=== PATIENT | male | born 1950 | race Caucasian/White ===

== ENCOUNTER → 2018-01-26 08:44 | Outpatient (CLI) | payer MEDICARE, OTHER, SELFPAY ==
[2018-01-26 09:32] LABS: Hemoglobin A1C% w Est Avg Glu 5.7 % (4.0-6.0)
[2018-01-26 10:25] LABS: Blood Urea Nitrogen 25 mg/dL (9-20); Calcium 9.3 mg/dL (8.4-10.2); Carbon Dioxide 31 mmol/L (22-32); Chloride 102 mmol/L (98-107); Estimated Glomerular Filt Rate > 60.0 mL/min (>60); Glucose 87 mg/dL (80-110); HEMOLYSIS < 15 (0-50); Potassium 4.8 mmol/L (3.4-5.1); Sodium 142 mmol/L (137-145)
== END ==
PROVIDERS: PCP Internal Medicine; Visit Provider Internal Medicine
DX: E10.9 Type 1 diabetes mellitus without complications (principal); I10 Essential (primary) hypertension; N40.0 Benign prostatic hyperplasia without lower urinary tract symptoms
CPT/HCPCS: 36415; 80048; 83036; 84153

== ENCOUNTER 2018-06-09 18:36 | Emergency (ER) | payer MEDICARE, OTHER, SELFPAY ==
[2018-06-09 18:43] VITALS: BP 177/77; PULSE 74; RESP 16; TEMP 36.2; O2SAT 100; BMI 25.4
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
[2018-06-09 19:56] VITALS: BP 167/73; PULSE 72; RESP 18; TEMP 36.6; O2SAT 99
== END 2018-06-09 19:57 | disposition home or self-care (01) ==
PROVIDERS: Emergency Provider Internal Medicine; PCP Internal Medicine
DX: S00.83XA Contusion of other part of head, initial encounter (principal); W22.8XXA Striking against or struck by other objects, initial encounter
CPT/HCPCS: 99283

== ENCOUNTER 2018-07-01 09:35 | Emergency (ER) | payer MEDICARE, OTHER, SELFPAY ==
[2018-07-01 09:52] VITALS: BP 134/91; PULSE 79; RESP 16; TEMP 37; O2SAT 97; BMI 25.8
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
[2018-07-01 11:56] VITALS: BP 149/77; PULSE 70; RESP 20; O2SAT 97
== END 2018-07-01 11:57 | disposition home or self-care (01) ==
PROVIDERS: Emergency Provider Emergency Medicine; PCP Internal Medicine
DX: J11.1 Influenza due to unidentified influenza virus with other respiratory manifestations (principal); M25.522 Pain in left elbow
CPT/HCPCS: 73502; 99282; 99283

== ENCOUNTER → 2018-08-01 14:35 | Outpatient (CLI) | payer MEDICARE, OTHER, SELFPAY ==
[2018-08-01 15:17] LABS: Hemoglobin A1C% w Est Avg Glu 5.8 % (4.0-6.0)
[2018-08-01 15:47] LABS: Blood Urea Nitrogen 25 mg/dL (9-20); Calcium 8.9 mg/dL (8.4-10.2); Carbon Dioxide 28 mmol/L (22-32); Chloride 102 mmol/L (98-107); Cholesterol 117 mg/dL (140-199); Estimated Glomerular Filt Rate > 60.0 mL/min (>60); Glucose 159 mg/dL (80-110); HDL Cholesterol 38 mg/dL (40-60); HEMOLYSIS < 15 (0-50); LDL Cholesterol Calculated 59 mg/dL (<100); Potassium 5.3 mmol/L (3.4-5.1); Sodium 139 mmol/L (137-145); Triglycerides 99 mg/dL (35-150)
== END ==
PROVIDERS: PCP Internal Medicine; Visit Provider Internal Medicine
DX: E10.9 Type 1 diabetes mellitus without complications (principal); I10 Essential (primary) hypertension
CPT/HCPCS: 36415; 80048; 80061; 83036

== ENCOUNTER 2018-09-03 13:45 | Outpatient (RCR) | payer MEDICARE, OTHER, SELFPAY ==
--- NOTE | 2018-08-16 16:35 | PT.OPPOC ---
Current Diagnoses Pain in left hip (08/16/18) Provider Visit Care Team Role Provider Type Mickey Brito MD Primary Care Provider Physician Specialty: Internal Medicine Address: [address] [place] [address], [id number] Email: Charley Acosta MD Attending Provider Physician Specialty: Internal Medicine Address: [address] [place] [address], [id number] Email: Plan Of Care PT-OP-T Assessment and Plan Start: 08/10/18 18:17 Freq: Status: Active Protocol: Document 08/16/18 09:10 LRN (Rec: 08/16/18 17:51 LRN [id number]) Physical Therapy Assessment Rehab Potential Rehabilitation Potential Good Evaluation Complexity Number of Personal Factors/Comorbidities 3 or More Number of Body Systems Impaired 3 Clinical Presentation at Evaluation Stable Impairments Impairments Activity Tolerance Functional Activities Pain ROM Soft Tissue Mobility Other Concerns Fall Risk As it pertains to being legally blind Age Related Concerns Effect on work and family Barriers to Rehabilitation Diabetes Legally Blind Arthritis with back and neck pain Goals Four Impairment 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 Pt will be able to get in/out of a bathtub without pain. LTG Duration 10/12/18 Three Impairment Constant L hip pain rated 4/10 , greater than baseline pain of 1/10 Manager Radio Goal (LTG) Return the pt to his baseline level of pain of 1/10 and no palpable pain at the L hip. LTG Duration 10/12/18 Two Impairment Decreased L hip mobility due to pain limiting function. Short Term Goal (STG) Pt will be educated in L hip home ex's to improve mobility STG Duration 08/24/18 Manager Radio Goal (LTG) Pt will be able to bend over to feed his dog and clean up after the dog stools without pain. LTG Duration 10/12/18 One Impairment Lacks appropriate HEP Penitentiary Goal (LTG) Pt will be independent with a self care HEP. LTG Duration 10/12/18 Assessment Summary Assessment Pt presents with a soft tissue dysfunction of the L hip, possible bursitis. He has limited mobility of the hip that limits him functionally due to L hip pain, and has decreased hip strength due to pain. 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 The pt will benefit from skilled physical therapy to eliminate palpable L hip pain, improve L hip mobility and return the pt to his baseline function of general pain no greater than 1/10. Physical Therapy Plan Frequency and Duration Frequency of Treatment 2x/Week Plan of Care Start Date 08/16/18 Plan of Care End Date 10/12/18 Therapeutic Interventions Therapeutic Interventions Balance Training Home Exercise Program Joint Mobilizations Manual Therapy Neuromuscular Re-education Patient/Caregiver Education Self-Care/Home Management Soft Tissue Mobilization Taping Therapeutic Exercises Modalities Cold Pack/Ice Massage Electric Stimulation Iontophoresis Ultrasound Other Therapeutic Interventions Iontophoresis: 4 mg/mL Dexamethasone with Sodium Phosphate. Next Visit Focus/Plan Next Note Type Treatment Note Next Visit Plan L hip: Ultrasound, Stretch, gentle strengthening, Iontophoresis or ice. HEP: Gentle stretches, ice. Plan of Care Dates Plan of Care Start Date 08/16/18 Plan of Care End Date 10/12/18 Please Sign and Return: I have reviewed this Plan of Care and certify that the skilled therapy services above are required to meet the patient?s needs. Physician Signature Date Printed Name and Credentials Clinical Instructor Signature Printed Name and Credentials
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
== END 2018-09-03 14:19 ==
LOC: PHYS 13:45
PROVIDERS: PCP Internal Medicine; Visit Provider Internal Medicine
DX: M25.552 Pain in left hip (principal)
CPT/HCPCS: 97035; 97110; 97140; 97161; 97535

== ENCOUNTER → 2019-03-28 06:39 | Outpatient (CLI) | payer MEDICARE, OTHER, SELFPAY ==
--- NOTE | 2019-03-28 | DI.ECHO.S_ITS ---
[facility] +---------+ [facility] +---------+ : : [address] : : : : [id number] : : : : Phone: [phone]---------+ Echocardiogram Report + + :Name: MARCELLA HAMILTON Study Date: 03/28/2019 Height: 67 in : :[facility] Weight: 160 lb : : Gender: Male BSA: 1.8 m2 : :: 1950 Age: 68 yrs BP: 138/60 mmHg: :Reason For Study: SOB : : Performed By: Adan Mendez : :Referring: LEAH WEISS : + + Interpretation Summary Left ventricular wall thickness is mildly increased. The ejection fraction is estimated to be 65-70%. The mitral valve leaflets are mildly calcified. There is systolic anterior motion of the chordal apparatus. Redundant elongated chordae are noted. Procedure: A two-dimensional transthoracic echocardiogram with color flow and Doppler was performed. The study quality was technically adequate. The patient was in normal sinus rhythm during the exam. Left Ventricle: The left ventricle is normal in size. Left ventricular wall thickness is mildly increased. The ejection fraction is estimated to be 65- 70%. There are no focal wall motion abnormalities. Right Ventricle: The right ventricle is normal in size and function. Atria: Both atria are normal in size. The interatrial septum is intact with no evidence for an atrial septal defect. Mitral Valve: The mitral valve leaflets are mildly calcified. There is systolic anterior motion of the chordal apparatus. Redundant elongated chordae are noted. There is trace mitral regurgitation. Aortic Valve: The aortic valve is trileaflet. The aortic valve opens well. There is trace aortic regurgitation. Tricuspid Valve: The tricuspid valve is normal in structure and function. There is trace tricuspid regurgitation. Pulmonary artery pressures cannot be estimated because of the lack of a measurable TR jet velocity. Pulmonic Valve: The pulmonic valve is not well visualized. There is trace pulmonic regurgitation. Great Vessels: The aortic root is normal size. The dimensions of the ascending aorta are normal. The pulmonary artery is normal size. The IVC is of normal diameter and collapses greater than 50% with a sniff. This suggests a low right atrial pressure of 3 mm Hg. Pericardium/ Pleura There is no pericardial effusion. There is no pleural effusion. MMode/2D Measurements & Calculations LVIDd: 4.1 cm LVOT diam: 2.0 cm LVIDs: 2.1 cm Ao root diam: 2.9 cm FS: 48.3 % Aortic Jxn: 2.3 cm EPSS: 0.64 cm asc Aorta Diam: 3.3 cm IVSd: 0.65 cm Ao Arch Diam (Prox Trans): 2.4 cm LVPWd: 0.86 cm LV arroyo. diameter/BSA (cm/m^2): 2.2 LV sys. diameter/BSA (cm/m^2): 1.1 LA dimension: 3.2 cm RA long axis: 4.3 cm LA A2 area: 17.2 cm2 RA area: 12.7 cm2 LA A4 area: 16.2 cm2 RA vol: 32.0 ml LA length (vol): 5.9 cm RA : 17.4 ml/m2 LA vol: 40.2 ml IVC diam: 1.4 cm LA vol index: 21.9 ml/m2 Doppler Measurements & Calculations Ao V2 max: 139.8 cm/sec LVOT Max Karl: 124.1 cm/sec Ao V2 mean: 116.8 cm/sec LV V1 max P.2 mmHg Ao max P.8 mmHg LV V1 VTI: 30.4 cm Ao mean P.6 mmHg ROHIT(I,D): 2.6 cm2 Ao V2 VTI: 36.3 cm ROHIT(V,D): 2.8 cm2 sev ratio: 0.84 ROHIT indexed to BSA (cm^2/m^2): 1.4 MV E max karl: 98.8 cm/sec PA V2 max: 112.1 cm/sec MV A max karl: 107.4 cm/sec PA V2 mean: 83.4 cm/sec MV E/A: 0.92 PA mean P.0 mmHg Med Peak E' Karl: 6.3 cm/sec PA pr(Accel): 41.6 mmHg E/E' med: 15.7 PA Accel Time: 0.08 sec Lat Peak E' Karl: 9.0 cm/sec E/E' lat: 11.0 E/e' average: 13.3 MV dec time: 0.23 sec SV(LVOT): 94.4 ml Reading Physician:04:32 PM
== END ==
PROVIDERS: PCP Internal Medicine; Visit Provider Student in an Organized Health Care Education/Training Program
DX: R06.02 Shortness of breath (principal)
CPT/HCPCS: 93306

== ENCOUNTER → 2019-05-20 15:25 | Outpatient (CLI) | payer MEDICARE, OTHER, SELFPAY ==
[2019-05-23 13:02] LABS: Mitogen-NIL > 10.00 IU/mL; NIL 0.01 IU/mL; QuantiFERON TB NEGATIVE (Negative); TB1-NIL < 0.01 IU/mL; TB2-NIL < 0.01 IU/mL
== END ==
PROVIDERS: PCP Internal Medicine; Visit Provider Internal Medicine
DX: H54.7 Unspecified visual loss (principal)
CPT/HCPCS: 36415; 86480

== ENCOUNTER 2019-06-11 17:46 | Emergency (ER) | payer MEDICARE, OTHER, SELFPAY ==
[2019-06-11 17:56] VITALS: BP 139/71; PULSE 83; RESP 16; TEMP 37.1; O2SAT 97; BMI 25.0
--- NOTE | 2019-06-11 18:07 | DI.RAD.S_ITS ---
PROCEDURE: XR CHEST 1V INDICATIONS: Eval for PNA TECHNIQUE: One view of the chest was acquired. COMPARISON: [facility], , CHEST 1 VIEW, 09/06/2015, 8:07. [facility], , CHEST 2 VIEW, 08/05/2008, 8:00. FINDINGS: Surgical changes and devices: A radiopaque electronic device projects over the right upper quadrant of the abdomen, likely external to patient. Lungs and pleura: No pneumothorax or pleural effusion. There are increased right basilar and bilateral perihilar pulmonary opacities. Mediastinum: Mediastinal contours appear normal. Heart size is normal. 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 IMPRESSION: 1. Increased right basilar pulmonary opacities may represent pneumonia, aspiration, or atelectasis in the appropriate clinical setting. Consider followup chest radiographs to resolution of this finding. 2. Bilateral perihilar pulmonary opacities most consistent with bilateral perihilar atelectasis and prominent pulmonary vasculature, although findings of viral respiratory tract infections could appear similar. Dictated by: Fly Rider M.D. on 06/11/2019 at 18:48 Approved by: Fly Rider M.D. on 06/11/2019 at 18:52
[2019-06-11 18:38] LABS: Influenza A - CEPHEID Flu A NEGATIVE (NEGATIVE); Influenza B - CEPHEID Flu B NEGATIVE (NEGATIVE)
--- NOTE | 2019-06-11 19:06 | ED_ITS ---
HPI - URI/Sore Throat General Chief Complaint: Upper Respiratory Symptoms Stated Complaint: cough for several days, not sleeping Time Seen by Provider: 06/11/19 18:06 Source: patient Mode of arrival: Ambulatory Limitations: no limitations History of Present Illness HPI Narrative: 69-year-old male here for evaluation of several days of fever, cough and congestion, shortness of breath when he walks, sore throat. His an insulin-dependent diabetic. Has not tried anything for symptoms prior to arrival Related Data Home Medications Medication Instructions Recorded Confirmed insulin lispro [Humalog U-100 0 unit SQ 0200 #0 11/21/10 Insulin] simvastatin 20 mg PO QDAY #0 11/21/10 TIMOLOL MALEATE 1 drp OPHTH QDAY #2.5 ml 12/21/12 losartan 100 mg PO QDAY #0 12/21/12 Previous Rx's Medication Instructions Recorded azithromycin 250 mg PO DAILY 3 Days #3 tab 06/11/19 azithromycin 250 mg PO DAILY 4 Days #4 tab 06/11/19 Allergies Allergy/AdvReac Type Severity Reaction Status Date / Time codeine [CODEINE] Allergy Mild Verified 06/11/19 17:56 prochlorperazine Allergy Mild Verified 06/11/19 17:56 [PROCHLORPERAZINE] Review of Systems Constitutional Constitutional: Reports fatigue and Reports fever(s) ENT Ears, Nose, Mouth, and Throat: Reports nasal congestion and Reports sore throat Cardiovascular Cardiovascular: Denies chest pain, Reports dyspnea and Reports dyspnea on exertion Respiratory Respiratory: Reports dyspnea and Reports dyspnea on exertion Gastrointestinal Gastrointestinal: Denies abdominal pain and Denies vomiting Musculoskeletal Musculoskeletal: Denies myalgias and Denies arthralgias Integumentary/Breasts Skin/Breast: Denies rash Neurologic Neurologic: Denies behavioral changes Psychiatric Psychiatric: Denies behavioral changes Endocrine Endocrine: Reports fatigue Hematologic/Lymphatic Hematologic/Lymphatic: Denies easy bleeding and Denies easy bruising Allergic/Immunologic Allergic/Immunologic: Denies urticaria Patient History Medical History HTN (hypertension) (Chronic) Hyperlipidemia (Chronic) Insulin dependent diabetes mellitus (Chronic) Legally blind (Acute) Social History Smoking Status: Never smoker Smoking Status: Never smoker Substance Use Type: does not use Exam Initial Vital Signs Initial Vital Signs: Vital Signs Temperature 98.8 F 06/11/19 17:56 Pulse Rate 83 06/11/19 17:56 Respiratory Rate 16 06/11/19 17:56 Blood Pressure 139/71 06/11/19 17:56 Pulse Oximetry 97 06/11/19 17:56 Course Orders Ordered: ED Orders 06/11/19 18:00 Influenza A & B (PCR) Stat 06/11/19 18:07 XR chest 1V Stat Discontinued Medications Azithromycin (Zithromax) 500 mg PO NOW ONE Stop: 06/11/19 19:07 Last Admin: 06/11/19 19:19 Dose: 500 mg Documented by: VIJAYA Azithromycin (Zithromax) 250 mg PO NOW ONE Stop: 06/11/19 19:29 Last Admin: 06/11/19 19:37 Dose: 250 mg Documented by: ALINA Vital Signs Vital signs: Vital Signs - 8 hr 06/11/19 17:56 Temperature 98.8 F Pulse Rate 83 Respiratory Rate 16 Blood Pressure 139/71 Pulse Oximetry 97 MDM - URI/Sore Throat Lab Data Attestation: I reviewed the patient's lab results. Labs: Lab Results 06/11/19 Range/Units 18:00 Influenza A (RT-PCR) Flu a negative (NEGATIVE) Influenza B (RT-PCR) Flu b negative (NEGATIVE) Point of Care Testing Rapid Strep A Negative Imaging Data Chest x-ray: Radiologist's Impression: [address] [address] XRay Report Signed Patient: Saul Mcmillan [facility], [place]#: [id number] : 1950Acct:[id number] Age/Sex: 69 / MDate of Service: 06/11/19 Loc: ED Accession Number: [id number] Procedure: XR chest 1V Ordering Provider: Ronald Mena D.O. PROCEDURE: XR CHEST 1V INDICATIONS: Eval for PNA TECHNIQUE: One view of the chest was acquired. COMPARISON: [facility], CHEST 1 VIEW, 09/06/2015, 8:07. [facility], CHEST 2 VIEW, 08/05/2008, 8:00. FINDINGS: Surgical changes and devices: A radiopaque electronic device projects over the right upper quadrant of the abdomen, likely external to patient. Lungs and pleura: No pneumothorax or pleural effusion. There are increased right basilar and bilateral perihilar pulmonary opacities. Mediastinum: Mediastinal contours appear normal. Heart size is normal. Bones and chest wall: Chronic yadp-wzyfwiaja-[id number] deformity of the mid- diaphysis of the left clavicle, unchanged from prior comparison exams. IMPRESSION: 1. Increased right basilar pulmonary opacities may represent pneumonia, aspiration, or atelectasis in the appropriate clinical setting. Consider followup chest radiographs to resolution of this finding. 2. Bilateral perihilar pulmonary opacities most consistent with bilateral perihilar atelectasis and prominent pulmonary vasculature, although findings of viral respiratory tract infections could appear similar. Dictated by: Fly Rider M.D. on 06/11/2019 at 18:48 Approved by: Fly Rider M.D. on 06/11/2019 at 18:52 [facility] Narrative Medical decision making narrative: Not in any respiratory distress. Not hypoxic. History and physical exam and chest x-ray is concerning for pneumonia. Was given a dose of antibiotics here in the ER. Was given a 2nd dose for tomorrow since the pharmacies will be close secondary to holiday. He was given a prescription for the remainder. Patient was given return precautions and follow-up instructions. He expressed understanding and agreement with plan. Discharge Plan Departure Patient Disposition: Home Clinical Impression: Pneumonia Qualifiers: Pneumonia type: due to unspecified organism Laterality: right Lung location: lower lobe of lung Qualified Code(s): J18.9 - Pneumonia, unspecified organism Discharge Date/Time: 06/11/19 19:40 Instructions: Pneumonia-Adult Activity Restrictions/Additional Instructions: Take the medications as directed. Contact your primary care provider for a follow up. Return to the ER for any new or worsening symptoms. Prescriptions: New azithromycin 250 mg tablet 250 mg PO DAILY 4 Days Qty: 4 RF: 0 azithromycin 250 mg tablet 250 mg PO DAILY 3 Days Qty: 3 RF: 0 No Action simvastatin 10 MG tablet 20 mg PO QDAY Qty: 0 RF: 0 insulin lispro [Humalog U-100 Insulin] 100 UNIT/1 ML solution 0 unit SQ 0200 Qty: 0 RF: 0 losartan 100 MG tablet 100 mg PO QDAY Qty: 0 RF: 0 TIMOLOL MALEATE 1 drp OPHTH QDAY Qty: 2.5 RF: 0 Referrals: Mickey Brito MD [Primary Care Provider] -
[2019-06-11] MEDS: AZITHROMYCIN 250 MG TABLET 500 MG PO (19:19)
[2019-06-11] MEDS: AZITHROMYCIN 250 MG TABLET PO (19:37)
== END 2019-06-11 19:40 | disposition home or self-care (01) ==
PROVIDERS: Emergency Medicine; Emergency Provider Emergency Medicine; PCP Internal Medicine
DX: J18.9 Pneumonia, unspecified organism (principal)
CPT/HCPCS: 71045; 87502; 87880; 99282; 99284

== ENCOUNTER → 2020-01-02 14:36 | Outpatient (ROUT) | payer MEDICARE, OTHER, SELFPAY ==
[2020-01-02 15:26] LABS: Add Manual Diff / Slide Review NO; Basophils Absolute Auto 100 /uL (0-100); Eosinophils Absolute Auto 300 /uL (0-450); Eosinophils Percent Auto 4.1 % (2-4); Hemoglobin 14.7 g/dL (13.5-17.5); Lymphocytes Absolute Auto 1600 /uL (1100-4500); Lymphocytes Percent Auto 25.2 % (25-40); Mean Corpuscular HGB Conc 35.1 % (30-36); Mean Corpuscular Hemoglobin 33.6 PG (26-34); Mean Corpuscular Volume 95.6 fL (80-100); Monocytes Absolute Auto 700 /uL (0-900); Monocytes Percent Auto 11.9 % (3-14); Neutrophils Absolute Auto 3600 /uL (1500-7000); Neutrophils Percent Auto 57.8 % (50-75); Platelet Count 218 X10^3/uL (150-400); Red Blood Cell Count 4.39 X10^6/uL (4.5-5.9); Red Cell Distribution Width 12.2 % (11.6-14.8); White Blood Cell Count 6.3 X10^3/uL (4.5-11.0)
[2020-01-02 15:31] LABS: Aspartate Aminotransferase 33 IU/L (17-59); Cholesterol 127 mg/dL (140-199); HDL Cholesterol 35 mg/dL (40-60); LDL Cholesterol Calculated 63 mg/dL (<100); Triglycerides 145 mg/dL (35-150)
[2020-01-02 15:41] LABS: NT-proBNP (BNP-Adult 18+) 289 pg/mL (<125)
[2020-01-02 17:03] LABS: Hemoglobin A1C% w Est Avg Glu 6.5 % (4.0-6.0)
[2020-01-02 21:20] LABS: BUN Creatinine Ratio 32.1 (6-22); Blood Urea Nitrogen 42 mg/dL (9-20); Calcium 9.3 mg/dL (8.4-10.2); Carbon Dioxide 27 mmol/L (22-32); Chloride 101 mmol/L (98-107); Estimated Glomerular Filt Rate 54.3 mL/min (>60); Glucose 173 mg/dL (80-110); HEMOLYSIS < 15 (0-50); Potassium 5.8 mmol/L (3.4-5.1); Sodium 135 mmol/L (137-145)
== END ==
PROVIDERS: PCP Internal Medicine; Visit Provider Internal Medicine
DX: I10 Essential (primary) hypertension (principal); E78.2 Mixed hyperlipidemia; E10.319 Type 1 diabetes mellitus with unspecified diabetic retinopathy without macular edema
CPT/HCPCS: 80048; 80061; 83036; 83880; 84450; 85025

== ENCOUNTER → 2020-01-06 13:14 | Outpatient (CLI) | payer MEDICARE, OTHER, SELFPAY ==
[2020-01-06 14:12] LABS: BUN Creatinine Ratio 33.6 (6-22); Blood Urea Nitrogen 42 mg/dL (9-20); Calcium 9.1 mg/dL (8.4-10.2); Carbon Dioxide 27 mmol/L (22-32); Chloride 102 mmol/L (98-107); Estimated Glomerular Filt Rate 57.3 mL/min (>60); Glucose 219 mg/dL (80-110); HEMOLYSIS 22 (0-50); Sodium 134 mmol/L (137-145)
[2020-01-06 14:15] LABS: Potassium 5.5 mmol/L (3.4-5.1)
== END ==
PROVIDERS: PCP Internal Medicine; Referring Provider Internal Medicine; Visit Provider Internal Medicine
DX: E87.5 Hyperkalemia (principal)
CPT/HCPCS: 36415; 80048

== ENCOUNTER → 2020-01-15 08:53 | Outpatient (CLI) | payer MEDICARE, OTHER, SELFPAY ==
[2020-01-15 10:07] LABS: BUN Creatinine Ratio 25.5 (6-22); Blood Urea Nitrogen 28 mg/dL (9-20); Calcium 9.3 mg/dL (8.4-10.2); Carbon Dioxide 28 mmol/L (22-32); Chloride 104 mmol/L (98-107); Estimated Glomerular Filt Rate > 60.0 mL/min (>60); Glucose 134 mg/dL (80-110); HEMOLYSIS < 15 (0-50); Potassium 4.8 mmol/L (3.4-5.1); Sodium 137 mmol/L (137-145)
== END ==
PROVIDERS: PCP Internal Medicine; Referring Provider Internal Medicine; Visit Provider Internal Medicine
DX: E87.5 Hyperkalemia (principal)
CPT/HCPCS: 36415; 80048

== ENCOUNTER → 2020-06-27 10:07 | Outpatient (CLI) | payer MEDICARE, OTHER, SELFPAY ==
--- NOTE | 2020-06-27 | DI.MRI.S_ITS ---
PROCEDURE: MR KNEE RT WO CON INDICATIONS: Unspecified internal derangement of right knee TECHNIQUE: Noncontrast sagittal PD fast spin echo and T2 fast spin echo with fat saturation, sagittal 3-D FLASH with fat saturation; coronal T1 spin echo and PD fast spin echo with fat saturation, and axial PD fast spin echo with fat saturation through the knee. COMPARISON: None. FINDINGS: Image quality: Excellent. Menisci: The medial meniscus is normal morphology and internal signal. Focal oblique tear involving posterior horn of lateral meniscus is seen extending to inferior articulating surface. The meniscal root ligaments appear intact. Cruciate ligaments: The anterior and posterior cruciate ligaments appear intact. Medial structures: The medial collateral ligament appears intact. The posterior oblique ligament, semimembranosus tendon insertions, oblique popliteal ligament, and meniscocapsular junction appear intact. Visualized portions of the pes anserinus tendons appear normal. No abnormal bursal fluid. Lateral structures: The lateral collateral ligament, long and short heads of the biceps femoris tendon appear intact. The popliteus tendon appears normal; the popliteofibular ligament appears intact. The posterosuperior and anteroinferior popliteomeniscal fascicles appear intact. The arcuate and fabellofibular ligaments appear intact, on either side of the lateral inferior geniculate artery. Iliotibial band appears normal. Anterior structures: The quadriceps and patellar tendons appear intact. Patellar alignment is normal. No femoral trochlear dysplasia or ventral trochlear prominence. No edema in the infrapatellar fat pad. Bones and cartilage: No fracture or dislocation. Mild osteoarthritis and low-grade chondromalacia is seen in medial and lateral femoral tibial compartments. Osteoarthritic changes and moderate grade chondromalacia involving lateral facet of patella cartilage is seen with suggestion of adjacent subcentimeter osteochondral injuries involving lateral aspect of posterior patella. Moderate to high-grade chondromalacia is also seen involving lateral portion of trochlear cartilage with marrow edema seen in underlying anterior periphery of lateral femoral condyle and suggestion of a 4 millimeter osteochondral lesion. Joint space: There is small to moderate amount of joint fluid. No Davis's cyst. Normal appearing synovial plicae are incidentally noted. IMPRESSION: 1. 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 Moderate osteoarthritic changes involving patellofemoral compartment with moderate chondromalacia involving lateral facet of patella cartilage and adjacent small osteochondral injuries involving lateral aspect of posterior patella. Moderate to high-grade chondromalacia also seen involving lateral portion of trochlear cartilage with underlying 4 mm osteochondral lesion in anterior periphery of lateral femoral condyle and surrounding edema. No fracture or dislocation. Small to moderate amount of joint fluid. 2. Suggestion of focal oblique tear involving posterior horn of lateral meniscus extending to inferior articulating surface. No evidence of focal medial meniscal tear. 3. Cruciate ligaments are intact. Dictated by: Sajan Yip M.D. on 06/29/2020 at 9:14 Approved by: Sajan Yip M.D. on 06/29/2020 at 9:20
== END ==
PROVIDERS: PCP Internal Medicine; Referring Provider Orthopaedic Surgery Adult Reconstructive Orthopaedic Surgery; Visit Provider Orthopaedic Surgery Adult Reconstructive Orthopaedic Surgery
DX: M23.91 Unspecified internal derangement of right knee (principal); M17.11 Unilateral primary osteoarthritis, right knee; M22.41 Chondromalacia patellae, right knee
CPT/HCPCS: 73721

== ENCOUNTER → 2020-07-16 11:23 | Outpatient (CLI) | payer MEDICARE, OTHER, SELFPAY ==
[2020-07-16] MEDS: COVID-19 VACC #1, MRNA(MOD) 100 MCG/0.5 ML VIAL IM (11:31)
== END ==
PROVIDERS: PCP Internal Medicine; Visit Provider Internal Medicine
DX: Z23 Encounter for immunization (principal)
CPT/HCPCS: 0011A; 91301

== ENCOUNTER → 2020-08-13 10:39 | Outpatient (CLI) | payer MEDICARE, OTHER, SELFPAY ==
[2020-08-13] MEDS: COVID-19 VACC #2, MRNA(MOD) 100 MCG/0.5 ML VIAL IM (10:52)
== END ==
PROVIDERS: PCP Internal Medicine; Visit Provider Internal Medicine
DX: Z23 Encounter for immunization (principal)
CPT/HCPCS: 0012A; 91301

== ENCOUNTER → 2020-10-08 14:44 | Outpatient (ROUT) | payer MEDICARE, OTHER, SELFPAY ==
[2020-10-08 15:19] LABS: Aspartate Aminotransferase 35 IU/L (17-59); Blood Urea Nitrogen 23 mg/dL (9-20); Calcium 9.6 mg/dL (8.4-10.2); Carbon Dioxide 30 mmol/L (22-32); Chloride 102 mmol/L (98-107); Cholesterol 125 mg/dL (140-199); Estimated Glomerular Filt Rate > 60.0 mL/min (>60); Glucose 115 mg/dL (80-110); HDL Cholesterol 41 mg/dL (40-60); HEMOLYSIS 16 (0-50); LDL Cholesterol Calculated 70 mg/dL (<100); Potassium 4.7 mmol/L (3.4-5.1); Sodium 139 mmol/L (137-145); Triglycerides 72 mg/dL (35-150)
== END ==
PROVIDERS: PCP Internal Medicine; Visit Provider Internal Medicine
DX: E78.2 Mixed hyperlipidemia (principal); I10 Essential (primary) hypertension
CPT/HCPCS: 80048; 80061; 84450

== ENCOUNTER 2020-12-16 13:30 | Outpatient (RCR) | payer MEDICARE, OTHER, SELFPAY ==
--- NOTE | 2020-11-23 11:09 | PT.OIE ---
Current Diagnoses Benign prostatic hyperplasia with lower urinary tract symptoms (11/23/20) Pelvic and perineal pain (11/23/20) Past Medical History (Last Reviewed 06/11/19 @ 22:24 by Ronald Mena DO) HTN (hypertension) Hyperlipidemia Insulin dependent diabetes mellitus Legally blind Visit Care Team Role Provider Type Mickey Brito MD Family Provider Physician Primary Care Provider Specialty: Internal Medicine Address: [address] [place] [address], [address] Email: [email or web address] Brody Harris MD Attending Provider Non-Staff Referring Provider Specialty: Urology Address: [address] [place] [address], [address] Email: Physical Therapy Initial Evaluation PT-OP-A Visit Information Start: 11/23/20 07:48 Freq: Status: Active Protocol: Document 11/23/20 08:15 AMB (Rec: 11/23/20 10:58 AMB [email or web address]) Out-Patient Physical Therapy Visit Information Visit Information Visit Type Initial Evaluation Visit Start Time 08:15 Visit Stop Time 09:00 Total Visit Minutes 45 Visit Number 1 PT-OP-B Current Condition Start: 11/23/20 07:48 Freq: Status: Active Protocol: Document 11/23/20 08:27 AMB (Rec: 11/23/20 08:51 AMB [id number]) Current Condition History of Current Condition Onset Date years Current Complaints urinary frequency and difficulty voiding History of Current Condition 2x Urosling procedures helped for a while but still have difficulty voiding and urinary frequency. He has a long history of diabetes, and is legally blind. Morning time go to the bathroom twice. Needs to go to the bathroom 7x between 5-10 am at times but feels it is very variable. Treatment Goals Patient/Caregiver Goals Reduce urinary frequency, void with less waiting to void Prior Functional Status Baseline Function- ADL's Independent Baseline Function- Mobility Independent Current Functional Impairments (Reported) Functional Limitations- ADL's Difficulty starting the stream of urine, urinary frequency Personal Factors Other Personal Factors That May Effect Diabetes I Therapy/Recovery PT-OP-C Subjective Start: 11/23/20 07:48 Freq: Status: Active Protocol: Document 11/23/20 08:15 AMB (Rec: 11/23/20 10:58 AMB [email or web address]) Patient Questionnaires Pelvic Pain and Urgency/Frequency Patient Symptom Scale Pelvic Pain Score 16 PT-OP-I Pelvic Floor Start: 11/23/20 07:48 Freq: Status: Active Protocol: Document 11/23/20 08:15 AMB (Rec: 11/23/20 10:58 AMB [email or web address]) Pelvic Floor Assessment Urine Pelvic Floor Surgery Yes: 2 urolift surgeries SEMG (uV) Baseline 7.5 Quick Contraction 20 Recruitment Pattern Good Relaxation Poor/Slow Stability of Hold Good SEMG Stability of Rest Fair PT-OP-T Assessment and Plan Start: 11/23/20 07:48 Freq: Status: Active Protocol: Document 11/23/20 08:15 AMB (Rec: 11/23/20 10:58 AMB [email or web address]) Physical Therapy Assessment Rehab Potential Rehabilitation Potential Good Evaluation Complexity Number of Personal Factors/Comorbidities 1-2 Number of Body Systems Impaired 3 Clinical Presentation at Evaluation Stable Impairments Impairments Functional Activities,Tone Goals Two Impairment Pelvic floor relaxation Short Term Goal (STG) Saul will be independent with a HEP to decrease pelvic floor tension. STG Duration 4 weeks Senior Care Goal (LTG) Saul will utilize pelvic floor relaxation to void urine without pushing. LTG Duration 8 weeks One Impairment Urinary frequency Short Term Goal (STG) Saul will decrease his urinary frequency to waiting 3 hours between voids. STG Duration 4 weeks Assessment Summary Assessment Saul attends physical therapy with urinary frequency as his major issue. He reports that he had significant urinary retention before his urosling procedure, and it is better now but not perfect. He continues to go to the bathroom multiple times per day and have difficulty initiating the stream of urine . He did show increased pelvic floor activity with biofeedback, starting at 7.5, and decreasing to 4.5 with verbal cues in sidelying. He will benefit from physical therapy for continued pelvic floor relaxation training to improve his voiding. Physical Therapy Plan Frequency and Duration Frequency of Treatment 1x/Week Duration of Treatment 8 weeks Plan of Care Start Date 11/23/20 Plan of Care End Date 01/18/21 Therapeutic Interventions Therapeutic Interventions Home Exercise Program,Manual Therapy,Neuromuscular Re- education,Self-Care/Home Management,Therapeutic Activities,Therapeutic Exercises Modalities Biofeedback,Electric Stimulation Next Visit Focus/Plan Next Note Type Treatment Note
--- NOTE | 2020-11-23 11:10 | PT.OPPOC ---
Physical, Occupational & Speech Therapy At [facility] Current Diagnoses Benign prostatic hyperplasia with lower urinary tract symptoms (11/23/20) Pelvic and perineal pain (11/23/20) Visit Care Team Role Provider Type Mickey Brito MD Family Provider Physician Primary Care Provider Specialty: Internal Medicine Address: [address] [place] [address], [address] Email: [email or web address] Brody Harris MD Attending Provider Non-Staff Referring Provider Specialty: Urology Address: [address] [place] [address], [address] Email: Plan Of Care PT-OP-T Assessment and Plan Start: 11/23/20 07:48 Freq: Status: Active Protocol: Document 11/23/20 08:15 AMB (Rec: 11/23/20 10:58 AMB [email or web address]) Physical Therapy Assessment Rehab Potential Rehabilitation Potential Good Evaluation Complexity Number of Personal Factors/Comorbidities 1-2 Number of Body Systems Impaired 3 Clinical Presentation at Evaluation Stable Impairments Impairments Functional Activities,Tone Goals Two Impairment Pelvic floor relaxation Short Term Goal (STG) Saul will be independent with a HEP to decrease pelvic floor tension. STG Duration 4 weeks Team Primary Care Physician Goal (LTG) Saul will utilize pelvic floor relaxation to void urine without pushing. LTG Duration 8 weeks One Impairment Urinary frequency Short Term Goal (STG) Saul will decrease his urinary frequency to waiting 3 hours between voids. STG Duration 4 weeks Assessment Summary Assessment Saul attends physical therapy with urinary frequency as his major issue. He reports that he had significant urinary retention before his urosling procedure, and it is better now but not perfect. He continues to go to the bathroom multiple times per day and have difficulty initiating the stream of urine . He did show increased pelvic floor activity with biofeedback, starting at 7.5, and decreasing to 4.5 with verbal cues in sidelying. He will benefit from physical therapy for continued pelvic floor relaxation training to improve his voiding. Physical Therapy Plan Frequency and Duration Frequency of Treatment 1x/Week Duration of Treatment 8 weeks Plan of Care Start Date 11/23/20 Plan of Care End Date 01/18/21 Therapeutic Interventions Therapeutic Interventions Home Exercise Program,Manual Therapy,Neuromuscular Re- education,Self-Care/Home Management,Therapeutic Activities,Therapeutic Exercises Modalities Biofeedback,Electric Stimulation Next Visit Focus/Plan Next Note Type Treatment Note Plan of Care Dates Plan of Care Start Date 11/23/20 Plan of Care End Date 01/18/21 Electronically Signed by: Helnea Sanchez, MICAH 11/23/20 0372 Please Sign and Return: I have reviewed this Plan of Care and certify that the skilled therapy services above are required to meet the patient?s needs. Physician Signature Date Printed Name and Credentials Clinical Instructor Signature Printed Name and Credentials
--- NOTE | 2020-12-02 11:51 | PT.OTN ---
Current Diagnoses Benign prostatic hyperplasia with lower urinary tract symptoms (12/02/20) Pelvic and perineal pain (12/02/20) Physical Therapy Treatment Note PT-OP-A Visit Information Start: 11/23/20 07:48 Freq: Status: Active Protocol: Document 12/02/20 08:15 AMB (Rec: 12/02/20 11:51 AMB [email or web address]) Out-Patient Physical Therapy Visit Information Visit Information Visit Type Treatment Note Visit Start Time 08:15 Visit Stop Time 09:00 Total Visit Minutes 45 Visit Number 2 PT-OP-B Current Condition Start: 11/23/20 07:48 Freq: Status: Active Protocol: Document 11/23/20 08:27 AMB (Rec: 11/23/20 08:51 AMB [id number]) Current Condition History of Current Condition Onset Date years Current Complaints urinary frequency and difficulty voiding History of Current Condition 2x Urosling procedures helped for a while but still have difficulty voiding and urinary frequency. He has a long history of diabetes, and is legally blind. Morning time go to the bathroom twice. Needs to go to the bathroom 7x between 5-10 am at times but feels it is very variable. Treatment Goals Patient/Caregiver Goals Reduce urinary frequency, void with less waiting to void Prior Functional Status Baseline Function- ADL's Independent Baseline Function- Mobility Independent Current Functional Impairments (Reported) Functional Limitations- ADL's Difficulty starting the stream of urine, urinary frequency Personal Factors Other Personal Factors That May Effect Diabetes I Therapy/Recovery PT-OP-C Subjective Start: 11/23/20 07:48 Freq: Status: Active Protocol: Document 12/02/20 08:15 AMB (Rec: 12/02/20 11:51 AMB [email or web address]) OP-PT Subjective Patient Comments Patient Comments Saul thinks maybe things have been better, but it's hard to tell because his function is so variable. PT-OP-I Pelvic Floor Start: 11/23/20 07:48 Freq: Status: Active Protocol: Document 11/23/20 08:15 AMB (Rec: 11/23/20 10:58 AMB [email or web address]) Pelvic Floor Assessment Urine Pelvic Floor Surgery Yes: 2 urolift surgeries SEMG (uV) Baseline 7.5 Quick Contraction 20 Recruitment Pattern Good Relaxation Poor/Slow Stability of Hold Good SEMG Stability of Rest Fair PT-OP-Q Treatments Start: 11/23/20 07:48 Freq: Status: Active Protocol: Document 12/02/20 08:15 AMB (Rec: 12/02/20 11:51 AMB [email or web address]) Neuro Re-Education Treatment Other Activities 1 Details sEMG Reps/Duration 45 Comments Working to reduce pelvic floor tone through feedback that this therapist provides due to pt's vision. Breathing and contract and relax worked well . Visualization and progressive relaxation didn't seem to have as much as of an effect. PT-OP-T Assessment and Plan Start: 11/23/20 07:48 Freq: Status: Active Protocol: Document 12/02/20 08:15 AMB (Rec: 12/02/20 11:51 AMB [email or web address]) Physical Therapy Assessment Assessment Summary Assessment Saul's resting tone started at 9 and at the end of the session got down to 2.8 in sidelying. But the challenge will be to transfer that over into standing. Physical Therapy Plan Next Visit Focus/Plan Next Note Type Treatment Note Next Visit Plan Follow up on breathing control and relaxation after contraction. Work in standing .
--- NOTE | 2020-12-08 10:15 | PT.OTN ---
Current Diagnoses Benign prostatic hyperplasia with lower urinary tract symptoms (12/08/20) Pelvic and perineal pain (12/08/20) Physical Therapy Treatment Note PT-OP-A Visit Information Start: 11/23/20 07:48 Freq: Status: Active Protocol: Document 12/08/20 09:00 AMB (Rec: 12/08/20 09:35 AMB [id number]) Out-Patient Physical Therapy Visit Information Visit Information Visit Type Treatment Note Visit Start Time 09:00 Visit Stop Time 09:45 Total Visit Minutes 45 Visit Number 3 PT-OP-B Current Condition Start: 11/23/20 07:48 Freq: Status: Active Protocol: Document 11/23/20 08:27 AMB (Rec: 11/23/20 08:51 AMB [id number]) Current Condition History of Current Condition Onset Date years Current Complaints urinary frequency and difficulty voiding History of Current Condition 2x Urosling procedures helped for a while but still have difficulty voiding and urinary frequency. He has a long history of diabetes, and is legally blind. Morning time go to the bathroom twice. Needs to go to the bathroom 7x between 5-10 am at times but feels it is very variable. Treatment Goals Patient/Caregiver Goals Reduce urinary frequency, void with less waiting to void Prior Functional Status Baseline Function- ADL's Independent Baseline Function- Mobility Independent Current Functional Impairments (Reported) Functional Limitations- ADL's Difficulty starting the stream of urine, urinary frequency Personal Factors Other Personal Factors That May Effect Diabetes I Therapy/Recovery PT-OP-C Subjective Start: 11/23/20 07:48 Freq: Status: Active Protocol: Document 12/08/20 09:00 AMB (Rec: 12/08/20 09:35 AMB [id number]) OP-PT Subjective Patient Comments Patient Comments Not noticing much changes, hesitant about stretches as he feels they do not really work for him in other parts of his body. PT-OP-I Pelvic Floor Start: 11/23/20 07:48 Freq: Status: Active Protocol: Document 11/23/20 08:15 AMB (Rec: 11/23/20 10:58 AMB [email or web address]) Pelvic Floor Assessment Urine Pelvic Floor Surgery Yes: 2 urolift surgeries SEMG (uV) Baseline 7.5 Quick Contraction 20 Recruitment Pattern Good Relaxation Poor/Slow Stability of Hold Good SEMG Stability of Rest Fair PT-OP-Q Treatments Start: 11/23/20 07:48 Freq: Status: Active Protocol: Document 12/08/20 09:00 AMB (Rec: 12/11/20 07:49 AMB [email or web address]) Therapeutic Exercises Supine Exercises Adductor stretch Side bilateral Comments instructed in self stretching for HEP Iliopsoas stretch Side bilateral Reps/Minutes 4' Comments Followed by active stretch x 10 PSLR Supine Exercise Name Stretch with ankle DF Side bilateral Reps/Minutes 4' Piriformis stretch Side bilateral Reps/Minutes 4' SKTC Side bilateral Reps/Minutes 4' Standing Exercises 1 Standing Exercise Name quick flicks with focus on breathing and relaxation after engagement Reps/Minutes 15' PT-OP-T Assessment and Plan Start: 11/23/20 07:48 Freq: Status: Active Protocol: Document 12/08/20 09:00 AMB (Rec: 12/11/20 07:49 AMB [email or web address]) Physical Therapy Assessment Assessment Summary Assessment So far Saul has not noticed a lot of changes, but he did notice suprapubic tension that dissapated after stretching exercises during therapy. Instructed him in adductor stretching and to see if that helps reduce overall pelvic tension at baseline. Physical Therapy Plan Next Visit Focus/Plan Next Note Type Treatment Note Next Visit Plan Last scheduled appt next visit , recheck on progress with standing to decide if pt needs more appts or not.
--- NOTE | 2020-12-16 15:44 | PT.OTN ---
Current Diagnoses Benign prostatic hyperplasia with lower urinary tract symptoms (12/16/20) Pelvic and perineal pain (12/16/20) Physical Therapy Treatment Note PT-OP-A Visit Information Start: 11/23/20 07:48 Freq: Status: Active Protocol: Document 12/16/20 13:30 AMB (Rec: 12/16/20 14:22 AMB [id number]) Out-Patient Physical Therapy Visit Information Visit Information Visit Type Treatment Note Visit Start Time 13:30 Visit Stop Time 14:15 Total Visit Minutes 45 Visit Number 4 PT-OP-B Current Condition Start: 11/23/20 07:48 Freq: Status: Active Protocol: Document 11/23/20 08:27 AMB (Rec: 11/23/20 08:51 AMB [id number]) Current Condition History of Current Condition Onset Date years Current Complaints urinary frequency and difficulty voiding History of Current Condition 2x Urosling procedures helped for a while but still have difficulty voiding and urinary frequency. He has a long history of diabetes, and is legally blind. Morning time go to the bathroom twice. Needs to go to the bathroom 7x between 5-10 am at times but feels it is very variable. Treatment Goals Patient/Caregiver Goals Reduce urinary frequency, void with less waiting to void Prior Functional Status Baseline Function- ADL's Independent Baseline Function- Mobility Independent Current Functional Impairments (Reported) Functional Limitations- ADL's Difficulty starting the stream of urine, urinary frequency Personal Factors Other Personal Factors That May Effect Diabetes I Therapy/Recovery PT-OP-C Subjective Start: 11/23/20 07:48 Freq: Status: Active Protocol: Document 12/16/20 13:30 AMB (Rec: 12/16/20 15:37 AMB [id number]) OP-PT Subjective Patient Comments Patient Comments Saul thinks things are getting a little better, but isn't super sure. Instead of needing to go to the bathroom 5 min after he voided this morning it was more like 30 minutes. PT-OP-I Pelvic Floor Start: 11/23/20 07:48 Freq: Status: Active Protocol: Document 11/23/20 08:15 AMB (Rec: 11/23/20 10:58 AMB [id number]) Pelvic Floor Assessment Urine Pelvic Floor Surgery Yes: 2 urolift surgeries SEMG (uV) Baseline 7.5 Quick Contraction 20 Recruitment Pattern Good Relaxation Poor/Slow Stability of Hold Good SEMG Stability of Rest Fair PT-OP-Q Treatments Start: 11/23/20 07:48 Freq: Status: Active Protocol: Document 12/16/20 13:30 AMB (Rec: 12/16/20 14:22 AMB [id number]) Therapeutic Exercises Standing Exercises 2 Standing Exercise Name long holds with focus on pelvic relaxation Reps/Minutes 15' 1 Standing Exercise Name quick flicks with focus on breathing and relaxation after engagement Reps/Minutes 15' PT-OP-T Assessment and Plan Start: 11/23/20 07:48 Freq: Status: Active Protocol: Document 12/16/20 13:30 AMB (Rec: 12/16/20 14:22 AMB [id number]) Physical Therapy Assessment Goals Two Impairment Pelvic floor relaxation Short Term Goal (STG) Saul will be independent with a HEP to decrease pelvic floor tension. STG Duration MET Gambling Floor Supervisor Goal (LTG) Saul will utilize pelvic floor relaxation to void urine without pushing. LTG Duration PARTIALLY MET One Impairment Urinary frequency Short Term Goal (STG) Saul will decrease his urinary frequency to waiting 3 hours between voids. STG Duration NOT MET Assessment Summary Assessment Saul has not had any suprapubic tension lately, and has improved significantly in his ability to feel his pelvic floor. He is going to try a timed voiding strategy- every 2 hours to begin with, to see how this goes and if it helps him avoid his frequency . He feels he can employ the techniques taught in physical therapy independently at this time, therefore is discharged. Physical Therapy Plan Discharge Physical Therapy Discharge Reasons Plateau in Progress Next Visit Focus/Plan Next Note Type Treatment Note Next Visit Plan .
== END 2020-12-17 07:42 | disposition home or self-care (01) ==
LOC: PHYS 13:30
PROVIDERS: Family Provider Internal Medicine; PCP Internal Medicine; Referring Provider Student in an Organized Health Care Education/Training Program; Visit Provider Student in an Organized Health Care Education/Training Program
DX: N40.1 Benign prostatic hyperplasia with lower urinary tract symptoms (principal); R10.2 Pelvic and perineal pain
CPT/HCPCS: 97110; 97112; 97162

== ENCOUNTER 2020-12-20 12:53 | Emergency (ER) | payer MEDICARE, OTHER, SELFPAY ==
[2020-12-20] VITALS (15 sets, daily range): BP systolic 146–201; BP diastolic 64–91; PULSE 74–85; RESP 13–21; TEMP 36.2; O2SAT 94–99; BMI 25.9
--- NOTE | 2020-12-20 13:59 | ED_ITS ---
HPI - General Adult General Chief complaint: Diabetic Problem Stated complaint: high blood sugar, over 400 Time Seen by Provider: 12/20/20 13:48 Source: patient and other Mode of arrival: Ambulatory Limitations: other History of Present Illness HPI narrative: Patient is a 70-year-old male with history of diabetes hy pertension hyperlipidemia is presenting with elevated blood sugars. He has a continuous glucose monitor an insulin pump. He says his insulin was recently changed from Humalog to NovoLog. He has not had any fever or chills. However his monitor has showed a significant arise. He feels slightly nauseated but no vomiting he has very minimal abdominal pain. He has not had DKA for multiple decades and has does not think that is what this is. He also is very strict with his diet. He only takes insulin and statin. He was previously on losartan but states that he is no longer on will start. Related Data Home Medications Medication Instructions Recorded Confirmed insulin lispro 100 unit/mL 0 unit SQ 0200 #0 11/21/10 subcutaneous solution (Humalog U-100 Insulin) simvastatin 10 mg tablet 20 mg PO QDAY #0 11/21/10 TIMOLOL MALEATE 1 drp OPHTH QDAY #2.5 ml 12/21/12 losartan 100 mg tablet 100 mg PO QDAY #0 12/21/12 Allergies Allergy/AdvReac Type Severity Reaction Status Date / Time codeine [CODEINE] Allergy Mild Verified 06/11/19 17:56 prochlorperazine Allergy Mild Verified 06/11/19 17:56 [PROCHLORPERAZINE] Review of Systems Review of Systems Narrative: GENERAL: Denies chills, fatigue, malaise, fever, sweats, travel HEENT: Denies sinus pain, ear pain, sore throat, difficulty swallowing, neck pain RESPIRATORY: Denies dyspnea, cough, wheezing, hemoptysis, sputum. CARDIOVASCULAR: Denies chest pain, palpitations, orthopnea, edema GASTROINTESTINAL: See HPI : Denies dysuria, frequency, incontinence, hematuria, urinary retention, flank pain. MUSCULOSKELETAL: Denies weakness, joint pain, or bony pain SKIN: No rash, no erythema, no pruritus NEUROLOGIC: Denies weakness, dizziness, headache, numbness, change in speech, confusion PSYCHIATRIC: No concerning psychosocial issues. 12 point review of systems is negative except for those stated above and HPI Patient History Medical History (Updated 12/20/20 @ 18:30 by Chelsea Wagner DO) HTN (hypertension) Hyperlipidemia Insulin dependent diabetes mellitus Legally blind Social History Smoking Status: Never smoker Smoking Status: Never smoker Substance Use Type: does not use Exam Initial Vital Signs Initial Vital Signs: Vital Signs Temperature 97.1 F L 12/20/20 13:05 Pulse Rate 82 12/20/20 13:05 Respiratory Rate 14 12/20/20 13:05 Blood Pressure 201/91 H 12/20/20 13:05 Pulse Oximetry 99 12/20/20 13:05 GENERAL: Alert well-appearing 70-year-old male and in no acute distress. HEENT: Head atraumatic, face symmetric, moist mucous membranes CARDIOVASCULAR: Regular rate and rhythm without murmurs, rubs or gallops. RESPIRATORY: Breath sounds equal bilaterally, no wheezes rales or rhonchi. ABDOMEN: Soft, nontender. Normoactive bowel sounds all 4 quadrants. No guarding or rebound. EXTREMITIES: Normal range of motion, no clubbing or edema. Neurovascularly intact NEUROLOGICAL: Alert and oriented x4.Normal gait and speech. SKIN: Warm, dry, no laceration, no petechiae, no rashes or lesions. Course Orders Ordered: ED Orders 12/20/20 14:25 Complete Blood Count AUTO DIFF Stat Comprehensive Metabolic Panel Stat Ketones (Beta-Hydroxybutyrate) Stat Lactate (Lactic Acid) Stat Procalcitonin Stat 12/20/20 17:40 Potassium Stat Discontinued Medications Dextrose (Dextrose 50 % In Water 25 Gm/50 Ml Syringe) 25 gm IV NOW ONE Stop: 12/20/20 15:03 Last Admin: 12/20/20 15:26 Dose: 25 gm Documented by: ALINA Furosemide (Furosemide 40 Mg/4 Ml Vial) 20 mg IV NOW ONE Stop: 12/20/20 15:03 Last Admin: 12/20/20 15:25 Dose: 20 mg Documented by: ALINA Sodium Chloride (Normal Saline 0.9%) 1,000 mls @ 1,000 mls/hr IV BOLUS ONE Stop: 12/20/20 14:46 Last Infusion: 12/20/20 16:12 Dose: 0 mls/hr Documented by: Admin: 12/20/20 14:20 Dose: 1,000 mls/hr Documented by: ALINA Sodium Chloride (Normal Saline 0.9%) 1,000 mls @ 1,000 mls/hr IV BOLUS ONE Stop: 12/20/20 16:01 Last Infusion: 12/20/20 17:35 Dose: 0 mls/hr Documented by: Admin: 12/20/20 16:12 Dose: 1,000 mls/hr Documented by: EDE Insulin Human Regular (Insulin Regular 100 Unit/Ml 3 Ml Vial) 5 unit IV NOW ONE Stop: 12/20/20 15:03 Last Admin: 12/20/20 15:26 Dose: 5 unit Documented by: ALINA Cosigned by: SOFIA Vital Signs Vital signs: Vital Signs - 8 hr 12/20/20 13:05 12/20/20 14:58 12/20/20 15:00 Temperature 97.1 F L Pulse Rate 82 79 74 Respiratory Rate 14 21 16 Blood Pressure 201/91 H 146/65 H Pulse Oximetry 99 94 98 12/20/20 15:15 12/20/20 15:30 12/20/20 15:45 Temperature Pulse Rate 76 80 83 Respiratory Rate 16 16 19 Blood Pressure 175/74 H Pulse Oximetry 12/20/20 15:55 12/20/20 16:00 12/20/20 16:21 Temperature Pulse Rate 81 81 Respiratory Rate 20 15 Blood Pressure 180/81 H 173/64 H Pulse Oximetry 98 99 97 12/20/20 16:23 12/20/20 16:30 12/20/20 16:45 Temperature Pulse Rate 81 85 78 Respiratory Rate 16 17 13 Blood Pressure 174/80 H 183/83 H Pulse Oximetry 98 97 98 12/20/20 17:00 12/20/20 18:42 12/20/20 18:49 Temperature Pulse Rate 81 77 78 Respiratory Rate 14 16 Blood Pressure 198/91 H 187/81 H 187/81 H Pulse Oximetry 98 98 96 Medical Decision Making Lab Data Result diagrams: 12/20/20 14:25 12/20/20 17:40 Labs: Lab Results 12/20/20 12/20/20 12/20/20 Range/Units 14:25 14:25 14:25 WBC 5.3 (4.5-11.0) X10^3/uL RBC 4.72 (4.5-5.9) X10^6/uL Hgb 15.4 (13.5-17.5) g/dL Hct 45.7 (41-53) % MCV 96.7 (80-100) fL MCH 32.7 (26-34) PG MCHC 33.8 (30-36) % RDW 12.6 (11.6-14.8) % Plt Count 199 (150-400) X10^3/uL Neut % (Auto) 72.9 (50-75) % Lymph % (Auto) 16.0 L (25-40) % [place] % (Auto) 8.4 (3-14) % Eos % (Auto) 1.5 L (2-4) % Baso % (Auto) 1.2 (0-2) % Neut # (Auto) 3900 (3699-6283) /uL Lymph # (Auto) 900 L (0651-4843) /uL [place] # (Auto) 400 (0-900) /uL Eos # (Auto) 100 (0-450) /uL Baso # (Auto) 100 (0-100) /uL Sodium 133 L (137-145) mmol/L Potassium 6.5 H* (3.4-5.1) mmol/L Chloride 99 (98-107) mmol/L Carbon Dioxide 22 (22-32) mmol/L BUN 32 H (9-20) mg/dL Creatinine 1.07 (0.66-1.25) mg/dL Estimated GFR > 60.0 (>60) mL/min BUN/Creatinine Ratio 29.9 H (6-22) Glucose 455 H (80-110) mg/dL Lactate 1.1 (0.7-2.1) mmol/L Calcium 9.0 (8.4-10.2) mg/dL Total Bilirubin 1.2 (0.2-1.3) mg/dL AST 25 (17-59) IU/L ALT 23 (<50) IU/L Alkaline Phosphatase 88 (38-126) U/L Total Protein 6.8 (6.3-8.2) g/dL Albumin 4.0 (3.5-5.0) g/dL Globulin 2.8 (1.7-4.1) g/dL Albumin/Globulin Ratio 1.4 (1.0-2.8) Procalcitonin 0.12 (<0.5) ng/mL Ketones 5.78 H (<0.27) mmol/L 12/20/20 Range/Units 17:40 WBC (4.5-11.0) X10^3/uL RBC (4.5-5.9) X10^6/uL Hgb (13.5-17.5) g/dL Hct (41-53) % MCV (80-100) fL MCH (26-34) PG MCHC (30-36) % RDW (11.6-14.8) % Plt Count (150-400) X10^3/uL Neut % (Auto) (50-75) % Lymph % (Auto) (25-40) % [place] % (Auto) (3-14) % Eos % (Auto) (2-4) % Baso % (Auto) (0-2) % Neut # (Auto) (9528-8885) /uL Lymph # (Auto) (9337-8693) /uL [place] # (Auto) (0-900) /uL Eos # (Auto) (0-450) /uL Baso # (Auto) (0-100) /uL Sodium (137-145) mmol/L Potassium 5.1 D (3.4-5.1) mmol/L Chloride (98-107) mmol/L Carbon Dioxide (22-32) mmol/L BUN (9-20) mg/dL Creatinine (0.66-1.25) mg/dL Estimated GFR (>60) mL/min BUN/Creatinine Ratio (6-22) Glucose (80-110) mg/dL Lactate (0.7-2.1) mmol/L Calcium (8.4-10.2) mg/dL Total Bilirubin (0.2-1.3) mg/dL AST (17-59) IU/L ALT (<50) IU/L Alkaline Phosphatase (38-126) U/L Total Protein (6.3-8.2) g/dL Albumin (3.5-5.0) g/dL Globulin (1.7-4.1) g/dL Albumin/Globulin Ratio (1.0-2.8) Procalcitonin (<0.5) ng/mL Ketones (<0.27) mmol/L Point of Care Testing Glucose POC 378 Urine Dip Bedside Urine Glucose 1000 mg/dl Bedside Urine Bilirubin - Negative Bedside Urine Ketone +++ 80 Urine Specific [place] 1.020 Bedside Urine Occult Blood - Negative Bedside Urine pH 6 Bedside Urine Protein - Negative Bedside Urine Urobilinogen - Negative Bedside Urine Nitrite - Negative Bedside Urine Leukocytes - Negative Esterase Point of care testing: Point of Care Testing Glucose POC 378 Urine Dip Bedside Urine Glucose 1000 mg/dl Bedside Urine Bilirubin - Negative Bedside Urine Ketone +++ 80 Urine Specific [place] 1.020 Bedside Urine Occult Blood - Negative Bedside Urine pH 6 Bedside Urine Protein - Negative Bedside Urine Urobilinogen - Negative Bedside Urine Nitrite - Negative Bedside Urine Leukocytes - Negative Esterase ECG Data Interpretation: Normal sinus rhythm rate 76 p.r. interval 170 QRS [address] changes no T-wave inversions Q-waves noted in lead 3 only MDM Narrative Medical decision making narrative: Patient is noted to be quite hyper Triny lupe with a potassium of 6.5 elevated glucose of 455. He has no anion gap and no signs of DKA. It is concerning is unclear exactly what is causing elevated glucose and elevated potassium. Patient is given IV insulin, dextrose and Lasix. Potassium is rechecked and is now within normal range at 5.1. Patient only usually runs from 4.8-5.0. At this time patient would prefer to go home and follow-up this primary care provider which I think is reasonable. He has a continuous glucose monitor along with continuous insulin pump. Recommend he have his potassium rechecked with his PCP. Discharge Plan Departure Patient Disposition: Home Clinical Impression: Acute hyperkalemia, Acute hyperglycemia Instructions: DI for Diabetes Type 1 -- Adult Activity Restrictions/Additional Instructions: *You have been diagnosed with low potassium and high glucose *What to do: At this time it is unclear what is causing her potassium to be elevated. Please be sure to have it rechecked with her primary care provider. Continue to monitor your glucose. Stay hydrated with fluids. Be sure to look at her vitamins at home and avoid any extra potassium *Continue to take medications as directed *Follow up with your primary care provider in 2-3 days *Return to ER if you should have increasing glucose, nausea, vomiting, passing out abdominal pain or any new, worsening or concerning symptoms Prescriptions: No Action simvastatin 10 MG tablet 20 mg PO QDAY Qty: 0 RF: 0 insulin lispro [Humalog U-100 Insulin] 100 UNIT/1 ML solution 0 unit SQ 0200 Qty: 0 RF: 0 losartan 100 MG tablet 100 mg PO QDAY Qty: 0 RF: 0 TIMOLOL MALEATE 1 drp OPHTH QDAY Qty: 2.5 RF: 0 Referrals: Mickey Brito MD [Primary Care Provider] -
[2020-12-20] MEDS: SODIUM CHLORIDE 0.9% 1,000 ML 1000 ML IV ×2 (14:20→16:12)
[2020-12-20 14:37] LABS: Add Manual Diff / Slide Review NO; Basophils Absolute Auto 100 /uL (0-100); Basophils Percent Auto 1.2 % (0-2); Eosinophils Absolute Auto 100 /uL (0-450); Eosinophils Percent Auto 1.5 % (2-4); Hematocrit 45.7 % (41-53); Hemoglobin 15.4 g/dL (13.5-17.5); Lymphocytes Absolute Auto 900 /uL (1100-4500); Mean Corpuscular HGB Conc 33.8 % (30-36); Mean Corpuscular Hemoglobin 32.7 PG (26-34); Mean Corpuscular Volume 96.7 fL (80-100); Monocytes Absolute Auto 400 /uL (0-900); Monocytes Percent Auto 8.4 % (3-14); Neutrophils Absolute Auto 3900 /uL (1500-7000); Neutrophils Percent Auto 72.9 % (50-75); Platelet Count 199 X10^3/uL (150-400); Red Blood Cell Count 4.72 X10^6/uL (4.5-5.9); Red Cell Distribution Width 12.6 % (11.6-14.8); White Blood Cell Count 5.3 X10^3/uL (4.5-11.0)
[2020-12-20 14:45] LABS: Lactate (Lactic Acid) 1.1 mmol/L (0.7-2.1)
[2020-12-20 14:46] LABS: Alanine Aminotransferase 23 IU/L (<50); Albumin Globulin Ratio 1.4 (1.0-2.8); Alkaline Phosphatase 88 U/L (38-126); Aspartate Aminotransferase 25 IU/L (17-59); BUN Creatinine Ratio 29.9 (6-22); Bilirubin Total 1.2 mg/dL (0.2-1.3); Blood Urea Nitrogen 32 mg/dL (9-20); Carbon Dioxide 22 mmol/L (22-32); Chloride 99 mmol/L (98-107); Estimated Glomerular Filt Rate > 60.0 mL/min (>60); Globulin 2.8 g/dL (1.7-4.1); Glucose 455 mg/dL (80-110); HEMOLYSIS < 15 (0-50); Sodium 133 mmol/L (137-145); Total Protein 6.8 g/dL (6.3-8.2)
[2020-12-20 14:49] LABS: Ketones (Beta-Hydroxybutyrate) 5.78 mmol/L (<0.27)
[2020-12-20 15:06] LABS: Procalcitonin 0.12 ng/mL (<0.5)
[2020-12-20 15:13] LABS: Potassium 6.5 mmol/L (3.4-5.1)
[2020-12-20] MEDS: FUROSEMIDE 40 MG/4 ML VIAL 20 MG IV (15:25)
[2020-12-20] MEDS: INSULIN REGULAR 100 UNIT/ML 3 ML VIAL IV (15:26)
[2020-12-20] MEDS: DEXTROSE 50 % IN WATER 25 GM/50 ML SYRINGE IV (15:26)
[2020-12-20 17:53] LABS: HEMOLYSIS 20 (0-50); Potassium 5.1 mmol/L (3.4-5.1)
== END 2020-12-20 18:49 | disposition home or self-care (01) ==
PROVIDERS: Emergency Provider Emergency Medicine; Family Provider Internal Medicine; PCP Internal Medicine
DX: E10.65 Type 1 diabetes mellitus with hyperglycemia (principal); E87.5 Hyperkalemia; Z79.4 Long term (current) use of insulin; Z96.41 Presence of insulin pump (external) (internal)
CPT/HCPCS: 36415; 80053; 81003; 82009; 82962; 83605; 84132; 84145; 85025; 93005; 99284; J1940

== ENCOUNTER 2020-12-20 22:19 | Inpatient (IN) | payer MEDICARE, OTHER, SELFPAY ==
[2020-12-20 22:38] VITALS: BP 149/67; PULSE 83; RESP 18; TEMP 36.6; O2SAT 97; BMI 25.3
[2020-12-20 22:39] VITALS: PULSE 83; O2SAT 98
--- NOTE | 2020-12-20 22:45 | DI.RAD.S_ITS ---
PROCEDURE: XR CHEST 1V INDICATIONS: chest pain TECHNIQUE: One view of the chest was acquired. COMPARISON: [facility], , XR CHEST 1V, 06/11/2019, 18:05. [facility], , CHEST 1 VIEW, 09/06/2015, 8:07. FINDINGS: Surgical changes and devices: None. Lungs and pleura: Lungs are clear. No pleural effusions or pneumothorax. Mediastinum: Mediastinal contours appear normal. Heart size is normal. Bones and chest wall: No suspicious bony lesions. Overlying soft tissues appear unremarkable. IMPRESSION: Normal for age, source of current chest pain symptoms is not seen. Dictated by: Luis Gutierrez M.D. on 12/21/2020 at 12:16 Approved by: Luis Gutierrez M.D. on 12/21/2020 at 12:16
[2020-12-20 23:00] VITALS: BP 141/63; PULSE 86; O2SAT 98
[2020-12-20 23:04] LABS: Add Manual Diff / Slide Review NO; Basophils Absolute Auto 200 /uL (0-100); Basophils Percent Auto 1.8 % (0-2); Eosinophils Absolute Auto 100 /uL (0-450); Eosinophils Percent Auto 0.7 % (2-4); Hematocrit 45.5 % (41-53); Hemoglobin 15.3 g/dL (13.5-17.5); Lymphocytes Absolute Auto 900 /uL (1100-4500); Lymphocytes Percent Auto 9.2 % (25-40); Mean Corpuscular HGB Conc 33.6 % (30-36); Mean Corpuscular Hemoglobin 32.7 PG (26-34); Mean Corpuscular Volume 97.4 fL (80-100); Monocytes Absolute Auto 700 /uL (0-900); Neutrophils Absolute Auto 7700 /uL (1500-7000); Neutrophils Percent Auto 81.3 % (50-75); Platelet Count 209 X10^3/uL (150-400); Red Blood Cell Count 4.68 X10^6/uL (4.5-5.9); Red Cell Distribution Width 12.7 % (11.6-14.8); White Blood Cell Count 9.5 X10^3/uL (4.5-11.0)
--- NOTE | 2020-12-20 23:12 | ED.CHESTPAIN ---
HPI - Chest Pain General Chief Complaint: Chest Pain Stated Complaint: high blood sugar, sick, chest pain Time Seen by Provider: 12/20/20 22:19 Source: patient and family Mode of arrival: Ambulatory Limitations: no limitations History of Present Illness HPI narrative: 70-year-old male former smoker with history of chronic pain, type 1 diabetes with insulin pump, hypertension and hyperlipidemia presents with a chief complaint of ongoing abdominal pain, nausea and vomiting. He states he was seen and evaluated here earlier today and there was some discussion about whether not he should be admitted. At the time he felt much better and preferred to go home. He also had an elevated potassium which had been treated and normalized. He denies any fever or chills. He denies dizziness but feels fatigued. He has had some episodes of chest pain without any obvious provocation or palliation and denies any exertional component. He has generalized abdominal pain and there is no clear provocation, palliation or radiation of this discomfort either. He is having bowel movements and denies any urinary complaints. Related Data Home Medications Medication Instructions Recorded Confirmed insulin lispro 100 unit/mL 0 unit SQ 0200 #0 11/21/10 subcutaneous solution (Humalog U-100 Insulin) simvastatin 10 mg tablet 20 mg PO QDAY #0 11/21/10 TIMOLOL MALEATE 1 drp OPHTH QDAY #2.5 ml 12/21/12 losartan 100 mg tablet 100 mg PO QDAY #0 12/21/12 Allergies Allergy/AdvReac Type Severity Reaction Status Date / Time codeine [CODEINE] Allergy Mild Verified 06/11/19 17:56 prochlorperazine Allergy Mild Verified 06/11/19 17:56 [PROCHLORPERAZINE] Review of Systems Review of Systems Narrative: GENERAL: Denies chills, fatigue, malaise, fever, sweats. HEENT: Denies sinus pain, ear pain, sore throat, difficulty swallowing, dizziness. RESPIRATORY: Denies dyspnea, cough, wheezing, hemoptysis, sputum. CARDIOVASCULAR: D see HPI GASTROINTESTINAL: See HPI. : See HPI MUSCULOSKELETAL: denies weakness, joint pain, or bony pain SKIN: Denies rash, skin lesions, or other NEUROLOGIC: Denies weakness, headache, numbness, change in speech, confusion, seizures, incoordination. PSYCHIATRIC: No concerning psychosocial issues. 12 point review of systems is negative except for those stated above Patient History Medical History (Updated 12/21/20 @ 06:55 by Cayetano Cintron DO) HTN (hypertension) Hyperlipidemia Insulin dependent diabetes mellitus Insulin pump in place Legally blind Social History Smoking Status: Former smoker Smoking Status: Former smoker Substance Use Type: does not use Exam Narrative Exam Narrative: GENERAL: [70] year old patient appears stated age. Well-developed patient, in mild distress. HEAD: Atraumatic. Normocephalic. EYES: Pupils equal round and reactive. Extraocular motions intact. No scleral icterus. No injection or drainage. ENT: Nose without bleeding, purulent drainage. Throat without erythema, tonsillar hypertrophy or exudate. Airway patent. NECK: Trachea midline. Non tender CARDIOVASCULAR: Regular rate and rhythm without murmurs, gallops, or rubs. RESPIRATORY: Clear to auscultation. Breath sounds equal bilaterally. No wheezes, rales, or rhonchi. GASTROINTESTINAL: Abdomen soft, generalized tenderness nondistended. EXTREMITIES: No edema or joint tenderness. BACK: Nontender without deformity or crepitance. No flank tenderness. NEURO: AOx3. SKIN: No rash or erythema of visible areas Initial Vital Signs Initial Vital Signs: Vital Signs Temperature 97.9 F 12/20/20 22:38 Pulse Rate 83 12/20/20 22:38 Respiratory Rate 18 12/20/20 22:38 Blood Pressure 149/67 H 12/20/20 22:38 Pulse Oximetry 97 12/20/20 22:38 Course Orders Ordered: ED Orders 12/20/20 22:45 XR chest 1V Stat EKG-12 Lead Stat 12/20/20 22:50 Complete Blood Count AUTO DIFF Stat Comprehensive Metabolic Panel Stat Lipase Stat Troponin & CK Cardiac Panel Stat 12/20/20 23:32 Venous Blood Gas Stat 12/20/20 23:53 COVID19 - ADMIT (BOX TENDER swab/PCR) Stat 12/21/20 EKG-12 Lead Stat 12/21/20 00:40 Troponin I Stat 12/21/20 01:39 EKG-12 Lead Stat 12/21/20 02:30 Ketones (Beta-Hydroxybutyrate) Urgent Lipid Panel Routine Potassium Urgent Troponin I Stat 12/21/20 02:46 CT angio chest abdomen Stat 12/21/20 05:48 Hemoglobin A1C% w Est Avg Glu Urgent Lactate (Lactic Acid) Urgent Acetaminophen (Acetaminophen 325 Mg Tablet) 650 mg PO Q4HR PRN PRN Reason: Fever/Mild Pain (1-3) Al Hydrox/Mg Hydrox/Simethicone (Mag Hydrox/Alum/Simeth 30 Ml Udc) 30 ml PO Q6HR PRN PRN Reason: Dyspepsia Aspirin (Aspirin Ec 81 Mg Tablet) 81 mg PO DAILY LISHA Dextrose (Dextrose 50 % In Water 25 Gm/50 Ml Syringe) 25 gm IV PRN PRN PRN Reason: Hypoglycemia Enoxaparin Sodium (Enoxaparin 40 Mg/0.4 Ml Syringe) 40 mg SUBCUT DAILY LISHA INSULIN DRIP PREMIX (Myxredlin Drip Premix) 100 unit in 100 mls @ 6 mls/hr IV TITRATE LISHA; Protocol Insulin Human Regular 100 unit (/ Sodium Chloride) 100 mls @ 6 mls/hr IV TITRATE LISHA; Protocol Morphine Sulfate (Morphine 2 Mg/Ml Inj) 2 mg IV Q5MIN PRN PRN Reason: Chest Pain Naloxone HCl (Naloxone 0.4 Mg/Ml Vial) 0.2 mg IV Q2MIN PRN PRN Reason: Opiate Reversal Nitroglycerin (Nitroglycerin 0.4 Mg Sl Tab) 0.4 mg SL [id number] PRN PRN Reason: Chest Pain Last Admin: 12/21/20 01:43 Dose: 0.4 mg Documented by: JACOB Nitroglycerin (Nitroglycerin 0.4 Mg Sl Tab) 0.4 mg SL [id number] PRN PRN Reason: Chest Pain Ondansetron HCl (Ondansetron 4 Mg/2 Ml Inj) 4 mg IV Q4HR PRN PRN Reason: Nausea And Vomiting Discontinued Medications Aspirin (Aspirin 81 Mg Chew Tab) 324 mg PO NOW ONE Stop: 12/21/20 01:40 Last Admin: 12/21/20 01:42 Dose: 324 mg Documented by: JACOB Sodium Chloride (Normal Saline 0.9%) 1,000 mls @ 1,000 mls/hr IV BOLUS ONE Stop: 12/21/20 00:31 Last Infusion: 12/21/20 01:29 Dose: 0 mls/hr Documented by: Admin: 12/20/20 23:48 Dose: 1,000 mls/hr Documented by: JACOB Sodium Chloride (Normal Saline 0.9%) 500 mls @ 1,000 mls/hr IV BOLUS ONE Stop: 12/21/20 02:35 Last Infusion: 12/21/20 03:00 Dose: 0 mls/hr Documented by: Admin: 12/21/20 02:15 Dose: 1,000 mls/hr Documented by: JACOB Metoclopramide HCl (Metoclopramide 10 Mg/2 Ml Inj) 5 mg IV NOW ONE Stop: 12/21/20 02:50 Last Admin: 12/21/20 02:59 Dose: 5 mg Documented by: JACOB Ondansetron HCl (Ondansetron 4 Mg/2 Ml Inj) 4 mg IV NOW ONE Stop: 12/21/20 01:40 Last Admin: 12/21/20 01:43 Dose: 4 mg Documented by: JACOB Reevaluation(s) Reevaluation #1: Patient seems to be having increasing episodes of chest pain, multiple EKGs obtained and no obvious ischemic change noted. He is given nitroglycerin 0.4 mg sublingual which causes a profound drop in his blood pressure from the 1 20s into the 70s. He began to get dizzy, weak and lightheaded and became significantly nauseated. With increased nausea and vomiting he had was seems to be increased vagal tone and became briefly bradycardic into the 30s. This episode rather quickly improved. He was given a fluid bolus and we did a right-sided EKG which had no significant findings. Reevaluation #2: I have had an extensive conversation and discussion with both the patient and his . The patient is a DNR and with that being said he would even refuse a heart catheterization or other intervention. He is quite okay with treating his symptoms with the medications as noted Vital Signs Vital signs: Vital Signs - 8 hr 12/20/20 23:00 12/20/20 23:30 12/21/20 00:00 Pulse Rate 86 86 87 Respiratory Rate 15 Blood Pressure 141/63 H 126/65 Pulse Oximetry 98 98 98 12/21/20 00:30 12/21/20 01:00 12/21/20 01:30 Pulse Rate 82 87 84 Respiratory Rate 13 15 13 Blood Pressure Pulse Oximetry 98 96 97 12/21/20 01:56 12/21/20 01:57 12/21/20 02:00 Pulse Rate 80 79 57 L Respiratory Rate 15 21 19 Blood Pressure 85/48 L 78/43 L Pulse Oximetry 94 94 97 12/21/20 02:01 12/21/20 02:09 12/21/20 02:30 Pulse Rate 91 H 82 52 L Respiratory Rate 24 15 27 H Blood Pressure 79/49 L 82/45 L Pulse Oximetry 95 94 92 12/21/20 02:31 12/21/20 03:00 12/21/20 03:01 Pulse Rate 73 85 85 Respiratory Rate 21 17 16 Blood Pressure 122/54 L 74/49 L 75/49 L Pulse Oximetry 94 92 95 12/21/20 03:02 12/21/20 03:03 12/21/20 03:24 Pulse Rate 83 83 80 Respiratory Rate 18 19 17 Blood Pressure 76/48 L 83/50 L 86/50 L Pulse Oximetry 94 95 93 12/21/20 03:28 12/21/20 03:30 12/21/20 04:00 Pulse Rate 76 80 86 Respiratory Rate 15 16 1 L Blood Pressure 89/51 L 85/50 L Pulse Oximetry 95 95 93 12/21/20 04:30 12/21/20 05:00 12/21/20 05:30 Pulse Rate 75 80 88 Respiratory Rate 16 16 18 Blood Pressure Pulse Oximetry 92 98 97 12/21/20 05:45 Pulse Rate 95 H Respiratory Rate 15 Blood Pressure 110/52 L Pulse Oximetry 97 MDM - Chest Pain Lab Data Result diagrams: 12/20/20 22:50 12/21/20 02:30 Labs: Lab Results 12/20/20 12/20/20 12/20/20 Range/Units 22:50 22:50 22:50 WBC 9.5 D (4.5-11.0) X10^3/uL RBC 4.68 (4.5-5.9) X10^6/uL Hgb 15.3 (13.5-17.5) g/dL Hct 45.5 (41-53) % MCV 97.4 (80-100) fL MCH 32.7 (26-34) PG MCHC 33.6 (30-36) % RDW 12.7 (11.6-14.8) % Plt Count 209 (150-400) X10^3/uL Neut % (Auto) 81.3 H (50-75) % Lymph % (Auto) 9.2 L (25-40) % [place] % (Auto) 7.0 (3-14) % Eos % (Auto) 0.7 L (2-4) % Baso % (Auto) 1.8 (0-2) % Neut # (Auto) 7700 H (7831-0992) /uL Lymph # (Auto) 900 L (0730-3367) /uL [place] # (Auto) 700 (0-900) /uL Eos # (Auto) 100 (0-450) /uL Baso # (Auto) 200 H (0-100) /uL VBG pH (7.33-7.43) VBG pCO2 (45-50) mmHg VBG pO2 (35-45) mmHg VBG HCO3 (23-28) mmol/L VBG Total CO2 (24-29) mmol/L VBG O2 Saturation (70-75) % VBG Base Excess (0-4) mmol/L Sodium 134 L (137-145) mmol/L Potassium 5.8 H (3.4-5.1) mmol/L Chloride 98 (98-107) mmol/L Carbon Dioxide 19 L (22-32) mmol/L BUN 36 H (9-20) mg/dL Creatinine 1.20 (0.66-1.25) mg/dL Estimated GFR 59.9 L (>60) mL/min BUN/Creatinine Ratio 30.0 H (6-22) Glucose 464 H (80-110) mg/dL Lactate 1.2 (0.7-2.1) mmol/L Calcium 9.0 (8.4-10.2) mg/dL Total Bilirubin 1.0 (0.2-1.3) mg/dL AST 24 (17-59) IU/L ALT 23 (<50) IU/L Alkaline Phosphatase 93 (38-126) U/L Total Creatine Kinase 66 (55-170) U/L CK-MB (CK-2) TNP CK-MB (CK-2) Rel Index TNP Troponin I < 0.012 (0.01-0.034) ng/mL Total Protein 6.8 (6.3-8.2) g/dL Albumin 4.0 (3.5-5.0) g/dL Globulin 2.8 (1.7-4.1) g/dL Albumin/Globulin Ratio 1.4 (1.0-2.8) Triglycerides (35-150) mg/dL Cholesterol (140-199) mg/dL LDL Cholesterol, Calc (<100) mg/dL HDL Cholesterol (40-60) mg/dL Lipase 61 (23-300) U/L Ketones (<0.27) mmol/L SARS-CoV-2 (PCR) (Negative) 12/20/20 12/20/20 12/21/20 Range/Units 23:32 23:53 00:40 WBC (4.5-11.0) X10^3/uL RBC (4.5-5.9) X10^6/uL Hgb (13.5-17.5) g/dL Hct (41-53) % MCV (80-100) fL MCH (26-34) PG MCHC (30-36) % RDW (11.6-14.8) % Plt Count (150-400) X10^3/uL Neut % (Auto) (50-75) % Lymph % (Auto) (25-40) % [place] % (Auto) (3-14) % Eos % (Auto) (2-4) % Baso % (Auto) (0-2) % Neut # (Auto) (3377-6704) /uL Lymph # (Auto) (7254-8875) /uL [place] # (Auto) (0-900) /uL Eos # (Auto) (0-450) /uL Baso # (Auto) (0-100) /uL VBG pH 7.28 L (7.33-7.43) VBG pCO2 41.7 L (45-50) mmHg VBG pO2 48 H (35-45) mmHg VBG HCO3 20 L (23-28) mmol/L VBG Total CO2 21 L (24-29) mmol/L VBG O2 Saturation 78 H (70-75) % VBG Base Excess -7.0 L (0-4) mmol/L Sodium (137-145) mmol/L Potassium (3.4-5.1) mmol/L Chloride (98-107) mmol/L Carbon Dioxide (22-32) mmol/L BUN (9-20) mg/dL Creatinine (0.66-1.25) mg/dL Estimated GFR (>60) mL/min BUN/Creatinine Ratio (6-22) Glucose (80-110) mg/dL Lactate (0.7-2.1) mmol/L Calcium (8.4-10.2) mg/dL Total Bilirubin (0.2-1.3) mg/dL AST (17-59) IU/L ALT (<50) IU/L Alkaline Phosphatase (38-126) U/L Total Creatine Kinase (55-170) U/L CK-MB (CK-2) CK-MB (CK-2) Rel Index Troponin I 0.014 (0.01-0.034) ng/mL Total Protein (6.3-8.2) g/dL Albumin (3.5-5.0) g/dL Globulin (1.7-4.1) g/dL Albumin/Globulin Ratio (1.0-2.8) Triglycerides (35-150) mg/dL Cholesterol (140-199) mg/dL LDL Cholesterol, Calc (<100) mg/dL HDL Cholesterol (40-60) mg/dL Lipase (23-300) U/L Ketones (<0.27) mmol/L SARS-CoV-2 (PCR) Negative (Negative) 12/21/20 12/21/20 Range/Units 02:30 02:30 WBC (4.5-11.0) X10^3/uL RBC (4.5-5.9) X10^6/uL Hgb (13.5-17.5) g/dL Hct (41-53) % MCV (80-100) fL MCH (26-34) PG MCHC (30-36) % RDW (11.6-14.8) % Plt Count (150-400) X10^3/uL Neut % (Auto) (50-75) % Lymph % (Auto) (25-40) % [place] % (Auto) (3-14) % Eos % (Auto) (2-4) % Baso % (Auto) (0-2) % Neut # (Auto) (5706-0707) /uL Lymph # (Auto) (9491-6832) /uL [place] # (Auto) (0-900) /uL Eos # (Auto) (0-450) /uL Baso # (Auto) (0-100) /uL VBG pH (7.33-7.43) VBG pCO2 (45-50) mmHg VBG pO2 (35-45) mmHg VBG HCO3 (23-28) mmol/L VBG Total CO2 (24-29) mmol/L VBG O2 Saturation (70-75) % VBG Base Excess (0-4) mmol/L Sodium (137-145) mmol/L Potassium 5.4 H (3.4-5.1) mmol/L Chloride (98-107) mmol/L Carbon Dioxide (22-32) mmol/L BUN (9-20) mg/dL Creatinine (0.66-1.25) mg/dL Estimated GFR (>60) mL/min BUN/Creatinine Ratio (6-22) Glucose (80-110) mg/dL Lactate (0.7-2.1) mmol/L Calcium (8.4-10.2) mg/dL Total Bilirubin (0.2-1.3) mg/dL AST (17-59) IU/L ALT (<50) IU/L Alkaline Phosphatase (38-126) U/L Total Creatine Kinase (55-170) U/L CK-MB (CK-2) CK-MB (CK-2) Rel Index Troponin I 0.017 (0.01-0.034) ng/mL Total Protein (6.3-8.2) g/dL Albumin (3.5-5.0) g/dL Globulin (1.7-4.1) g/dL Albumin/Globulin Ratio (1.0-2.8) Triglycerides 61 (35-150) mg/dL Cholesterol 109 L (140-199) mg/dL LDL Cholesterol, Calc 50 (<100) mg/dL HDL Cholesterol 47 (40-60) mg/dL Lipase (23-300) U/L Ketones 10.12 H (<0.27) mmol/L SARS-CoV-2 (PCR) (Negative) Point of Care Testing Glucose POC 472 MDM Narrative Medical decision making narrative: Patient with multiple symptoms including nausea, vomiting VBG notes acidosis, bicarb of 19, with elevated glucose, his pump was disconnected and insulin drip started. Discharge Plan Departure Patient Disposition: Admitted As Inpatient Clinical Impression: DKA, type 1 Admit Date/Time: 12/21/20 05:51 Admit Provider: Ellen Brunson
[2020-12-20 23:20] LABS: Alanine Aminotransferase 23 IU/L (<50); Albumin Globulin Ratio 1.4 (1.0-2.8); Alkaline Phosphatase 93 U/L (38-126); Aspartate Aminotransferase 24 IU/L (17-59); Blood Urea Nitrogen 36 mg/dL (9-20); Carbon Dioxide 19 mmol/L (22-32); Chloride 98 mmol/L (98-107); Creatine Kinase 66 U/L (55-170); Estimated Glomerular Filt Rate 59.9 mL/min (>60); Globulin 2.8 g/dL (1.7-4.1); Glucose 464 mg/dL (80-110); HEMOLYSIS < 15 (0-50); Lipase 61 U/L (23-300); Sodium 134 mmol/L (137-145); Total Protein 6.8 g/dL (6.3-8.2)
[2020-12-20 23:22] LABS: Potassium 5.8 mmol/L (3.4-5.1)
[2020-12-20 23:30] VITALS: BP 126/65; PULSE 86; O2SAT 98
[2020-12-20 23:32] LABS: Troponin I < 0.012 ng/mL (0.01-0.034)
[2020-12-20] MEDS: SODIUM CHLORIDE 0.9% 1,000 ML 1000 ML IV (23:48)
[2020-12-21] VITALS (36 sets, daily range): BP systolic 74–122; BP diastolic 43–59; PULSE 52–95; RESP 1–27; TEMP 36.7–37.5; O2SAT 92–98; BMI 25.2
[2020-12-21] LABS: pH VBG 7.28 (7.33-7.43)
[2020-12-21 00:01] LABS: HCO3 VBG 20 mmol/L (23-28); Oxygen Saturation VBG 78 % (70-75); PCO2 VBG 41.7 mmHg (45-50); PO2 VBG 48 mmHg (35-45); Total CO2 VBG 21 mmol/L (24-29)
[2020-12-21 00:53] LABS: COVID19 - ADMIT (NP swab/PCR) Negative (Negative)
[2020-12-21 01:09] LABS: Troponin I 0.014 ng/mL (0.01-0.034)
[2020-12-21] MEDS: ASPIRIN 81 MG CHEW TAB 324 MG PO (01:42)
[2020-12-21] MEDS: NITROGLYCERIN 0.4 MG SL TAB SL (01:43)
[2020-12-21] MEDS: ONDANSETRON 4 MG/2 ML INJ IV ×2 (01:43→07:11)
--- NOTE | 2020-12-21 02:06 | PC.NURSE ---
Patient endorsed Left arm pain and nausea; repeat EKG done, zofran, aspirin given and SL Nitro given with sharp drop in NIBP.
[2020-12-21] MEDS: SODIUM CHLORIDE 0.9% 500 ML 1000 ML IV (02:15)
--- NOTE | 2020-12-21 02:46 | DI.CT.S_ITS ---
PROCEDURE: CT ANGIO CHEST ABDOMEN INDICATIONS: chest pain, neck pain, back pain, arm pain TECHNIQUE: Precontrast 5 mm thick sections acquired from the lung apices to the iliac crests. After the administration of intravenous contrast, 2.5 mm thick sections again acquired from the lung apices to the iliac crests. 10 mm maximum intensity projection (MIP) oblique sagittal and coronal reformats were then acquired. For radiation dose reduction, the following was used: automated exposure control. COMPARISON: None. FINDINGS: Image quality: Excellent. AORTA: Intramural hematoma: Absent Maximum hematoma thickness: Not applicable. Focal contrast enhancement: Intramural blood pool (< 2 mm neck or imperceptible communication with aortic lumen): Absent . Ulcer-like projection (broad communication with aortic lumen > 3 mm): Absent . Dissection: Absent [place] classification: Not applicable Maximum aortic diameter: Normal CHEST: Lungs and pleura: No acute airspace opacities. No pleural effusions or pneumothorax. Central and peripheral airways are patent and normal in caliber. Mediastinum: Heart size is normal. No pericardial effusion. No mediastinal or hilar adenopathy by size criteria. Central pulmonary arteries are normal in size. Esophagus is normal in caliber. No hiatal hernias. Bones and chest wall: No axillary adenopathy by size criteria. Thyroid gland appears normal where well seen . No suspicious bony lesions. No vertebral body compression fractures. ABDOMEN: Vasculature: Celiac trunk and mesenteric arteries are patent. Renal arteries are also patent. Solid organs: Liver is normal in size and enhancement. Gallbladder normal. . Biliary system is non dilated. Pancreas enhances normally. Spleen is normal in size and enhancement. No adrenal nodules. Both kidneys are normal in size and enhancement, without hydronephrosis. Peritoneum and bowel: No free fluid or air. Bowel loops are normal in caliber and wall thickness. Nodes and vessels: No retroperitoneal or mesenteric adenopathy by size criteria. Inferior vena cava is normal in morphology. Bones: No suspicious bony lesions. No vertebral body compression fractures. Miscellaneous: No ventral hernias. IMPRESSION: No sign of aneurysm, dissection, or embolic disease. No pulmonary embolus seen. Mild interstitial prominence involving the lung parenchyma, perhaps reflecting a prior smoking history. Source of current symptoms is not found. Dictated by: Luis Gutierrez M.D. on 12/21/2020 at 8:49 Approved by: Luis Gutierrez M.D. on 12/21/2020 at 8:51
[2020-12-21] MEDS: METOCLOPRAMIDE 10 MG/2 ML INJ 5 MG IV (02:59)
[2020-12-21 03:01] LABS: Troponin I 0.017 ng/mL (0.01-0.034)
--- NOTE | 2020-12-21 04:52 | PC.NURSE ---
Ellyn: [phone] --gone home at 0500 to feed dog; will return @ 0600. Please call if anything comes up.
--- NOTE | 2020-12-21 05:53 | DI.ECHO.S_ITS ---
[facility]---------[facility] +---------+ : : [address] : : : : [id number] : : : : Phone: [phone]+ Echocardiogram Report + + :Name: MARCELLA HAMITLON Study Date: 12/21/2020 Height: 66 in : :[facility] ReadingLocation: Weight: 157 lb : : Gender: Male BSA: 1.8 m2 : :: 1950 Age: 70 yrs BP: 109/56 mmHg: :Reason For Study: Chest pain : :Ordering Physician: AMADOU, : :JASON Joy Performed By: Danny Cuenca : :Referring: JASON TOBAR : + + Interpretation Summary Left ventricular systolic function is mildly hyperdynamic with an estimated ejection fraction of 70 to 75% without any focal wall motion abnormality and appears slightly more dynamic compared to the previous study. Left ventricular size and wall thickness appear normal. There is now significant systolic anterior motion of the anterior mitral valve leaflet likely producing significant outflow tract obstruction with a peak LVOT velocity of 4.2 m/s predicting an outflow tract gradient of 70 mmHg, much more prominent compared to the previous study. Diastolic function cannot be accurately assessed. The right ventricle appears normal and unchanged from the previous study. Right ventricular systolic pressure is estimated at 45 mmHg with a CVP of 3 mmHg. Both atria are normal in size and unchanged from the previous exam. There is no significant functional valvular abnormality. Procedure: A two-dimensional transthoracic echocardiogram with color flow and Doppler was performed. The study quality was technically adequate. Comparison is made with the echocardiogram of 03/28/2019. The patient was in sinus rhythm with heart rates between 86-90 bpm during the exam. Left Ventricle: The left ventricle is normal in size and wall thickness. Proximal septal thickening is noted. The echo findings are consistent with left ventricular outflow obstruction. The LVOT velocity is 4.2 m/s. with a peak gradient of 70mmHg. This is progressive compared to the previous study. The left ventricle is hyperdynamic. The ejection fraction is estimated to be 70-75%. There are no focal wall motion abnormalities. This is more dynmaic compared to the previous study. Diastolic function could not be accurately assessed due to unobtainable data. Right Ventricle: The right ventricle is normal in size and function. This is unchanged compared to the previous study. Atria: Both atria are normal in size. This is unchanged compared to the previous study. There is no Doppler evidence for an interatrial shunt. Mitral Valve: There is mild to moderate mitral annular calcification. The mitral valve leaflets appear moderately thickened, but open well. There is systolic anterior motion of the mitral valve. This is more prominent compared to the previous study. There is trace mitral regurgitation. The mitral regurgitant jet is eccentrically directed. Aortic Valve: There is mild aortic valve sclerosis. The aortic valve opens well. No aortic regurgitation is present. Tricuspid Valve: The tricuspid valve is normal in structure and function. There is trace tricuspid regurgitation. The right ventricular systolic pressure is estimated to be at least 45 mmHg based on an estimated right atrial pressure of 3 mm Hg. Pulmonic Valve: The pulmonic valve is not well seen, but is grossly normal. There is a trace or physiologic amount of pulmonic regurgitation. Great Vessels: The aortic root is normal size. The dimensions of the ascending aorta are normal. The IVC is of normal diameter and collapses greater than 50% with a sniff. This suggests a low right atrial pressure of 3 mm Hg. Pericardium/ Pleura There is no pericardial effusion. There is no pleural effusion. MMode/2D Measurements & Calculations LVIDd: 4.5 cm LVOT diam: 2.0 cm LVIDs: 2.5 cm Ao root diam: 2.7 cm FS: 44.3 % asc Aorta Diam: 2.7 cm IVSd: 1.1 cm LVPWd: 0.88 cm LV arroyo. diameter/BSA (cm/m^2): 2.5 LV sys. diameter/BSA (cm/m^2): 1.4 LA A2 area: 17.0 cm2 RA long axis: 4.6 cm LA A4 area: 14.4 cm2 RA area: 11.8 cm2 LA length (vol): 5.3 cm RA vol: 25.7 ml LA vol: 39.3 ml RA : 14.2 ml/m2 LA vol index: 21.8 ml/m2 IVC diam: 1.6 cm Doppler Measurements & Calculations LVOT Max Karl: 417.1 cm/sec MV E max karl: 127.3 cm/sec LV V1 max P.6 mmHg MV A max karl: 126.0 cm/sec MV E/A: 1.0 MV dec time: 0.24 sec TR max karl: 324.4 cm/sec TR max P.1 mmHg PA pr(Accel): 33.6 mmHg Reading Physician:01:15 PM
--- NOTE | 2020-12-21 05:58 | PM.HP.1 ---
History of Present Illness <Ellen SUPRIYA Brunson-BC - Last Filed: 12/21/20 06:50> History of Present Illness Date Patient Seen: 12/21/20 Time Patient Seen: 05:58 Chief complaint: high blood sugar, sick, chest pain Narrative: Upon admit patient denies chest pain, shortness of breath, nausea, vomiting, diarrhea, chills, body ache, fever, cough, numbness, weakness, changes in vision, headache, recent illness, injury or trauma. Patient has insulin-dependent type 1 diabetes and is on a pump, essential hypertension, hyperlipidemia, and is legally blind. Patient's vitals upon admit were stable BP 126/65, HR 87, RR 15, O2 saturation 90% on room air. Dr. Choudhury in the ED reported to me that the patient has a very sensitive vagal response especially in light of blood pressure lowering medications. Patients labs demonstrate metabolic acidosis, almost DKA. Patient reports that he has been dosing insulin with his pump in the ED overnight without improvement in his blood sugars. VBGs: PH 7.28, pCO2 41.7, PO2 48, HC03 20, total CO2 21, O2 sat 78%, base excess -7.0. Patient has anion gap of 17. Patient has a sodium of 134, BUN of 36, hyperkalemia with a potassium of 5.8,HC03 of 19, glucose of 464, GFR 59.9. Serum Ketones 10.12, patient's troponins were within normal limits but slowly increasing 1# 0.012, 2# 0.014, 3# 0.017. Patient's chest abdomen CTA was negative for PE, acute cardiopulmonary processes as was the patient's chest x-ray. Patients EKG had a normal sinus rhythm with ventricular rate of 81 with a septal infarct of undetermined age. Dr. Choudhury in the ED inquired as to the patient's willingness to be transported to another facility for advanced cardiac interventions and the patient declined at this time. Patient will be admitted to the ICU for chest pain rule out, hyperglycemia, metabolic acidosis on an insulin drip. Patient History <SUPRIYA Sotelo-BC - Last Filed: 12/21/20 06:50> Medical History (Updated 12/21/20 @ 06:55 by Cayetano Cintron DO) HTN (hypertension) Hyperlipidemia Insulin dependent diabetes mellitus Insulin pump in place Legally blind Family & Social History Safety & Behavioral: Feels Safe in Current Yes Environment Been Physically Hurt or No Threatened By a Person Tobacco & Substance use: Smoking Status Former smoker Substance Use Type does not use Meds <[facility] - Last Filed: 12/21/20 06:50> Home Medications and Allergies Home Medications Medication Instructions Recorded Confirmed Type insulin lispro 100 unit/mL 0 unit SQ 0200 #0 11/21/10 12/21/20 History subcutaneous solution (Humalog U-100 Insulin) simvastatin 10 mg tablet 20 mg PO QDAY #0 11/21/10 12/21/20 History TIMOLOL MALEATE 1 drp OPHTH QDAY #2.5 ml 12/21/12 12/21/20 History losartan 100 mg tablet 100 mg PO QDAY #0 12/21/12 12/21/20 History Allergies Allergy/AdvReac Type Severity Reaction Status Date / Time codeine [CODEINE] Allergy Mild Verified 06/11/19 17:56 prochlorperazine Allergy Mild Verified 06/11/19 17:56 [PROCHLORPERAZINE] Review of Systems <[facility] - Last Filed: 12/21/20 06:50> Review of Systems Narrative: Patient denies any signs or symptoms at this time, then otherwise documented in HPI. Exam <[facility] - Last Filed: 12/21/20 06:50> Vital Signs (past 8 hours): - 12/20/20 22:38 12/20/20 22:39 12/20/20 23:00 Temperature 97.9 F Pulse Rate 83 83 86 Respiratory Rate 18 Blood Pressure 149/67 H 141/63 H Pulse Oximetry 97 98 98 12/20/20 23:30 12/21/20 00:00 12/21/20 00:30 Temperature Pulse Rate 86 87 82 Respiratory Rate 15 13 Blood Pressure 126/65 Pulse Oximetry 98 98 98 12/21/20 01:00 12/21/20 01:30 12/21/20 01:56 Temperature Pulse Rate 87 84 80 Respiratory Rate 15 13 15 Blood Pressure 85/48 L Pulse Oximetry 96 97 94 12/21/20 01:57 12/21/20 02:00 12/21/20 02:01 Temperature Pulse Rate 79 57 L 91 H Respiratory Rate 21 19 24 Blood Pressure 78/43 L 79/49 L Pulse Oximetry 94 97 95 12/21/20 02:09 12/21/20 02:30 12/21/20 02:31 Temperature Pulse Rate 82 52 L 73 Respiratory Rate 15 27 H 21 Blood Pressure 82/45 L 122/54 L Pulse Oximetry 94 92 94 12/21/20 03:00 12/21/20 03:01 12/21/20 03:02 Temperature Pulse Rate 85 85 83 Respiratory Rate 17 16 18 Blood Pressure 74/49 L 75/49 L 76/48 L Pulse Oximetry 92 95 94 12/21/20 03:03 12/21/20 03:24 12/21/20 03:28 Temperature Pulse Rate 83 80 76 Respiratory Rate 19 17 15 Blood Pressure 83/50 L 86/50 L 89/51 L Pulse Oximetry 95 93 95 12/21/20 03:30 12/21/20 04:00 12/21/20 04:30 Temperature Pulse Rate 80 86 75 Respiratory Rate 16 1 L 16 Blood Pressure 85/50 L Pulse Oximetry 95 93 92 12/21/20 05:00 12/21/20 05:30 12/21/20 05:45 Temperature Pulse Rate 80 88 95 H Respiratory Rate 16 18 15 Blood Pressure 110/52 L Pulse Oximetry 98 97 97 Oxygen Delivery Method Room Air Narrative Exam Narrative: General: Patient is a well-developed, well-nourished in no distress at this time. HEENT: Normocephalic, atraumatic, extraocular muscles intact, oral pharynx is clear and mucous membranes are moist. Neck is supple and symmetric, trachea is midline, no adenopathy, no thyroid enlargement, nontender, no masses palpated. Negative for JVD Chest: Normal AP diameter and contour without kyphoscoliosis, no nasal flaring, retractions, or tachypneic labored Lungs: Auscultation of all lung chavez are clear without adventitious sounds, wheezes, rhonchi, or rales. Cardio: S1 & S2 with regular rate and rhythm without murmur, rubs, or gallops, no carotid bruit, no cardiac pulsations present. Abdomen: Soft nontender, negative for organomegaly, or masses. Bowel sounds are present in all 4 quadrants without guarding or rebound, no CVA tenderness. Musculoskeletal: Muscle strength and tone are equal within normal limits, no deformity, crepitus, effusions, cyanosis, clubbing or edema present. Full range of motion intact radial and pedal pulses are normal. Skin: Warm dry and intact without rashes, ulcerations or petechiae. Neuro: Alert and orientated x3, strength is +5/5 in all extremities, sensation to touch intact, no gross deficits noted of cranial nerves. Psych: Patient has a well-kept appearance, appropriate affect, mental status attitude thought context and judgment are appropriate for age. Objective <Ellen Brunson, RETAIL SHIFT LEADER-BC - Last Filed: 12/21/20 06:50> Labs Result Diagrams: 12/20/20 22:50 12/21/20 02:30 Labs: Laboratory Results - last 24 hr 12/20/20 12/20/20 12/20/20 22:50 22:50 23:32 WBC 9.5 D RBC 4.68 Hgb 15.3 Hct 45.5 MCV 97.4 MCH 32.7 MCHC 33.6 RDW 12.7 Plt Count 209 Neut % (Auto) 81.3 H Lymph % (Auto) 9.2 L [place] % (Auto) 7.0 Eos % (Auto) 0.7 L Baso % (Auto) 1.8 Neut # (Auto) 7700 H Lymph # (Auto) 900 L [place] # (Auto) 700 Eos # (Auto) 100 Baso # (Auto) 200 H VBG pH 7.28 L VBG pCO2 41.7 L VBG pO2 48 H VBG HCO3 20 L VBG Total CO2 21 L VBG O2 Saturation 78 H VBG Base Excess -7.0 L Sodium 134 L Potassium 5.8 H Chloride 98 Carbon Dioxide 19 L BUN 36 H Creatinine 1.20 Estimated GFR 59.9 L BUN/Creatinine Ratio 30.0 H Glucose 464 H Calcium 9.0 Total Bilirubin 1.0 AST 24 ALT 23 Alkaline Phosphatase 93 Total Creatine Kinase 66 CK-MB (CK-2) TNP CK-MB (CK-2) Rel Index TNP Troponin I < 0.012 Total Protein 6.8 Albumin 4.0 Globulin 2.8 Albumin/Globulin Ratio 1.4 Lipase 61 SARS-CoV-2 (PCR) 12/20/20 12/21/20 12/21/20 23:53 00:40 02:30 WBC RBC Hgb Hct MCV MCH MCHC RDW Plt Count Neut % (Auto) Lymph % (Auto) [place] % (Auto) Eos % (Auto) Baso % (Auto) Neut # (Auto) Lymph # (Auto) [place] # (Auto) Eos # (Auto) Baso # (Auto) VBG pH VBG pCO2 VBG pO2 VBG HCO3 VBG Total CO2 VBG O2 Saturation VBG Base Excess Sodium Potassium Chloride Carbon Dioxide BUN Creatinine Estimated GFR BUN/Creatinine Ratio Glucose Calcium Total Bilirubin AST ALT Alkaline Phosphatase Total Creatine Kinase CK-MB (CK-2) CK-MB (CK-2) Rel Index Troponin I 0.014 0.017 Total Protein Albumin Globulin Albumin/Globulin Ratio Lipase SARS-CoV-2 (PCR) Negative Assessment & Plan <SUPRIYA Sotelo-BC - Last Filed: 12/21/20 06:50> Assessment & Plan narrative: 1. Chest pain, acute, present on admission, in the setting of hypertension and hyperlipidemia, chronic, present on admission -Rule out myocardial ischemia, ACS, CAD, aortic dissection Heart score:7 , GCS score:15, PERC score:0, Maurice Vasc score: 2 (2.2%) -Continuous tele monitoring and order echo, and stress test for tomorrow -Serial troponins #1 0.012, #2 0.014, #3 0.017-In the ED patient refused transfer to another facility for advanced cardiac interventions at this time. -sublingual nitro glycerin 0.4 mg, aspirin 325 mg-then 81mg QD -Monitor for hypertensive emergencies with acute end-organ damage, ventricular tachycardia, unstable SVT, hypertension, angina or OK, heart failure, renal function. - Goals: reducing blood pressure over 24-48 hours, not more than 25-30% in the 1st 24 hours. O2 to keep O2 sats greater than 92% potassium > 4 and Mag > 2 2. Metabolic acidosis in the setting of hyperglycemia with insulin-dependent type 1 diabetes on insulin pump (pump failure), acute on chronic, present on admission -patient states that he has been dosing appropriately while in the ED via his pump and the patient has had no improvement in his blood sugars, patient has been requested to disconnect his pump and we will place him on insulin drip. -initiate insulin drip per protocol -monitor for hypoglycemia -patient not quite in DKA has anion gap of 17-repeat VBG tomorrow &/or as needed -patient admitted to the ICU under diabetes protocol, blood sugar checks Q hour, vital signs q.4 hours, I&O Q shift, daily weights, Diet: NPO 3. Essential hypertension, chronic, present on admission -will continue patient's losartan once he is no longer NPO 4. Hyperlipidemia as a result of diabetes, chronic, present on admission -continue patient's simvastatin when no longer NPO 5. Legally blind result of diabetes, chronic, present on admission -facilitate communication and Education for the vision impaired Code status: Surrogate decision maker: SHABNAM PCR: DVT/VTE prophylaxis: Lovenox 40 mg and SCDs Estimated length of stay: Less than 2 midnights
[2020-12-21 06:16] LABS: Cholesterol 109 mg/dL (140-199); HDL Cholesterol 47 mg/dL (40-60); HEMOLYSIS 45 (0-50); LDL Cholesterol Calculated 50 mg/dL (<100); Triglycerides 61 mg/dL (35-150)
[2020-12-21 06:17] LABS: Lactate (Lactic Acid) 1.2 mmol/L (0.7-2.1)
[2020-12-21 06:19] LABS: Ketones (Beta-Hydroxybutyrate) 10.12 mmol/L (<0.27)
[2020-12-21 06:25] LABS: Potassium 5.4 mmol/L (3.4-5.1)
[2020-12-21 06:44] LABS: Hemoglobin A1C% w Est Avg Glu 6.6 % (4.0-6.0)
[2020-12-21] MEDS: INSULIN DRIP PREMIX 100 UNIT/100 ML PLAST..BAG 6 UNIT IV (07:15)
--- NOTE | 2020-12-21 08:05 | PM.HP.1 ---
History of Present Illness History of Present Illness Date Patient Seen: 12/21/20 Time Patient Seen: 08:05 Chief complaint: high blood sugar, sick, chest pain Narrative: This is a 70-year-old male with insulin-dependent type 1 diabetes, on an insulin pump, essential hypertension, hyperlipidemia, who is legally blind who presents with 1 day of nausea, vomiting and then progressing to abdominal pain and chest pain intermittently. His EKG shows ischemic changes of slight ST depression in lateral leads, and inverted T-wave in lead 3 and evidence of an old anteroseptal DC with Q-waves in leads V1 and V2. His troponin reached 0.017 in the ED. He had a very sensitive vagal response and dropped his systolic BP to the 70's with Ntg in the ED. Patients labs demonstrate metabolic acidosis, of early DKA. Patient reports that he has been dosing insulin with his pump in the ED overnight without improvement in his blood sugars. VBGs: PH 7.28, pCO2 41.7, PO2 48, HC03 20, total CO2 21, O2 sat 78%, base excess -7.0. Patient has anion gap of 17. Patient has a sodium of 134, BUN of 36, hyperkalemia with a potassium of 5.8,HC03 of 19, glucose of 464, GFR 59.9. Serum Ketones 10.12, patient's troponins were within normal limits but slowly increasing 1# 0.012, 2# 0.014, 3# 0.017. Patient's chest abdomen CTA was negative for PE, acute cardiopulmonary processes as was the patient's chest x-ray. He was not willing to be transported to another facility for advanced cardiac interventions so he will be admitted to the ICU for chest pain rule out, hyperglycemia with DKA/metabolic acidosis on an insulin drip. His reasons for avoiding further interventions, including possible relief of his current symptoms seem to have something to do with experiences other friends have had such as a friend who lived for several years on a left ventricular assist device after a heart catheterization. He is willing to do only the testing we are capable of doing at this location. His juice packaging machines setter, Dr. Brito, was contacted by family and indicated in a phone call today that he would be willing to talk to the patient if testing shows an indication for further treatment elsewhere. Patient History Medical History (Updated 12/21/20 @ 17:47 by Ector Barbosa MD) Alcoholism Diabetic retinopathy HTN (hypertension) Hyperlipidemia Insulin dependent diabetes mellitus Insulin pump in place Legally blind Surgical History (Updated 12/21/20 @ 17:47 by Ector Barbosa MD) H/O bladder repair surgery H/O eye surgery H/O shoulder surgery Family & Social History Family History (Updated 12/21/20 @ 17:45 by Ector Barbosa MD) Mother Alcoholism Father Drowned Safety & Behavioral: Feels Safe in Current Yes Environment Been Physically Hurt or No Threatened By a Person Tobacco & Substance use: Smoking Status Former smoker Substance Use Type does not use Comment: His backup decision maker his Ellyn Mcmillan He has a guide dog Meds Home Medications and Allergies Home Medications Medication Instructions Recorded Confirmed Type insulin lispro 100 unit/mL 0 unit SQ 0200 #0 11/21/10 12/21/20 History subcutaneous solution (Humalog U-100 Insulin) simvastatin 10 mg tablet 20 mg PO QDAY #0 11/21/10 12/21/20 History TIMOLOL MALEATE 1 drp OPHTH QDAY #2.5 ml 12/21/12 12/21/20 History losartan 100 mg tablet 100 mg PO QDAY #0 12/21/12 12/21/20 History Allergies Allergy/AdvReac Type Severity Reaction Status Date / Time codeine [CODEINE] Allergy Mild Verified 06/11/19 17:56 prochlorperazine Allergy Mild Verified 06/11/19 17:56 [PROCHLORPERAZINE] Review of Systems Review of Systems Narrative: Positive for N/V, Abdominal Pain and Chest Pain Negative for headaches, fever, chills, sweats, coughing, shortness of breath, dysuria, bleeding, rashes, seizures, trouble talking, new allergies, joint pain Exam Vital Signs (past 8 hours): - 12/21/20 00:30 12/21/20 01:00 12/21/20 01:30 Temperature Pulse Rate 82 87 84 Respiratory Rate 13 15 13 Blood Pressure Pulse Oximetry 98 96 97 12/21/20 01:56 12/21/20 01:57 12/21/20 02:00 Temperature Pulse Rate 80 79 57 L Respiratory Rate 15 21 19 Blood Pressure 85/48 L 78/43 L Pulse Oximetry 94 94 97 12/21/20 02:01 12/21/20 02:09 12/21/20 02:30 Temperature Pulse Rate 91 H 82 52 L Respiratory Rate 24 15 27 H Blood Pressure 79/49 L 82/45 L Pulse Oximetry 95 94 92 12/21/20 02:31 12/21/20 03:00 12/21/20 03:01 Temperature Pulse Rate 73 85 85 Respiratory Rate 21 17 16 Blood Pressure 122/54 L 74/49 L 75/49 L Pulse Oximetry 94 92 95 12/21/20 03:02 12/21/20 03:03 12/21/20 03:24 Temperature Pulse Rate 83 83 80 Respiratory Rate 18 19 17 Blood Pressure 76/48 L 83/50 L 86/50 L Pulse Oximetry 94 95 93 12/21/20 03:28 12/21/20 03:30 12/21/20 04:00 Temperature Pulse Rate 76 80 86 Respiratory Rate 15 16 1 L Blood Pressure 89/51 L 85/50 L Pulse Oximetry 95 95 93 12/21/20 04:30 12/21/20 05:00 12/21/20 05:30 Temperature Pulse Rate 75 80 88 Respiratory Rate 16 16 18 Blood Pressure Pulse Oximetry 92 98 97 12/21/20 05:45 12/21/20 05:55 12/21/20 06:00 Temperature 98.0 F Pulse Rate 95 H 88 85 Respiratory Rate 15 16 16 Blood Pressure 110/52 L 93/53 L Pulse Oximetry 97 95 Oxygen Delivery Method Room Air Narrative Exam Narrative: Patient is alert, preferring to keep his eyes closed and responding only intermittently and sparingly to my questions. His checks with him and then does most of the speaking, answering the questions at his request. Pupils are equally round and reactive to light and accommodation. Extraocular muscles are intact Sclerae are pink and nonicteric Throat looks normal No lymph nodes felt head, neck, supraclavicular area There is no thyromegaly JVD is less than 6 cm No carotid bruits are heard Heart is regular rate and rhythm with a new 2/6 systolic ejection murmur Lungs are clear to auscultation bilaterally Abdomen is soft, bowel sounds positive, nontender, no organomegaly Extremities have no ankle edema Skin chronic venous stasis brownish discoloration over his shins. 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 Neurological exam The patient appears internally distracted There is no tremor Cranial nerves 2-12 test intact Motor function is 4/5 throughout Gait and balance are not tested Objective Labs Result Diagrams: 12/20/20 22:50 12/21/20 16:39 Labs: Laboratory Results - last 24 hr 12/20/20 12/20/20 12/20/20 22:50 22:50 22:50 WBC 9.5 D RBC 4.68 Hgb 15.3 Hct 45.5 MCV 97.4 MCH 32.7 MCHC 33.6 RDW 12.7 Plt Count 209 Neut % (Auto) 81.3 H Lymph % (Auto) 9.2 L [place] % (Auto) 7.0 Eos % (Auto) 0.7 L Baso % (Auto) 1.8 Neut # (Auto) 7700 H Lymph # (Auto) 900 L [place] # (Auto) 700 Eos # (Auto) 100 Baso # (Auto) 200 H VBG pH VBG pCO2 VBG pO2 VBG HCO3 VBG Total CO2 VBG O2 Saturation VBG Base Excess Sodium 134 L Potassium 5.8 H Chloride 98 Carbon Dioxide 19 L BUN 36 H Creatinine 1.20 Estimated GFR 59.9 L BUN/Creatinine Ratio 30.0 H Glucose 464 H Hemoglobin A1c 6.6 H Lactate Calcium 9.0 Total Bilirubin 1.0 AST 24 ALT 23 Alkaline Phosphatase 93 Total Creatine Kinase 66 CK-MB (CK-2) TNP CK-MB (CK-2) Rel Index TNP Troponin I < 0.012 Total Protein 6.8 Albumin 4.0 Globulin 2.8 Albumin/Globulin Ratio 1.4 Triglycerides Cholesterol LDL Cholesterol, Calc HDL Cholesterol Lipase 61 Ketones SARS-CoV-2 (PCR) 12/20/20 12/20/20 12/20/20 22:50 23:32 23:53 WBC RBC Hgb Hct MCV MCH MCHC RDW Plt Count Neut % (Auto) Lymph % (Auto) [place] % (Auto) Eos % (Auto) Baso % (Auto) Neut # (Auto) Lymph # (Auto) [place] # (Auto) Eos # (Auto) Baso # (Auto) VBG pH 7.28 L VBG pCO2 41.7 L VBG pO2 48 H VBG HCO3 20 L VBG Total CO2 21 L VBG O2 Saturation 78 H VBG Base Excess -7.0 L Sodium Potassium Chloride Carbon Dioxide BUN Creatinine Estimated GFR BUN/Creatinine Ratio Glucose Hemoglobin A1c Lactate 1.2 Calcium Total Bilirubin AST ALT Alkaline Phosphatase Total Creatine Kinase CK-MB (CK-2) CK-MB (CK-2) Rel Index Troponin I Total Protein Albumin Globulin Albumin/Globulin Ratio Triglycerides Cholesterol LDL Cholesterol, Calc HDL Cholesterol Lipase Ketones SARS-CoV-2 (PCR) Negative 12/21/20 12/21/20 12/21/20 00:40 02:30 02:30 WBC RBC Hgb Hct MCV MCH MCHC RDW Plt Count Neut % (Auto) Lymph % (Auto) [place] % (Auto) Eos % (Auto) Baso % (Auto) Neut # (Auto) Lymph # (Auto) [place] # (Auto) Eos # (Auto) Baso # (Auto) VBG pH VBG pCO2 VBG pO2 VBG HCO3 VBG Total CO2 VBG O2 Saturation VBG Base Excess Sodium Potassium 5.4 H Chloride Carbon Dioxide BUN Creatinine Estimated GFR BUN/Creatinine Ratio Glucose Hemoglobin A1c Lactate Calcium Total Bilirubin AST ALT Alkaline Phosphatase Total Creatine Kinase CK-MB (CK-2) CK-MB (CK-2) Rel Index Troponin I 0.014 0.017 Total Protein Albumin Globulin Albumin/Globulin Ratio Triglycerides 61 Cholesterol 109 L LDL Cholesterol, Calc 50 HDL Cholesterol 47 Lipase Ketones 10.12 H SARS-CoV-2 (PCR) Assessment & Plan Assessment & Plan narrative: This is a 70-year-old male with insulin-dependent type 1 diabetes, on an insulin pump, essential hypertension, hyperlipidemia, who is legally blind who presents with 1 day of nausea, vomiting and then progressing to abdominal pain and chest pain intermittently. Chest pain, acute, present on admission, in the setting of hypertension and hyperlipidemia, chronic, present on admission -Rule out myocardial ischemia, ACS, CAD, aortic dissection -Continuous tele monitoring and order echo, and stress test for tomorrow -Serial troponins #1 0.012, #2 0.014, #3 0.017-In the ED patient refused transfer to another facility for advanced cardiac interventions at this time. -sublingual nitro glycerin 0.4 mg, aspirin 325 mg-then 81mg QD -Monitor for hypertensive emergencies with acute end-organ damage, ventricular tachycardia, unstable SVT, hypertension, angina or DC, heart failure, renal function. -significant systolic anterior motion of the anterior mitral valve leaflet likely producing significant outflow tract obstruction -Normal EF without significant valvular disease on echo but his murmur is explained by the pressure differential causing the mitral valve leaflet to move anterior to it's usual position, crowding the outflow tract and causing the systolic murmur that he has today -per discussion with Dr. Hawkins this phenomena can cause chest pain and is treated by beta blockers and hydration to prefill the ventricle Early DKA/Metabolic acidosis in the setting of hyperglycemia with insulin-dependent type 1 diabetes on insulin pump (pump failure), acute on chronic, present on admission -patient states that he has been dosing appropriately while in the ED via his pump and the patient has had no improvement in his blood sugars, patient has been placed on an IV insulin drip. -initiate insulin drip per protocol -monitor for hypoglycemia -patient admitted to the ICU under diabetes protocol, blood sugar checks Q hour, vital signs q.4 hours, I&O Q shift, daily weights, Diet: NPO Essential hypertension, chronic, present on admission -will continue patient's losartan once he is no longer NPO Hyperlipidemia as a result of diabetes, chronic, present on admission -continue patient's simvastatin when no longer NPO Legally blind result of diabetes, chronic, present on admission -facilitate communication and Education for the vision impaired Code status: DNR Surrogate decision maker: his Ellyn Mcmillan DVT/VTE prophylaxis: Lovenox 40 mg and SCDs Estimated length of stay: More than 2 midnights
--- NOTE | 2020-12-21 09:38 | PC.NURSE ---
Addendum entered by Consuelo Kan R.N. 12/21/20 13:42: following recent labs pts anion gap decreased to 12 from 17 and he reports feeling much better less ectopy noted and insuling gtt continues Addendum entered by Consuelo Kan R.N. 12/21/20 11:10: PT ( AND SPOUSE ) MAKE IT VERY CLEAR AND KNOWN THAT HE WISHES TO BE DNR/DNI - WILL UPDATE MD AND SEEK CURRENT STATUS CHANGE TO BE ORDERED Original Note: PT ADMITTED AT APPROX 0600 TO ROOM 230 FROM ED- HE IS IN NSR UNTIL A VOMITING EPISODE WHERE HE WENT BRADYCARDIC AND SYMPTOMATIC- PLEASE REFER TO RHYTHM STRIPS IN CHART ( MD NOTIFIED)- INSULIN GTT INITIATED AT 6U/H THEN FOLLOWING DKA PROTOCOL WITH NS @ 100CC/H FOR HYDRATION- ALLOWING ICE WATER ONLY FOR PT COMFORT. HE DECLINED NEED FOR PAIN RX. LUNGS DIM BUT CLEAR AND NOT REQUIRING ANY OXYGEN ROOM AIR SPO2 97-99%- AT BEDSIDE
[2020-12-21] MEDS: SODIUM CHLORIDE 0.9% 1,000 ML 100 ML IV (10:30)
[2020-12-21] MEDS: ENOXAPARIN 40 MG/0.4 ML SYRINGE SUBCUT (11:31)
[2020-12-21] MEDS: ASPIRIN EC 81 MG TABLET PO (11:31)
[2020-12-21] MEDS: INSULIN DRIP PREMIX 100 UNIT/100 ML PLAST..BAG 10.7 UNIT IV (11:31)
[2020-12-21 13:04] LABS: Blood Urea Nitrogen 50 mg/dL (9-20); Calcium 8.7 mg/dL (8.4-10.2); Carbon Dioxide 20 mmol/L (22-32); Chloride 104 mmol/L (98-107); Estimated Glomerular Filt Rate 34.8 mL/min (>60); Glucose 338 mg/dL (80-110); HEMOLYSIS < 15 (0-50); Sodium 136 mmol/L (137-145)
[2020-12-21] MEDS: POTASSIUM CHLORIDE IN WATER 10 MEQ/100 ML PIGGYBACK 100 MEQ IV ×2 (15:05→16:31)
--- NOTE | 2020-12-21 15:35 | CM.DANOTE ---
Patient is a 70 year old male who was admitted on 12/21/20 for Chest Pain. Pt has M[place] and [place] for [place] and his PCP is Dr. Mickey Brito. EMR was reviewed. Per MD, pt with diabetes type 1 with insulin pump at baseline and admitted for chest pain/stroke rule out. Pt has declined hospital transfer for higher level of care. Per RN, pt and spouse have been clear that pt wishes to be DNR/DNI and is blind at baseline and has a service dog that was able to be brought in my spouse for a short bit. Echo is pending to determine pt's medical needs and POC. Pt currently on insulin drip as unclear if pt's insulin pump has been malfunctioning and contributing to the cause. Pt lives at home with spouse in [place] and is quite active and mostly independent at baseline and both pt and spouse are very appreciative of their PCP Dr. Brito consulting with Hospitalist and talking with them regarding next steps and POC. Unclear at this time if pt actively having M.I. and if pt will qualify for Hospice or medical treatment. D/C needs unclear and pt may benefit from PT eval closer to d/c if pt continues to make improvements. Plan: SW to follow closely after Echo and further discussion with pt's PCP and Hospitalist towards determining POC and d/c plans. BRAVO Barrera Discharge Planning/Care Management Advanced directive, confirm from FAMILY Start: 12/21/20 09:04 Freq: Q24H Status: Active Protocol: Document 12/21/20 08:00 TJB (Rec: 12/21/20 09:35 TJB [id number]) Advance Directive, confirm on record Time 06:00 Person contacted romeo Copy received No Advanced directive available on record No Document 12/21/20 09:04 TJB (Rec: 12/21/20 09:36 TJB [id number]) Advance Directive, confirm on record Time 06:00 Person contacted romeo Copy received No Advanced directive available on record No CM Discharge Assessment Start: 12/21/20 15:32 Freq: Status: Active Protocol: Document 12/21/20 15:32 BF (Rec: 12/21/20 15:35 BF [id number]) 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 No Advance Directives on File No History Provided By Patient,Significant Other, Medical Record Has Patient been admitted in last 30 No days? Prior Living Arrangements House Household Members spouse Type of transporation used prior to Relies on Others admit Independent with ADL's Yes: mostly, blind at baseline Is patient alert and oriented? Yes Needs Assistance With Meal Prep,Managing Medications ,Home Chores / Shopping Caregiver for Another No Comment To be determined Barriers to Discharge No Discharge Plan Home with Home Health Transportation Arrangement Spouse has been bedside and if safe for home can transport Additional Comment Pending pt's Echo and POC Review Status In Process Please Provide Date Initial DC 12/21/20 Assessment Was Performed Next Review Type Continued Stay Review
[2020-12-21] MEDS: DEXTROSE 5%-0.45% NS 1,000 ML 100 ML IV (15:45)
[2020-12-21 16:57] LABS: BUN Creatinine Ratio 28.6 (6-22); Blood Urea Nitrogen 53 mg/dL (9-20); Calcium 8.4 mg/dL (8.4-10.2); Carbon Dioxide 28 mmol/L (22-32); Chloride 103 mmol/L (98-107); Estimated Glomerular Filt Rate 36.3 mL/min (>60); Glucose 214 mg/dL (80-110); HEMOLYSIS < 15 (0-50); Potassium 4.2 mmol/L (3.4-5.1); Sodium 135 mmol/L (137-145)
[2020-12-21] MEDS: INSULIN DRIP PREMIX 100 UNIT/100 ML PLAST..BAG 5.68 UNIT IV (17:40)
[2020-12-21] MEDS: INSULIN DRIP PREMIX 100 UNIT/100 ML PLAST..BAG IV (20:38)
[2020-12-21 21:18] LABS: BUN Creatinine Ratio 29.9 (6-22); Blood Urea Nitrogen 52 mg/dL (9-20); Calcium 8.1 mg/dL (8.4-10.2); Carbon Dioxide 26 mmol/L (22-32); Chloride 102 mmol/L (98-107); Glucose 130 mg/dL (80-110); HEMOLYSIS < 15 (0-50); Potassium 4.2 mmol/L (3.4-5.1); Sodium 133 mmol/L (137-145)
[2020-12-21] MEDS: SODIUM CHLORIDE 0.9% 1,000 ML 80 ML IV (21:30)
[2020-12-21] MEDS: METOPROLOL IR 25 MG TABLET PO (21:40)
[2020-12-21] MEDS: ATORVASTATIN 20 MG TABLET 10 MG PO (21:40)
[2020-12-21] MEDS: INSULIN LISPRO 100 UNIT/ML 3ML VIAL 150 UNIT SUBCUT (22:16)
--- NOTE | 2020-12-21 23:24 | PC.NURSE ---
2100 Blood glucose 144. Per GIANFRANCO Brunson order, insulin drip and D5 1/2NS discontinued and pt instructed to reapply personal pump. At 2230 with a BG of 112, pt ate peanut butter, V8 and appple sauce. He also reapplied his insulin pump which this RN placed 150units of humalog into. Pt started his basal rate of 0.3units/hr and gave himself a bolus of 1.4units for the foot that he ate.
--- NOTE | 2020-12-21 23:55 | DI.NM.S_ITS ---
PROCEDURE: NM CLARIBEL PERF SPECT R&S PHARM Rest and pharmacological stress myocardial perfusion SPECT with gated imaging and ejection fraction RADIOPHARMACEUTICAL: 12.3 mCi Tc-99m tetrafosmin IV at rest and 23.1 mCi Tc-99m tetrafosmin IV at peak effect of pharmacological stress. [id number] was performed. INDICATIONS: CP, Elevated Trop TECHNIQUE: Radiopharmaceutical was injected at peak stress test, and also at rest. SPECT images were obtained. SPECT myocardial perfusion images were displayed in short axis, horizontal long axis, and vertical long axis views. Gated images were reviewed using [email or web address] software. COMPARISON: None. CARDIAC STRESS: A pharmacologic stress test was performed under the supervision of an attending staff, using an infusion of lexiscan 0.4mg IV X1. Hemodynamic data: There is normal blood pressure and heart rate response to pharmacologic stress. Symptoms: The patient denied anginal chest pain. Aminophylline: none EKG: No diagnostic changes of ischemia; no ectopy. FINDINGS: Raw data: There is good myocardial uptake of radiotracer. No significant motion artifacts. Left ventricle function: Gated images demonstrate normal left ventricular wall thickening. No segmental wall motion abnormalities. No transient ischemic dilation; TID is 1.05 (normal less than 1.3). Left ventricle resting end diastolic volume is 78 mL. Left ventricle stress ejection fraction is 76%; normal range is above 45%. Myocardial perfusion: There is a moderately intense partially reversible defect at the apex that is consistent with prior small infarct and mild-moderate ant-infarct ischemia. IMPRESSION: Abnormal pharmaceutical nuclear stress test, consistent with prior apical infarct and ant-infarct ischemia. 1) There is a moderately intense partially reversible defect at the apex that is consistent with prior small infarct and mild-moderate ant-infarct ischemia. 2) Normal left ventricular size, wall motion, and systolic function (post stress EF 76%). 3) No ECG evidence of ischemia with lexiscan. 4) No angina during the study. 5) Compared to the nuclear stress test done 09/29/2008, the perfusion defect at the apex is more prominent on the current study. Dictated by: Sheryl Chinchilla MD on 12/22/2020 at 16:19 Approved by: Sheryl Chinchilla MD on 12/22/2020 at 16:24
[2020-12-21 23:56] LABS: D Dimer 310 ng/mL (<230)
[2020-12-22] VITALS (9 sets, daily range): BP systolic 95–148; BP diastolic 51–68; PULSE 66–70; RESP 14–21; TEMP 36.4–37.1; O2SAT 95–99
[2020-12-22 04:58] LABS: Alanine Aminotransferase 29 IU/L (<50); Albumin Globulin Ratio 1.2 (1.0-2.8); Alkaline Phosphatase 59 U/L (38-126); Aspartate Aminotransferase 127 IU/L (17-59); BUN Creatinine Ratio 32.1 (6-22); Bilirubin Total 0.6 mg/dL (0.2-1.3); Blood Urea Nitrogen 50 mg/dL (9-20); Calcium 8.2 mg/dL (8.4-10.2); Carbon Dioxide 25 mmol/L (22-32); Chloride 104 mmol/L (98-107); Estimated Glomerular Filt Rate 44.2 mL/min (>60); Globulin 2.5 g/dL (1.7-4.1); Glucose 136 mg/dL (80-110); HEMOLYSIS < 15 (0-50); Potassium 4.4 mmol/L (3.4-5.1); Sodium 134 mmol/L (137-145); Total Protein 5.5 g/dL (6.3-8.2)
[2020-12-22 05:07] LABS: NT-proBNP (BNP-Adult 18+) 4420 pg/mL (<125)
[2020-12-22 05:53] LABS: HCO3 VBG 26 mmol/L (23-28); Oxygen Saturation VBG 67 % (70-75); PCO2 VBG 42.2 mmHg (45-50); PO2 VBG 35 mmHg (35-45); Total CO2 VBG 27 mmol/L (24-29)
[2020-12-22 05:54] LABS: pH VBG 7.39 (7.33-7.43)
[2020-12-22] MEDS: METOPROLOL IR 25 MG TABLET PO ×3 (05:56→21:40)
[2020-12-22] MEDS: SODIUM CHLORIDE 0.9% 1,000 ML 1000 ML IV (05:56)
[2020-12-22] MEDS: NITROGLYCERIN 0.4 MG SL TAB SL (08:02)
[2020-12-22] MEDS: ENOXAPARIN 40 MG/0.4 ML SYRINGE SUBCUT (08:03)
[2020-12-22] MEDS: ASPIRIN EC 325 MG TABLET PO (08:06)
--- NOTE | 2020-12-22 10:58 | PC.NURSE ---
Day Shift Note Pt reported left sided chest pain 08/26 this AM - not worse with activity, MD notified, EKG done (no changes), and nitro SL administered. BP stable throughout (see VS). Chest pain resolved after nitro. SBA in room due to vision loss only, very steady on feet. Checks blood glucose via own glucose monitoring system. Humalog 0.3 unit/hr infusing via pt's own insulin pump located to lower left back. Stress test being done today, pt has completed first part at this time. Pt's bringing in pt's food as pt follows a strict vegan and no wheat/rice/sugar/potato diet. Insulin pump settings reviewed with and MD eid with basal rate and with pt bolusing own insulin based on pt's home routine. At lunch, pt CBG 121 and pt bolused 4.6 units of Humalog insulin via the pump with his meal. Call light within reach, using appropriately to make needs known.
--- NOTE | 2020-12-22 18:31 | PM.PN.1 ---
Subjective Subjective Interval history: Today he feels improved. He had slight chest pain this morning that resolved with nitro. But has no chest pain, shortness of breath, nausea, vomiting, abdominal pain. Exam Vital Signs (past 8 hours): - 12/22/20 11:54 12/22/20 15:20 Temperature 98.1 F 97.6 F Pulse Rate 70 68 Respiratory Rate 16 17 Blood Pressure 148/64 H 126/68 Pulse Oximetry 98 99 Oxygen Delivery Method Room Air Oxygen Flow Rate 0 Narrative Exam Narrative: GEN: alert, no acute distress CV: regular rate and rhythm with 2/6 systolic ejection murmur PULM: clear to auscultation bilaterally ABD: soft, bowel sounds positive, nontender, no organomegaly EXT: have no ankle edema Objective Labs Result Diagrams: 12/20/20 22:50 12/22/20 04:30 Labs: Laboratory Results - last 24 hr 12/21/20 12/21/20 12/21/20 16:39 21:00 21:00 D-Dimer VBG pH VBG pCO2 VBG pO2 VBG HCO3 VBG Total CO2 VBG O2 Saturation VBG Base Excess Sodium 133 L Potassium 4.2 Chloride 102 Carbon Dioxide 26 BUN 52 H Creatinine 1.74 H Estimated GFR 39.0 L BUN/Creatinine Ratio 29.9 H Glucose 130 H Calcium 8.1 L Total Bilirubin AST ALT Alkaline Phosphatase Troponin I 33.300 H* 37.400 H* NT-Pro-B Natriuret Pep Total Protein Albumin Globulin Albumin/Globulin Ratio 12/21/20 12/21/20 12/22/20 23:30 23:30 04:30 D-Dimer 310 H VBG pH VBG pCO2 VBG pO2 VBG HCO3 VBG Total CO2 VBG O2 Saturation VBG Base Excess Sodium 134 L Potassium 4.4 Chloride 104 Carbon Dioxide 25 BUN 50 H Creatinine 1.56 H Estimated GFR 44.2 L BUN/Creatinine Ratio 32.1 H Glucose 136 H Calcium 8.2 L Total Bilirubin 0.6 AST 127 H ALT 29 Alkaline Phosphatase 59 Troponin I 34.800 H* NT-Pro-B Natriuret Pep Total Protein 5.5 L Albumin 3.0 L Globulin 2.5 Albumin/Globulin Ratio 1.2 12/22/20 12/22/20 12/22/20 04:30 04:30 04:35 D-Dimer VBG pH 7.39 VBG pCO2 42.2 L VBG pO2 35 VBG HCO3 26 VBG Total CO2 27 VBG O2 Saturation 67 L VBG Base Excess 1.0 Sodium Potassium Chloride Carbon Dioxide BUN Creatinine Estimated GFR BUN/Creatinine Ratio Glucose Calcium Total Bilirubin AST ALT Alkaline Phosphatase Troponin I 27.400 H* NT-Pro-B Natriuret Pep 4420 H Total Protein Albumin Globulin Albumin/Globulin Ratio [facility] Medical History (Updated 12/21/20 @ 17:47 by Ector Barbosa MD) Alcoholism Diabetic retinopathy HTN (hypertension) Hyperlipidemia Insulin dependent diabetes mellitus Insulin pump in place Legally blind Surgical History (Updated 12/21/20 @ 17:47 by Ector Barbosa MD) H/O bladder repair surgery H/O eye surgery H/O shoulder surgery Family History (Updated 12/21/20 @ 17:45 by Ector Barbosa MD) Mother Alcoholism Father Drowned Social History household members: spouse Smoking Status: Former smoker alcohol intake: former Assessment & Plan Assessment & Plan narrative: This is a 70-year-old male with insulin-dependent type 1 diabetes, on an insulin pump, essential hypertension, hyperlipidemia, who is legally blind who presents with 1 day of nausea, vomiting and then progressing to abdominal pain and chest pain intermittently. 1. NSTEMI withChest pain, acute, present on admission, in the setting of hypertension and hyperlipidemia, chronic, present on admission -troponin peaked at 37, now downtrending -EKG showed no acute ischemia -Continuous tele monitoring -sublingual nitro glycerin 0.4 mg, aspirin 325 mg-then 81mg QD -ECHO showed no acute abnormalities but did show mitral valve prolapse -stress test showed area of reversible ischemia at apex -patient will davian angiogram, but currently has MEL, and cardiology would prefer to do angiogram when creatinine improves 2. MEL -baseline creatinine appears to 0.9-1.0 -on admission creatinine of 1.92 -improved on 12/22 to 1.56 -likely prerenal in setting of DKA -avoid nephrotoxins -monitor daily 3. Early DKA/Metabolic acidosis in the setting of hyperglycemia with insulin-dependent type 1 diabetes on insulin pump (pump failure), acute on chronic, present on admission -patient states that he has been dosing appropriately while in the ED via his pump and the patient has had no improvement in his blood sugars, patient has been placed on an IV insulin drip. -gap closed overnight on 12/21, and patient able to go back on insulin pump -monitor for hypoglycemia -patient admitted to the ICU under diabetes protocol, blood sugar checks Q hour, vital signs q.4 hours, I&O Q shift, daily weights, Diet: cardiac 4. Essential hypertension, chronic, present on admission -will continue patient's losartan when MEL resolves 5. Hyperlipidemia as a result of diabetes, chronic, present on admission -continue patient's simvastatin when no longer NPO 6. Legally blind result of diabetes, chronic, present on admission -facilitate communication and Education for the vision impaired Code status: DNR Surrogate decision maker: his Ellyn Mcmillan DVT/VTE prophylaxis: Lovenox 40 mg and SCDs Estimated length of stay: More than 2 midnights
[2020-12-22] MEDS: ATORVASTATIN 20 MG TABLET 10 MG PO (21:39)
[2020-12-23 04:00] VITALS: O2SAT 97
[2020-12-23 04:45] LABS: Alanine Aminotransferase 31 IU/L (<50); Albumin 3.4 g/dL (3.5-5.0); Albumin Globulin Ratio 1.3 (1.0-2.8); Alkaline Phosphatase 70 U/L (38-126); Aspartate Aminotransferase 89 IU/L (17-59); BUN Creatinine Ratio 30.4 (6-22); Blood Urea Nitrogen 31 mg/dL (9-20); Calcium 8.6 mg/dL (8.4-10.2); Carbon Dioxide 27 mmol/L (22-32); Chloride 107 mmol/L (98-107); Estimated Glomerular Filt Rate > 60.0 mL/min (>60); Globulin 2.7 g/dL (1.7-4.1); Glucose 78 mg/dL (80-110); HEMOLYSIS < 15 (0-50); Potassium 4.2 mmol/L (3.4-5.1); Sodium 139 mmol/L (137-145); Total Protein 6.1 g/dL (6.3-8.2)
[2020-12-23] MEDS: METOPROLOL IR 25 MG TABLET PO (06:39)
[2020-12-23 08:00] VITALS: BP 170/77; PULSE 65; RESP 14; TEMP 36.6; O2SAT 98
--- NOTE | 2020-12-23 08:01 | P.DS_ITS ---
History of Present Illness History of Present Illness Chief complaint: high blood sugar, sick, chest pain Narrative: H and P per Dr. Barbosa: This is a 70-year-old male with insulin-dependent type 1 diabetes, on an insulin pump, essential hypertension, hyperlipidemia, who is legally blind who presents with 1 day of nausea, vomiting and then progressing to abdominal pain and chest pain intermittently. His EKG shows ischemic changes of slight ST depression in lateral leads, and inverted T-wave in lead 3 and evidence of an old anteroseptal VT with Q-waves in leads V1 and V2. His troponin reached 0.017 in the ED. He had a very sensitive vagal response and dropped his systolic BP to the 70's with Ntg in the ED. Patients labs demonstrate metabolic acidosis, of early DKA. Patient reports that he has been dosing insulin with his pump in the ED overnight without improvement in his blood sugars. VBGs: PH 7.28, pCO2 41.7, PO2 48, HC03 20, total CO2 21, O2 sat 78%, base excess -7.0. Patient has anion gap of 17. Patient has a sodium of 134, BUN of 36, hyperkalemia with a potassium of 5.8,HC03 of 19, glucose of 464, GFR 59.9. Serum Ketones 10.12, patient's troponins were within normal limits but slowly increasing 1# 0.012, 2# 0.014, 3# 0.017. Patient's chest abdomen CTA was negative for PE, acute cardiopulmonary processes as was the patient's chest x-ray. He was not willing to be transported to another facility for advanced cardiac interventions so he will be admitted to the ICU for chest pain rule out, hyperglycemia with DKA/metabolic acidosis on an insulin drip. His reasons for avoiding further interventions, including possible relief of his current symptoms seem to have something to do with experiences other friends have had such as a friend who lived for several years on a left ventricular assist device after a heart catheterization. He is willing to do only the testing we are capable of doing at this location. His oil field laborer, Dr. Brito, was contacted by family and indicated in a phone call today that he would be willing to talk to the patient if testing shows an indication for further treatment elsewhere. Discharge Providers Provider Date of admission: 12/21/20 05:51 Discharge Date: 12/23/20 Primary care physician: Mickey Brito MD Discharge provider: Fred Chirinos MD Summary Hospital Course Discharge Diagnosis: 1. Acute NSTEMI 2. MEL 3. DKA with Type 1 Diabetes, with insulin pump for insulin-dependence 4. HTN 5. Hyperlipidemia 6. Legally blind from diabetes Hospital Course: Mr. Mcmillan presented with chest pain. He was found to have an NSTEMI with troponin of 37 at peak and then dropped to 27.4. His chest pain resolved. Discussion was had with cardiology. He had an ECHO done that showed nitral valve prolapse. He also had a stress test which showed reversible ischemia. Cardiology recommended close outpatient follow up and plan for angiogram next week. He also was found to have MEL which is why cardiology recommended follow up and not immediate angiogram. His MEL resolved to normal on discharge from peak creatinine of 1.92. He also had DKA. He did have a pump so it is unclear how that happened, he was briefly on insulin drip, improved and was able to go back on his insulin pump. Exam Vital Signs (past 8 hours): Oxygen Delivery Method Room Air Oxygen Flow Rate 0 Narrative Exam Narrative: GEN: alert, no acute distress CV: regular rate and rhythm with 2/6 systolic ejection murmur PULM: clear to auscultation bilaterally ABD: soft, bowel sounds positive, nontender, no organomegaly EXT: have no ankle edema Objective Labs Result Diagrams: 12/20/20 22:50 12/23/20 04:00 [facility] Medical History (Updated 12/21/20 @ 17:47 by Ector Barbosa MD) Alcoholism Diabetic retinopathy HTN (hypertension) Hyperlipidemia Insulin dependent diabetes mellitus Insulin pump in place Legally blind Surgical History (Updated 12/21/20 @ 17:47 by Ector Barbosa MD) H/O bladder repair surgery H/O eye surgery H/O shoulder surgery Family History (Updated 12/21/20 @ 17:45 by Ector Barbosa MD) Mother Alcoholism Father Drowned Social History household members: spouse Smoking Status: Former smoker alcohol intake: former Discharge Plan Discharge Plan Patient Disposition: Home Provider Discharge Comment: Mr. Mcmillan came in to the hospital and was found to have DKA with uncontrolled blood sugars. He also had a heart attack. He has an area of blockage noted on his stress test. He was planned to follow closely with Dr. Chinchilla with follow up tele visit in 1-2 days and plan for cardiac angiogram likely next week as an outpatient. He should continue aspirin, atorvastatin, metoprolol and has prescriptions for these. Discharge orders & Medications Prescriptions: New atorvastatin 40 mg tablet 40 mg PO BEDTIME Qty: 30 RF: 0 aspirin 81 mg tablet,delayed release (DR/EC) 81 mg PO DAILY Qty: 30 RF: 0 metoprolol succinate 25 mg capsule,sprinkle,ER 24hr 25 mg PO DAILY Qty: 30 RF: 0 Continued insulin lispro [Humalog U-100 Insulin] 100 UNIT/1 ML solution 0 unit SQ 0200 Qty: 0 RF: 0 losartan 100 MG tablet 100 mg PO QDAY Qty: 0 RF: 0 TIMOLOL MALEATE 1 drp OPHTH QDAY Qty: 2.5 RF: 0 Discontinued simvastatin 10 MG tablet 20 mg PO QDAY Qty: 0 RF: 0 Medication counseling provided by Pharmacist: Yes Follow up/Referrals: Mickey Brito MD [Primary Care Provider] - Sheryl Chinchilla MD [Physician] - (nstemi, dka, mel, plan for urgent outpatient angiogram) Diet/Activity/Treatments Diet: Carb-consistent/Diabetic, Low-fat and Low-cholesterol Visit Report/Discharge Packet Instructions: Cardiac Catheterization, DI for Diabetic Ketoacidosis Discharge Data Primary Care Provider: Mickey Brito V Quality MIPS - DC The patient has current or prior documentation of left ventricular ejection fraction (LVEF) less than 40%, or moderate or severely depressed left ventricular systolic function.: No
--- NOTE | 2020-12-23 12:18 | PC.NURSE ---
AM shift Pt denies any further chest pain. Feels ready to dc home. at bedside, updated on POC, and pending d/c with angio as outpatient. Pt Has had no further chest pain or SOB. DC to private vehicle
== END 2020-12-23 15:28 | disposition home or self-care (01) | DRG 280 ==
LOC: ED 22:24 → AC 12-21 05:52 → ICU 12-21 15:12
PROVIDERS: Family Medicine; Admitting Provider Nurse Practitioner Family; Emergency Provider Emergency Medicine; Family Provider Internal Medicine; PCP Internal Medicine; Referring Provider Emergency Medicine; Visit Provider Nurse Practitioner Family
DX: I21.4 Non-ST elevation (NSTEMI) myocardial infarction (principal); E10.10 Type 1 diabetes mellitus with ketoacidosis without coma; N17.9 Acute kidney failure, unspecified; H54.8 Legal blindness, as defined in USA; E10.319 Type 1 diabetes mellitus with unspecified diabetic retinopathy without macular edema; I10 Essential (primary) hypertension; E78.5 Hyperlipidemia, unspecified; Z79.4 Long term (current) use of insulin; Z66 Do not resuscitate; Z96.41 Presence of insulin pump (external) (internal); Z20.822 Contact with and (suspected) exposure to COVID-19
CPT/HCPCS: 36415; 71045; 71275; 74175; 78452; 80048; 80053; 80061; 81003; 82009; 82550; 82553; 82805; 82962; 83036; 83605; 83690; 83880; 84132; 84145; 84484; 85025; 85379; 87635; 87797; 93005; 93016; 93017; 93018; 93306; 96361; 96374; 96375; 99284; C9803; A9502; J1650; J1815; J1940; J2405; J2765; J2785; Q9967

== ENCOUNTER → 2020-12-28 14:54 | Outpatient (CLI) | payer MEDICARE, OTHER, SELFPAY ==
[2020-12-21 05:54] VITALS: BMI 25.2
[2020-12-28 20:06] LABS: COVID19 -Nasal RAPID Negative (Negative)
== END ==
PROVIDERS: Family Provider Internal Medicine; PCP Internal Medicine; Visit Provider Physician Assistant
DX: Z01.812 Encounter for preprocedural laboratory examination (principal); Z20.822 Contact with and (suspected) exposure to COVID-19
CPT/HCPCS: 87635; C9803

== ENCOUNTER 2021-01-02 12:38 | Emergency (ER) | payer MEDICARE, OTHER, SELFPAY ==
[2020-12-21 05:54] VITALS: BMI 25.2
[2021-01-02] VITALS (13 sets, daily range): BP systolic 143–183; BP diastolic 64–85; PULSE 66–73; RESP 13–23; TEMP 36.2; O2SAT 98–100
--- NOTE | 2021-01-02 13:19 | ED.GENADULT ---
HPI - General Adult General Chief complaint: Diabetic Problem Stated complaint: HIGH BLOOD SUGAR/POST HEART ATTACK Time Seen by Provider: 01/02/21 12:43 Source: patient and family Mode of arrival: Ambulatory Limitations: no limitations History of Present Illness HPI narrative: Patient is a 70-year-old male who is a DNR/DNI with insulin-dependent diabetes, neuropathy and being legally blind. Was seen here in the emergency department approximately 2 weeks ago and was admitted to the hospital for DKA. He subsequently had a non ST elevation SC. Since that time he has followed up with his senior ecologist. Had a catheterization performed however no stents were placed. He was told that the 1 artery that did have blockages was too small for any intervention. He returns to the emergency department today because he has had persistent time blood sugars over the past 24 hours. He does have a continuous monitor. They ranged anywhere from 250-350. He has been dosing himself insulin however has been unable to get the blood sugar down. He denies any other new symptoms. Related Data Home Medications Medication Instructions Recorded Confirmed insulin lispro 100 unit/mL 0 unit SQ 0200 #0 11/21/10 12/21/20 subcutaneous solution (Humalog U-100 Insulin) TIMOLOL MALEATE 1 drp OPHTH QDAY #2.5 ml 12/21/12 12/21/20 losartan 100 mg tablet 100 mg PO QDAY #0 12/21/12 12/21/20 Previous Rx's Medication Instructions Recorded aspirin 81 mg tablet,delayed 81 mg PO DAILY #30 tab 12/23/20 release atorvastatin 40 mg tablet 40 mg PO BEDTIME #30 tab 12/23/20 metoprolol succinate 25 mg capsule 25 mg PO DAILY #30 ea 12/23/20 sprinkle, ext. release 24 hr insulin lispro 100 unit/mL 1 sliding scale dose SUBCUT 01/02/21 subcutaneous solution (Humalog USEASDIRECTD #10 ml U-100 Insulin) Allergies Allergy/AdvReac Type Severity Reaction Status Date / Time codeine [CODEINE] Allergy Mild Verified 06/11/19 17:56 prochlorperazine Allergy Mild Verified 06/11/19 17:56 [PROCHLORPERAZINE] Review of Systems Constitutional Comments: No fevers Cardiovascular Comments: No chest pain Respiratory Comments: No shortness of breath Gastrointestinal Comments: No abdominal pain Musculoskeletal Musculoskeletal: Reports system reviewed and no additional complaints, except as documented Integumentary/Breasts Skin/Breast: Reports system reviewed and no additional complaints, except as documented Neurologic Neurologic: Reports system reviewed and no additional complaints, except as documented Hematologic/Lymphatic On Anticoagulants: No Patient History Medical History Alcoholism Diabetic retinopathy HTN (hypertension) Hyperlipidemia Insulin dependent diabetes mellitus Insulin pump in place Legally blind Surgical History (Updated 12/21/20 @ 17:47 by Ector Barbosa MD) H/O bladder repair surgery H/O eye surgery H/O shoulder surgery Family History (Updated 12/21/20 @ 17:45 by Ector Barbosa MD) Mother Alcoholism Father Drowned Social History household members: spouse Smoking Status: Former smoker alcohol intake: former Smoking Status: Former smoker alcohol intake frequency: holidays/special occasions only Substance Use Type: does not use Exam Initial Vital Signs Initial Vital Signs: Vital Signs Temperature 97.1 F L 01/02/21 12:49 Pulse Rate 66 01/02/21 12:49 Respiratory Rate 14 01/02/21 12:49 Blood Pressure 183/85 H 01/02/21 12:49 Pulse Oximetry 99 01/02/21 12:49 Const General: cooperative HENMT Head: normal to inspection Neck Neck: normal visual inspection Chest Chest: normal inspection of the chest Resp Effort & Inspection: normal respiratory effort Auscultation: clear to auscultation bilaterally Cardio Rate: regular rate Rhythm: regular rhythm GI Inspection: normal to inspection Skin General: no rashes or lesions noted Neuro General: patient alert, patient awake and patient oriented x3 Extrem General: normal to inspection Psych Appearance: grossly normal and well kempt Course Orders Ordered: ED Orders 01/02/21 12:50 EKG-12 Lead Stat 01/02/21 13:26 Venous Blood Gas Stat 01/02/21 13:28 Complete Blood Count AUTO DIFF Stat Comprehensive Metabolic Panel Stat Ketones (Beta-Hydroxybutyrate) Stat Magnesium Stat Phosphorous Stat Troponin & CK Cardiac Panel Stat 01/02/21 15:37 Basic Metabolic Panel Stat Discontinued Medications Sodium Chloride (Normal Saline 0.9%) 1,000 mls @ 1,000 mls/hr IV BOLUS ONE Stop: 01/02/21 14:12 Last Infusion: 01/02/21 15:13 Dose: 0 mls/hr Documented by: Admin: 01/02/21 13:58 Dose: 1,000 mls/hr Documented by: ARTURO Insulin Human Regular (Insulin Regular 100 Unit/Ml 3 Ml Vial) 10 unit IV NOW ONE Stop: 01/02/21 14:09 Last Admin: 01/02/21 14:13 Dose: 10 unit Documented by: ARTURO Cosigned by: ALINA Vital Signs Vital signs: Vital Signs - 8 hr 01/02/21 12:49 01/02/21 12:52 01/02/21 13:00 Temperature 97.1 F L Pulse Rate 66 71 68 Respiratory Rate 14 14 14 Blood Pressure 183/85 H 153/67 H Pulse Oximetry 99 100 100 01/02/21 13:10 01/02/21 13:30 01/02/21 13:33 Temperature Pulse Rate 68 69 69 Respiratory Rate 17 14 14 Blood Pressure 182/73 H 143/64 H Pulse Oximetry 100 100 100 01/02/21 14:02 01/02/21 14:30 01/02/21 15:00 Temperature Pulse Rate 71 69 73 Respiratory Rate 22 14 23 Blood Pressure Pulse Oximetry 100 99 01/02/21 15:18 01/02/21 15:30 01/02/21 16:00 Temperature Pulse Rate 69 66 66 Respiratory Rate 15 15 17 Blood Pressure 165/70 H 144/64 H 160/72 H Pulse Oximetry 100 99 98 01/02/21 16:30 Temperature Pulse Rate 66 Respiratory Rate 13 Blood Pressure 180/78 H Pulse Oximetry 100 Medical Decision Making Medical Records Medical records reviewed: Yes I reviewed the patient's medical records. Lab Data Lab results reviewed: Yes I reviewed the patient's lab results. Result diagrams: 01/02/21 13:28 01/02/21 15:37 Labs: Lab Results 01/02/21 01/02/21 01/02/21 Range/Units 13:26 13:28 13:28 WBC 7.0 (4.5-11.0) X10^3/uL RBC 4.55 (4.5-5.9) X10^6/uL Hgb 14.7 (13.5-17.5) g/dL Hct 43.9 (41-53) % MCV 96.5 (80-100) fL MCH 32.4 (26-34) PG MCHC 33.6 (30-36) % RDW 12.7 (11.6-14.8) % Plt Count 255 (150-400) X10^3/uL Neut % (Auto) 76.1 H (50-75) % Lymph % (Auto) 14.9 L (25-40) % Dix[place] % (Auto) 7.0 (3-14) % Eos % (Auto) 1.3 L (2-4) % Baso % (Auto) 0.7 (0-2) % Neut # (Auto) 5400 (2916-4018) /uL Lymph # (Auto) 1000 L (2564-4332) /uL Dixie # (Auto) 500 (0-900) /uL Eos # (Auto) 100 (0-450) /uL Baso # (Auto) 0 (0-100) /uL VBG pH 7.37 (7.33-7.43) VBG pCO2 49.5 (45-50) mmHg VBG pO2 24 L (35-45) mmHg VBG HCO3 29 H (23-28) mmol/L VBG Total CO2 30 H (24-29) mmol/L VBG O2 Saturation 40 L (70-75) % VBG Base Excess 3.0 (0-4) mmol/L Sodium 131 L (137-145) mmol/L Potassium 6.1 H (3.4-5.1) mmol/L Chloride 96 L (98-107) mmol/L Carbon Dioxide 26 (22-32) mmol/L BUN 22 H (9-20) mg/dL Creatinine 1.01 (0.66-1.25) mg/dL Estimated GFR > 60.0 (>60) mL/min BUN/Creatinine Ratio 21.8 (6-22) Glucose 388 H (80-110) mg/dL Calcium 9.1 (8.4-10.2) mg/dL Phosphorus 3.0 (2.3-3.7) mg/dL Magnesium 1.9 (1.6-2.3) mg/dL Total Bilirubin 1.3 (0.2-1.3) mg/dL AST 37 (17-59) IU/L ALT 26 (<50) IU/L Alkaline Phosphatase 100 (38-126) U/L Total Creatine Kinase (55-170) U/L CK-MB (CK-2) CK-MB (CK-2) Rel Index Troponin I (0.01-0.034) ng/mL Total Protein 7.1 (6.3-8.2) g/dL Albumin 4.1 (3.5-5.0) g/dL Globulin 3.0 (1.7-4.1) g/dL Albumin/Globulin Ratio 1.4 (1.0-2.8) Ketones 3.67 H (<0.27) mmol/L 01/02/21 01/02/21 Range/Units 13:28 15:37 WBC (4.5-11.0) X10^3/uL RBC (4.5-5.9) X10^6/uL Hgb (13.5-17.5) g/dL Hct (41-53) % MCV (80-100) fL MCH (26-34) PG MCHC (30-36) % RDW (11.6-14.8) % Plt Count (150-400) X10^3/uL Neut % (Auto) (50-75) % Lymph % (Auto) (25-40) % Dixie % (Auto) (3-14) % Eos % (Auto) (2-4) % Baso % (Auto) (0-2) % Neut # (Auto) (8241-0657) /uL Lymph # (Auto) (4981-7289) /uL Dixie # (Auto) (0-900) /uL Eos # (Auto) (0-450) /uL Baso # (Auto) (0-100) /uL VBG pH (7.33-7.43) VBG pCO2 (45-50) mmHg VBG pO2 (35-45) mmHg VBG HCO3 (23-28) mmol/L VBG Total CO2 (24-29) mmol/L VBG O2 Saturation (70-75) % VBG Base Excess (0-4) mmol/L Sodium 136 L (137-145) mmol/L Potassium 4.8 D (3.4-5.1) mmol/L Chloride 103 (98-107) mmol/L Carbon Dioxide 25 (22-32) mmol/L BUN 22 H (9-20) mg/dL Creatinine 0.94 (0.66-1.25) mg/dL Estimated GFR > 60.0 (>60) mL/min BUN/Creatinine Ratio 23.4 H (6-22) Glucose 306 H (80-110) mg/dL Calcium 8.8 (8.4-10.2) mg/dL Phosphorus (2.3-3.7) mg/dL Magnesium (1.6-2.3) mg/dL Total Bilirubin (0.2-1.3) mg/dL AST (17-59) IU/L ALT (<50) IU/L Alkaline Phosphatase (38-126) U/L Total Creatine Kinase 63 (55-170) U/L CK-MB (CK-2) TNP CK-MB (CK-2) Rel Index TNP Troponin I 0.023 (0.01-0.034) ng/mL Total Protein (6.3-8.2) g/dL Albumin (3.5-5.0) g/dL Globulin (1.7-4.1) g/dL Albumin/Globulin Ratio (1.0-2.8) Ketones (<0.27) mmol/L Point of Care Testing Glucose POC 302 Urine Dip Bedside Urine Glucose 1000 mg/dl Bedside Urine Bilirubin - Negative Bedside Urine Ketone +/- 5 Urine Specific [place] 1.015 Bedside Urine Occult Blood - Negative Bedside Urine pH 6 Bedside Urine Protein - Negative Bedside Urine Urobilinogen - Negative Bedside Urine Nitrite - Negative Bedside Urine Leukocytes - Negative Esterase Point of care testing: Point of Care Testing Glucose POC 302 Urine Dip Bedside Urine Glucose 1000 mg/dl Bedside Urine Bilirubin - Negative Bedside Urine Ketone +/- 5 Urine Specific [place] 1.015 Bedside Urine Occult Blood - Negative Bedside Urine pH 6 Bedside Urine Protein - Negative Bedside Urine Urobilinogen - Negative Bedside Urine Nitrite - Negative Bedside Urine Leukocytes - Negative Esterase ECG Data Attestation: I personally reviewed and interpreted this ECG as follows: Interpretation: Sinus rhythm Ventricular rate 86 Normal QRS Normal QTC of sign no ST T wave changes MDM Narrative Medical decision making narrative: Patient not in DKA. His initial potassium was elevated. He was given insulin which improved the potassium and also improved his glucose. Low suspicion for ACS. Patient asked that I write him a prescription for Humalog. He feels that this potentially works better the NovoLog. He understands he may have to pay for this out of pocket. No indication to admit to the hospital. Will have him contact his primary doctor for follow-up. He was given strict return precautions. He expressed understanding and agreement. Discharge Plan Departure Patient Disposition: Home Clinical Impression: Hyperglycemia Instructions: DI for Hyperglycemia -- Adult Activity Restrictions/Additional Instructions: [facility] I recommend that you contact your primary doctor on Monday for follow-up. Please return to the emergency department for any new or worsening symptoms Prescriptions: New insulin lispro [Humalog U-100 Insulin] 100 unit/mL solution 1 sliding scale dose SUBCUT USEASDIRECTD Qty: 10 RF: 0 No Action insulin lispro [Humalog U-100 Insulin] 100 UNIT/1 ML solution 0 unit SQ 0200 Qty: 0 RF: 0 losartan 100 MG tablet 100 mg PO QDAY Qty: 0 RF: 0 TIMOLOL MALEATE 1 drp OPHTH QDAY Qty: 2.5 RF: 0 atorvastatin 40 mg tablet 40 mg PO BEDTIME Qty: 30 RF: 0 aspirin 81 mg tablet,delayed release (DR/EC) 81 mg PO DAILY Qty: 30 RF: 0 metoprolol succinate 25 mg capsule,sprinkle,ER 24hr 25 mg PO DAILY Qty: 30 RF: 0 Referrals: Mickey Brito MD [Primary Care Provider] -
[2021-01-02 13:34] LABS: Add Manual Diff / Slide Review NO; Basophils Absolute Auto 0 /uL (0-100); Basophils Percent Auto 0.7 % (0-2); Eosinophils Absolute Auto 100 /uL (0-450); Eosinophils Percent Auto 1.3 % (2-4); Hematocrit 43.9 % (41-53); Hemoglobin 14.7 g/dL (13.5-17.5); Lymphocytes Absolute Auto 1000 /uL (1100-4500); Lymphocytes Percent Auto 14.9 % (25-40); Mean Corpuscular HGB Conc 33.6 % (30-36); Mean Corpuscular Hemoglobin 32.4 PG (26-34); Mean Corpuscular Volume 96.5 fL (80-100); Monocytes Absolute Auto 500 /uL (0-900); Neutrophils Absolute Auto 5400 /uL (1500-7000); Neutrophils Percent Auto 76.1 % (50-75); Platelet Count 255 X10^3/uL (150-400); Red Blood Cell Count 4.55 X10^6/uL (4.5-5.9); Red Cell Distribution Width 12.7 % (11.6-14.8)
[2021-01-02 13:35] LABS: HCO3 VBG 29 mmol/L (23-28); PCO2 VBG 49.5 mmHg (45-50); PO2 VBG 24 mmHg (35-45); Total CO2 VBG 30 mmol/L (24-29); pH VBG 7.37 (7.33-7.43)
[2021-01-02 13:36] LABS: Oxygen Saturation VBG 40 % (70-75)
[2021-01-02 13:46] LABS: Alanine Aminotransferase 26 IU/L (<50); Albumin 4.1 g/dL (3.5-5.0); Albumin Globulin Ratio 1.4 (1.0-2.8); Alkaline Phosphatase 100 U/L (38-126); Aspartate Aminotransferase 37 IU/L (17-59); BUN Creatinine Ratio 21.8 (6-22); Bilirubin Total 1.3 mg/dL (0.2-1.3); Blood Urea Nitrogen 22 mg/dL (9-20); Calcium 9.1 mg/dL (8.4-10.2); Carbon Dioxide 26 mmol/L (22-32); Chloride 96 mmol/L (98-107); Creatine Kinase 63 U/L (55-170); Estimated Glomerular Filt Rate > 60.0 mL/min (>60); Glucose 388 mg/dL (80-110); HEMOLYSIS 33 (0-50); Magnesium 1.9 mg/dL (1.6-2.3); Sodium 131 mmol/L (137-145); Total Protein 7.1 g/dL (6.3-8.2)
[2021-01-02 13:49] LABS: Ketones (Beta-Hydroxybutyrate) 3.67 mmol/L (<0.27)
[2021-01-02 13:50] LABS: Potassium 6.1 mmol/L (3.4-5.1)
[2021-01-02] MEDS: SODIUM CHLORIDE 0.9% 1,000 ML 1000 ML IV (13:58)
[2021-01-02 14:00] LABS: Troponin I 0.023 ng/mL (0.01-0.034)
[2021-01-02] MEDS: INSULIN REGULAR 100 UNIT/ML 3 ML VIAL 10 UNIT IV (14:13)
--- NOTE | 2021-01-02 15:05 | PC.NURSE ---
294 glucose at 1504 on patients tracker.
--- NOTE | 2021-01-02 15:25 | PC.NURSE ---
Patients monitor reads 285, our glucose reads 302. No orders at this time
[2021-01-02 15:58] LABS: BUN Creatinine Ratio 23.4 (6-22); Blood Urea Nitrogen 22 mg/dL (9-20); Calcium 8.8 mg/dL (8.4-10.2); Carbon Dioxide 25 mmol/L (22-32); Chloride 103 mmol/L (98-107); Estimated Glomerular Filt Rate > 60.0 mL/min (>60); Glucose 306 mg/dL (80-110); HEMOLYSIS < 15 (0-50); Potassium 4.8 mmol/L (3.4-5.1); Sodium 136 mmol/L (137-145)
== END 2021-01-02 16:34 | disposition home or self-care (01) ==
PROVIDERS: Emergency Provider Emergency Medicine; Family Provider Internal Medicine; PCP Internal Medicine
DX: E11.65 Type 2 diabetes mellitus with hyperglycemia (principal); R07.9 Chest pain, unspecified; I25.2 Old myocardial infarction
CPT/HCPCS: 36415; 80048; 80053; 81003; 82009; 82550; 82805; 82962; 83735; 84100; 84484; 85025; 93005; 93010; 96361; 96374; 99284

== ENCOUNTER → 2021-05-24 12:09 | Outpatient (CLI) | payer MEDICARE, OTHER, SELFPAY ==
[2020-12-21 05:54] VITALS: BMI 25.2
--- NOTE | 2021-05-24 | DI.MRI.S_ITS ---
PROCEDURE: MR KNEE LT WO CON INDICATIONS: Unspecified internal derangement of left knee TECHNIQUE: Noncontrast sagittal PD fast spin echo and T2 fast spin echo with fat saturation, sagittal 3-D FLASH with fat saturation; coronal T1 spin echo and PD fast spin echo with fat saturation, and axial PD fast spin echo with fat saturation through the knee. COMPARISON: [facility], MR, MR KNEE RT WO CON, 06/27/2020, 10:12. FINDINGS: Image quality: Excellent. Menisci: Blunting of the posterior horn, medial meniscus (series 7, image 9; series 10, image 21, concerning for radial tear. No surfacing signal in the lateral meniscus. Cruciate ligaments: The anterior and posterior cruciate ligaments appear intact. Medial structures: The medial collateral ligament appears intact. The visualized portions of the pes anserinus tendons appear normal. No abnormal bursal fluid. Lateral structures: The lateral collateral ligament complex appears intact. The popliteus tendon appears normal; the popliteofibular ligament appears intact. The band appears normal. Anterior structures: The quadriceps and patellar tendons appear intact. Slight lateral patellar subluxation. The discontinuity of the medial patellar retinaculum (i.e. Series 5, image 14), compatible with at least partial tear. No edema in the infrapatellar fat pad. Bones and cartilage: No bone marrow contusions or fractures. The medial and lateral compartment hyaline cartilage is maintained. Fissure in the lateral aspects of the patella apex hyaline cartilage. Small focus of subchondral edema in the lateral patellar facet. Joint space: Small knee joint fluid. No Davis's cyst. Normal appearing synovial plicae are incidentally noted. Predominately medial soft tissue edema. IMPRESSION: 1. Blunting of the posterior horn, medial meniscus, concerning for radial tear. 2. Medial soft tissue edema with at least partial tear of the medial retinaculum. 3. Slight lateral subluxation of the patella. 4. Small knee joint effusion. Dictated by: Nick Penny M.D. on 05/24/2021 at 14:09 Approved by: Nick Penny M.D. on 05/24/2021 at 14:17
== END ==
PROVIDERS: Family Provider Internal Medicine; PCP Internal Medicine; Referring Provider Orthopaedic Surgery; Visit Provider Orthopaedic Surgery
DX: M23.92 Unspecified internal derangement of left knee (principal); M25.462 Effusion, left knee
CPT/HCPCS: 73721

== ENCOUNTER 2021-06-08 13:45 | Outpatient (RCR) | payer MEDICARE, OTHER, SELFPAY ==
[2020-12-21 05:54] VITALS: BMI 25.2
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
--- NOTE | 2021-05-20 16:05 | PT.OPPOC ---
Physical, Occupational & Speech Therapy At [facility] Current Diagnoses Unilateral primary osteoarthritis, right knee (05/20/21) Osteoarthritis of knee, unspecified (05/20/21) Visit Care Team Role Provider Type Mickey Brito MD Family Provider Physician Primary Care Provider Specialty: Internal Medicine Address: [address] [place] [address], [id number] Email: [email or web address] Marky Stevens MD Attending Provider Physician Referring Provider Specialty: Orthopedic Surgery Address: [address] [place] [address], [id number] Email: Plan Of Care PT-OP-T Assessment and Plan Start: 05/18/21 07:47 Freq: Status: Active Protocol: Document 05/20/21 13:03 MB (Rec: 05/20/21 16:03 MB [id number]) Physical Therapy Assessment Rehab Potential Rehabilitation Potential Fair Evaluation Complexity Number of Personal Factors/Comorbidities 1-2 Number of Body Systems Impaired 4 or More Clinical Presentation at Evaluation Evolving Impairments Impairments Activity Tolerance,Balance, Edema,Functional Mobility,Gait ,Integument,Pain,Posture,ROM, Sensation,Soft Tissue Mobility ,Strength,Transfers,Visual Motor Other Impairments Personal factors include pt has B UE and LE diabetic neuropathy, integumentary changes and visual impairment such that he requires guide dog (visual impairment decreasing I gait and limiting balance training with gait). Body systems affected include musculoskeletal, integumentary , sensory, metabolic and visual. His clinical presentation is evolving. Other Concerns Fall Risk Yes Goals 3 Prison Goal (LTG) Pt will perform progressive HEP with I including balance, strengthening, flexibility and gait exercises to improve range, strength and pain by 07/21/21. 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 LTG Duration 8 weeks 1 Prison Goal (LTG) Pt will present with an improved LEF score to reflect no more than 30% impairment to improve pain and quality of life by 07/21/21. 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 Pt also presents with B LE edema, erythema and diabetic neuropathy. He has low vision and his checks his feet, though he states not as often as she might. His left great toenail is currently gone. PT is concerned about pt's skin integrity. He has skin tears on his right soares and is left LE has more erythema and edema than the right. He wears compression socks during the day and states his legs swell at night. Recommend following up with his PCP about this. PT reviews right knee MRI from June and he is going to have a left knee MRI on Monday . MRI report does reveal significant joint degeneration and pt may likely be a total joint candidate. He will follow-up with surgeon after his left knee MRI and PT course. He will benefit from PT to improve flexibility, strengthening, balance and gait. Barriers include integumentary concerns, B diabetic neuropathy and degenerative joints. Will not be able to perform advanced balance and gait exercises d/t low vision and need for guide dog. Physical Therapy Plan Frequency and Duration Frequency of Treatment 2x/Week Duration of Treatment 8 weeks Plan of Care Start Date 05/20/21 Plan of Care End Date 07/21/21 Therapeutic Interventions Therapeutic Interventions Aquatic Therapy,Balance Training,Canalithic Repositioning,Gait Training, Home Exercise Program,Joint Mobilizations,Manual Therapy, Neuromuscular Re-education, Patient/Caregiver Education, Self-Care/Home Management,Soft Tissue Mobilization,Taping, Therapeutic Activities, Therapeutic Exercises Next Visit Focus/Plan Next Note Type Treatment Note Next Visit Plan Consider trying sit to stands and see how they affect the knee, upright bike vs recumbent stepper or recumbent bike, hamstring stretch with martial art belt in hook lying Plan of Care Dates Plan of Care Start Date 05/20/21 Plan of Care End Date 07/21/21 Electronically Signed by: Constance Zhang PT 05/20/21 1064 Please Sign and Return: I have reviewed this Plan of Care and certify that the skilled therapy services above are required to meet the patient?s needs. Physician Signature Date Printed Name and Credentials Clinical Instructor Signature Printed Name and Credentials
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
== END 2021-07-20 08:51 ==
LOC: PHYS 13:45
PROVIDERS: Family Provider Internal Medicine; PCP Internal Medicine; Referring Provider Orthopaedic Surgery; Visit Provider Orthopaedic Surgery
DX: M17.11 Unilateral primary osteoarthritis, right knee (principal); M17.9 Osteoarthritis of knee, unspecified
CPT/HCPCS: 97110; 97116; 97140; 97161; 97535

== ENCOUNTER → 2021-06-30 12:25 | Outpatient (CLI) | payer MEDICARE, OTHER, SELFPAY ==
[2020-12-21 05:54] VITALS: BMI 25.2
[2021-06-30 13:07] LABS: Add Manual Diff / Slide Review NO; Basophils Absolute Auto 0 /uL (0-100); Basophils Percent Auto 0.8 % (0-2); Eosinophils Absolute Auto 100 /uL (0-450); Eosinophils Percent Auto 1.9 % (2-4); Hematocrit 44.8 % (41-53); Hemoglobin 15.2 g/dL (13.5-17.5); Lymphocytes Absolute Auto 1400 /uL (1100-4500); Lymphocytes Percent Auto 23.1 % (25-40); Mean Corpuscular HGB Conc 33.9 % (30-36); Mean Corpuscular Hemoglobin 32.9 PG (26-34); Mean Corpuscular Volume 97.1 fL (80-100); Monocytes Absolute Auto 800 /uL (0-900); Monocytes Percent Auto 13.6 % (3-14); Neutrophils Absolute Auto 3600 /uL (1500-7000); Neutrophils Percent Auto 60.6 % (50-75); Platelet Count 198 X10^3/uL (150-400); Red Blood Cell Count 4.61 X10^6/uL (4.5-5.9); Red Cell Distribution Width 13.1 % (11.6-14.8); White Blood Cell Count 5.9 X10^3/uL (4.5-11.0)
[2021-06-30 13:23] LABS: Hemoglobin A1C% w Est Avg Glu 6.4 % (4.0-6.0)
[2021-06-30 14:00] LABS: BUN Creatinine Ratio 25.8 (6-22); Blood Urea Nitrogen 24 mg/dL (9-20); Carbon Dioxide 30 mmol/L (22-32); Chloride 104 mmol/L (98-107); Estimated Glomerular Filt Rate > 60.0 mL/min (>60); Glucose 105 mg/dL (80-110); HEMOLYSIS < 15 (0-50); Potassium 4.3 mmol/L (3.4-5.1); Sodium 141 mmol/L (137-145)
[2021-06-30 14:14] LABS: Appearance Urine UA CLEAR; Bilirubin Urine UA NEGATIVE (NEGATIVE); Color Urine UA YELLOW; Glucose Urine UA NEGATIVE (Negative); Ketones Urine UA NEGATIVE (NEGATIVE); Leukocyte Esterase Urine UA NEGATIVE (NEGATIVE); Nitrite Urine UA NEGATIVE (Negative); Occult Blood Urine UA NEGATIVE (Negative); Protein Urine UA 1+ (Negative); Specific Gravity Urine UA 1.025 (1.000-1.035); Urobilinogen Urine UA 0.2 E.U./dL (0.2)
[2021-06-30 14:48] LABS: Bacteria Urine Occasional (0-1); Culture Indicated Urine Cult Not Indicated; RBC Urine None Seen (0-5/HPF); WBC Urine 0-1/HPF (0-5/HPF)
== END ==
PROVIDERS: Family Provider Internal Medicine; PCP Internal Medicine; Referring Provider Orthopaedic Surgery; Visit Provider Orthopaedic Surgery
DX: Z01.818 Encounter for other preprocedural examination (principal); R73.9 Hyperglycemia, unspecified; Z01.812 Encounter for preprocedural laboratory examination; N39.0 Urinary tract infection, site not specified
CPT/HCPCS: 36415; 80048; 81001; 83036; 85025; 93005; 93010

== ENCOUNTER → 2021-08-23 10:52 | Outpatient (CLI) | payer MEDICARE, OTHER, SELFPAY ==
[2020-12-21 05:54] VITALS: BMI 25.2
[2021-08-23 14:00] LABS: COVID19 -Nasal RAPID Negative (Negative)
== END ==
PROVIDERS: Family Provider Internal Medicine; PCP Internal Medicine; Visit Provider Family Medicine Sleep Medicine
DX: Z20.822 Contact with and (suspected) exposure to COVID-19 (principal)
CPT/HCPCS: 87635; C9803

== ENCOUNTER 2021-08-26 09:05 | Inpatient (IN) | payer MEDICARE, OTHER, SELFPAY ==
[2020-12-21 05:54] VITALS: BMI 25.2
[2021-08-17 08:34] VITALS: BMI 25.0
[2021-08-25] VITALS (24 sets, daily range): BP systolic 95–196; BP diastolic 49–98; PULSE 54–76; RESP 14–20; TEMP 35.9–36.7; O2SAT 93–99; BMI 25.0
--- NOTE | 2021-08-25 06:00 | DI.RAD.S_ITS ---
PROCEDURE: XR KNEE RT 1TO2V INDICATIONS: prosthesis placement TECHNIQUE: 3 views of the knee were acquired. COMPARISON: [facility], , KNEE 3V RIGHT, 10/18/2010, 9:55. FINDINGS: Bones: Total right knee prosthesis in good position. No evidence of fracture acute fracture. Old healed proximal fibular fracture noted. Soft tissues: No joint effusion. No suspicious soft tissue calcifications. Diffuse atherosclerotic vascular calcification noted. IMPRESSION: Total right knee arthroplasty in good position Atherosclerosis Approved by: Pritesh Tomlinson M.D. on 08/25/2021 at 9:50
[2021-08-25] MEDS: ACETAMINOPHEN 325 MG TABLET 975 MG PO ×3 (07:29→20:23)
[2021-08-25] MEDS: CELECOXIB 200 MG CAPSULE PO (07:30)
[2021-08-25] MEDS: PREGABALIN 75 MG CAPSULE PO (07:30)
[2021-08-25] MEDS: LACTATED RINGERS 1,000 ML 42 ML IV ×2 (07:34→09:37)
--- NOTE | 2021-08-25 07:47 | PM.PREOP ---
Pre-operative Note COVID-19 COVID-19 status: Negative Result date/Date tested (Pos, Neg/Pending): 08/23/21 Criteria for continued procedure: Increased loss of function, Continuing or worsening of significant or severe pain and Non-surgical alternatives not available or appropriate per current SOC Interval Note History & Physical reviewed/Exam performed by Physician: Yes Changes to H&P: No
--- NOTE | 2021-08-25 07:47 | PM.OP.1 ---
Operative Date/Time/Diagnoses Date of procedure: 08/25/21 Time of procedure: 09:20 Pre-op diagnosis: Right knee osteoarthritis Post-op diagnosis: same Procedure & Clinicians Procedure: Right total knee replacement Same procedure as scheduled: Yes Indications: The patient has had progressively worsening right knee pain with radiographic changes consistent with arthritis. Non-operative management has failed and the patient has requested total knee replacement. The risks, benefits and alternatives to surgery were discussed with the patient prior to proceeding. Risks discussed included, but were not limited to, failure to relieve pain, stiffness, infection, nerve damage, deep venous thrombosis, pulmonary embolism, stroke, coma, heart attack, permanent paralysis and , as well as the potential need for eventual revision of the prosthetic. Surgeon: Shane Cárdenas Customs Entry Writer: Rodolfo Starr Click Yes if Unassisted: No Anesthesia Type: General, Spinal and Local Operative Notes Findings: Trochlear dysplasia with patellofemoral osteoarthritis. Remaining articular cartilage relatively intact. Very firm hardened menisci. Closure Type: primary Specimen(s): none sent Prosthetic devices, grafts, tissues, transplants, or devices: Implants used in this procedure were manufactured by the [employer] and included the BCS II Journey total knee replacement with a size 5 right cobalt chromium femur, a size 4 right non porous tibial base plate, a 9 mm cross-linked polyethylene tibial insert and a 35 mm oval Juliet II patella. Applied: implant(s) Estimated Blood Loss (mL): 25 Blood products transfused: none Tourniquet time (min): 53 Procedure in detail: The patient was seen in the pre-operative area, where the patient identified the right knee as the operative site and this was marked with my initials. The patient received pre-operative antibiotics, and was taken to the operating room and placed on the operative table in the supine position. After satisfactory anesthesia, a time clock inspector out was performed. The right leg was encircled with a tourniquet about the proximal thigh, and the leg was prepared from the toes to the tourniquet with ChloroPrep in the usual fashion and draped through sterile drapes. The leg was elevated and exsanguinated with Eschmark bandage and the tourniquet inflated to 250 mmHg pressure. The knee was approached through an approximately 18 cm incision centered over the patella and carried into the knee through a medial parapatellar arthrotomy. The anterior osteophytes and soft tissues were removed. The rotational landmarks of Scott's line and the transepicondylar axis were marked on the femur with electrocautery, and intramedullary guide holes for the femur and tibia were created. The distal femoral cut was made in 6 degrees of valgus using the intramedullary guide at the primary cut setting. The proximal tibial cut was then made using the intramedullary guide, taking 9 mm of bone off the less involved side. The extension gap was checked and the rotation of the femoral component confirmed with the gap balancing system. The anterior, posterior and chamfer cuts were then made. The posterior osteophytes and soft tissues were then removed. The posterior capsule was injected with part of a mixture of 60 ml 0.25% Marcaine mixed with 20 ml Exparel and 4 mg of morphine for post-operative pain control. The remainder of this mixture was injected into the capsule and subcutaneous tissues during cement curing. The tibia was prepared with the rotation set by an extra medullary guide. Trial tibial and femoral components were then placed and the intercondylar notch cut through the femoral trial. Range of motion was 0-135 degrees, with good stability throughout the range. The patella was then cut to accommodate the patellar prosthetic. There was no need for a lateral release. The trials were then removed, and the femoral hole plugged with a bone plug. The bone was prepared with pulsatile lavage, and dried with a sponge. Cement was applied and the final prosthetics placed. Excess cement was removed during and after cement curing. After confirming there was no extruded cement posteriorly, the final tibial insert was placed. The knee was copiously irrigated and the tourniquet deflated. Hemostasis was obtained. The capsule was closed with interrupted # 2 polyester suture. The subcutaneous layer was closed with 3-0 Vicryl, and the skin with a running 3-0 V-Lock suture and Dermabond. An Aquacel Ag dressing was applied and the patient was taken to recovery having tolerated the procedure well. Complications: none Post-operative Condition: stable Disposition: PACU Plan for aftercare: The patient will be maintained on a standard total knee replacement protocol with weight bearing as tolerated. The patient will receive aspirin and sequential compression devices for DVT prophylaxis. The patient will be discharged home when safe for the home environment.
[2021-08-25] MEDS: CEFAZOLIN 2 GM/20 ML SYRINGE IV (08:12)
[2021-08-25] MEDS: TRANEXAMIC ACID 1,000 MG VIAL 1000 MG INJ ×2 (08:23→09:17)
--- NOTE | 2021-08-25 08:31 | SUR.OPER ---
Supine on padded OR bed. Pillow under head, arms secured on padded armboards <90 degree abduction. Safety belt across torso. Non-operative leg secured with tape over blanket over lower leg. Operative leg secured in De[employer] positioner. Foam padded brace at thigh of operative leg.
[2021-08-25] MEDS: BUPIVACAINE LIPOSOME 266 MG/20 ML VIAL INJ (08:43)
[2021-08-25] MEDS: MORPHINE 4 MG/ML INJ IV (08:44)
[2021-08-25] MEDS: BUPIVACAINE 0.25% (PF) 60 ML, EPINEPHrine 0.3 MG INJ (08:45)
--- NOTE | 2021-08-25 11:49 | SUR.PHASEII ---
Report called to Cade RUBI. Opportunity for questions given. Pt going to room 216. Pt updated on plan of care and is agreeable. No c/o pain noted by pt and time of transfer. Has been tolerating water and ice chips with no c/o nausea.
[2021-08-25] MEDS: LACTATED RINGERS 1,000 ML 100 ML IV ×2 (12:49→22:05)
[2021-08-25] MEDS: ONDANSETRON 4 MG/2 ML INJ IV (12:50)
--- NOTE | 2021-08-25 14:08 | PC.NURSE ---
Pt arrived on floor at 1200. Pt had no some sensation in foot of left leg and full sensation in upper thigh. Pt can wave ankles and has good pedal pulses and blood return in operated leg. All vitals are stable Pt is sinus patrick. Pt denies pain and had three bout of nausea and emesis. Pt has history of strong reaction to opioids and anesthesia. I gave IV zofran after second emesis, as Pt declined antinausea meds prior. Pt now has no nausea and wants to not take any more antimedics and let nausea completley pass on it's own at this time. Pt is A&O X 4.
--- NOTE | 2021-08-25 15:28 | PT.IIE ---
Current Diagnoses Unilateral post-traumatic osteoarthritis, right knee (08/25/21) Surgery Performed Operation Date: 08/25/21 07:45 Actual Procedures p Total Knee Arthroplasty(Right) - Shane Cárdenas MD Medical History (Last Reviewed 08/25/21 @ 06:48 by Nimco Saldivar RN) Alcoholism Anxiety BPH (benign prostatic hyperplasia) CAD (coronary artery disease) Cervical spine fracture (~1977) Diabetic retinopathy Easy bruisability Glaucoma HTN (hypertension) Hyperlipidemia Insulin dependent diabetes mellitus Insulin pump in place Legally blind Myocardial infarct (12/20/20) Osteoarthritis Tinnitus Physical Therapy Inpatient Evaluation/Re-Eval M1 PT/OT-IP Prior Functional Status Start: 08/25/21 16:37 Freq: NEEDED Status: Active Protocol: Document 08/25/21 15:28 AB (Rec: 08/25/21 16:52 AB [id number]) Medical Review Prior Functional Status Medical History Reviewed Yes Communication able to make needs known Mobility and Gait pt stated that he is modified independent with all mobilities and ambulation without AD indoors but uses his walking stick and has a guide dog to assist him as pt is blind. Social History Household Members spouse Living Arrangements House Number of Floors (Floors) Two Floors Number of Stairs To Enter/Railing? pt will stay on first level of the house has a ramp to enter the house Home Environment High Toilet,Tub/Shower Home Equipment Front Wheel Walker,Tub Transfer Bench,Hand Held Shower Additional Social History Comment pt has an adjustable bed M2 PT-IP Current Condition Start: 08/25/21 16:37 Freq: NEEDED Status: Active Protocol: Document 08/25/21 15:28 AB (Rec: 08/25/21 16:52 AB [email or web address]) Physical Therapy Current Condition Current Condition Evaluation Date 08/25/21 Treatment Diagnosis s/p R TKA; difficulty in walking Onset Date 08/25/21 M3 PT-IP Subjective Start: 08/25/21 16:37 Freq: NEEDED Status: Active Protocol: Document 08/25/21 15:28 AB (Rec: 08/25/21 16:52 AB [email or web address]) Subjective Physical Therapy Visit Type Type Initial Evaluation Visit Start Time 15:28 Visit Stop Time 16:05 Total Visit Minutes 37 Number of CLIENT ENGAGEMENT SPECIALIST Visits 0 Physical Therapy Visit Comments Patient Comments pt is nauseated but want to get up Therapy Pain Assessment Pain Present Pain Present Denied Pain M4 PT-IP Mobility and Gait Start: 08/25/21 16:37 Freq: NEEDED Status: Active Protocol: Document 08/25/21 15:28 AB (Rec: 08/25/21 16:52 AB [email or web address]) PT-Bed Mobility Assessment Supine to Sit Supine to Sit Standby Assistance Sit to Supine Sit to Supine Standby Assistance PT-Transfer Assessment Sit to and From Stand Sit to and from Stand Minimal Assistance,1 Person Assistance,Use of Upper Extremities Equipment Transfer Assistive Device Gait Belt,Front Wheeled Walker Orthotic/Prosthetic Devices or Brace: No Transfers Transfer Destination Chair Transfer Technique ambulated Transfer Ability Level of Assist Minimal Assistance,1 Person Assistance,Use of Upper Extremities Comments Mobility Comments pt c/o nausea with (+) emesis but wants to get up. BP: 190/ 86. completed supine to sit SBA. able to sit on EOB SBA. completed sit to stand min A and ambulated in room using FWW min A. requires cues for directions and maneuvering of FWW due to pt's blindness. pt initially wants to sit on chair and sat on chair. assisted pt with positioning but pt stated that he wants to just go back to bed as chair is not comfortable. completed sit to stand min A and step transfer using FWW min A. completed sit to supine SBA and cues. pt has an external insulin pump on R posterior mid back and donut pillow positioned behind pt to protect pump. positioned pt in bed. call light and table placed within reach. Gait Assessment Gait Gait Assistance Required: Minimum Assistance Distance (Feet) 10 Able to Maintain Weight Bearing Status Yes During Gait Assistive Devices Assistive Device Gait Belt,Front Wheeled Walker Orthotic/Prosthetic Devices or Brace: No Gait Deviations General Gait Pattern Antalgic,Decreased Stride Length,Decreased Feet Clearance Factors Limiting Gait Function Factors Limiting Gait Function Decreased Activity Tolerance, Poor Balance,Poor Safety Awareness PT-Balance Assessment Sitting Balance and Reactions Static Sitting Balance Ability Good Dynamic Sitting Balance Ability Good Standing Balance and Reactions Static Standing Balance Ability Fair Dynamic Standing Balance Ability Fair Device Used FWW M5 PT-IP Objective Assessments Start: 08/25/21 16:37 Freq: NEEDED Status: Active Protocol: Document 08/25/21 15:28 AB (Rec: 08/25/21 16:52 AB [email or web address]) Orientation Orientation/Cognition Level of Alertness Alert Orientation Name,Place,Situation Language Function Ability No Deficits Noted Safety Awareness Understands Safety Issues Memory Description No Deficits Noted Gross Range of Motion Lower Extremity ROM Impairments R knee flexion: ~ 90 deg Strength Lower Extremity Strength Assessment Right Impaired Hip 4/5 Knee 4-/5 Coordination Assessment Gross Coordination Gross Coordination WNL Sensation Assessment Sensation Gross Sensation Right LE Impaired,Left LE Impaired Light Touch Impaired Proprioception (Position) Impaired Sensation Description Numbness Comments Sensation Comments has peripheral neuropathy per pt from mid thighs down to B feet Muscle Tone Muscle Tone WNL Yes M6 PT-IP Treatment Start: 08/25/21 16:37 Freq: NEEDED Status: Active Protocol: Document 08/25/21 15:28 AB (Rec: 08/25/21 16:52 AB [id number]) Physical Therapy Treatment Education Education Provided Precautions,Weight Bearing Status,Safety M7 PT-IP Assessment and Plan Start: 08/25/21 16:37 Freq: NEEDED Status: Active Protocol: Document 08/25/21 15:28 AB (Rec: 08/25/21 16:52 AB [email or web address]) PT Summary Assessment and Plan Potential Rehabilitation Potential Fair Status of Condition at Evaluation Evolving Summary Impairments Pain,ROM,Strength,Balance, Coordination,Sensation,Tone, Cognition,Bed Mobility, Transfers,Gait,Activity Tolerance Assessment Summary pt requiring min A with mobility but with c/o nausea with (+) emesis affecting activity tolerance and mobility. will continue to assess progress. pt plans to go home with spouse to assist him. pt has outpt PT set up. Goals Bed Mobility Goal Independent Transfer Goal Independent,Front Wheeled Walker Gait Goal Independent,Front Wheel Walker Gait Distance 200 Days to Meet Goals 5 Frequency of Treatment Frequency Of Treatment Twice a Day Treatment Plan Physical Therapy Treatment Plan Bed Mobility Training,Transfer Training,Gait Training, Therapeutic Exercise,Balance Retraining,Post Op Education, Discharge Planning,Hot or Cold Pack,Neuromuscular Re-ed, Coordination Retraining,Manual Therapy Weight Bearing Status Weight Bearing Status Weight Bear as Tolerated Allowed Weight Bearing Amount (enter % RLE WBAT or #) (%) Recommendations To Nursing Amount of Assist Needed 1 Person Assist Discharge Recommendations PT Discharge Recommendations Home with Assistance, Outpatient PT Transportation Needs at Discharge Private Vehicle
[2021-08-25] MEDS: ASPIRIN EC 81 MG TABLET PO (20:22)
[2021-08-25] MEDS: ATORVASTATIN 20 MG TABLET 40 MG PO (20:22)
[2021-08-25] MEDS: METOPROLOL ER 25 MG TABLET 37.5 MG PO (20:22)
[2021-08-25] MEDS: DOCUSATE 100 MG CAPSULE PO (20:23)
[2021-08-25] MEDS: IBUPROFEN 400 MG TABLET PO (20:23)
[2021-08-25] MEDS: LATANOPROST 0.005% OPHTH 2.5 ML 1 DROPS EYE-LEFT (20:23)
[2021-08-26] VITALS (11 sets, daily range): BP systolic 84–141; BP diastolic 41–65; PULSE 51–79; RESP 12–18; TEMP 36.4–37.4; O2SAT 93–97
--- NOTE | 2021-08-26 04:08 | PC.NURSE ---
Patient attempted to void twice, unable to each time. Bladder scan showed 587mL. Inserted straight cath per provider orders resulting in 625mL output. Patient tolerated well and is now resting comfortably.
[2021-08-26 06:29] LABS: Hematocrit 45.6 % (41-53)
--- NOTE | 2021-08-26 07:37 | P.PN_ITS ---
Subjective Subjective Date Patient Seen: 08/26/21 Time Patient Seen: 07:38 Interval history: Patient is complaining of moderate to severe postop vomiting and nausea. He has been avoiding narcotic pain medications because of this. He notes his pain is currently well managed with Tylenol. He was unable to urinate yesterday and was therefore catheterized. He does note difficulty with strain prior to surgery. He would like to be discharged to home once he is ready to go. Exam Vital Signs (past 8 hours): - 08/26/21 00:22 08/26/21 03:34 Temperature 97.5 F L 98.4 F Pulse Rate 70 70 Respiratory Rate 18 18 Blood Pressure 141/65 H 123/62 Pulse Oximetry 95 96 Oxygen Delivery Method Room Air Oxygen Flow Rate 0 Narrative Exam Narrative: 71-year-old male, resting comfortably in bed, no acute distress. Dressing is clean, dry, intact. Bilateral lower extremity: His left anterior soares is very tender to palpation, bilateral lower extremity motor functions are grossly intact, sensation is grossly intact bilaterally but somewhat decreased due to his baseline neuropathy, calves are soft and nontender to palpation. Const General: frail appearing Objective Labs Result Diagrams: 08/26/21 05:50 Labs: Laboratory Results - last 24 hr 08/26/21 05:50 Hgb 15.0 Hct 45.6 PFSH Medical History Alcoholism Anxiety BPH (benign prostatic hyperplasia) CAD (coronary artery disease) Cervical spine fracture (~1977) Diabetic retinopathy Easy bruisability Glaucoma HTN (hypertension) Hyperlipidemia Insulin dependent diabetes mellitus Insulin pump in place Legally blind Myocardial infarct (12/20/20) Osteoarthritis Tinnitus Surgical History H/O eye surgery H/O shoulder surgery (01/25/09) History of surgery (1998) History of surgery History of vasectomy (05/1987) Hx of arthroscopy of left knee (06/10/21) Hx of left cataract extraction Hx of oral surgery Family History Mother Alcoholism Father Drowned Social History household members: spouse Smoking Status: Former smoker alcohol intake: former Assessment & Plan Post-op Postoperative Procedures: Procedures Operation Date: 08/25/21 07:45 Actual Procedure Side Surgeon p Total Knee Arthroplasty Right Shane Cárdenas MD Postoperative day: 1 Postoperative status: urinary retention Postoperative status narrative: Status post right total knee arthroplasty, stable -moderate to severe postop vomiting and nausea Postoperative plan narrative: -patient is complaining of moderate to severe postop vomiting, he is currently on Zofran. He has declined a scopolamine patch as well as Compazine noting they do not work well for him. -he has urinary retention and was therefore catheterized. He does note difficulty with this in the past. -mobilize with PT, weight-bearing as tolerated front wheel walker -aspirin 81 mg twice daily for DVT prophylaxis x6 weeks -disposition: Patient would like to be discharged home, but is currently e xperiencing urinary retention and vomiting. Hopefully discharge home today or tomorrow once these issues are under better control. Quality VTE Deep Vein Thrombosis/Pulmonary Embolism Present on Admission: No
[2021-08-26] MEDS: TIMOLOL 0.5% OPHTH 1 DROPS EYE-LEFT (09:40)
--- NOTE | 2021-08-26 10:40 | PT-IP ANOTE ---
Attempted to see pt at 10:40 AM, pt unable to participate this AM due to nausea and vomiting. Will attempt in PM.
--- NOTE | 2021-08-26 14:23 | PC.NURSE ---
Addendum entered by Cade Ramsey R.N. 08/26/21 18:39: Pt recieved first bolus and I checked BP 15 minutes after it finished and bp was 98/41, I then waited fifteen minutes to reassess and BP was 82/41. I called dr dean and she ordered another bolus and then check BP and bladder scan the Pt. I gave the patient another 500 ml bolus of LR and checked the bp 30 minutes after it finished and the bp was 90/42 and I bladder scanned the Pt and found 225 ml in bladder. I called dr dean and informed her of situation she ordered to straight cath the pt due to prolonged time of urination. I did and got 175 mls of clear rita urine. Dr dean ordered no more fluids other than the 100 mls/hr or LR. Pt is sleeping and has had no nausea or vomiting for about three hours. Addendum entered by Cade Ramsey R.N. 08/26/21 15:34: Pt has not voided on our shift we bladder scanned PT and found 184 ml. Pt seems dehydrated due to vomiting and low BP and will reassess after Pt recieves IV bolus. Addendum entered by Cade Ramsey R.N. 08/26/21 15:32: We put in new Iv at 1500 and prescribed 500 ml LR IV bolus, this was initiated and Pt is resting. Addendum entered by Cade Ramsey R.N. 08/26/21 15:31: Flavio Parra was successful and put a 22 gauge IV in the left forearm. We Original Note: Day shift - Pt has been nauseated and vomiting and has had roughly 6 bout of emesis through the day and it is 1420 now. Pt was getting LR at 100 then his IV showed signs of phlebitis. I stopped Iv and took it out and put warm compress, swelling has gone down. Bp was taken at 1330 and it was 93/49. Pt is tired and lethargic but A&O X 4. We have tried two times to put in IV in right arm and were unsuccessful, Flavio Parra is trying again at 1420 and if unsuccessful we will reassess.
[2021-08-26] MEDS: LACTATED RINGERS 1,000 ML 100 ML IV (15:04)
[2021-08-26] MEDS: LACTATED RINGERS 500 ML 1000 ML IV ×2 (15:07→17:15)
--- NOTE | 2021-08-26 16:45 | PT-IP ANOTE ---
Per RN, hold PT until tomorrow due to low BP, pt not feeling well and receiving bolus.
[2021-08-26] MEDS: LATANOPROST 0.005% OPHTH 2.5 ML 1 DROPS EYE-LEFT (20:49)
--- NOTE | 2021-08-26 20:57 | P.HP_ITS ---
History of Present Illness History of Present Illness Date Patient Seen: 08/26/21 Time Patient Seen: 22:00 Chief complaint: RT TKA *OPB* Narrative: Mr. Mcmillan is a 70M with Type 1 DM, on an insulin pump, HTN, HL, legally blind who is here in the hospital admitted for an elective knee replacement. I was called tonight due to a change in the patient's condition. He was noted to be hypotensive to the 80s systolic, blood sugar in the 460s. Labs were drawn and noted to be significant for an MEL and an elevated potassium. Earlier in the day he had developed nausea and vomiting and reduced appetite. He had no fevers/chills. No dysuria, no abdominal pain, no shortness of breath. He was not dizzy, he did not feel confused. He notes having similar symptoms with DKA in the past. Medicine was consulted for these clinical changes. Labs were drawn and notable for a lactate of 3.2, ketones of 14, procal of 22.5, and initial gap of 27. He was transferred to the ICU and did get a mercado placed, central line placed, IV boluses started, urine blood cultures ordered, and started on hyperkalemia and DKA treatment. Patient History Medical History Alcoholism Anxiety BPH (benign prostatic hyperplasia) CAD (coronary artery disease) Cervical spine fracture (~1977) Diabetic retinopathy Easy bruisability Glaucoma HTN (hypertension) Hyperlipidemia Insulin dependent diabetes mellitus Insulin pump in place Legally blind Myocardial infarct (12/20/20) Osteoarthritis Tinnitus Surgical History H/O eye surgery H/O shoulder surgery (01/25/09) History of surgery (1998) History of surgery History of vasectomy (05/1987) Hx of arthroscopy of left knee (06/10/21) Hx of left cataract extraction Hx of oral surgery Family & Social History Family History Mother Alcoholism Father Drowned Social History: household members spouse Prior Living Arrangements House Safety & Behavioral: Feels Safe in Current Yes Environment Been Physically Hurt or No Threatened By a Person Suicidal Ideation Description None Suicide Plan Description No Plan Tobacco & Substance use: Smoking Status Former smoker alcohol intake former alcohol intake frequency holiday/special occasion Substance Use Type does not use,former substance user Meds Home Medications and Allergies Home Medications Medication Instructions Recorded Confirmed Type timolol maleate 0.5 % eye drops 1 drp EYE-LEFT QAM #2.5 ml 12/21/12 08/25/21 History atorvastatin 40 mg tablet 40 mg PO BEDTIME #30 tab 12/23/20 08/25/21 Rx insulin lispro 100 unit/mL 1 sliding scale dose SUBCUT 01/02/21 08/17/21 Rx subcutaneous solution (Humalog USEASDIRECTD #10 ml U-100 Insulin) aspirin 81 mg tablet,delayed 81 mg PO BEDTIME 08/17/21 08/25/21 History release latanoprost 0.005 % eye drops 1 drp EYE-LEFT BEDTIME 08/17/21 08/25/21 History metoprolol succinate 25 mg 37.5 mg PO BEDTIME 08/17/21 08/25/21 History tablet,extended release 24 hr Allergies Allergy/AdvReac Type Severity Reaction Status Date / Time codeine [CODEINE] Allergy Severe Tongue & Verified 08/25/21 07:01 throat swelling, vomiting, total body rash propoxyphene Allergy Nausea Verified 08/25/21 06:59 prochlorperazine AdvReac Severe Nausea, Verified 08/17/21 09:14 [PROCHLORPERAZINE] vomiting, unable to urinate Narcotics AdvReac Severe Most Uncoded 08/25/21 06:49 don't work on me, nausea, vomiting Review of Systems Review of Systems Narrative: 14 systems reviewed and negative aside from what is noted in HPI Exam Vital Signs (past 8 hours): - 08/26/21 22:28 08/26/21 23:00 08/27/21 01:00 Temperature 99.2 F 98.2 F 97.8 F Pulse Rate 79 78 87 Respiratory Rate 12 16 12 Blood Pressure 89/43 L 89/47 L 89/53 L Pulse Oximetry 94 97 97 08/27/21 02:00 08/27/21 03:00 Temperature 97.9 F 97.9 F Pulse Rate 82 89 Respiratory Rate 17 12 Blood Pressure 86/50 L 91/51 L Pulse Oximetry 95 97 Oxygen Delivery Method Room Air Oxygen Flow Rate 0 Narrative Exam Narrative: GEN: no acute distress, eyes closed CV: regular rate and rhythm, n omurmurs HEENT: PERRL, dry mucous membranes PULM: clear bilaterally, no wheezes, rhonchi rales NECK: trachea midline, no jvd ABD: soft, nontedner, nondistended, no organomegly EXT: slight mottling of bilateral feet, pulses palpable NEURO: awake, alert, oriented, no focal deficits PSYCH: pleasant, cooperative Objective Labs Result Diagrams: 08/26/21 22:14 08/27/21 01:00 Labs: Laboratory Results - last 24 hr 08/26/21 08/26/21 08/26/21 05:50 20:40 22:14 WBC 11.8 H RBC 4.61 Hgb 15.0 14.8 Hct 45.6 45.9 MCV 99.5 MCH 32.0 MCHC 32.2 RDW 13.3 Plt Count Not Reportable Neut % (Auto) 81.8 H Lymph % (Auto) 6.5 L [place] % (Auto) 11.4 Eos % (Auto) 0.0 L Baso % (Auto) 0.3 Neut # (Auto) 9600 H Lymph # (Auto) 800 L [place] # (Auto) 1300 H Eos # (Auto) 0 Baso # (Auto) 0 VBG pH VBG pCO2 VBG pO2 VBG HCO3 VBG Total CO2 VBG O2 Saturation VBG Base Excess Sodium 134 L Potassium 6.5 H* Chloride 98 Carbon Dioxide 9 L* BUN 56 H Creatinine 2.92 H Estimated GFR 21.4 L BUN/Creatinine Ratio 19.2 Glucose 462 H Lactate Calcium 8.4 Total Bilirubin 1.2 AST 36 ALT 30 Alkaline Phosphatase 80 Troponin I Total Protein 6.2 L Albumin 3.5 Globulin 2.7 Albumin/Globulin Ratio 1.3 Procalcitonin Urine Color Urine Appearance Urine pH Ur Specific [place] Urine Protein Urine Glucose (UA) Urine Ketones Urine Occult Blood Urine Nitrate Urine Bilirubin Urine Urobilinogen Ur Leukocyte Esterase Urine RBC Urine WBC Urine Bacteria Hyaline Casts Ur Culture Indicated? Ur Random Sodium Urine Creatinine Ketones 08/26/21 08/26/21 08/26/21 22:14 22:14 22:14 WBC RBC Hgb Hct MCV MCH MCHC RDW Plt Count Neut % (Auto) Lymph % (Auto) [place] % (Auto) Eos % (Auto) Baso % (Auto) Neut # (Auto) Lymph # (Auto) [place] # (Auto) Eos # (Auto) Baso # (Auto) VBG pH VBG pCO2 VBG pO2 VBG HCO3 VBG Total CO2 VBG O2 Saturation VBG Base Excess Sodium 132 L Potassium 6.9 H* Chloride 97 L Carbon Dioxide 10 L BUN 59 H Creatinine 3.31 H Estimated GFR 18.5 L BUN/Creatinine Ratio 17.8 Glucose 505 H* Lactate 3.2 H Calcium 8.5 Total Bilirubin 1.2 AST 42 ALT 35 Alkaline Phosphatase 82 Troponin I 0.033 Total Protein 6.4 Albumin 3.7 Globulin 2.7 Albumin/Globulin Ratio 1.4 Procalcitonin 22.5 H Urine Color Urine Appearance Urine pH Ur Specific [place] Urine Protein Urine Glucose (UA) Urine Ketones Urine Occult Blood Urine Nitrate Urine Bilirubin Urine Urobilinogen Ur Leukocyte Esterase Urine RBC Urine WBC Urine Bacteria Hyaline Casts Ur Culture Indicated? Ur Random Sodium Urine Creatinine Ketones 14.29 H 08/26/21 08/27/21 08/27/21 22:23 01:00 01:00 WBC RBC Hgb Hct MCV MCH MCHC RDW Plt Count Neut % (Auto) Lymph % (Auto) [place] % (Auto) Eos % (Auto) Baso % (Auto) Neut # (Auto) Lymph # (Auto) [place] # (Auto) Eos # (Auto) Baso # (Auto) VBG pH 7.13 L* VBG pCO2 30.1 L VBG pO2 29 L VBG HCO3 10 L VBG Total CO2 11 L VBG O2 Saturation 38 L VBG Base Excess -19.0 L Sodium 134 L Potassium 4.9 D Chloride 102 Carbon Dioxide 12 L BUN 63 H Creatinine 3.27 H Estimated GFR 18.8 L BUN/Creatinine Ratio 19.3 Glucose 465 H Lactate 2.4 H Calcium 8.1 L Total Bilirubin AST ALT Alkaline Phosphatase Troponin I Total Protein Albumin Globulin Albumin/Globulin Ratio Procalcitonin Urine Color Urine Appearance Urine pH Ur Specific [place] Urine Protein Urine Glucose (UA) Urine Ketones Urine Occult Blood Urine Nitrate Urine Bilirubin Urine Urobilinogen Ur Leukocyte Esterase Urine RBC Urine WBC Urine Bacteria Hyaline Casts Ur Culture Indicated? Ur Random Sodium Urine Creatinine Ketones 08/27/21 08/27/21 02:19 03:02 WBC RBC Hgb Hct MCV MCH MCHC RDW Plt Count Neut % (Auto) Lymph % (Auto) [place] % (Auto) Eos % (Auto) Baso % (Auto) Neut # (Auto) Lymph # (Auto) [place] # (Auto) Eos # (Auto) Baso # (Auto) VBG pH VBG pCO2 VBG pO2 VBG HCO3 VBG Total CO2 VBG O2 Saturation VBG Base Excess Sodium Potassium Chloride Carbon Dioxide BUN Creatinine Estimated GFR BUN/Creatinine Ratio Glucose Lactate Calcium Total Bilirubin AST ALT Alkaline Phosphatase Troponin I Total Protein Albumin Globulin Albumin/Globulin Ratio Procalcitonin Urine Color Yellow Urine Appearance Clear Urine pH 5.0 Ur Specific [place] >=1.030 H Urine Protein Trace H Urine Glucose (UA) Trace H Urine Ketones Trace H Urine Occult Blood 1+ H Urine Nitrate Negative Urine Bilirubin Negative Urine Urobilinogen 0.2 Ur Leukocyte Esterase Trace H Urine RBC 0-1/hpf Urine WBC 0-1/hpf Urine Bacteria None seen Hyaline Casts 5-10/lpf Ur Culture Indicated? Specimen cultured Ur Random Sodium 7 L Urine Creatinine 137.5 Ketones Assessment & Plan Assessment & Plan narrative: Mr. Mcmillan is a 71M with PMH Type 1 DM, on insulin, recent elective knee repair who presents in DKA. 1. Acute DKA, with Type 1 DM with severe sepsis -hold insulin pump -start insulin gtt, start IV fluids repletion aggressively with initial normal saline bolus, and now normal saline 300cc/hr, on DKA protocol -ordered UA and blood cultures to determine if any evidence of infection -initial UA is trace positive, patient does meet criteria for severe sepsis with lactate of 3.2, hypotension in the 80s, and organ failure with MEL -was ordered for IV fluid bolus, lactate with repeate, and IV meropenem, did improve with repeat lactate down below 3s -continue IV fluids, antibiotics, and follow up cultures -consult teleintensivisit -etiology is possibly not infectious, as patient was nauseous/vomiting after surgery 2. MEL with hyperkalemia -etiology likely hypovolemia, with urine sodium of 7, likely from vomiting -possibly hyperkalemia related to also LR -did get multiple doses of IV insulin, calcium gluconate, and did get albulterol ordered -LR stopped, and switched to normal saline as above -mercado placed to monitor urine ouput -CT KUB ordered to eval for hydronephrosis -repeat bmp every three hours -if renal function not improving will attempt transfer for possible dialysis 3. HTN -hold antihypertensives Code status: DNR Surrogate decision maker: his Ellyn Mcmillan I have utilized all available resources to reconcile the patients home medications Time Spent With Patient Critical Care time: I spent a total of 35 minutes of critical care time on this patient's care today; this time is exclusive of procedural time. Quality VTE Deep Vein Thrombosis/Pulmonary Embolism Present on Admission: No MIPS - Admit I confirm the patient?s Advance Care Plan is present, Code status is documented, Surrogate decision maker is in patient?s record [If Yes, STOP here]: Yes
[2021-08-26 21:03] LABS: Alanine Aminotransferase 30 IU/L (<50); Albumin 3.5 g/dL (3.5-5.0); Albumin Globulin Ratio 1.3 (1.0-2.8); Alkaline Phosphatase 80 U/L (38-126); Aspartate Aminotransferase 36 IU/L (17-59); BUN Creatinine Ratio 19.2 (6-22); Bilirubin Total 1.2 mg/dL (0.2-1.3); Blood Urea Nitrogen 56 mg/dL (9-20); Calcium 8.4 mg/dL (8.4-10.2); Chloride 98 mmol/L (98-107); Estimated Glomerular Filt Rate 21.4 mL/min (>60); Globulin 2.7 g/dL (1.7-4.1); Glucose 462 mg/dL (80-110); HEMOLYSIS 42 (0-50); Sodium 134 mmol/L (137-145); Total Protein 6.2 g/dL (6.3-8.2)
[2021-08-26 21:19] LABS: Carbon Dioxide 9 mmol/L (22-32); Potassium 6.5 mmol/L (3.4-5.1)
[2021-08-26] MEDS: SODIUM CHLORIDE 0.9% 1,000 ML 1000 ML IV ×2 (21:50→22:02)
--- NOTE | 2021-08-26 21:55 | DI.RAD.S_ITS ---
PROCEDURE: XR CHEST 1V INDICATIONS: diabetic ketoacidosis, PICC line placement TECHNIQUE: One view of the chest was acquired. COMPARISON: [facility], CR, XR CHEST 1V, 12/20/2020, 23:08. FINDINGS: Surgical changes and devices: A right internal jugular catheter is seen with tip projecting over the right atrium. Consider pulling the catheter back by 3-[address] the tip at the superior cavoatrial junction. Lungs and pleura: Possible patchy opacity at the left lung base in the retrocardiac region. No pleural effusions or pneumothorax. Mediastinum: Mediastinal contours appear normal. Heart size is normal. Bones and chest wall: No suspicious bony lesions. Overlying soft tissues appear unremarkable. Old left-sided clavicular fracture redemonstrated. IMPRESSION: 1. Right internal jugular catheter is seen with tip projecting over the right atrium. Consider pulling the catheter back by 3-[address] the tip at the superior cavoatrial junction. 2. Increased lung markings at the left lung base may be secondary to atelectasis, pneumonia, or aspiration. Dictated by: Saul Renner M.D. on 08/27/2021 at 1:09 Approved by: Saul Renner M.D. on 08/27/2021 at 1:13
[2021-08-26] MEDS: CALCIUM GLUCONATE 4.65 MEQ in SODIUM CHLORIDE 0.9% 50 ML 180 ML IV (21:57)
--- NOTE | 2021-08-26 22:38 | PC.NURSE ---
Pt moved to ICU due to DKA symptoms. All belongings taken with him.
[2021-08-26 22:48] LABS: Alanine Aminotransferase 35 IU/L (<50); Albumin 3.7 g/dL (3.5-5.0); Albumin Globulin Ratio 1.4 (1.0-2.8); Alkaline Phosphatase 82 U/L (38-126); Aspartate Aminotransferase 42 IU/L (17-59); BUN Creatinine Ratio 17.8 (6-22); Bilirubin Total 1.2 mg/dL (0.2-1.3); Blood Urea Nitrogen 59 mg/dL (9-20); Calcium 8.5 mg/dL (8.4-10.2); Carbon Dioxide 10 mmol/L (22-32); Chloride 97 mmol/L (98-107); Estimated Glomerular Filt Rate 18.5 mL/min (>60); Globulin 2.7 g/dL (1.7-4.1); Lactate (Lactic Acid) 3.2 mmol/L (0.7-2.1); Sodium 132 mmol/L (137-145); Total Protein 6.4 g/dL (6.3-8.2)
[2021-08-26 22:59] LABS: HEMOLYSIS 17 (0-50)
[2021-08-26 23:02] LABS: Troponin I 0.033 ng/mL (0.01-0.034)
[2021-08-26 23:04] LABS: Procalcitonin 22.5 ng/mL (<0.5)
[2021-08-26 23:14] LABS: HCO3 VBG 10 mmol/L (23-28); Oxygen Saturation VBG 38 % (70-75); PCO2 VBG 30.1 mmHg (45-50); PO2 VBG 29 mmHg (35-45); Total CO2 VBG 11 mmol/L (24-29); pH VBG 7.13 (7.33-7.43)
[2021-08-26] MEDS: INSULIN DRIP PREMIX 100 UNIT/100 ML PLAST..BAG 11 UNIT IV (23:24)
[2021-08-26] MEDS: SODIUM CHLORIDE 0.9% 1,000 ML 300 ML IV (23:25)
[2021-08-26 23:40] LABS: Potassium 6.9 mmol/L (3.4-5.1)
[2021-08-26 23:41] LABS: Glucose 505 mg/dL (80-110)
[2021-08-26 23:59] LABS: Basophils Absolute Auto 0 /uL (0-100); Basophils Percent Auto 0.3 % (0-2); Eosinophils Absolute Auto 0 /uL (0-450); Hematocrit 45.9 % (41-53); Hemoglobin 14.8 g/dL (13.5-17.5); Ketones (Beta-Hydroxybutyrate) 14.29 mmol/L (<0.27); Lymphocytes Absolute Auto 800 /uL (1100-4500); Lymphocytes Percent Auto 6.5 % (25-40); Mean Corpuscular HGB Conc 32.2 % (30-36); Mean Corpuscular Volume 99.5 fL (80-100); Monocytes Absolute Auto 1300 /uL (0-900); Monocytes Percent Auto 11.4 % (3-14); Neutrophils Absolute Auto 9600 /uL (1500-7000); Neutrophils Percent Auto 81.8 % (50-75); Red Blood Cell Count 4.61 X10^6/uL (4.5-5.9); Red Cell Distribution Width 13.3 % (11.6-14.8); White Blood Cell Count 11.8 X10^3/uL (4.5-11.0)
--- NOTE | 2021-08-26 23:59 | DI.CT.S_ITS ---
PROCEDURE: CT KIDNEY URETER BLADDER (KUB) INDICATIONS: possible obstruction TECHNIQUE: Axial sections were acquired from the lung bases to the pubic symphysis. Coronal and sagittal reformats were performed. For radiation dose reduction, the following was used: automated exposure control, adjustment of mA and/or kV according to patient size. COMPARISON: [facility], CT, CT ANGIO CHEST ABDOMEN, 12/21/2020, 2:59. FINDINGS: Image quality: There is mild motion artifact as well as beam hardening artifact slightly limiting evaluation. Lung bases: There are small bilateral pleural effusions with associated compressive atelectasis. There is also mild consolidation posteriorly in the lower lobes, left greater than right. A small region of ground-glass opacities partially visualized peripherally in the right middle lobe. There is mild bronchial wall thickening in the lung bases Heart: Within normal size limits. There is moderate coronary arterial vascular calcification. A small hiatal hernia is present. There is mild fluid distention of the visualized distal esophagus. URINARY: Right Kidney: No stones or hydronephrosis. Right Ureter: No hydroureter. Left Kidney: No stones or hydronephrosis. Left Ureter: No hydroureter. Bladder: There is a Le catheter within a nondistended urinary bladder. There is suggestion of bladder wall thickening with mild associated fat stranding. Multiple surgical clips are demonstrated along the base of the bladder and prostate. ABDOMEN: Liver: Noncontrast evaluation of the liver demonstrates no discrete mass lesion. Gallbladder: Unremarkable. Biliary ducts: Unremarkable. Pancreas: Unremarkable. Spleen: Unremarkable. Adrenal Glands: Unremarkable. Stomach and Bowel: Stomach, small bowel loops, and colon are normal in caliber and wall thickness. The appendix is normal in appearance. There is colonic diverticulosis without acute diverticulitis. There is mild hazy fat stranding in the mesentery. Peritoneum: No abnormal intraperitoneal fluid. No free air. Ventral Wall: No hernia. Abdominal Nodes: No enlarged retroperitoneal or mesenteric lymph nodes. Vessels: Aorta and inferior vena cava are normal in size. PELVIS: Pelvic Organs: As noted above, there are surgical clips at the base of the bladder and along the prostate. Pelvic Nodes: Unremarkable. Miscellaneous: No inguinal hernias are seen. Bones: Visualized osseous structures demonstrate no suspicious focal lesions. IMPRESSION: 1. No evidence of nephrolithiasis or obstructive uropathy. 2. No evidence of bowel obstruction. 3. Small bilateral pleural effusions with associated compressive atelectasis as well as areas of mild consolidation in the lower lobes which may reflect pneumonia. Partially visualized ground-glass opacity in the right middle lobe may also reflect pneumonia. Recommend correlation clinically. 4. Nondistended urinary bladder with mild wall thickening and minimal fat stranding suggestive of a cystitis. Recommend correlation with urinalysis. 5. Mild fat stranding within the mesentery. The findings are nonspecific and may be reactive but the differential includes a mild infectious or inflammatory process such as sclerosing mesenteritis. Dictated by: Marky Yee M.D. on 08/27/2021 at 8:09 Approved by: Marky Yee M.D. on 08/27/2021 at 8:18
[2021-08-27] VITALS (54 sets, daily range): BP systolic 86–164; BP diastolic 46–89; PULSE 68–93; RESP 11–32; TEMP 36.2–36.6; O2SAT 81–100
[2021-08-27 00:01] LABS: Add Manual Diff / Slide Review NO
[2021-08-27] MEDS: CALCIUM GLUCONATE 4.65 MEQ in SODIUM CHLORIDE 0.9% 50 ML 180 ML IV (00:15)
[2021-08-27] MEDS: INSULIN REGULAR 100 UNIT/ML 3 ML VIAL 10 UNIT SUBCUT (00:19)
[2021-08-27 00:31] LABS: Reflexed Lactate in 2 Hours Y
--- NOTE | 2021-08-27 01:13 | PM.PROC.1 ---
Procedures Date/Time Date of procedure: 08/27/21 Time of procedure: 01:13 General Procedure description: Right internal jugular vein triple-lumen catheter Central Line Placement Additional comments: The skin of the right chest and neck were prepped and draped in the usual fashion. Initially a right subclavian vein approach was attempted however due to the patient's large size the vein could not be easily reached in a tangential fashion so the decision was made to perform a right internal jugular vein approach using the ultrasound for guidance. The right internal jugular vein was visualized and noted to be patent. The right internal jugular vein was catheterized via the Seldinger technique. The skin was nicked with the scalpel over the wire. The tract was dilated. The primed triple-lumen catheter was advanced over the wire without resistance. The catheter was sutured to the skin and a dressing was applied. Portable chest x-ray was obtained which showed the catheter in the appropriate position with no obvious pneumothorax. EBL: 10 mL
[2021-08-27] MEDS: MEROPENEM 1 GM in SODIUM CHLORIDE 0.9% 100 ML 200 ML IV (01:19)
[2021-08-27] MEDS: LIDOCAINE 2% INJ MDV 20 ML (01:24)
--- NOTE | 2021-08-27 01:28 | PM.CN.EICU ---
History of Present Illness Consult details Chief complaint: RT TKA *OPB* :: This patient was seen in the Intensive Care Unit via real time interactive two-way audiovisual telecommunication. Narrative: 71 y.o. male who developed hypotension, hyperglycemia of 462 and an anion gap metabolic acidosis (AG of 17) on the medical floor. He is POD #2 from a R TKR. Labs showed hyperkalemia of 6.5 and lactate of 3.2. He had non-invasive systolic blood pressures in the 80s and was given 2L crystalloid. UA is pending. The presumptive diagnosis was DKA and he was started on a IV insulin. Meropenem was also started for a potential infectious cause. [facility] Medical History Alcoholism Anxiety BPH (benign prostatic hyperplasia) CAD (coronary artery disease) Cervical spine fracture (~1977) Diabetic retinopathy Easy bruisability Glaucoma HTN (hypertension) Hyperlipidemia Insulin dependent diabetes mellitus Insulin pump in place Legally blind Myocardial infarct (12/20/20) Osteoarthritis Tinnitus Surgical History H/O eye surgery H/O shoulder surgery (01/25/09) History of surgery (1998) History of surgery History of vasectomy (05/1987) Hx of arthroscopy of left knee (06/10/21) Hx of left cataract extraction Hx of oral surgery Family History Mother Alcoholism Father Drowned Social History household members: spouse Smoking Status: Former smoker alcohol intake: former Current Medications Current Medications Medications: Home Medications timolol maleate 0.5 % eye drops 1 drp EYE-LEFT QAM #2.5 ml 12/21/12 [History Confirmed 08/25/21] atorvastatin 40 mg tablet 40 mg PO BEDTIME #30 tab 12/23/20 [Rx Confirmed 08/25/21] insulin lispro 100 unit/mL subcutaneous solution (Humalog U-100 Insulin) 1 sliding scale dose SUBCUT USEASDIRECTD #10 ml 01/02/21 [Rx Confirmed 08/17/21] aspirin 81 mg tablet,delayed release 81 mg PO BEDTIME 08/17/21 [History Confirmed 08/25/21] latanoprost 0.005 % eye drops 1 drp EYE-LEFT BEDTIME 08/17/21 [History Confirmed 08/25/21] metoprolol succinate 25 mg tablet,extended release 24 hr 37.5 mg PO BEDTIME 08/17/21 [History Confirmed 08/25/21] Visit Medications (administered) Generic Name Dose Route Start Last Admin Trade Name Freq PRN Reason Stop Dose Admin Acetaminophen 975 mg 08/25/21 15:00 08/26/21 23:20 Acetaminophen 325 Mg Tablet PO Not Given TID LISHA Aspirin 81 mg 08/25/21 21:00 08/26/21 23:21 Aspirin Ec 81 Mg Tablet PO Not Given BID LISHA Atorvastatin Calcium 40 mg 08/25/21 21:00 08/26/21 22:37 Atorvastatin 20 Mg Tablet PO Not Given BEDTIME LISHA Docusate Sodium 100 mg 08/25/21 21:00 08/26/21 23:22 Docusate 100 Mg Capsule PO Not Given BID LISHA INSULIN DRIP PREMIX 100 unit in 100 mls @ 6 mls/hr 08/26/21 22:30 08/26/21 23:24 Myxredlin Drip Premix IV 11 ml/hr TITRATE LISHA 11 mls/hr Administration Protocol Sodium Chloride 1,000 mls @ 300 mls/hr 08/26/21 22:30 08/26/21 23:25 Normal Saline 0.9% IV 09/26/21 01:49 300 mls/hr CONT LISHA Administration Insulin Human Lispro 0 unit 08/25/21 16:45 08/26/21 23:47 Insulin Lispro 100 Unit/Ml 3ml Vial SUBCUT Not Given ACHS LISHA Latanoprost 1 drops 08/25/21 21:00 08/26/21 20:49 Latanoprost 0.005% Ophth 2.5 Ml EYE-LEFT 1 drops BEDTIME LISHA Administration Ondansetron HCl 4 mg 08/25/21 11:51 08/25/21 12:50 Ondansetron 4 Mg/2 Ml Inj IV 4 mg Q4HR PRN Administration Nausea And Vomiting Timolol Maleate 1 drops 08/26/21 09:00 08/26/21 09:40 Timolol 0.5% Ophth EYE-LEFT 1 % DAILY LISHA Administration Exam Vital Signs (past 8 hours): - 03/10/22 18:00 08/26/21 19:43 08/26/21 22:28 Temperature 98.6 F 99.3 F 99.2 F Pulse Rate 74 51 L 79 Respiratory Rate 18 18 12 Blood Pressure 90/42 L 84/41 L 89/43 L Pulse Oximetry 96 96 94 08/26/21 23:00 Temperature 98.2 F Pulse Rate 78 Respiratory Rate 16 Blood Pressure 89/47 L Pulse Oximetry 97 Oxygen Delivery Method Room Air Oxygen Flow Rate 0 Const General: ill appearing Eyes General: appearance normal, both eyes and all related structures (blind due to diabetic retinopathy) Resp Effort & Inspection: normal respiratory effort Objective Labs Result Diagrams: 08/26/21 22:14 08/26/21 22:14 Labs: Laboratory Results - last 24 hr 08/26/21 08/26/21 08/26/21 05:50 20:40 22:14 WBC 11.8 H RBC 4.61 Hgb 15.0 14.8 Hct 45.6 45.9 MCV 99.5 MCH 32.0 MCHC 32.2 RDW 13.3 Plt Count Not Reportable Neut % (Auto) 81.8 H Lymph % (Auto) 6.5 L [place] % (Auto) 11.4 Eos % (Auto) 0.0 L Baso % (Auto) 0.3 Neut # (Auto) 9600 H Lymph # (Auto) 800 L [place] # (Auto) 1300 H Eos # (Auto) 0 Baso # (Auto) 0 VBG pH VBG pCO2 VBG pO2 VBG HCO3 VBG Total CO2 VBG O2 Saturation VBG Base Excess Sodium 134 L Potassium 6.5 H* Chloride 98 Carbon Dioxide 9 L* BUN 56 H Creatinine 2.92 H Estimated GFR 21.4 L BUN/Creatinine Ratio 19.2 Glucose 462 H Lactate Calcium 8.4 Total Bilirubin 1.2 AST 36 ALT 30 Alkaline Phosphatase 80 Troponin I Total Protein 6.2 L Albumin 3.5 Globulin 2.7 Albumin/Globulin Ratio 1.3 Procalcitonin Ketones 08/26/21 08/26/21 08/26/21 22:14 22:14 22:14 WBC RBC Hgb Hct MCV MCH MCHC RDW Plt Count Neut % (Auto) Lymph % (Auto) [place] % (Auto) Eos % (Auto) Baso % (Auto) Neut # (Auto) Lymph # (Auto) [place] # (Auto) Eos # (Auto) Baso # (Auto) VBG pH VBG pCO2 VBG pO2 VBG HCO3 VBG Total CO2 VBG O2 Saturation VBG Base Excess Sodium 132 L Potassium 6.9 H* Chloride 97 L Carbon Dioxide 10 L BUN 59 H Creatinine 3.31 H Estimated GFR 18.5 L BUN/Creatinine Ratio 17.8 Glucose 505 H* Lactate 3.2 H Calcium 8.5 Total Bilirubin 1.2 AST 42 ALT 35 Alkaline Phosphatase 82 Troponin I 0.033 Total Protein 6.4 Albumin 3.7 Globulin 2.7 Albumin/Globulin Ratio 1.4 Procalcitonin 22.5 H Ketones 14.29 H 08/26/21 22:23 WBC RBC Hgb Hct MCV MCH MCHC RDW Plt Count Neut % (Auto) Lymph % (Auto) [place] % (Auto) Eos % (Auto) Baso % (Auto) Neut # (Auto) Lymph # (Auto) [place] # (Auto) Eos # (Auto) Baso # (Auto) VBG pH 7.13 L* VBG pCO2 30.1 L VBG pO2 29 L VBG HCO3 10 L VBG Total CO2 11 L VBG O2 Saturation 38 L VBG Base Excess -19.0 L Sodium Potassium Chloride Carbon Dioxide BUN Creatinine Estimated GFR BUN/Creatinine Ratio Glucose Lactate Calcium Total Bilirubin AST ALT Alkaline Phosphatase Troponin I Total Protein Albumin Globulin Albumin/Globulin Ratio Procalcitonin Ketones Assessment & Plan Assessment and plan (1) DKA, type 1: Status: Acute Plan: -Continue DKA protocol (2) Hyperlactatemia: Status: Acute Plan: -Suspect that this is probably due to DKA-induced hypovolemea; nevertheless, reasonable to starte broad spectrum antibiotics pending clinical course and culture data
[2021-08-27 01:37] LABS: Lactate 2HR (Lactic Acid Rflx) 2.4 mmol/L (0.7-2.1)
[2021-08-27 01:38] LABS: BUN Creatinine Ratio 19.3 (6-22); Blood Urea Nitrogen 63 mg/dL (9-20); Calcium 8.1 mg/dL (8.4-10.2); Carbon Dioxide 12 mmol/L (22-32); Chloride 102 mmol/L (98-107); Estimated Glomerular Filt Rate 18.8 mL/min (>60); Glucose 465 mg/dL (80-110); HEMOLYSIS < 15 (0-50); Potassium 4.9 mmol/L (3.4-5.1); Sodium 134 mmol/L (137-145)
[2021-08-27] MEDS: SODIUM CHLORIDE 0.9% 1,000 ML 300 ML IV (02:55)
[2021-08-27 03:18] LABS: Creatinine Urine Random 137.5 mg/dL; Sodium Urine Random 7 mmol/L (30-90)
--- NOTE | 2021-08-27 03:18 | PC.NURSE ---
2245- Patient arrived via bed to room 229. Patient is responsive though ill looking. See vitals. Bolus of NS is infusing per order. Patient has his own insulin pump to right flank. Pump disabled and Insulin gtt started per protocol. Le catheter placed for accurate I/O. Dr. Chirinos arranging for Central line placement to have appropriate access. Patient has been intermittedly nauseated but no vomiting. Labs are pending. 0100- Dr. Hayden (surgery) here to place central line. Patient advised of procedure, need, possible complications, and verbal consent obtained. Labs reviewed, orders recieved and executed. 0215- Patient transported to CT scan. Creatinine and potassium elevated and uop is decreased. Scan done per MD order without contrast. Patient updated on the need for the test and tolerated it well. Labs pulled from central line. Urine sent per order. 0300- Patient returned to room 229. at bedside and updated on condition. Patient stable but BP remains soft and uop remains low. MD is aware. Report given at bedside to Ted RUBI. Will monitor closely.
[2021-08-27 03:23] LABS: Appearance Urine UA CLEAR; Color Urine UA YELLOW; Glucose Urine UA TRACE g/dL (Negative); Ketones Urine UA TRACE (NEGATIVE); Leukocyte Esterase Urine UA TRACE (NEGATIVE); Nitrite Urine UA NEGATIVE (Negative); Occult Blood Urine UA 1+ (Negative); Protein Urine UA TRACE (Negative); Specific Gravity Urine UA >=1.030 (1.000-1.035); Urobilinogen Urine UA 0.2 E.U./dL (0.2)
[2021-08-27 03:24] LABS: Bilirubin Urine UA Negative (NEGATIVE)
[2021-08-27 03:39] LABS: Bacteria Urine None Seen; Culture Indicated Urine Specimen Cultured; Hyaline Casts Urine 5-10/LPF; RBC Urine 0-1/HPF (0-5/HPF); WBC Urine 0-1/HPF (0-5/HPF)
[2021-08-27] MEDS: ALBUTEROL 2.5 MG/3 ML NEB (ADULT) 10 MG INH (03:54)
[2021-08-27 04:31] LABS: Blood Urea Nitrogen 69 mg/dL (9-20); Calcium 7.9 mg/dL (8.4-10.2); Carbon Dioxide 17 mmol/L (22-32); Chloride 105 mmol/L (98-107); Estimated Glomerular Filt Rate 19.7 mL/min (>60); Glucose 390 mg/dL (80-110); HEMOLYSIS 18 (0-50); Potassium 4.7 mmol/L (3.4-5.1); Sodium 134 mmol/L (137-145)
[2021-08-27 04:57] LABS: pH VBG 7.14 (7.33-7.43)
[2021-08-27 04:58] LABS: HCO3 VBG 11 mmol/L (23-28); PO2 VBG 140 mmHg (35-45); Total CO2 VBG 12 mmol/L (24-29)
[2021-08-27 04:59] LABS: Oxygen Saturation VBG 98 % (70-75)
[2021-08-27 05:03] LABS: HCO3 VBG 17 mmol/L (23-28); Oxygen Saturation VBG 72 % (70-75); PCO2 VBG 37.2 mmHg (45-50); PO2 VBG 43 mmHg (35-45); Total CO2 VBG 18 mmol/L (24-29); pH VBG 7.26 (7.33-7.43)
[2021-08-27] MEDS: INSULIN DRIP PREMIX 100 UNIT/100 ML PLAST..BAG 11 UNIT IV (06:16)
[2021-08-27] MEDS: SODIUM CHLORIDE 0.9% 1,000 ML 250 ML IV (06:16)
[2021-08-27 07:22] LABS: BUN Creatinine Ratio 24.1 (6-22); Blood Urea Nitrogen 71 mg/dL (9-20); Calcium 7.9 mg/dL (8.4-10.2); Carbon Dioxide 20 mmol/L (22-32); Chloride 105 mmol/L (98-107); Estimated Glomerular Filt Rate 21.2 mL/min (>60); Glucose 340 mg/dL (80-110); HEMOLYSIS < 15 (0-50); Potassium 4.3 mmol/L (3.4-5.1); Sodium 137 mmol/L (137-145)
--- NOTE | 2021-08-27 07:34 | PC.NURSE ---
Shift Note: Patient was alert and oriented, D2 s/p right total knee replacement , with post op dressing, clean, dry and intact. Central line in place, on insulin drip at 11mls/hr, on DKA protocol. IV NS at 250mls/hr as per Dr Chirinos. UOP 70mls, notified. Afebrile, vital signs within acceptable limits. Patient denies any pain/discomfort. Will continue to monitor.
--- NOTE | 2021-08-27 08:00 | DI.US.S_ITS ---
PROCEDURE: US RENAL COMPLETE INDICATIONS: MEL TECHNIQUE: Real-time scanning was performed of the kidneys and bladder, with image documentation. COMPARISON: [facility], CT, CT KIDNEY URETER BLADDER (KUB), 08/27/2021, 2:09. FINDINGS: Kidneys: Right kidney measures 9.6 cm long; left kidney measures 9.9 cm long. Right renal cortical thickness is 1.5 cm; left renal cortical thickness is 1.5 cm. Renal cortical echotexture is normal. No hydronephrosis or nephrolithiasis. No suspicious solid mass lesions. Bladder: The urinary bladder is decompressed by Le catheter. Miscellaneous: No free pelvic fluid. IMPRESSION: No significant abnormality. Dictated by: Nick Penny M.D. on 08/27/2021 at 8:38 Approved by: Nick Penny M.D. on 08/27/2021 at 8:39
--- NOTE | 2021-08-27 09:38 | PM.PN.1 ---
Subjective Subjective Date Patient Seen: 08/27/21 Time Patient Seen: 09:39 Interval history: Mr. Mcmillan is a 70M with Type 1 DM, on an insulin pump, HTN, HL, legally blind who is here in the hospital admitted for an elective knee replacement. Patient has been transferred to the ICU unit, there is concern for diabetic ketoacidosis and possibly acute renal failure. The patient notes his right knee is actually doing quite well he has minimal pain currently. He denies any new numbness or tingling. No chest pain or shortness of breath. Exam Vital Signs (past 8 hours): - 08/27/21 01:45 08/27/21 02:00 08/27/21 02:15 Temperature 97.9 F Pulse Rate 82 79 80 Respiratory Rate 13 14 14 Blood Pressure 91/52 L 86/50 L 89/48 L Pulse Oximetry 98 97 96 08/27/21 02:46 08/27/21 02:48 08/27/21 03:00 Temperature 97.9 F Pulse Rate 79 79 77 Respiratory Rate 13 12 Blood Pressure 91/47 L 91/51 L Pulse Oximetry 96 95 08/27/21 03:15 08/27/21 03:30 08/27/21 03:45 Temperature Pulse Rate 77 78 76 Respiratory Rate 14 12 13 Blood Pressure 91/52 L 95/55 L 97/56 L Pulse Oximetry 96 97 97 08/27/21 03:54 08/27/21 04:00 08/27/21 04:15 Temperature 97.4 F L Pulse Rate 75 75 80 Respiratory Rate 13 13 12 Blood Pressure 98/54 L 108/58 L Pulse Oximetry 97 100 100 08/27/21 04:30 08/27/21 04:45 08/27/21 05:00 Temperature 97.1 F L Pulse Rate 93 H 92 H 90 Respiratory Rate 13 13 14 Blood Pressure 115/55 L 112/54 L 102/55 L Pulse Oximetry 98 98 97 08/27/21 05:30 08/27/21 06:00 08/27/21 06:30 Temperature 97.4 F L Pulse Rate 89 85 86 Respiratory Rate 13 13 16 Blood Pressure 102/53 L 107/53 L 110/61 Pulse Oximetry 97 98 95 08/27/21 07:00 08/27/21 07:30 08/27/21 08:00 Temperature Pulse Rate 84 85 84 Respiratory Rate 13 12 13 Blood Pressure 125/58 L 120/59 L 124/58 L Pulse Oximetry 98 98 97 08/27/21 08:30 08/27/21 09:00 Temperature Pulse Rate 82 85 Respiratory Rate 16 14 Blood Pressure 129/62 137/64 Pulse Oximetry 98 98 Oxygen Delivery Method Room Air Oxygen Flow Rate 0 Narrative Exam Narrative: Pleasant 71-year-old male, resting comfortably in bed, no acute distress. Dressing is clean, dry, intact. Bilateral lower extremities: Motor function is grossly intact, sensation is grossly intact to light touch, calves are soft and nontender to palpation. Objective Labs Result Diagrams: 08/26/21 22:14 08/27/21 06:55 Labs: Laboratory Results - last 24 hr 08/26/21 08/26/21 08/26/21 20:40 22:14 22:14 WBC 11.8 H RBC 4.61 Hgb 14.8 Hct 45.9 MCV 99.5 MCH 32.0 MCHC 32.2 RDW 13.3 Plt Count Not Reportable Neut % (Auto) 81.8 H Lymph % (Auto) 6.5 L [place] % (Auto) 11.4 Eos % (Auto) 0.0 L Baso % (Auto) 0.3 Neut # (Auto) 9600 H Lymph # (Auto) 800 L [place] # (Auto) 1300 H Eos # (Auto) 0 Baso # (Auto) 0 VBG pH VBG pCO2 VBG pO2 VBG HCO3 VBG Total CO2 VBG O2 Saturation VBG Base Excess Sodium 134 L 132 L Potassium 6.5 H* 6.9 H* Chloride 98 97 L Carbon Dioxide 9 L* 10 L BUN 56 H 59 H Creatinine 2.92 H 3.31 H Estimated GFR 21.4 L 18.5 L BUN/Creatinine Ratio 19.2 17.8 Glucose 462 H 505 H* Lactate Calcium 8.4 8.5 Total Bilirubin 1.2 1.2 AST 36 42 ALT 30 35 Alkaline Phosphatase 80 82 Troponin I Total Protein 6.2 L 6.4 Albumin 3.5 3.7 Globulin 2.7 2.7 Albumin/Globulin Ratio 1.3 1.4 Procalcitonin 22.5 H Urine Color Urine Appearance Urine pH Ur Specific [place] Urine Protein Urine Glucose (UA) Urine Ketones Urine Occult Blood Urine Nitrate Urine Bilirubin Urine Urobilinogen Ur Leukocyte Esterase Urine RBC Urine WBC Urine Bacteria Hyaline Casts Ur Culture Indicated? Ur Random Sodium Urine Creatinine Ketones 14.29 H 08/26/21 08/26/21 08/26/21 22:14 22:14 22:23 WBC RBC Hgb Hct MCV MCH MCHC RDW Plt Count Neut % (Auto) Lymph % (Auto) [place] % (Auto) Eos % (Auto) Baso % (Auto) Neut # (Auto) Lymph # (Auto) [place] # (Auto) Eos # (Auto) Baso # (Auto) VBG pH 7.13 L* VBG pCO2 30.1 L VBG pO2 29 L VBG HCO3 10 L VBG Total CO2 11 L VBG O2 Saturation 38 L VBG Base Excess -19.0 L Sodium Potassium Chloride Carbon Dioxide BUN Creatinine Estimated GFR BUN/Creatinine Ratio Glucose Lactate 3.2 H Calcium Total Bilirubin AST ALT Alkaline Phosphatase Troponin I 0.033 Total Protein Albumin Globulin Albumin/Globulin Ratio Procalcitonin Urine Color Urine Appearance Urine pH Ur Specific [place] Urine Protein Urine Glucose (UA) Urine Ketones Urine Occult Blood Urine Nitrate Urine Bilirubin Urine Urobilinogen Ur Leukocyte Esterase Urine RBC Urine WBC Urine Bacteria Hyaline Casts Ur Culture Indicated? Ur Random Sodium Urine Creatinine Ketones 08/27/21 08/27/21 08/27/21 01:00 01:00 01:37 WBC RBC Hgb Hct MCV MCH MCHC RDW Plt Count Neut % (Auto) Lymph % (Auto) [place] % (Auto) Eos % (Auto) Baso % (Auto) Neut # (Auto) Lymph # (Auto) [place] # (Auto) Eos # (Auto) Baso # (Auto) VBG pH 7.14 L* VBG pCO2 33.0 L VBG pO2 140 H VBG HCO3 11 L VBG Total CO2 12 L VBG O2 Saturation 98 H VBG Base Excess -18.0 L Sodium 134 L Potassium 4.9 D Chloride 102 Carbon Dioxide 12 L BUN 63 H Creatinine 3.27 H Estimated GFR 18.8 L BUN/Creatinine Ratio 19.3 Glucose 465 H Lactate 2.4 H Calcium 8.1 L Total Bilirubin AST ALT Alkaline Phosphatase Troponin I Total Protein Albumin Globulin Albumin/Globulin Ratio Procalcitonin Urine Color Urine Appearance Urine pH Ur Specific [place] Urine Protein Urine Glucose (UA) Urine Ketones Urine Occult Blood Urine Nitrate Urine Bilirubin Urine Urobilinogen Ur Leukocyte Esterase Urine RBC Urine WBC Urine Bacteria Hyaline Casts Ur Culture Indicated? Ur Random Sodium Urine Creatinine Ketones 08/27/21 08/27/21 08/27/21 02:19 03:02 04:00 WBC RBC Hgb Hct MCV MCH MCHC RDW Plt Count Neut % (Auto) Lymph % (Auto) [place] % (Auto) Eos % (Auto) Baso % (Auto) Neut # (Auto) Lymph # (Auto) [place] # (Auto) Eos # (Auto) Baso # (Auto) VBG pH VBG pCO2 VBG pO2 VBG HCO3 VBG Total CO2 VBG O2 Saturation VBG Base Excess Sodium 134 L Potassium 4.7 Chloride 105 Carbon Dioxide 17 L BUN 69 H Creatinine 3.14 H Estimated GFR 19.7 L BUN/Creatinine Ratio 22.0 Glucose 390 H Lactate Calcium 7.9 L Total Bilirubin AST ALT Alkaline Phosphatase Troponin I Total Protein Albumin Globulin Albumin/Globulin Ratio Procalcitonin Urine Color Yellow Urine Appearance Clear Urine pH 5.0 Ur Specific [place] >=1.030 H Urine Protein Trace H Urine Glucose (UA) Trace H Urine Ketones Trace H Urine Occult Blood 1+ H Urine Nitrate Negative Urine Bilirubin Negative Urine Urobilinogen 0.2 Ur Leukocyte Esterase Trace H Urine RBC 0-1/hpf Urine WBC 0-1/hpf Urine Bacteria None seen Hyaline Casts 5-10/lpf Ur Culture Indicated? Specimen cultured Ur Random Sodium 7 L Urine Creatinine 137.5 Ketones 08/27/21 08/27/21 04:33 06:55 WBC RBC Hgb Hct MCV MCH MCHC RDW Plt Count Neut % (Auto) Lymph % (Auto) [place] % (Auto) Eos % (Auto) Baso % (Auto) Neut # (Auto) Lymph # (Auto) [place] # (Auto) Eos # (Auto) Baso # (Auto) VBG pH 7.26 L VBG pCO2 37.2 L VBG pO2 43 VBG HCO3 17 L VBG Total CO2 18 L VBG O2 Saturation 72 VBG Base Excess -10.0 L Sodium 137 Potassium 4.3 Chloride 105 Carbon Dioxide 20 L BUN 71 H Creatinine 2.94 H Estimated GFR 21.2 L BUN/Creatinine Ratio 24.1 H Glucose 340 H Lactate Calcium 7.9 L Total Bilirubin AST ALT Alkaline Phosphatase Troponin I Total Protein Albumin Globulin Albumin/Globulin Ratio Procalcitonin Urine Color Urine Appearance Urine pH Ur Specific [place] Urine Protein Urine Glucose (UA) Urine Ketones Urine Occult Blood Urine Nitrate Urine Bilirubin Urine Urobilinogen Ur Leukocyte Esterase Urine RBC Urine WBC Urine Bacteria Hyaline Casts Ur Culture Indicated? Ur Random Sodium Urine Creatinine Ketones PFSH Medical History Alcoholism Anxiety BPH (benign prostatic hyperplasia) CAD (coronary artery disease) Cervical spine fracture (~1977) Diabetic retinopathy Easy bruisability Glaucoma HTN (hypertension) Hyperlipidemia Insulin dependent diabetes mellitus Insulin pump in place Legally blind Myocardial infarct (12/20/20) Osteoarthritis Tinnitus Surgical History H/O eye surgery H/O shoulder surgery (01/25/09) History of surgery (1998) History of surgery History of vasectomy (05/1987) Hx of arthroscopy of left knee (06/10/21) Hx of left cataract extraction Hx of oral surgery Family History Mother Alcoholism Father Drowned Social History household members: spouse Smoking Status: Former smoker alcohol intake: former Assessment & Plan Assessment & Plan narrative: -Status post right total knee arthroplasty, stable in this regard -diabetic ketoacidosis with acute kidney injury, currently in the ICU and being being managed by the hand upper and bottom lacer. Sugars are trending down this morning, from 505 last night to 294 this morning. Plan: -mobilize with PT. Weightbearing as tolerated front wheel walker -patient is complaining of mild pain this morning and is not taking any pain medications. Narcotics make him severely ill, vomiting stopped yesterday -medical management and disposition per Medicine Time Spent With Patient Critical Care time: I spent a total of [] minutes of critical care time on this patient's care today; this time is exclusive of procedural time. Quality VTE Deep Vein Thrombosis/Pulmonary Embolism Present on Admission: No
[2021-08-27] MEDS: DOCUSATE 100 MG CAPSULE PO (09:50)
[2021-08-27] MEDS: cefTRIAXone 1,000 MG in SODIUM CHLORIDE 0.9% 100 ML 200 ML IV (09:50)
[2021-08-27] MEDS: ACETAMINOPHEN 325 MG TABLET 975 MG PO ×3 (09:50→21:25)
[2021-08-27] MEDS: TIMOLOL 0.5% OPHTH 1 DROPS EYE-LEFT (09:50)
[2021-08-27] MEDS: ASPIRIN EC 81 MG TABLET PO ×2 (09:50→21:25)
--- NOTE | 2021-08-27 09:55 | PM.PN.EICU ---
Subjective Subjective :: This patient was seen in the Intensive Care Unit via real time interactive two-way audiovisual telecommunication. no acute events overnight Current Medications Current Medications Medications: Home Medications timolol maleate 0.5 % eye drops 1 drp EYE-LEFT QAM #2.5 ml 12/21/12 [History Confirmed 08/25/21] atorvastatin 40 mg tablet 40 mg PO BEDTIME #30 tab 12/23/20 [Rx Confirmed 08/25/21] insulin lispro 100 unit/mL subcutaneous solution (Humalog U-100 Insulin) 1 sliding scale dose SUBCUT USEASDIRECTD #10 ml 01/02/21 [Rx Confirmed 08/17/21] aspirin 81 mg tablet,delayed release 81 mg PO BEDTIME 08/17/21 [History Confirmed 08/25/21] latanoprost 0.005 % eye drops 1 drp EYE-LEFT BEDTIME 08/17/21 [History Confirmed 08/25/21] metoprolol succinate 25 mg tablet,extended release 24 hr 37.5 mg PO BEDTIME 08/17/21 [History Confirmed 08/25/21] Visit Medications (administered) Generic Name Dose Route Start Last Admin Trade Name Freq PRN Reason Stop Dose Admin Acetaminophen 975 mg 08/25/21 15:00 08/26/21 23:20 Acetaminophen 325 Mg Tablet PO Not Given TID LISHA Aspirin 81 mg 08/25/21 21:00 08/26/21 23:21 Aspirin Ec 81 Mg Tablet PO Not Given BID LISHA Atorvastatin Calcium 40 mg 08/25/21 21:00 08/26/21 22:37 Atorvastatin 20 Mg Tablet PO Not Given BEDTIME LISHA Docusate Sodium 100 mg 08/25/21 21:00 08/26/21 23:22 Docusate 100 Mg Capsule PO Not Given BID LISHA INSULIN DRIP PREMIX 100 unit in 100 mls @ 6 mls/hr 08/26/21 22:30 08/27/21 09:17 Myxredlin Drip Premix IV 7.4 ml/hr TITRATE LISHA 7.4 mls/hr Titration Protocol Insulin Human Lispro 0 unit 08/25/21 16:45 08/27/21 08:18 Insulin Lispro 100 Unit/Ml 3ml Vial SUBCUT Not Given ACHS LISHA Latanoprost 1 drops 08/25/21 21:00 08/26/21 20:49 Latanoprost 0.005% Ophth 2.5 Ml EYE-LEFT 1 drops BEDTIME LISHA Administration Ondansetron HCl 4 mg 08/25/21 11:51 08/25/21 12:50 Ondansetron 4 Mg/2 Ml Inj IV 4 mg Q4HR PRN Administration Nausea And Vomiting Timolol Maleate 1 drops 08/26/21 09:00 08/26/21 09:40 Timolol 0.5% Ophth EYE-LEFT 1 % DAILY LISHA Administration Objective Labs Result Diagrams: 08/26/21 22:14 08/27/21 06:55 Labs: Laboratory Results - last 24 hr 08/26/21 08/26/21 08/26/21 20:40 22:14 22:14 WBC 11.8 H RBC 4.61 Hgb 14.8 Hct 45.9 MCV 99.5 MCH 32.0 MCHC 32.2 RDW 13.3 Plt Count Not Reportable Neut % (Auto) 81.8 H Lymph % (Auto) 6.5 L [place] % (Auto) 11.4 Eos % (Auto) 0.0 L Baso % (Auto) 0.3 Neut # (Auto) 9600 H Lymph # (Auto) 800 L [place] # (Auto) 1300 H Eos # (Auto) 0 Baso # (Auto) 0 VBG pH VBG pCO2 VBG pO2 VBG HCO3 VBG Total CO2 VBG O2 Saturation VBG Base Excess Sodium 134 L 132 L Potassium 6.5 H* 6.9 H* Chloride 98 97 L Carbon Dioxide 9 L* 10 L BUN 56 H 59 H Creatinine 2.92 H 3.31 H Estimated GFR 21.4 L 18.5 L BUN/Creatinine Ratio 19.2 17.8 Glucose 462 H 505 H* Lactate Calcium 8.4 8.5 Total Bilirubin 1.2 1.2 AST 36 42 ALT 30 35 Alkaline Phosphatase 80 82 Troponin I Total Protein 6.2 L 6.4 Albumin 3.5 3.7 Globulin 2.7 2.7 Albumin/Globulin Ratio 1.3 1.4 Procalcitonin 22.5 H Urine Color Urine Appearance Urine pH Ur Specific [place] Urine Protein Urine Glucose (UA) Urine Ketones Urine Occult Blood Urine Nitrate Urine Bilirubin Urine Urobilinogen Ur Leukocyte Esterase Urine RBC Urine WBC Urine Bacteria Hyaline Casts Ur Culture Indicated? Ur Random Sodium Urine Creatinine Ketones 14.29 H 08/26/21 08/26/21 08/26/21 22:14 22:14 22:23 WBC RBC Hgb Hct MCV MCH MCHC RDW Plt Count Neut % (Auto) Lymph % (Auto) [place] % (Auto) Eos % (Auto) Baso % (Auto) Neut # (Auto) Lymph # (Auto) [place] # (Auto) Eos # (Auto) Baso # (Auto) VBG pH 7.13 L* VBG pCO2 30.1 L VBG pO2 29 L VBG HCO3 10 L VBG Total CO2 11 L VBG O2 Saturation 38 L VBG Base Excess -19.0 L Sodium Potassium Chloride Carbon Dioxide BUN Creatinine Estimated GFR BUN/Creatinine Ratio Glucose Lactate 3.2 H Calcium Total Bilirubin AST ALT Alkaline Phosphatase Troponin I 0.033 Total Protein Albumin Globulin Albumin/Globulin Ratio Procalcitonin Urine Color Urine Appearance Urine pH Ur Specific [place] Urine Protein Urine Glucose (UA) Urine Ketones Urine Occult Blood Urine Nitrate Urine Bilirubin Urine Urobilinogen Ur Leukocyte Esterase Urine RBC Urine WBC Urine Bacteria Hyaline Casts Ur Culture Indicated? Ur Random Sodium Urine Creatinine Ketones 08/27/21 08/27/21 08/27/21 01:00 01:00 01:37 WBC RBC Hgb Hct MCV MCH MCHC RDW Plt Count Neut % (Auto) Lymph % (Auto) [place] % (Auto) Eos % (Auto) Baso % (Auto) Neut # (Auto) Lymph # (Auto) [place] # (Auto) Eos # (Auto) Baso # (Auto) VBG pH 7.14 L* VBG pCO2 33.0 L VBG pO2 140 H VBG HCO3 11 L VBG Total CO2 12 L VBG O2 Saturation 98 H VBG Base Excess -18.0 L Sodium 134 L Potassium 4.9 D Chloride 102 Carbon Dioxide 12 L BUN 63 H Creatinine 3.27 H Estimated GFR 18.8 L BUN/Creatinine Ratio 19.3 Glucose 465 H Lactate 2.4 H Calcium 8.1 L Total Bilirubin AST ALT Alkaline Phosphatase Troponin I Total Protein Albumin Globulin Albumin/Globulin Ratio Procalcitonin Urine Color Urine Appearance Urine pH Ur Specific [place] Urine Protein Urine Glucose (UA) Urine Ketones Urine Occult Blood Urine Nitrate Urine Bilirubin Urine Urobilinogen Ur Leukocyte Esterase Urine RBC Urine WBC Urine Bacteria Hyaline Casts Ur Culture Indicated? Ur Random Sodium Urine Creatinine Ketones 08/27/21 08/27/21 08/27/21 02:19 03:02 04:00 WBC RBC Hgb Hct MCV MCH MCHC RDW Plt Count Neut % (Auto) Lymph % (Auto) [place] % (Auto) Eos % (Auto) Baso % (Auto) Neut # (Auto) Lymph # (Auto) [place] # (Auto) Eos # (Auto) Baso # (Auto) VBG pH VBG pCO2 VBG pO2 VBG HCO3 VBG Total CO2 VBG O2 Saturation VBG Base Excess Sodium 134 L Potassium 4.7 Chloride 105 Carbon Dioxide 17 L BUN 69 H Creatinine 3.14 H Estimated GFR 19.7 L BUN/Creatinine Ratio 22.0 Glucose 390 H Lactate Calcium 7.9 L Total Bilirubin AST ALT Alkaline Phosphatase Troponin I Total Protein Albumin Globulin Albumin/Globulin Ratio Procalcitonin Urine Color Yellow Urine Appearance Clear Urine pH 5.0 Ur Specific [place] >=1.030 H Urine Protein Trace H Urine Glucose (UA) Trace H Urine Ketones Trace H Urine Occult Blood 1+ H Urine Nitrate Negative Urine Bilirubin Negative Urine Urobilinogen 0.2 Ur Leukocyte Esterase Trace H Urine RBC 0-1/hpf Urine WBC 0-1/hpf Urine Bacteria None seen Hyaline Casts 5-10/lpf Ur Culture Indicated? Specimen cultured Ur Random Sodium 7 L Urine Creatinine 137.5 Ketones 08/27/21 08/27/21 04:33 06:55 WBC RBC Hgb Hct MCV MCH MCHC RDW Plt Count Neut % (Auto) Lymph % (Auto) [place] % (Auto) Eos % (Auto) Baso % (Auto) Neut # (Auto) Lymph # (Auto) [place] # (Auto) Eos # (Auto) Baso # (Auto) VBG pH 7.26 L VBG pCO2 37.2 L VBG pO2 43 VBG HCO3 17 L VBG Total CO2 18 L VBG O2 Saturation 72 VBG Base Excess -10.0 L Sodium 137 Potassium 4.3 Chloride 105 Carbon Dioxide 20 L BUN 71 H Creatinine 2.94 H Estimated GFR 21.2 L BUN/Creatinine Ratio 24.1 H Glucose 340 H Lactate Calcium 7.9 L Total Bilirubin AST ALT Alkaline Phosphatase Troponin I Total Protein Albumin Globulin Albumin/Globulin Ratio Procalcitonin Urine Color Urine Appearance Urine pH Ur Specific [place] Urine Protein Urine Glucose (UA) Urine Ketones Urine Occult Blood Urine Nitrate Urine Bilirubin Urine Urobilinogen Ur Leukocyte Esterase Urine RBC Urine WBC Urine Bacteria Hyaline Casts Ur Culture Indicated? Ur Random Sodium Urine Creatinine Ketones Exam Vital Signs (past 8 hours): - 08/27/21 02:00 08/27/21 02:15 08/27/21 02:46 Temperature 97.9 F Pulse Rate 79 80 79 Respiratory Rate 14 14 Blood Pressure 86/50 L 89/48 L Pulse Oximetry 97 96 08/27/21 02:48 08/27/21 03:00 08/27/21 03:15 Temperature 97.9 F Pulse Rate 79 77 77 Respiratory Rate 13 12 14 Blood Pressure 91/47 L 91/51 L 91/52 L Pulse Oximetry 96 95 96 08/27/21 03:30 08/27/21 03:45 08/27/21 03:54 Temperature Pulse Rate 78 76 75 Respiratory Rate 12 13 13 Blood Pressure 95/55 L 97/56 L Pulse Oximetry 97 97 97 08/27/21 04:00 08/27/21 04:15 08/27/21 04:30 Temperature 97.4 F L Pulse Rate 75 80 93 H Respiratory Rate 13 12 13 Blood Pressure 98/54 L 108/58 L 115/55 L Pulse Oximetry 100 100 98 08/27/21 04:45 08/27/21 05:00 08/27/21 05:30 Temperature 97.1 F L Pulse Rate 92 H 90 89 Respiratory Rate 13 14 13 Blood Pressure 112/54 L 102/55 L 102/53 L Pulse Oximetry 98 97 97 08/27/21 06:00 08/27/21 06:30 08/27/21 07:00 Temperature 97.4 F L Pulse Rate 85 86 84 Respiratory Rate 13 16 13 Blood Pressure 107/53 L 110/61 125/58 L Pulse Oximetry 98 95 98 08/27/21 07:30 08/27/21 08:00 08/27/21 08:30 Temperature Pulse Rate 85 84 82 Respiratory Rate 12 13 16 Blood Pressure 120/59 L 124/58 L 129/62 Pulse Oximetry 98 97 98 08/27/21 09:00 Temperature Pulse Rate 85 Respiratory Rate 14 Blood Pressure 137/64 Pulse Oximetry 98 Oxygen Delivery Method Room Air Oxygen Flow Rate 0 Quality TeleICU VTE Deep Vein Thrombosis/Pulmonary Embolism Present on Admission: No Assessment & Plan Assessment & Plan narrative: patient seen and examined on MTD round with ruby sexton and reggie chart/labs/imaging reviewed 71 year old male with DKA currently afebrile, HD stable plan -continue IVF -dka protocol -suggest one more bmp with ag closed -abx for now if cxs -ve can dc, does not appear toxic -hyperkalemia resolved -diet as tolerated -gi/dvt ppx -please call eICU if condition changes Time Spent With Patient Critical Care time: I spent a total of [] minutes of critical care time on this patient's care today; this time is exclusive of procedural time.
--- NOTE | 2021-08-27 10:38 | PT.IPTN ---
Current Diagnoses Type 1 diabetes mellitus with ketoacidosis without coma (08/26/21) Acidosis (08/26/21) Unilateral post-traumatic osteoarthritis, right knee (08/26/21) Surgery Performed Operation Date: 08/25/21 07:45 Actual Procedures p Total Knee Arthroplasty(Right) - Shane Cárdenas MD Physical Therapy Treatment Note M2 PT-IP Current Condition Start: 08/25/21 16:37 Freq: NEEDED Status: Active Protocol: Document 08/25/21 15:28 AB (Rec: 08/25/21 16:52 AB [id number]) Physical Therapy Current Condition Current Condition Evaluation Date 08/25/21 Treatment Diagnosis s/p R TKA; difficulty in walking Onset Date 08/25/21 M3 PT-IP Subjective Start: 08/25/21 16:37 Freq: NEEDED Status: Active Protocol: Document 08/27/21 10:24 KS (Rec: 08/27/21 12:48 KS [id number]) Subjective Physical Therapy Visit Type Type Treatment Note Visit Start Time 10:24 Visit Stop Time 10:38 Total Visit Minutes 14 Number of DEBURRING TECHNICIAN Visits 1 Physical Therapy Visit Comments Patient Comments Pt unagreeable to getting out of bed but agrees to LE exercises in bed. M4 PT-IP Mobility and Gait Start: 08/25/21 16:37 Freq: NEEDED Status: Active Protocol: Document 08/27/21 10:24 KS (Rec: 08/27/21 12:48 KS [id number]) PT-Transfer Assessment Comments Mobility Comments Pt unwilling to get out of bed due to pain and fatigue but completed 1x10 bilateral ankle pumps, quad sets, glute sets, and heel slides w/ verbal and tactile cues. Pt c/o increased pain in R knee during heel slides but able to participate. Pt refused to coplete another set of exercises, Left in bed w/ alarm on and all needs in reach. Gait Assessment Comments Gait Comments Unwilling to ambulate PT-Balance Assessment Sitting Balance and Reactions Static Sitting Balance Ability Good Dynamic Sitting Balance Ability Good Standing Balance and Reactions Static Standing Balance Ability Fair Dynamic Standing Balance Ability Fair Device Used FWW M5 PT-IP Objective Assessments Start: 08/25/21 16:37 Freq: NEEDED Status: Active Protocol: Document 08/25/21 15:28 AB (Rec: 08/25/21 16:52 AB [id number]) Orientation Orientation/Cognition Level of Alertness Alert Orientation Name,Place,Situation Language Function Ability No Deficits Noted Safety Awareness Understands Safety Issues Memory Description No Deficits Noted Gross Range of Motion Lower Extremity ROM Impairments R knee flexion: ~ 90 deg Strength Lower Extremity Strength Assessment Right Impaired Hip 4/5 Knee 4-/5 Coordination Assessment Gross Coordination Gross Coordination WNL Sensation Assessment Sensation Gross Sensation Right LE Impaired,Left LE Impaired Light Touch Impaired Proprioception (Position) Impaired Sensation Description Numbness Comments Sensation Comments has peripheral neuropathy per pt from mid thighs down to B feet Muscle Tone Muscle Tone WNL Yes M6 PT-IP Treatment Start: 08/25/21 16:37 Freq: NEEDED Status: Active Protocol: Document 08/27/21 10:24 KS (Rec: 08/27/21 12:48 KS [id number]) Physical Therapy Treatment Exercises Exercises Ankle Pumps,Gluteal Sets,Quad Sets,Heel Slides Education Education Provided Precautions,Weight Bearing Status,Safety M7 PT-IP Assessment and Plan Start: 08/25/21 16:37 Freq: NEEDED Status: Active Protocol: Document 08/27/21 10:24 KS (Rec: 08/27/21 12:48 KS [id number]) PT Summary Assessment and Plan Potential Rehabilitation Potential Fair Status of Condition at Evaluation Evolving Summary Impairments Pain,ROM,Strength,Balance, Coordination,Sensation,Tone, Cognition,Bed Mobility, Transfers,Gait,Activity Tolerance Assessment Summary Pt unwilling to get out of bed this AM, but able to complete LE strengthening exercises w/ increased pain and quick approach to fatigue. Will continue to progress as pt is able to tolerate, but may require SNF to improve. Goals Bed Mobility Goal Independent Transfer Goal Independent,Front Wheeled Walker Gait Goal Independent,Front Wheel Walker Gait Distance 200 Days to Meet Goals 5 Frequency of Treatment Frequency Of Treatment Twice a Day Treatment Plan Physical Therapy Treatment Plan Bed Mobility Training,Transfer Training,Gait Training, Therapeutic Exercise,Balance Retraining,Post Op Education, Discharge Planning,Hot or Cold Pack,Neuromuscular Re-ed, Coordination Retraining,Manual Therapy Weight Bearing Status Weight Bearing Status Weight Bear as Tolerated Allowed Weight Bearing Amount (enter % RLE WBAT or #) (%) Recommendations To Nursing Amount of Assist Needed 1 Person Assist Discharge Recommendations PT Discharge Recommendations Home with Assistance, Outpatient PT Transportation Needs at Discharge Private Vehicle
--- NOTE | 2021-08-27 10:57 | PM.PN.1 ---
Subjective Subjective Date Patient Seen: 08/27/21 Time Patient Seen: 10:57 Interval history: Feels worse today, but largely due to worsened R knee pain. Nausea is much improved. No chest pain, shortness of breath. Exam Vital Signs (past 8 hours): - 08/27/21 03:00 08/27/21 03:15 08/27/21 03:30 Temperature 97.9 F Pulse Rate 77 77 78 Respiratory Rate 12 14 12 Blood Pressure 91/51 L 91/52 L 95/55 L Pulse Oximetry 95 96 97 08/27/21 03:45 08/27/21 03:54 08/27/21 04:00 Temperature 97.4 F L Pulse Rate 76 75 75 Respiratory Rate 13 13 13 Blood Pressure 97/56 L 98/54 L Pulse Oximetry 97 97 100 08/27/21 04:15 08/27/21 04:30 08/27/21 04:45 Temperature Pulse Rate 80 93 H 92 H Respiratory Rate 12 13 13 Blood Pressure 108/58 L 115/55 L 112/54 L Pulse Oximetry 100 98 98 08/27/21 05:00 08/27/21 05:30 08/27/21 06:00 Temperature 97.1 F L 97.4 F L Pulse Rate 90 89 85 Respiratory Rate 14 13 13 Blood Pressure 102/55 L 102/53 L 107/53 L Pulse Oximetry 97 97 98 08/27/21 06:30 08/27/21 07:00 08/27/21 07:30 Temperature Pulse Rate 86 84 85 Respiratory Rate 16 13 12 Blood Pressure 110/61 125/58 L 120/59 L Pulse Oximetry 95 98 98 08/27/21 08:00 08/27/21 08:30 08/27/21 09:00 Temperature Pulse Rate 84 82 85 Respiratory Rate 13 16 14 Blood Pressure 124/58 L 129/62 137/64 Pulse Oximetry 97 98 98 Oxygen Delivery Method Room Air Oxygen Flow Rate 0 Narrative Exam Narrative: GEN: no acute distress, WDWN. CV: regular rate and rhythm, no murmurs PULM: clear bilaterally, no wheezes, rhonchi rales NECK: trachea midline, no jvd ABD: soft, nontedner, nondistended, no organomegly EXT: slight mottling of bilateral feet, pulses palpable. R knee bandaged. NEURO: awake, alert, oriented, no focal deficits PSYCH: pleasant, cooperative Objective Labs Result Diagrams: 08/26/21 22:14 08/27/21 06:55 Labs: Laboratory Results - last 24 hr 08/26/21 08/26/21 08/26/21 20:40 22:14 22:14 WBC 11.8 H RBC 4.61 Hgb 14.8 Hct 45.9 MCV 99.5 MCH 32.0 MCHC 32.2 RDW 13.3 Plt Count Not Reportable Neut % (Auto) 81.8 H Lymph % (Auto) 6.5 L [place] % (Auto) 11.4 Eos % (Auto) 0.0 L Baso % (Auto) 0.3 Neut # (Auto) 9600 H Lymph # (Auto) 800 L [place] # (Auto) 1300 H Eos # (Auto) 0 Baso # (Auto) 0 VBG pH VBG pCO2 VBG pO2 VBG HCO3 VBG Total CO2 VBG O2 Saturation VBG Base Excess Sodium 134 L 132 L Potassium 6.5 H* 6.9 H* Chloride 98 97 L Carbon Dioxide 9 L* 10 L BUN 56 H 59 H Creatinine 2.92 H 3.31 H Estimated GFR 21.4 L 18.5 L BUN/Creatinine Ratio 19.2 17.8 Glucose 462 H 505 H* Lactate Calcium 8.4 8.5 Total Bilirubin 1.2 1.2 AST 36 42 ALT 30 35 Alkaline Phosphatase 80 82 Troponin I Total Protein 6.2 L 6.4 Albumin 3.5 3.7 Globulin 2.7 2.7 Albumin/Globulin Ratio 1.3 1.4 Procalcitonin 22.5 H Urine Color Urine Appearance Urine pH Ur Specific [place] Urine Protein Urine Glucose (UA) Urine Ketones Urine Occult Blood Urine Nitrate Urine Bilirubin Urine Urobilinogen Ur Leukocyte Esterase Urine RBC Urine WBC Urine Bacteria Hyaline Casts Ur Culture Indicated? Ur Random Sodium Urine Creatinine Ketones 14.29 H 08/26/21 08/26/21 08/26/21 22:14 22:14 22:23 WBC RBC Hgb Hct MCV MCH MCHC RDW Plt Count Neut % (Auto) Lymph % (Auto) [place] % (Auto) Eos % (Auto) Baso % (Auto) Neut # (Auto) Lymph # (Auto) [place] # (Auto) Eos # (Auto) Baso # (Auto) VBG pH 7.13 L* VBG pCO2 30.1 L VBG pO2 29 L VBG HCO3 10 L VBG Total CO2 11 L VBG O2 Saturation 38 L VBG Base Excess -19.0 L Sodium Potassium Chloride Carbon Dioxide BUN Creatinine Estimated GFR BUN/Creatinine Ratio Glucose Lactate 3.2 H Calcium Total Bilirubin AST ALT Alkaline Phosphatase Troponin I 0.033 Total Protein Albumin Globulin Albumin/Globulin Ratio Procalcitonin Urine Color Urine Appearance Urine pH Ur Specific [place] Urine Protein Urine Glucose (UA) Urine Ketones Urine Occult Blood Urine Nitrate Urine Bilirubin Urine Urobilinogen Ur Leukocyte Esterase Urine RBC Urine WBC Urine Bacteria Hyaline Casts Ur Culture Indicated? Ur Random Sodium Urine Creatinine Ketones 08/27/21 08/27/21 08/27/21 01:00 01:00 01:37 WBC RBC Hgb Hct MCV MCH MCHC RDW Plt Count Neut % (Auto) Lymph % (Auto) [place] % (Auto) Eos % (Auto) Baso % (Auto) Neut # (Auto) Lymph # (Auto) [place] # (Auto) Eos # (Auto) Baso # (Auto) VBG pH 7.14 L* VBG pCO2 33.0 L VBG pO2 140 H VBG HCO3 11 L VBG Total CO2 12 L VBG O2 Saturation 98 H VBG Base Excess -18.0 L Sodium 134 L Potassium 4.9 D Chloride 102 Carbon Dioxide 12 L BUN 63 H Creatinine 3.27 H Estimated GFR 18.8 L BUN/Creatinine Ratio 19.3 Glucose 465 H Lactate 2.4 H Calcium 8.1 L Total Bilirubin AST ALT Alkaline Phosphatase Troponin I Total Protein Albumin Globulin Albumin/Globulin Ratio Procalcitonin Urine Color Urine Appearance Urine pH Ur Specific [place] Urine Protein Urine Glucose (UA) Urine Ketones Urine Occult Blood Urine Nitrate Urine Bilirubin Urine Urobilinogen Ur Leukocyte Esterase Urine RBC Urine WBC Urine Bacteria Hyaline Casts Ur Culture Indicated? Ur Random Sodium Urine Creatinine Ketones 08/27/21 08/27/21 08/27/21 02:19 03:02 04:00 WBC RBC Hgb Hct MCV MCH MCHC RDW Plt Count Neut % (Auto) Lymph % (Auto) [place] % (Auto) Eos % (Auto) Baso % (Auto) Neut # (Auto) Lymph # (Auto) [place] # (Auto) Eos # (Auto) Baso # (Auto) VBG pH VBG pCO2 VBG pO2 VBG HCO3 VBG Total CO2 VBG O2 Saturation VBG Base Excess Sodium 134 L Potassium 4.7 Chloride 105 Carbon Dioxide 17 L BUN 69 H Creatinine 3.14 H Estimated GFR 19.7 L BUN/Creatinine Ratio 22.0 Glucose 390 H Lactate Calcium 7.9 L Total Bilirubin AST ALT Alkaline Phosphatase Troponin I Total Protein Albumin Globulin Albumin/Globulin Ratio Procalcitonin Urine Color Yellow Urine Appearance Clear Urine pH 5.0 Ur Specific [place] >=1.030 H Urine Protein Trace H Urine Glucose (UA) Trace H Urine Ketones Trace H Urine Occult Blood 1+ H Urine Nitrate Negative Urine Bilirubin Negative Urine Urobilinogen 0.2 Ur Leukocyte Esterase Trace H Urine RBC 0-1/hpf Urine WBC 0-1/hpf Urine Bacteria None seen Hyaline Casts 5-10/lpf Ur Culture Indicated? Specimen cultured Ur Random Sodium 7 L Urine Creatinine 137.5 Ketones 08/27/21 08/27/21 04:33 06:55 WBC RBC Hgb Hct MCV MCH MCHC RDW Plt Count Neut % (Auto) Lymph % (Auto) [place] % (Auto) Eos % (Auto) Baso % (Auto) Neut # (Auto) Lymph # (Auto) [place] # (Auto) Eos # (Auto) Baso # (Auto) VBG pH 7.26 L VBG pCO2 37.2 L VBG pO2 43 VBG HCO3 17 L VBG Total CO2 18 L VBG O2 Saturation 72 VBG Base Excess -10.0 L Sodium 137 Potassium 4.3 Chloride 105 Carbon Dioxide 20 L BUN 71 H Creatinine 2.94 H Estimated GFR 21.2 L BUN/Creatinine Ratio 24.1 H Glucose 340 H Lactate Calcium 7.9 L Total Bilirubin AST ALT Alkaline Phosphatase Troponin I Total Protein Albumin Globulin Albumin/Globulin Ratio Procalcitonin Urine Color Urine Appearance Urine pH Ur Specific [place] Urine Protein Urine Glucose (UA) Urine Ketones Urine Occult Blood Urine Nitrate Urine Bilirubin Urine Urobilinogen Ur Leukocyte Esterase Urine RBC Urine WBC Urine Bacteria Hyaline Casts Ur Culture Indicated? Ur Random Sodium Urine Creatinine Ketones [facility] Medical History Alcoholism Anxiety BPH (benign prostatic hyperplasia) CAD (coronary artery disease) Cervical spine fracture (~1977) Diabetic retinopathy Easy bruisability Glaucoma HTN (hypertension) Hyperlipidemia Insulin dependent diabetes mellitus Insulin pump in place Legally blind Myocardial infarct (12/20/20) Osteoarthritis Tinnitus Surgical History H/O eye surgery H/O shoulder surgery (01/25/09) History of surgery (1998) History of surgery History of vasectomy (05/1987) Hx of arthroscopy of left knee (06/10/21) Hx of left cataract extraction Hx of oral surgery Family History Mother Alcoholism Father Drowned Social History household members: spouse Smoking Status: Former smoker alcohol intake: former Assessment & Plan Assessment & Plan narrative: Mr. Mcmillan is a 71M with PMH Type 1 DM, on insulin, recent elective knee repair who presents in DKA. 1. Acute DKA, with Type 1 DM with severe sepsis -now that AG closed, if repeat is stable can start insulin pump therapy and discontinue insulin gtt after a few hours after placement. -ordered UA and blood cultures to determine if any evidence of infection -initial UA is trace positive, patient does meet criteria for severe sepsis with lactate of 3.2, hypotension in the 80s, and organ failure with MEL but may be related to DKA and hypovolemia. CT with possible infiltrates or atelectasis but infection seems less likely at this time as discussed below. -initially on meropenem, now ctx and azitho. -continue IV fluids, antibiotics, and follow up cultures -consult teleintensivisit appreciated. -etiology is possibly not infectious, as patient was nauseous/vomiting after surgery 2. MEL with hyperkalemia, improving -etiology likely hypovolemia, with urine sodium of 7, likely from vomiting -possibly hyperkalemia related to also LR -did get multiple doses of IV insulin, calcium gluconate, and did get albulterol ordered -LR stopped, and switched to normal saline as above -mercado placed to monitor urine ouput -US renal was negative. -creatinine improving with IV fluids and DKA management. 3. HTN -hold antihypertensive 4. Rule out sepsis - started on meropenem initially, narrowed today to ceftriaxone and azithro for possible infiltrates on CT and well appearing. Discontinue after 2 additional days if no fever and continues to do well. Code status: DNR Surrogate decision maker: his Ellyn Mcmillan I have utilized all available resources to reconcile the patients home medications Time Spent With Patient Critical Care time: I spent a total of [] minutes of critical care time on this patient's care today; this time is exclusive of procedural time. Quality VTE Deep Vein Thrombosis/Pulmonary Embolism Present on Admission: No
[2021-08-27] MEDS: AZITHROMYCIN 500 MG in DEXTROSE 5% IN WATER 250 ML IV (11:12)
[2021-08-27 13:08] LABS: BUN Creatinine Ratio 27.6 (6-22); Blood Urea Nitrogen 71 mg/dL (9-20); Carbon Dioxide 25 mmol/L (22-32); Chloride 106 mmol/L (98-107); Estimated Glomerular Filt Rate 24.8 mL/min (>60); Glucose 220 mg/dL (80-110); HEMOLYSIS < 15 (0-50); Potassium 4.2 mmol/L (3.4-5.1); Sodium 138 mmol/L (137-145)
[2021-08-27] MEDS: DEXTROSE 5%-0.45% NS 1,000 ML 112 ML IV (14:11)
--- NOTE | 2021-08-27 15:06 | PT-IP ANOTE ---
Attempted to see pt @15:05, pt refused due to high level of fatigue. Will check back tomorrow.
--- NOTE | 2021-08-27 16:19 | PC.NURSE ---
Addendum entered by Shonda Hawkins R.N. 08/27/21 16:38: [address] Antoine, insulin gtt and D5 1/2 NS turned off Original Note: Dayshift note: A/Ox4, PO day 2 s/p right sided total knee replacement dressing CDI. Insulin gtt infusing at 1.5mL/hr per protocol, D5 1/2 NS at 112 mL/hr, will turn off insulin at [address] Antoine as pt home insulin pump is now placed and working. Le patent and draining clear rita urine. Pt is afebrile, VSS, and receiving tylenol scheduled for pain control. Pt is extremely tired at this time preferring to sleep. Bed is low and locked, call light within reach, will continue to treat and monitor as ordered.
[2021-08-27] MEDS: ATORVASTATIN 20 MG TABLET 40 MG PO (21:25)
[2021-08-27] MEDS: LATANOPROST 0.005% OPHTH 2.5 ML 1 DROPS EYE-LEFT (21:27)
[2021-08-28] VITALS: BP 159/74; PULSE 82; RESP 17; TEMP 37.7; O2SAT 96
[2021-08-28 04:00] VITALS: BP 163/72; PULSE 81; RESP 16; TEMP 36.9; O2SAT 94
[2021-08-28 05:39] LABS: Add Manual Diff / Slide Review NO; Basophils Absolute Auto 0 /uL (0-100); Basophils Percent Auto 0.2 % (0-2); Eosinophils Absolute Auto 0 /uL (0-450); Eosinophils Percent Auto 0.2 % (2-4); Hematocrit 39.7 % (41-53); Hemoglobin 13.4 g/dL (13.5-17.5); Lymphocytes Absolute Auto 1000 /uL (1100-4500); Lymphocytes Percent Auto 6.6 % (25-40); Mean Corpuscular HGB Conc 33.9 % (30-36); Mean Corpuscular Hemoglobin 32.6 PG (26-34); Mean Corpuscular Volume 96.3 fL (80-100); Monocytes Absolute Auto 1900 /uL (0-900); Monocytes Percent Auto 12.9 % (3-14); Neutrophils Absolute Auto 11800 /uL (1500-7000); Neutrophils Percent Auto 80.1 % (50-75); Platelet Count 148 X10^3/uL (150-400); Red Blood Cell Count 4.12 X10^6/uL (4.5-5.9); Red Cell Distribution Width 12.4 % (11.6-14.8); White Blood Cell Count 14.7 X10^3/uL (4.5-11.0)
[2021-08-28 05:48] LABS: Blood Urea Nitrogen 60 mg/dL (9-20); Calcium 8.2 mg/dL (8.4-10.2); Carbon Dioxide 26 mmol/L (22-32); Chloride 106 mmol/L (98-107); Estimated Glomerular Filt Rate 46.1 mL/min (>60); Glucose 230 mg/dL (80-110); HEMOLYSIS 16 (0-50); Potassium 4.5 mmol/L (3.4-5.1); Sodium 136 mmol/L (137-145)
--- NOTE | 2021-08-28 06:51 | PC.NURSE ---
Shift Note-Patient was able to sleep somewhat Pain to right knee only when I move medicated with Tylenol. Patient is Acute care now, afebrile, HRR 80s, BP 150s/70s, SpO2 >94% on RA, denies nausea. At midnight BG spot-checked with his implanted pod, 178, he gave himself 1 unit bolus with his implanted insulin pump. Still has RIJ CL HL'd and Le, 575ml UOP.
[2021-08-28 08:00] VITALS: BP 173/74; PULSE 80; RESP 17; TEMP 36.6; O2SAT 98
[2021-08-28] MEDS: INSULIN LISPRO 100 UNIT/ML 3ML VIAL SUBCUT ×5 (08:05→18:18)
[2021-08-28] MEDS: ACETAMINOPHEN 325 MG TABLET 975 MG PO ×3 (08:35→20:50)
[2021-08-28] MEDS: ASPIRIN EC 81 MG TABLET PO ×2 (08:35→20:50)
[2021-08-28] MEDS: DOCUSATE 100 MG CAPSULE PO ×2 (08:36→20:51)
[2021-08-28] MEDS: cefTRIAXone 1,000 MG in SODIUM CHLORIDE 0.9% 100 ML 200 ML IV (08:36)
[2021-08-28] MEDS: TIMOLOL 0.5% OPHTH 1 DROPS EYE-LEFT (08:36)
--- NOTE | 2021-08-28 08:52 | PM.PN.1 ---
Subjective Subjective Date Patient Seen: 08/28/21 Interval history: He is seen today to follow-up his type 1 diabetes mellitus, diabetic ketoacidosis and right knee replacement surgery. His discharge plans are dependent on his PT evaluation and orthopedic decisions today. His creatinine has improved from 2.57 down to 1.50. His blood sugars remain in the low 200s. He gave himself a 9 unit bolus on his insulin pump today and continues on 0.3 per hour on the pump. His blood pressure is 163/72 with a white blood count of 14.7 and hemoglobin of 13.4. Exam Vital Signs (past 8 hours): - 08/28/21 04:00 Temperature 98.5 F Pulse Rate 81 Respiratory Rate 16 Blood Pressure 163/72 H Pulse Oximetry 94 Oxygen Delivery Method Room Air Oxygen Flow Rate 0 Narrative Exam Narrative: He is alert and oriented x3. His quite diminished on his vision. Heart is regular rate and rhythm without murmur Lungs are clear to auscultation bilaterally Extremities have no ankle edema. He has an intact honeycomb dressing over the right knee. Objective Labs Result Diagrams: 08/28/21 05:30 08/28/21 05:30 Labs: Laboratory Results - last 24 hr 08/27/21 08/28/21 08/28/21 12:30 05:30 05:30 WBC 14.7 H RBC 4.12 L Hgb 13.4 L Hct 39.7 L MCV 96.3 D MCH 32.6 MCHC 33.9 RDW 12.4 Plt Count 148 L Neut % (Auto) 80.1 H Lymph % (Auto) 6.6 L [place] % (Auto) 12.9 Eos % (Auto) 0.2 L Baso % (Auto) 0.2 Neut # (Auto) 73137 H Lymph # (Auto) 1000 L [place] # (Auto) 1900 H Eos # (Auto) 0 Baso # (Auto) 0 Sodium 138 136 L Potassium 4.2 4.5 Chloride 106 106 Carbon Dioxide 25 26 BUN 71 H 60 H Creatinine 2.57 H 1.50 H Estimated GFR 24.8 L 46.1 L BUN/Creatinine Ratio 27.6 H 40.0 H Glucose 220 H D 230 H Calcium 8.0 L 8.2 L PFSH Medical History Alcoholism Anxiety BPH (benign prostatic hyperplasia) CAD (coronary artery disease) Cervical spine fracture (~1977) Diabetic retinopathy Easy bruisability Glaucoma HTN (hypertension) Hyperlipidemia Insulin dependent diabetes mellitus Insulin pump in place Legally blind Myocardial infarct (12/20/20) Osteoarthritis Tinnitus Surgical History H/O eye surgery H/O shoulder surgery (01/25/09) History of surgery (1998) History of surgery History of vasectomy (05/1987) Hx of arthroscopy of left knee (06/10/21) Hx of left cataract extraction Hx of oral surgery Family History Mother Alcoholism Father Drowned Social History household members: spouse Smoking Status: Former smoker alcohol intake: former Assessment & Plan Assessment & Plan narrative: Mr. Mcmillan is a 71M with a PMH of Type 1 DM, on insulin and a recent elective knee repair who presents in DKA. 1. Acute DKA, with Type 1 DM with severe sepsis -the anion gap closed on his IV insulin pump yesterday so he is now back on his subcutaneous pump. -UA and blood cultures to determine if any evidence of infection -initial UA is trace positive, patient does meet criteria for severe sepsis with lactate of 3.2, hypotension in the 80s, and organ failure with MEL but may be related to DKA and hypovolemia. CT with possible infiltrates or atelectasis but infection seems less likely at this time as discussed below. -initially on meropenem, then ceftriaxone and azitho. 08/28 with blood culture and urine culture negative will stop antibiotics. -etiology is probably not infectious, as patient was nauseous/vomiting after surgery and seemed to have some malfunction of his insulin pump system. 2. MEL with hyperkalemia, improving -etiology likely hypovolemia, with urine sodium of 7, likely from vomiting -possibly hyperkalemia related to also LR -did get multiple doses of IV insulin, calcium gluconate, and did get albuterol ordered -US renal was negative. -creatinine improving with IV fluids at 1.50 on 08/28 3. HTN -hold antihypertensive 4. Rule out sepsis ?- started on meropenem initially, narrowed then to ceftriaxone and azithro for possible infiltrates on CT and well appearing. Discontinue after 2 additional days if no fever and continues to do well. Code status: DNR Surrogate decision maker: his Ellyn Mcmillan Disposition: Home when cleared by Orthopedics and Physical therapy. Time Spent With Patient Critical Care time: I spent a total of [] minutes of critical care time on this patient's care today; this time is exclusive of procedural time. Quality VTE Deep Vein Thrombosis/Pulmonary Embolism Present on Admission: No
--- NOTE | 2021-08-28 09:23 | PM.PNPO.1 ---
Subjective Subjective Date Patient Seen: 08/28/21 Time Patient Seen: 09:24 Interval history: Sitting up in bed, says he is feeling better today in terms of pain control, nausea, and fatigue. Exam Vital Signs (past 8 hours): - 08/28/21 04:00 08/28/21 08:00 Temperature 98.5 F 97.8 F Pulse Rate 81 80 Respiratory Rate 16 17 Blood Pressure 163/72 H 173/74 H Pulse Oximetry 94 98 Oxygen Delivery Method Room Air Oxygen Flow Rate 0 Narrative Exam Narrative: 4/5 quadriceps, hamstrings; 5/5 DF, PF, EHL on right. Sensation to light touch intact throughout BLE. Calves soft, compressible, nontender and without palpable cords or masses. Aquacel dressing CDI. Const General: cooperative and healthy appearing Orientation: alert, awake and oriented x3 Limitations: other limitations Other: blind Objective Labs Result Diagrams: 08/28/21 05:30 08/28/21 05:30 Labs: Laboratory Results - last 24 hr 08/27/21 08/28/21 08/28/21 12:30 05:30 05:30 WBC 14.7 H RBC 4.12 L Hgb 13.4 L Hct 39.7 L MCV 96.3 D MCH 32.6 MCHC 33.9 RDW 12.4 Plt Count 148 L Neut % (Auto) 80.1 H Lymph % (Auto) 6.6 L [place] % (Auto) 12.9 Eos % (Auto) 0.2 L Baso % (Auto) 0.2 Neut # (Auto) 21590 H Lymph # (Auto) 1000 L [place] # (Auto) 1900 H Eos # (Auto) 0 Baso # (Auto) 0 Sodium 138 136 L Potassium 4.2 4.5 Chloride 106 106 Carbon Dioxide 25 26 BUN 71 H 60 H Creatinine 2.57 H 1.50 H Estimated GFR 24.8 L 46.1 L BUN/Creatinine Ratio 27.6 H 40.0 H Glucose 220 H D 230 H Calcium 8.0 L 8.2 L PFSH Medical History Alcoholism Anxiety BPH (benign prostatic hyperplasia) CAD (coronary artery disease) Cervical spine fracture (~1977) Diabetic retinopathy Easy bruisability Glaucoma HTN (hypertension) Hyperlipidemia Insulin dependent diabetes mellitus Insulin pump in place Legally blind Myocardial infarct (12/20/20) Osteoarthritis Tinnitus Surgical History H/O eye surgery H/O shoulder surgery (01/25/09) History of surgery (1998) History of surgery History of vasectomy (05/1987) Hx of arthroscopy of left knee (06/10/21) Hx of left cataract extraction Hx of oral surgery Family History Mother Alcoholism Father Drowned Social History household members: spouse Smoking Status: Former smoker alcohol intake: former Assessment & Plan Post-op Postoperative Procedures: Procedures Operation Date: 08/25/21 07:45 Actual Procedure Side Surgeon p Total Knee Arthroplasty Right Shane Cárdenas MD Postoperative day: 3 Postoperative status narrative: s/p R TKA, c/b DKA, sepsis, MEL. Appreciate hospitalist evaluation and treatment. Postoperative plan narrative: Continue pain control w/ Tylenol, narcotics if pt requests. Mobilize w/ PT. SCDs, ASA for VTE prophylaxis. Discharge pending stabilization of medical issues. Quality VTE Deep Vein Thrombosis/Pulmonary Embolism Present on Admission: No
[2021-08-28] MEDS: AZITHROMYCIN 500 MG in DEXTROSE 5% IN WATER 250 ML IV (10:41)
--- NOTE | 2021-08-28 11:05 | PT.IPTN ---
Current Diagnoses Type 1 diabetes mellitus with ketoacidosis without coma (08/26/21) Acidosis (08/26/21) Unilateral post-traumatic osteoarthritis, right knee (08/26/21) Surgery Performed Operation Date: 08/25/21 07:45 Actual Procedures p Total Knee Arthroplasty(Right) - Shane Cárdenas MD Physical Therapy Treatment Note M2 PT-IP Current Condition Start: 08/25/21 16:37 Freq: NEEDED Status: Active Protocol: Document 08/25/21 15:28 AB (Rec: 08/25/21 16:52 AB [id number]) Physical Therapy Current Condition Current Condition Evaluation Date 08/25/21 Treatment Diagnosis s/p R TKA; difficulty in walking Onset Date 08/25/21 M3 PT-IP Subjective Start: 08/25/21 16:37 Freq: NEEDED Status: Active Protocol: Document 08/28/21 10:40 KS (Rec: 08/28/21 12:27 KS [id number]) Subjective Physical Therapy Visit Type Type Treatment Note Visit Start Time 10:40 Visit Stop Time 11:05 Total Visit Minutes 25 Number of PANEL EDGE SEALER Visits 2 Physical Therapy Visit Comments Patient Comments Pt agreeable to ambulation. M4 PT-IP Mobility and Gait Start: 08/25/21 16:37 Freq: NEEDED Status: Active Protocol: Document 08/28/21 10:40 KS (Rec: 08/28/21 12:27 KS [id number]) PT-Bed Mobility Assessment Supine to Sit Supine to Sit Standby Assistance Sit to Supine Sit to Supine Standby Assistance Scooting Scooting to Edge of Bed Contact Guard Assistance PT-Transfer Assessment Sit to and From Stand Sit to and from Stand Contact Guard Assistance,1 Person Assistance,Use of Upper Extremities Equipment Transfer Assistive Device Gait Belt,Front Wheeled Walker Orthotic/Prosthetic Devices or Brace: No Transfers Transfer Destination Chair Transfer Technique ambulated w/ FWW Transfer Ability Level of Assist Contact Guard Assistance,1 Person Assistance,Use of Upper Extremities Comments Mobility Comments Pt in bed upon arrival and states he feels much better today. SBA for sup<>sit and CGA for scooting and sit<> stand w/ FWW. Pt requiring verbal cues d/t blindness. Pt then performed 10 seconds weight shifting and marching in place followed by ~150 ft ambulation w/ FWW CGA. Pt returned to room and chair CGA and cues for FWW management. Reveiwed LE exercises including ankle pumps, LAQs, heel slides, and glute sets. Pt left in chair w/ all needs in reach. Gait Assessment Gait Gait Assistance Required: Contact Guard Assist,Minimum Assistance,1 Person Assist Distance (Feet) 150 Able to Maintain Weight Bearing Status Yes During Gait Assistive Devices Assistive Device Gait Belt,Front Wheeled Walker Orthotic/Prosthetic Devices or Brace: No Gait Deviations General Gait Pattern Antalgic,Decreased Stride Length,Decreased Feet Clearance Factors Limiting Gait Function Factors Limiting Gait Function Decreased Activity Tolerance, Poor Balance,Poor Safety Awareness Comments Gait Comments Pt ambulated ~150 ft w/ FWW CGA, but requiring Min verbal cues for FWW management due to blindness. Gait improved w/ cues for heel toe walking and equal step length. Stair Climbing Assessment Comments Stair Climbing Comments Not assessed, not steps to enter. PT-Balance Assessment Sitting Balance and Reactions Static Sitting Balance Ability Good Dynamic Sitting Balance Ability Good Standing Balance and Reactions Static Standing Balance Ability Good Dynamic Standing Balance Ability Fair Device Used FWW M5 PT-IP Objective Assessments Start: 08/25/21 16:37 Freq: NEEDED Status: Active Protocol: Document 08/25/21 15:28 AB (Rec: 08/25/21 16:52 AB [id number]) Orientation Orientation/Cognition Level of Alertness Alert Orientation Name,Place,Situation Language Function Ability No Deficits Noted Safety Awareness Understands Safety Issues Memory Description No Deficits Noted Gross Range of Motion Lower Extremity ROM Impairments R knee flexion: ~ 90 deg Strength Lower Extremity Strength Assessment Right Impaired Hip 4/5 Knee 4-/5 Coordination Assessment Gross Coordination Gross Coordination WNL Sensation Assessment Sensation Gross Sensation Right LE Impaired,Left LE Impaired Light Touch Impaired Proprioception (Position) Impaired Sensation Description Numbness Comments Sensation Comments has peripheral neuropathy per pt from mid thighs down to B feet Muscle Tone Muscle Tone WNL Yes M6 PT-IP Treatment Start: 08/25/21 16:37 Freq: NEEDED Status: Active Protocol: Document 08/28/21 10:40 KS (Rec: 08/28/21 12:27 KS [id number]) Physical Therapy Treatment Exercises Exercises Ankle Pumps,Gluteal Sets,Heel Slides,Seated Knee Flexion/ Extension Education Education Provided Precautions,Weight Bearing Status,Safety M7 PT-IP Assessment and Plan Start: 08/25/21 16:37 Freq: NEEDED Status: Active Protocol: Document 08/28/21 10:40 KS (Rec: 08/28/21 12:27 KS [id number]) PT Summary Assessment and Plan Potential Rehabilitation Potential Fair Status of Condition at Evaluation Evolving Summary Impairments Pain,ROM,Strength,Balance, Coordination,Sensation,Tone, Cognition,Bed Mobility, Transfers,Gait,Activity Tolerance Assessment Summary Pt showing improvement w/ mobility and activity tolerance today. SBA for bed mobility, CGA for transfers and ambulation. Able to ambulate ~150 ft w/ FWW w/ cues for equal step length, heel toe walking and navitgating FWW due to blindness. Anticipate pt to safely d/c home w/ spouse to assist and continue outpatient rehab. Goals Bed Mobility Goal Independent Transfer Goal Independent,Front Wheeled Walker Gait Goal Independent,Front Wheel Walker Gait Distance 200 Days to Meet Goals 5 Frequency of Treatment Frequency Of Treatment Twice a Day Treatment Plan Physical Therapy Treatment Plan Bed Mobility Training,Transfer Training,Gait Training, Therapeutic Exercise,Balance Retraining,Post Op Education, Discharge Planning,Hot or Cold Pack,Neuromuscular Re-ed, Coordination Retraining,Manual Therapy Weight Bearing Status Weight Bearing Status Weight Bear as Tolerated Allowed Weight Bearing Amount (enter % RLE WBAT or #) (%) Recommendations To Nursing Amount of Assist Needed 1 Person Assist Discharge Recommendations PT Discharge Recommendations Home with Assistance, Outpatient PT Transportation Needs at Discharge Private Vehicle
[2021-08-28 13:42] VITALS: BP 171/74; PULSE 78; RESP 19; TEMP 36.6; O2SAT 97
--- NOTE | 2021-08-28 15:02 | PT.IPTN ---
Current Diagnoses Type 1 diabetes mellitus with ketoacidosis without coma (08/26/21) Acidosis (08/26/21) Unilateral post-traumatic osteoarthritis, right knee (08/26/21) Surgery Performed Operation Date: 08/25/21 07:45 Actual Procedures p Total Knee Arthroplasty(Right) - Shane Cárdenas MD Physical Therapy Treatment Note M2 PT-IP Current Condition Start: 08/25/21 16:37 Freq: NEEDED Status: Active Protocol: Document 08/25/21 15:28 AB (Rec: 08/25/21 16:52 AB [id number]) Physical Therapy Current Condition Current Condition Evaluation Date 08/25/21 Treatment Diagnosis s/p R TKA; difficulty in walking Onset Date 08/25/21 M3 PT-IP Subjective Start: 08/25/21 16:37 Freq: NEEDED Status: Active Protocol: Document 08/28/21 14:38 KS (Rec: 08/28/21 16:18 KS [id number]) Subjective Physical Therapy Visit Type Type Treatment Note Visit Start Time 14:38 Visit Stop Time 15:02 Total Visit Minutes 24 Number of ASPHALT PAVING MACHINE 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 M4 PT-IP Mobility and Gait Start: 08/25/21 16:37 Freq: NEEDED Status: Active Protocol: Document 08/28/21 14:38 KS (Rec: 08/28/21 16:18 KS [id number]) PT-Bed Mobility Assessment Supine to Sit Supine to Sit Standby Assistance Sit to Supine Sit to Supine Standby Assistance Scooting Scooting to Edge of Bed Contact Guard Assistance PT-Transfer Assessment Sit to and From Stand Sit to and from Stand Contact Guard Assistance,1 Person Assistance,Use of Upper Extremities Equipment Transfer Assistive Device Gait Belt,Front Wheeled Walker Orthotic/Prosthetic Devices or Brace: No Transfers Transfer Destination Chair Transfer Technique ambulated w/ FWW Transfer Ability Level of Assist Contact Guard Assistance,1 Person Assistance,Use of Upper Extremities Comments Mobility Comments Pt in chair upon arrival and agreeable to ambulation. Pt CGA for sit<>stand w/ FWW and then ambulated ~220 ft w/ FWW CGA and directional cues d/t blindness. Cues for equal step length and quad activation, gait improved w/ distance and cues. Pt returned to room and bed CGA. Pt left in bed w/ all needs in reach. Gait Assessment Gait Gait Assistance Required: Contact Guard Assist,Minimum Assistance,1 Person Assist Distance (Feet) 220 Able to Maintain Weight Bearing Status Yes During Gait Assistive Devices Assistive Device Gait Belt,Front Wheeled Walker Orthotic/Prosthetic Devices or Brace: No Gait Deviations General Gait Pattern Antalgic,Decreased Stride Length,Decreased Feet Clearance Factors Limiting Gait Function Factors Limiting Gait Function Decreased Activity Tolerance, Poor Balance,Poor Safety Awareness Comments Gait Comments Please refer to mobility section for details. Stair Climbing Assessment Comments Stair Climbing Comments Not assessed, not steps to enter. PT-Balance Assessment Sitting Balance and Reactions Static Sitting Balance Ability Good Dynamic Sitting Balance Ability Good Standing Balance and Reactions Static Standing Balance Ability Good Dynamic Standing Balance Ability Fair Device Used FWW M5 PT-IP Objective Assessments Start: 08/25/21 16:37 Freq: NEEDED Status: Active Protocol: Document 08/25/21 15:28 AB (Rec: 08/25/21 16:52 AB [email or web address]) Orientation Orientation/Cognition Level of Alertness Alert Orientation Name,Place,Situation Language Function Ability No Deficits Noted Safety Awareness Understands Safety Issues Memory Description No Deficits Noted Gross Range of Motion Lower Extremity ROM Impairments R knee flexion: ~ 90 deg Strength Lower Extremity Strength Assessment Right Impaired Hip 4/5 Knee 4-/5 Coordination Assessment Gross Coordination Gross Coordination WNL Sensation Assessment Sensation Gross Sensation Right LE Impaired,Left LE Impaired Light Touch Impaired Proprioception (Position) Impaired Sensation Description Numbness Comments Sensation Comments has peripheral neuropathy per pt from mid thighs down to B feet Muscle Tone Muscle Tone WNL Yes M6 PT-IP Treatment Start: 08/25/21 16:37 Freq: NEEDED Status: Active Protocol: Document 08/28/21 14:38 KS (Rec: 08/28/21 16:18 KS [id number]) Physical Therapy Treatment Exercises Exercises Ankle Pumps Education Education Provided Precautions,Weight Bearing Status,Safety M7 PT-IP Assessment and Plan Start: 08/25/21 16:37 Freq: NEEDED Status: Active Protocol: Document 08/28/21 14:38 KS (Rec: 08/28/21 16:18 KS [id number]) PT Summary Assessment and Plan Potential Rehabilitation Potential Fair Status of Condition at Evaluation Evolving Summary Impairments Pain,ROM,Strength,Balance, Coordination,Sensation,Tone, Cognition,Bed Mobility, Transfers,Gait,Activity Tolerance Assessment Summary Pt SBA to CGA throughout treatment today, able to ambulate 220 ft w/ FWW w/ cues for equal step length, and quad activation w/ FWW. Pt is blind and requires directional cues. He will benefit from outpatient rehab to improve strength, ROM, and gait. Goals Bed Mobility Goal Independent Transfer Goal Independent,Front Wheeled Walker Gait Goal Independent,Front Wheel Walker Gait Distance 200 Days to Meet Goals 5 Frequency of Treatment Frequency Of Treatment Twice a Day Treatment Plan Physical Therapy Treatment Plan Bed Mobility Training,Transfer Training,Gait Training, Therapeutic Exercise,Balance Retraining,Post Op Education, Discharge Planning,Hot or Cold Pack,Neuromuscular Re-ed, Coordination Retraining,Manual Therapy Weight Bearing Status Weight Bearing Status Weight Bear as Tolerated Allowed Weight Bearing Amount (enter % RLE WBAT or #) (%) Recommendations To Nursing Amount of Assist Needed 1 Person Assist Discharge Recommendations PT Discharge Recommendations Home with Assistance, Outpatient PT Transportation Needs at Discharge Private Vehicle
[2021-08-28 17:00] VITALS: BP 156/68; PULSE 76; RESP 17; TEMP 36.6; O2SAT 98
[2021-08-28 20:00] VITALS: BP 166/80; PULSE 84; RESP 19; TEMP 36.9; O2SAT 98
[2021-08-28] MEDS: ATORVASTATIN 20 MG TABLET 40 MG PO (20:50)
[2021-08-28] MEDS: LATANOPROST 0.005% OPHTH 2.5 ML 1 DROPS EYE-LEFT (20:51)
[2021-08-29] VITALS: BP 167/75; PULSE 83; RESP 22; TEMP 36.8; O2SAT 95
[2021-08-29 04:00] VITALS: BP 170/76; PULSE 85; RESP 18; TEMP 36.9; O2SAT 94
[2021-08-29 05:07] LABS: Add Manual Diff / Slide Review NO; Basophils Absolute Auto 100 /uL (0-100); Basophils Percent Auto 1.3 % (0-2); Eosinophils Absolute Auto 200 /uL (0-450); Hematocrit 37.4 % (41-53); Hemoglobin 12.7 g/dL (13.5-17.5); Lymphocytes Absolute Auto 900 /uL (1100-4500); Lymphocytes Percent Auto 11.2 % (25-40); Mean Corpuscular HGB Conc 33.9 % (30-36); Mean Corpuscular Volume 97.2 fL (80-100); Monocytes Absolute Auto 800 /uL (0-900); Monocytes Percent Auto 10.3 % (3-14); Neutrophils Absolute Auto 6000 /uL (1500-7000); Neutrophils Percent Auto 75.2 % (50-75); Platelet Count 127 X10^3/uL (150-400); Red Blood Cell Count 3.85 X10^6/uL (4.5-5.9); Red Cell Distribution Width 12.8 % (11.6-14.8)
[2021-08-29] MEDS: INSULIN LISPRO 100 UNIT/ML 3ML VIAL SUBCUT ×2 (06:25→08:54)
[2021-08-29 08:00] VITALS: BP 180/116; PULSE 78; RESP 16; TEMP 36.4; O2SAT 97
[2021-08-29 08:04] LABS: BUN Creatinine Ratio 41.9 (6-22); Blood Urea Nitrogen 36 mg/dL (9-20); Calcium 7.9 mg/dL (8.4-10.2); Carbon Dioxide 27 mmol/L (22-32); Chloride 106 mmol/L (98-107); Estimated Glomerular Filt Rate > 60.0 mL/min (>60); Glucose 160 mg/dL (80-110); HEMOLYSIS 26 (0-50); Potassium 3.9 mmol/L (3.4-5.1); Sodium 137 mmol/L (137-145)
--- NOTE | 2021-08-29 08:53 | P.PN_ITS ---
Subjective Subjective Date Patient Seen: 08/29/21 Time Patient Seen: 08:00 Interval history: Today he has no complaints. He is controlling his blood sugar with his pump. He has no nausea/vomiting. His knee pain is well controlled. Exam Vital Signs (past 8 hours): - 08/29/21 00:00 08/29/21 04:00 08/29/21 08:00 Temperature 98.3 F 98.4 F 97.6 F Pulse Rate 83 85 78 Respiratory Rate 22 18 16 Blood Pressure 167/75 H 170/76 H 180/116 H Pulse Oximetry 95 94 97 Oxygen Delivery Method Room Air Oxygen Flow Rate 0 Narrative Exam Narrative: He is alert and oriented x3. poor vision CV: regular rate and rhythm, no murmurs PULM:clear to auscultation bilaterally EXT: dressing over right knee clean dry and intact Objective Labs Result Diagrams: 08/29/21 04:45 08/29/21 04:45 Labs: Laboratory Results - last 24 hr 08/29/21 08/29/21 04:45 04:45 WBC 8.0 RBC 3.85 L Hgb 12.7 L Hct 37.4 L MCV 97.2 MCH 33.0 MCHC 33.9 RDW 12.8 Plt Count 127 L Neut % (Auto) 75.2 H Lymph % (Auto) 11.2 L [place] % (Auto) 10.3 Eos % (Auto) 2.0 Baso % (Auto) 1.3 Neut # (Auto) 6000 Lymph # (Auto) 900 L [place] # (Auto) 800 Eos # (Auto) 200 Baso # (Auto) 100 Sodium 137 Potassium 3.9 Chloride 106 Carbon Dioxide 27 BUN 36 H Creatinine 0.86 Estimated GFR > 60.0 BUN/Creatinine Ratio 41.9 H Glucose 160 H Calcium 7.9 L PFSH Medical History Alcoholism Anxiety BPH (benign prostatic hyperplasia) CAD (coronary artery disease) Cervical spine fracture (~1977) Diabetic retinopathy Easy bruisability Glaucoma HTN (hypertension) Hyperlipidemia Insulin dependent diabetes mellitus Insulin pump in place Legally blind Myocardial infarct (12/20/20) Osteoarthritis Tinnitus Surgical History H/O eye surgery H/O shoulder surgery (01/25/09) History of surgery (1998) History of surgery History of vasectomy (05/1987) Hx of arthroscopy of left knee (06/10/21) Hx of left cataract extraction Hx of oral surgery Family History Mother Alcoholism Father Drowned Social History household members: spouse Smoking Status: Former smoker alcohol intake: former Assessment & Plan Assessment & Plan narrative: Mr. Mcmillan is a 71M with a PMH of Type 1 DM, on insulin and a recent elective knee repair who presents in DKA. 1. Acute DKA, with Type 1 DM with severe sepsis, resolved, sepsis ruled out -the anion gap closed on his IV insulin pump yesterday so he is now back on his subcutaneous pump. -UA and blood cultures to determine if any evidence of infection are negatve -initial UA is trace positive, patient does meet criteria for severe sepsis with lactate of 3.2, hypotension in the 80s, and organ failure with MEL but may be related to DKA and hypovolemia. CT with possible infiltrates or atelectasis but infection seems less likely at this time as discussed below -initially on meropenem, then ceftriaxone and azitho.? 08/28 with blood culture a nd urine culture negative antibiotics are stopped and does not need them on discharge -etiology is probably not infectious, as patient was nauseous/vomiting after surgery and seemed to have some malfunction of his insulin pump system. 2. MEL with hyperkalemia, improving -etiology likely hypovolemia, with urine sodium of 7, likely from vomiting -possibly hyperkalemia related to also LR -did get multiple doses of IV insulin, calcium gluconate, and did get albuterol ordered -US renal was negative. -creatinine improving with IV fluids at 1.50 on 08/28 3. HTN -hold antihypertensive 4. Ruled out sepsis ?- started on meropenem initially, narrowed then to ceftriaxone and azithro for possible infiltrates on CT and well appearing. Discontinue after 2 additional days as workup was negative Code status: DNR Surrogate decision maker: his Ellyn Mcmillan He is medically stable for discharge in terms of his diabetes and renal dysfunction which are much improved. Will need to be cleared for dc by surgical team. Time Spent With Patient Critical Care time: I spent a total of [] minutes of critical care time on this patient's care today; this time is exclusive of procedural time. Quality VTE Deep Vein Thrombosis/Pulmonary Embolism Present on Admission: No
[2021-08-29] MEDS: ASPIRIN EC 81 MG TABLET PO (08:54)
[2021-08-29] MEDS: ACETAMINOPHEN 325 MG TABLET 975 MG PO (08:54)
[2021-08-29] MEDS: TIMOLOL 0.5% OPHTH 1 DROPS EYE-LEFT (08:54)
[2021-08-29] MEDS: METOPROLOL ER 25 MG TABLET 37.5 MG PO (10:14)
--- NOTE | 2021-08-29 10:56 | P.PN_ITS ---
Exam Vital Signs (past 8 hours): - 08/29/21 04:00 08/29/21 08:00 Temperature 98.4 F 97.6 F Pulse Rate 85 78 Respiratory Rate 18 16 Blood Pressure 170/76 H 180/116 H Pulse Oximetry 94 97 Oxygen Delivery Method Room Air Oxygen Flow Rate 0 Objective Labs Result Diagrams: 08/29/21 04:45 08/29/21 04:45 Labs: Laboratory Results - last 24 hr 08/29/21 08/29/21 04:45 04:45 WBC 8.0 RBC 3.85 L Hgb 12.7 L Hct 37.4 L MCV 97.2 MCH 33.0 MCHC 33.9 RDW 12.8 Plt Count 127 L Neut % (Auto) 75.2 H Lymph % (Auto) 11.2 L [place] % (Auto) 10.3 Eos % (Auto) 2.0 Baso % (Auto) 1.3 Neut # (Auto) 6000 Lymph # (Auto) 900 L [place] # (Auto) 800 Eos # (Auto) 200 Baso # (Auto) 100 Sodium 137 Potassium 3.9 Chloride 106 Carbon Dioxide 27 BUN 36 H Creatinine 0.86 Estimated GFR > 60.0 BUN/Creatinine Ratio 41.9 H Glucose 160 H Calcium 7.9 L PFSH Medical History Alcoholism Anxiety BPH (benign prostatic hyperplasia) CAD (coronary artery disease) Cervical spine fracture (~1977) Diabetic retinopathy Easy bruisability Glaucoma HTN (hypertension) Hyperlipidemia Insulin dependent diabetes mellitus Insulin pump in place Legally blind Myocardial infarct (12/20/20) Osteoarthritis Tinnitus Surgical History H/O eye surgery H/O shoulder surgery (01/25/09) History of surgery (1998) History of surgery History of vasectomy (05/1987) Hx of arthroscopy of left knee (06/10/21) Hx of left cataract extraction Hx of oral surgery Family History Mother Alcoholism Father Drowned Social History household members: spouse Smoking Status: Former smoker alcohol intake: former Assessment & Plan Assessment & Plan narrative: POD#6 s/p TKA. Patient on exam is neurovascularly intact on exam. no s/s of DVT in LE. Patient is cleared by medicine service and PT to be discharged to home. Will d/c to home today. Time Spent With Patient Critical Care time: I spent a total of [] minutes of critical care time on this patient's care today; this time is exclusive of procedural time. Quality VTE Deep Vein Thrombosis/Pulmonary Embolism Present on Admission: No
--- NOTE | 2021-08-29 11:44 | PT.IPTN ---
Current Diagnoses Type 1 diabetes mellitus with ketoacidosis without coma (08/26/21) Acidosis (08/26/21) Unilateral post-traumatic osteoarthritis, right knee (08/26/21) Surgery Performed Operation Date: 08/25/21 07:45 Actual Procedures p Total Knee Arthroplasty(Right) - Shane Cárdenas MD Physical Therapy Treatment Note M2 PT-IP Current Condition Start: 08/25/21 16:37 Freq: NEEDED Status: Active Protocol: Document 08/25/21 15:28 AB (Rec: 08/25/21 16:52 AB [id number]) Physical Therapy Current Condition Current Condition Evaluation Date 08/25/21 Treatment Diagnosis s/p R TKA; difficulty in walking Onset Date 08/25/21 M3 PT-IP Subjective Start: 08/25/21 16:37 Freq: NEEDED Status: Active Protocol: Document 08/29/21 11:44 AW (Rec: 08/29/21 11:56 AW [id number]) Subjective Physical Therapy Visit Type Type Treatment Note Visit Start Time 11:31 Visit Stop Time 11:44 Total Visit Minutes 13 Number of COLOR GRINDER Visits 0 Physical Therapy Visit Comments Patient Comments Pt agreeable to ambulation. M4 PT-IP Mobility and Gait Start: 08/25/21 16:37 Freq: NEEDED Status: Active Protocol: Document 08/29/21 11:44 AW (Rec: 08/29/21 11:56 AW [id number]) PT-Transfer Assessment Sit to and From Stand Sit to and from Stand Standby Assistance,Use of Upper Extremities Equipment Transfer Assistive Device Gait Belt,Front Wheeled Walker Orthotic/Prosthetic Devices or Brace: No Transfers Transfer Destination Chair Transfer Technique ambulated w/ FWW Transfer Ability Level of Assist Contact Guard Assistance,1 Person Assistance,Use of Upper Extremities Comments Mobility Comments Pt was in the chair as PT arrived. I've been here all night. Can't sleep in that bed . Pt c/o knee swelling but agreeable to walk. He stood SBA and used FWW to ambulate in the halls 200 feet SBA with occasional directional cues to avoid obstacles in low light areas due to pt vision impairment. On return to the room, pt transferred back to the chair CGA. PT provided fresh ice pack and assisted pt to elevate his operative leg. Left pt with call light and tray table in reach. Gait Assessment Gait Gait Assistance Required: Standby Assistance,Contact Guard Assist,1 Person Assist Distance (Feet) 200 Able to Maintain Weight Bearing Status Yes During Gait Assistive Devices Assistive Device Gait Belt,Front Wheeled Walker Orthotic/Prosthetic Devices or Brace: No Gait Deviations General Gait Pattern Antalgic,Decreased Stride Length,Decreased Feet Clearance,Step-to Gait Factors Limiting Gait Function Factors Limiting Gait Function Decreased Activity Tolerance, Poor Balance,Poor Safety Awareness Comments Gait Comments Please refer to mobility section for details. Stair Climbing Assessment Comments Stair Climbing Comments Not assessed. Pt uses a ramp for home entry. PT-Balance Assessment Sitting Balance and Reactions Static Sitting Balance Ability Good Dynamic Sitting Balance Ability Good Standing Balance and Reactions Static Standing Balance Ability Good Dynamic Standing Balance Ability Fair Device Used FWW M5 PT-IP Objective Assessments Start: 08/25/21 16:37 Freq: NEEDED Status: Active Protocol: Document 08/25/21 15:28 AB (Rec: 08/25/21 16:52 AB [id number]) Orientation Orientation/Cognition Level of Alertness Alert Orientation Name,Place,Situation Language Function Ability No Deficits Noted Safety Awareness Understands Safety Issues Memory Description No Deficits Noted Gross Range of Motion Lower Extremity ROM Impairments R knee flexion: ~ 90 deg Strength Lower Extremity Strength Assessment Right Impaired Hip 4/5 Knee 4-/5 Coordination Assessment Gross Coordination Gross Coordination WNL Sensation Assessment Sensation Gross Sensation Right LE Impaired,Left LE Impaired Light Touch Impaired Proprioception (Position) Impaired Sensation Description Numbness Comments Sensation Comments has peripheral neuropathy per pt from mid thighs down to B feet Muscle Tone Muscle Tone WNL Yes M6 PT-IP Treatment Start: 08/25/21 16:37 Freq: NEEDED Status: Active Protocol: Document 08/29/21 11:44 AW (Rec: 08/29/21 11:56 AW [id number]) Physical Therapy Treatment Education Education Provided Precautions,Weight Bearing Status,Safety M7 PT-IP Assessment and Plan Start: 08/25/21 16:37 Freq: NEEDED Status: Active Protocol: Document 08/29/21 11:44 AW (Rec: 08/29/21 11:56 AW [id number]) PT Summary Assessment and Plan Potential Rehabilitation Potential Good Summary Impairments Pain,ROM,Strength,Balance, Coordination,Sensation,Tone, Cognition,Bed Mobility, Transfers,Gait,Activity Tolerance Progress Towards Goals Progressing Toward Goals,Safe For Discharge Assessment Summary Pt SBA to CGA for transfers and ambulation with FWW. Gait quality is improving in terms of weightbearing and step length. Pt planning discharge home with spouse support today . Outpatient PT is already scheduled. Goals Bed Mobility Goal Independent Transfer Goal Independent,Front Wheeled Walker Gait Goal Independent,Front Wheel Walker Gait Distance 200 Days to Meet Goals 5 Frequency of Treatment Frequency Of Treatment Twice a Day Treatment Plan Physical Therapy Treatment Plan Bed Mobility Training,Transfer Training,Gait Training, Therapeutic Exercise,Balance Retraining,Post Op Education, Discharge Planning,Hot or Cold Pack,Neuromuscular Re-ed, Coordination Retraining,Manual Therapy Weight Bearing Status Weight Bearing Status Weight Bear as Tolerated Allowed Weight Bearing Amount (enter % RLE WBAT or #) (%) Recommendations To Nursing Amount of Assist Needed 1 Person Assist Discharge Recommendations PT Discharge Recommendations Home with Assistance, Outpatient PT Transportation Needs at Discharge Private Vehicle
[2021-08-29 12:00] VITALS: BP 188/84; PULSE 70; RESP 16; TEMP 36.4; O2SAT 98
== END 2021-08-29 13:15 | disposition home or self-care (01) | DRG 982 ==
LOC: OR 12:32 → AC 12:32 → ICU 22:48
PROVIDERS: Internal Medicine; Orthopaedic Surgery; Admitting Provider Orthopaedic Surgery; Family Provider Internal Medicine; PCP Internal Medicine; Referring Provider Internal Medicine; Visit Provider Orthopaedic Surgery
PROC: 0SRC0JZ Replacement of Right Knee Joint with Synthetic Substitute, Open Approach (ICD-10-PCS; CPT 27447; principal; 2021-08-25 07:45)
DX: E10.10 Type 1 diabetes mellitus with ketoacidosis without coma (principal); N17.9 Acute kidney failure, unspecified; E87.5 Hyperkalemia; I95.9 Hypotension, unspecified; M17.11 Unilateral primary osteoarthritis, right knee; M17.31 Unilateral post-traumatic osteoarthritis, right knee; R33.9 Retention of urine, unspecified; Z66 Do not resuscitate; E78.5 Hyperlipidemia, unspecified; I10 Essential (primary) hypertension; Z87.891 Personal history of nicotine dependence; Z96.41 Presence of insulin pump (external) (internal); Z79.4 Long term (current) use of insulin; Z20.822 Contact with and (suspected) exposure to COVID-19
CPT/HCPCS: 36415; 36592; 71045; 73560; 74176; 76770; 80048; 80053; 81001; 82009; 82570; 82805; 82962; 83605; 84145; 84300; 84484; 85014; 85018; 85025; 87040; 87086; 87635; 93005; 93010; 94640; 94760; 97110; 97116; 97162; 97164; 97530; 97535; C1776; C9803; C1713; C9290; J0171; J0610; J0690; J0696; J2185; J2250; J2270; J2274; J2310; J2405; J2704; J7613

== ENCOUNTER 2021-09-01 13:12 | Emergency (ER) | payer MEDICARE, OTHER, SELFPAY ==
[2021-08-25 13:09] VITALS: BMI 25.0
[2021-09-01 13:15] VITALS: BP 168/74; PULSE 74; RESP 18; TEMP 36.8; O2SAT 99; BMI 24.3
--- NOTE | 2021-09-01 13:20 | DI.US.S_ITS ---
PROCEDURE: US PERIPH VENOUS LOW EXTREM RT INDICATIONS: RIGHT CALF PAIN TECHNIQUE: Real-time imaging, as well as color and pulse Doppler interrogation, were performed of the lower extremity deep veins from the inguinal ligament to the popliteal fossa. COMPARISON: None. FINDINGS: The common femoral, femoral and popliteal veins are normally compressible, and free of intraluminal thrombus. Color and pulse Doppler demonstrate normal phasic intraluminal flow. There is normal augmentation response to distal compression maneuver. Overall scan quality is limited, secondary to generalized soft tissue edema. IMPRESSION: Negative for deep venous thrombosis. Dictated by: Taran Ba M.D. on 09/01/2021 at 13:46 Approved by: Taran Ba M.D. on 09/01/2021 at 13:48
--- NOTE | 2021-09-01 15:33 | ED_ITS ---
HPI - Extremity Injury (Lower) General Chief Complaint: Extremity Injury, Lower Stated Complaint: DR. Gay Stat right calf Time Seen by Provider: 09/01/21 15:17 Source: patient and family Mode of arrival: Wheelchair History of Present Illness HPI Narrative: Patient is a 71-year-old male who presents with right calf pain. He has history of insulin-dependent diabetes he had a total knee arthroplasty on 08/25/2021. Today he is sent by his provider with right calf pain for DVT rule out. He started physical therapy he has pain in the center of his calf. His no chest pain shortness of breath. No having any fevers or redness Related Data Home Medications Medication Instructions Recorded Confirmed timolol maleate 0.5 % eye drops 1 drp EYE-LEFT QAM #2.5 ml 12/21/12 08/25/21 aspirin 81 mg tablet,delayed 81 mg PO BEDTIME 08/17/21 08/25/21 release latanoprost 0.005 % eye drops 1 drp EYE-LEFT BEDTIME 08/17/21 08/25/21 metoprolol succinate 25 mg 37.5 mg PO BEDTIME 08/17/21 08/25/21 tablet,extended release 24 hr Previous Rx's Medication Instructions Recorded atorvastatin 40 mg tablet 40 mg PO BEDTIME #30 tab 12/23/20 insulin lispro 100 unit/mL 1 sliding scale dose SUBCUT 01/02/21 subcutaneous solution (Humalog USEASDIRECTD #10 ml U-100 Insulin) Allergies Allergy/AdvReac Type Severity Reaction Status Date / Time codeine [CODEINE] Allergy Severe Tongue & Verified 09/01/21 13:28 throat swelling, vomiting, total body rash propoxyphene Allergy Nausea Verified 09/01/21 13:28 prochlorperazine AdvReac Severe Nausea, Verified 09/01/21 13:28 [PROCHLORPERAZINE] vomiting, unable to urinate Narcotics AdvReac Severe Most Uncoded 08/25/21 06:49 don't work on me, nausea, vomiting Review of Systems Review of Systems Narrative: GENERAL: Denies chills, fatigue, malaise, fever, sweats, travel HEENT: Denies sinus pain, ear pain, sore throat, difficulty swallowing, neck pain RESPIRATORY: Denies dyspnea, cough, wheezing, hemoptysis, sputum. CARDIOVASCULAR: Denies chest pain, palpitations, orthopnea, edema GASTROINTESTINAL: Denies nausea, vomiting, abdominal pain, diarrhea, constipation, melena. : Denies dysuria, frequency, incontinence, hematuria, urinary retention, flank pain. MUSCULOSKELETAL: See HPI SKIN: No rash, no erythema, no pruritus NEUROLOGIC: Denies weakness, dizziness, headache, numbness, change in speech, confusion PSYCHIATRIC: No concerning psychosocial issues. 12 point review of systems is negative except for those stated above and HPI Patient History Medical History Alcoholism Anxiety BPH (benign prostatic hyperplasia) CAD (coronary artery disease) Cervical spine fracture (~1977) Diabetic retinopathy Easy bruisability Glaucoma HTN (hypertension) Hyperlipidemia Insulin dependent diabetes mellitus Insulin pump in place Legally blind Myocardial infarct (12/20/20) Osteoarthritis Tinnitus Surgical History H/O eye surgery H/O shoulder surgery (01/25/09) History of surgery (1998) History of surgery History of vasectomy (05/1987) Hx of arthroscopy of left knee (06/10/21) Hx of left cataract extraction Hx of oral surgery Family History Mother Alcoholism Father Drowned Social History household members: spouse Smoking Status: Former smoker alcohol intake: former Smoking Status: Former smoker alcohol intake frequency: holidays/special occasions only Substance Use Type: does not use and former substance user Exam Initial Vital Signs Initial Vital Signs: Vital Signs Temperature 98.2 F 09/01/21 13:15 Pulse Rate 74 09/01/21 13:15 Respiratory Rate 18 09/01/21 13:15 Blood Pressure 168/74 H 09/01/21 13:15 Pulse Oximetry 99 09/01/21 13:15 GENERAL: Alert 71-year-old male no acute distress CARDIOVASCULAR: peripheral pulses in tact, cap refill <2 sec RESPIRATORY: No respiratory distress, speaks in full sentences without difficulty EXTREMITIES: Normal range of motion, no clubbing or edema. Neurovascularly intact Muscle atrophy noted in right lower leg with chronic anterior wounds. Calf is slightly tender no significant swelling. Incision site is clean and dry with dressing in place. No surrounding erythema. NEUROLOGICAL: Cranial nerves II through XII grossly intact. Normal gait and speech. SKIN: Warm, dry, no petechiae, no rashes or lesions. Course Orders Ordered: ED Orders 09/01/21 13:20 US periph venous low extrem rt Stat Vital Signs Vital signs: Vital Signs - 8 hr 09/01/21 13:15 09/01/21 15:58 Temperature 98.2 F Pulse Rate 74 75 Respiratory Rate 18 16 Blood Pressure 168/74 H 165/75 H Pulse Oximetry 99 99 [facility] - Extremity Injury (Lower) Imaging Data US - DVT: Radiologist's Impression: PROCEDURE:? US PERIPH VENOUS LOW EXTREM RT ? INDICATIONS:? RIGHT CALF PAIN ? TECHNIQUE:? Real-time imaging, as well as color and pulse Doppler interrogation, were performed of the lower extremity deep veins from the inguinal ligament to the popliteal fossa.? ? COMPARISON:? None. ? FINDINGS:? The common femoral, femoral and popliteal veins are normally compressible, and free of intraluminal thrombus.? Color and pulse Doppler demonstrate normal phasic intraluminal flow.? There is normal augmentation response to distal compression maneuver. ? ? Overall scan quality is limited, secondary to generalized soft tissue edema. ? ? IMPRESSION:? ? Negative for deep venous thrombosis. ? ? Dictated by: Taran Ba M.D. on 09/01/2021 at 13:46 ? ? [facility] Narrative Medical decision making narrative: Patient does not have DVT. Incision site is clean and dry. His calf is soft. He does have some chronic wounds on his anterior soares. At this time outpatient follow-up Discharge Plan Departure Patient Disposition: Home Clinical Impression: Post-operative pain Instructions: DI for Postoperative Pain Activity Restrictions/Additional Instructions: *You have been diagnosed with postoperative *What to do: At this time elevate ice continue with physical therapy *Continue to take medications as directed *Follow up with your primary care provider in 2-3 days or call [phone] *Return to ER if you should have increased pain swelling redness fever or any new, worsening or concerning symptoms Prescriptions: No Action timolol maleate 0.5 % Drops 1 drp EYE-LEFT QAM Qty: 2.5 0RF atorvastatin 40 mg tablet 40 mg PO BEDTIME Qty: 30 0RF insulin lispro [Humalog U-100 Insulin] 100 unit/mL solution 1 sliding scale dose SUBCUT USEASDIRECTD Qty: 10 0RF Label Comments: 0.3 units/per hour on insulin pump Rx Instructions: max dose 50U/day in pump change pump ever 72 hours latanoprost 0.005 % Drops 1 drp EYE-LEFT BEDTIME 0RF metoprolol succinate 25 mg Tablet Extended Release 24 Hr 37.5 mg PO BEDTIME 0RF aspirin 81 mg tablet,delayed release (DR/EC) 81 mg PO BEDTIME 0RF Referrals: Mickey Brito MD [Primary Care Provider] -
[2021-09-01 15:58] VITALS: BP 165/75; PULSE 75; RESP 16; O2SAT 99
== END 2021-09-01 15:58 | disposition home or self-care (01) ==
PROVIDERS: Emergency Provider Emergency Medicine; Family Provider Internal Medicine; PCP Internal Medicine
DX: G89.18 Other acute postprocedural pain (principal); M79.661 Pain in right lower leg
CPT/HCPCS: 93971; 97110; 97164; 97535; 99283

== ENCOUNTER → 2021-11-01 12:50 | Outpatient (CLI) | payer MEDICARE, OTHER, SELFPAY ==
[2021-08-25 13:09] VITALS: BMI 25.0
[2021-11-01 14:31] LABS: Hematocrit 43.2 % (41-53); Hemoglobin 14.9 g/dL (13.5-17.5); Mean Corpuscular HGB Conc 34.6 % (30-36); Mean Corpuscular Volume 95.5 fL (80-100); Platelet Count 233 X10^3/uL (150-400); Red Blood Cell Count 4.52 X10^6/uL (4.5-5.9); Red Cell Distribution Width 12.9 % (11.6-14.8); White Blood Cell Count 6.7 X10^3/uL (4.5-11.0)
[2021-11-01 14:34] LABS: Hemoglobin A1C% w Est Avg Glu 6.5 % (4.0-6.0)
[2021-11-01 14:44] LABS: Alanine Aminotransferase 26 IU/L (<50); Albumin 4.1 g/dL (3.5-5.0); Albumin Globulin Ratio 1.2 (1.0-2.8); Alkaline Phosphatase 110 U/L (38-126); Aspartate Aminotransferase 33 IU/L (17-59); BUN Creatinine Ratio 27.3 (6-22); Bilirubin Total 0.5 mg/dL (0.2-1.3); Blood Urea Nitrogen 27 mg/dL (9-20); Calcium 9.3 mg/dL (8.4-10.2); Carbon Dioxide 30 mmol/L (22-32); Chloride 105 mmol/L (98-107); Cholesterol 118 mg/dL (140-199); Estimated Glomerular Filt Rate > 60 mL/min (>60); Globulin 3.5 g/dL (1.7-4.1); Glucose 93 mg/dL (80-110); HDL Cholesterol 34 mg/dL (40-60); HEMOLYSIS < 15 (0-50); LDL Cholesterol Calculated 68 mg/dL (<100); Potassium 4.8 mmol/L (3.4-5.1); Sodium 139 mmol/L (137-145); Total Protein 7.6 g/dL (6.3-8.2); Triglycerides 80 mg/dL (35-150)
[2021-11-01 15:22] LABS: TSH w/ Reflex to FT4 1.61 uIU/mL (0.47-4.68)
== END ==
PROVIDERS: Family Provider Internal Medicine; PCP Internal Medicine; Referring Provider Internal Medicine; Visit Provider Internal Medicine
DX: E10.42 Type 1 diabetes mellitus with diabetic polyneuropathy (principal); E10.319 Type 1 diabetes mellitus with unspecified diabetic retinopathy without macular edema; E78.2 Mixed hyperlipidemia
CPT/HCPCS: 36415; 80053; 80061; 83036; 84443; 85027

== ENCOUNTER 2021-11-01 13:45 | Outpatient (RCR) | payer MEDICARE, OTHER, SELFPAY ==
[2020-12-21 05:54] VITALS: BMI 25.2
--- NOTE | 2021-08-17 17:20 | PT.OIE ---
Current Diagnoses Unilateral primary osteoarthritis, right knee (08/17/21) Unilateral post-traumatic osteoarthritis, right knee (08/17/21) Difficulty in walking, not elsewhere classified (08/17/21) Weakness (08/17/21) Past Medical History (Last Updated 08/17/21 @ 09:28 by Kika Comer RN) Alcoholism Anxiety BPH (benign prostatic hyperplasia) CAD (coronary artery disease) Cervical spine fracture (~1977) Diabetic retinopathy Easy bruisability Glaucoma H/O eye surgery H/O shoulder surgery (01/25/09) History of surgery (1998) History of surgery History of vasectomy (05/1987) HTN (hypertension) Hx of arthroscopy of left knee (06/10/21) Hx of left cataract extraction Hx of oral surgery Hyperlipidemia Insulin dependent diabetes mellitus Insulin pump in place Legally blind Myocardial infarct (12/20/20) Osteoarthritis Tinnitus Past Surgical History (Last Updated 08/17/21 @ 09:20 by Kika Comer RN) H/O eye surgery H/O shoulder surgery (01/25/09) History of surgery (1998) History of surgery History of vasectomy (05/1987) Hx of arthroscopy of left knee (06/10/21) Hx of left cataract extraction Hx of oral surgery Visit Care Team Role Provider Type Mickey Brito MD Family Provider Physician Primary Care Provider Specialty: Internal Medicine Address: [address] [place] [address], [id number] Email: [email or web address] Shane Cárdenas MD Attending Provider Physician Referring Provider Specialty: Orthopedic Surgery Address: [address] [place] [address], [id number] Email: [email or web address] Physical Therapy Initial Evaluation PT-OP-A Visit Information Start: 08/17/21 07:27 Freq: Status: Active Protocol: Document 08/17/21 16:58 [facility] (Rec: 08/19/21 17:19 [facility] [id number]) Out-Patient Physical Therapy Visit Information Visit Information Visit Type Initial Evaluation Visit Start Time 07:30 Visit Stop Time 08:22 Total Visit Minutes 52 Visit Number 1 Number of NYLON HOT WIRE CUTTER Visits 0 PT-OP-B Current Condition Start: 08/17/21 07:27 Freq: Status: Active Protocol: Document 08/17/21 16:58 [facility] (Rec: 08/19/21 17:19 [facility] [id number]) Current Condition History of Current Condition Onset Date chronic Current Complaints R knee pain History of Current Condition 08/17:Pt has had chronic R knee pain and is getting R TKA 08/25. He got meniscal surgery on L knee in the fall and it is mostly recovered but still has some issues. pt is legally blind and uses guide dog for out of house amb but amb in house indep. He has 2 level house w/ramp entry if he goes through the studio and [address]/o rail[address] He can stay on one level if his computer is brought down. He has tub shower w/o grab bars or chair and has slightly higher toilet w/wall next to it he can push off. He has FWW already. 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 (Rec: 08/19/21 17:19 [facility] [id number]) Patient Questionnaires Lower Extremity Functional Scale LEFS Score 24/80 OP-PT Pain Assessment Location R knee Pain Location Details R ant lat knee Intensity 5 Scale Used Numeric (0 - 10) Frequency Daily Other Pain Aggravating Factors walking,upright activity PT-OP-G Mobility & Gait Start: 08/17/21 07:27 Freq: Status: Active Protocol: Document 08/17/21 16:58 [facility] (Rec: 08/19/21 17:19 [facility] [id number]) OP Mobility Evaluation Bed Mobility Supine to and from Sit indep w/o need for assist of LE OP Gait Assessment Comments Gait Comments Pt amb w/guide dog w/slight fwd posture and dec push off; amb w/good speed PT-OP-K Range of Motion Start: 08/17/21 07:27 Freq: Status: Active Protocol: Document 08/17/21 16:58 [facility] (Rec: 08/19/21 17:19 [facility] [id number]) Knee Goniometric Range of Motion Knee Right Flexion Active (degrees) 118 Extension Active (degrees) 7 Left Flexion Active (degrees) 121 Extension Active (degrees) 5 PT-OP-M Strength Start: 08/17/21 07:27 Freq: Status: Active Protocol: Document 08/17/21 16:58 [facility] (Rec: 08/19/21 17:19 [facility] [id number]) Hip Strength Hip Manual Muscle Testing Right Flexion (L2) 4 Good External Rotation 4- Good- Internal Rotation 4- Good- Left Flexion (L2) 4 Good External Rotation 4- Good- Internal Rotation 4- Good- Knee Strength Knee Manual Muscle Testing Right Flexion (S2) 4 Good Extension (L3) 4- Good- Left Flexion (S2) 4 Good Extension (L3) 4 Good Ankle/Foot Strength Ankle and Foot Manual Muscle Testing Right Dorsiflexion (L4) 5 Normal Plantarflexion (S1) 5 Normal Comments PF tested seated B Left Dorsiflexion (L4) 5 Normal Plantarflexion (S1) 5 Normal Comments PF tested seated B PT-OP-Q Treatments Start: 08/17/21 07:27 Freq: Status: Active Protocol: Document 08/17/21 16:58 [facility] (Rec: 08/19/21 17:19 [facility] [id number]) Self-Care/Home Management Treatment Education Patient Education Home Exercise Program,Safety Other Education edu no guide dog use until down to using cane only and to assist when out of house, edu best to avoid stairs and stairs do not have railing on 2nd half, edu for icing up to 6x/day, edu TKE exercises and given packet info, edu DVT precautions, Edu to walk every hour for short bit and no outdoor walks until returns to PT and PT clears pt for that,e du to use ramp entry when going in and out of home to start Activities Self-Care/Home Management Activities Train pt w/sit<>stand for after R TKE w/leg out in front , train pt using UEs to lift leg into bed and out of bed for bed mobility, edu and training amb w/FWW and walker set to pt height, PT-OP-T Assessment and Plan Start: 08/17/21 07:27 Freq: Status: Active Protocol: Document 08/17/21 16:58 [facility] (Rec: 08/19/21 17:19 [facility] [id number]) Physical Therapy Assessment Rehab Potential Rehabilitation Potential Excellent Evaluation Complexity Number of Personal Factors/Comorbidities 3 or More Number of Body Systems Impaired 4 or More Clinical Presentation at Evaluation Evolving Impairments Impairments Activity Tolerance,Balance, Functional Activities, Functional Mobility,Gait,Pain, Posture,ROM,Soft Tissue Mobility,Strength Goals 1 Residential Goal (LTG) Pt will be indep w/all mobility w/walker and demonstrate understanding of education in order to be prepared for R TKA. LTG Duration 09/17/21 Assessment Summary Assessment Pt presents w/chronic R knee pain w/failed conservative treatment and is to have R TKA on 08/25 with support of his after. He is prepared with his walker and is planning to assist as much as needed. He is a very active man and is looking forward to resuming full activity w/less pain after R TKA. He demonstrated good understanding of education in preparation for R TKA and was able to walk 100ft w/FWW showing approprate offloading of RLE, do sit<>stand as he would need after R TKA and do bed mobility w/using UEs to assist RLE in/out of bed. He passed his pre-op education session today w/PT. Pt to be re-assessed when he returns after surgery. Physical Therapy Plan Frequency and Duration Frequency of Treatment 1x/Week Duration of Treatment 1 month Plan of Care Start Date 08/17/21 Plan of Care End Date 09/17/21 Therapeutic Interventions Therapeutic Interventions Aquatic Therapy,Balance Training,Coordination Training ,Gait Training,Home Exercise Program,Joint Mobilizations, Manual Therapy,Neuromuscular Re-education,Patient/Caregiver Education,Self-Care/Home Management,Soft Tissue Mobilization,Taping, Therapeutic Activities, Therapeutic Exercises Modalities Cold Pack/Ice Massage,Electric Stimulation,Hot Packs Next Visit Focus/Plan Next Note Type Re-Evaluation Next Visit Plan review HEP & re-assess where pt is, start seated stepper
--- NOTE | 2021-08-17 17:20 | PT.OPPOC ---
Physical, Occupational & Speech Therapy At [facility] Current Diagnoses Unilateral primary osteoarthritis, right knee (08/17/21) Unilateral post-traumatic osteoarthritis, right knee (08/17/21) Difficulty in walking, not elsewhere classified (08/17/21) Weakness (08/17/21) Visit Care Team Role Provider Type Mickey Brito MD Family Provider Physician Primary Care Provider Specialty: Internal Medicine Address: [address] [place] [address], [address] Email: [email or web address] Shane Cárdenas MD Attending Provider Physician Referring Provider Specialty: Orthopedic Surgery Address: [address] [place] [address], [address] Email: [email or web address] Plan Of Care PT-OP-T Assessment and Plan Start: 08/17/21 07:27 Freq: Status: Active Protocol: Document 08/17/21 16:58 [facility] (Rec: 08/19/21 17:19 [facility] [id number]) Physical Therapy Assessment Rehab Potential Rehabilitation Potential Excellent Evaluation Complexity Number of Personal Factors/Comorbidities 3 or More Number of Body Systems Impaired 4 or More Clinical Presentation at Evaluation Evolving Impairments Impairments Activity Tolerance,Balance, Functional Activities, Functional Mobility,Gait,Pain, Posture,ROM,Soft Tissue Mobility,Strength Goals 1 Dental Laboratory Technology Teacher Goal (LTG) Pt will be indep w/all mobility w/walker and demonstrate understanding of education in order to be prepared for R TKA. LTG Duration 09/17/21 Assessment Summary Assessment Pt presents w/chronic R knee pain w/failed conservative treatment and is to have R TKA on 08/25 with support of his after. He is prepared with his walker and is planning to assist as much as needed. He is a very active man and is looking forward to resuming full activity w/less pain after R TKA. He demonstrated good understanding of education in preparation for R TKA and was able to walk 100ft w/FWW showing approprate offloading of RLE, do sit<>stand as he would need after R TKA and do bed mobility w/using UEs to assist RLE in/out of bed. He passed his pre-op education session today w/PT. Pt to be re-assessed when he returns after surgery. Physical Therapy Plan Frequency and Duration Frequency of Treatment 1x/Week Duration of Treatment 1 month Plan of Care Start Date 08/17/21 Plan of Care End Date 09/17/21 Therapeutic Interventions Therapeutic Interventions Aquatic Therapy,Balance Training,Coordination Training ,Gait Training,Home Exercise Program,Joint Mobilizations, Manual Therapy,Neuromuscular Re-education,Patient/Caregiver Education,Self-Care/Home Management,Soft Tissue Mobilization,Taping, Therapeutic Activities, Therapeutic Exercises Modalities Cold Pack/Ice Massage,Electric Stimulation,Hot Packs Next Visit Focus/Plan Next Note Type Re-Evaluation Next Visit Plan review HEP & re-assess where pt is, start seated stepper Plan of Care Dates Plan of Care Start Date 08/17/21 Plan of Care End Date 09/17/21 Electronically Signed by: Landy Nassar, PT 08/19/21 [id number] Please Sign and Return: I have reviewed this Plan of Care and certify that the skilled therapy services above are required to meet the patient?s needs. Physician Signature Date Printed Name and Credentials Clinical Instructor Signature Printed Name and Credentials
--- NOTE | 2021-09-01 17:14 | PT.OPPOC ---
Physical, Occupational & Speech Therapy At [facility] Current Diagnoses Unilateral primary osteoarthritis, right knee (09/01/21) Unilateral post-traumatic osteoarthritis, right knee (09/01/21) Difficulty in walking, not elsewhere classified (09/01/21) Weakness (09/01/21) Visit Care Team Role Provider Type Mickey Brito MD Family Provider Physician Primary Care Provider Specialty: Internal Medicine Address: [address] [place] [address], [id number] Email: [email or web address] Shane Cárdenas MD Attending Provider Physician Referring Provider Specialty: Orthopedics Orthopedic Surgery Address: [address] [place] [address], [id number] Email: [email or web address] Plan Of Care PT-OP-T Assessment and Plan Start: 08/17/21 07:27 Freq: Status: Active Protocol: Document 09/01/21 10:08 [facility] (Rec: 09/01/21 12:16 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 STG Duration 10/02/21 Surveillance Sensor Operator Goal (LTG) Pt will be able to go up/down stairs reciprocally w/rail as needed without inc pain. LTG Duration 11/01/21 ROM Short Term Goal (STG) Pt will improve knee ROM to 3- 105 deg STG Duration 10/02/21 Surveillance Sensor Operator Goal (LTG) Pt will have full knee ROM of 0-120 deg R knee to allow for good gait and stair mechanics. 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 LTG Duration 11/01/21 walking Short Term Goal (STG) Pt will be able to walk with cane and seeing eye dog in order to inc ability to mobilize in community. STG Duration 10/02/21 Group Home Goal (LTG) Pt will be able to amb 2 miles with seeing eye dog and for usual walks without pain more than 2/10 LTG Duration 11/01/21 1 Surveillance Sensor Operator Goal (LTG) Pt will be indep w/all mobility w/walker and demonstrate understanding of education in order to be prepared for R TKA. LTG Duration achieved discontinue Assessment Summary Assessment Pt presents 1 week s/p R TKA w /overall good pain control with tylenol and icing, but pt did have a complicated hospital stay d/t his diabetes and the response to the steroids in the hospital. He has been doing his exercises at home, but not the recommended amount of time. He did well w/review of exercises but did not significant pain and rquire time for R knee to be propped between exercises today. 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 Physical Therapy Plan Frequency and Duration Frequency of Treatment 2x/Week Duration of Treatment 2 months Plan of Care Start Date 09/01/21 Plan of Care End Date 11/01/21 Therapeutic Interventions Therapeutic Interventions Aquatic Therapy,Balance Training,Coordination Training ,Gait Training,Home Exercise Program,Joint Mobilizations, Manual Therapy,Neuromuscular Re-education,Patient/Caregiver Education,Self-Care/Home Management,Soft Tissue Mobilization,Taping, Therapeutic Activities, Therapeutic Exercises Modalities Cold Pack/Ice Massage,Electric Stimulation,Hot Packs Next Visit Focus/Plan Next Note Type Treatment Note Next Visit Plan stepper, review exercises as needed, leg press, cont to advance gait Plan of Care Dates Plan of Care Start Date 09/01/21 Plan of Care End Date 11/01/21 Electronically Signed by: Landy Nassar, PT 09/02/21 1714 Please Sign and Return: I have reviewed this Plan of Care and certify that the skilled therapy services above are required to meet the patient?s needs. Physician Signature Date Printed Name and Credentials Clinical Instructor Signature Printed Name and Credentials
--- NOTE | 2021-09-01 17:14 | PT.OTRE ---
Current Diagnoses Unilateral primary osteoarthritis, right knee (09/01/21) Unilateral post-traumatic osteoarthritis, right knee (09/01/21) Difficulty in walking, not elsewhere classified (09/01/21) Weakness (09/01/21) Past Medical History (Last Reviewed 08/27/21 @ 09:42 by Lisandra Grover PA-C) Alcoholism Anxiety BPH (benign prostatic hyperplasia) CAD (coronary artery disease) Cervical spine fracture (~1977) Diabetic retinopathy Easy bruisability Glaucoma H/O eye surgery H/O shoulder surgery (01/25/09) History of surgery (1998) History of surgery History of vasectomy (05/1987) HTN (hypertension) Hx of arthroscopy of left knee (06/10/21) Hx of left cataract extraction Hx of oral surgery Hyperlipidemia Insulin dependent diabetes mellitus Insulin pump in place Legally blind Myocardial infarct (12/20/20) Osteoarthritis Tinnitus Surgical History (Last Reviewed 08/27/21 @ 09:42 by Lisandra Grover PA-C) H/O eye surgery H/O shoulder surgery (01/25/09) History of surgery (1998) History of surgery History of vasectomy (05/1987) Hx of arthroscopy of left knee (06/10/21) Hx of left cataract extraction Hx of oral surgery Visit Care Team Role Provider Type Mickey Brito MD Family Provider Physician Primary Care Provider Specialty: Internal Medicine Address: [address] [place] [address], [id number] Email: [email or web address] Shane Cárdenas MD Attending Provider Physician Referring Provider Specialty: Orthopedics Orthopedic Surgery Address: [address] [place] [address], [address] Email: [email or web address] Physical Therapy Re-Evaluation PT-OP-A Visit Information Start: 08/17/21 07:27 Freq: Status: Active Protocol: Document 09/01/21 10:08 [facility] (Rec: 09/01/21 12:16 [facility] [id number]) Out-Patient Physical Therapy Visit Information Visit Information Visit Type Re-Evaluation Visit Start Time 11:20 Visit Stop Time 12:02 Total Visit Minutes 42 Visit Number 1 Number of PEDIATRIC SOCIAL WORKER Visits 0 PT-OP-B Current Condition Start: 08/17/21 07:27 Freq: Status: Active Protocol: Document 09/01/21 10:08 [facility] (Rec: 09/01/21 12:16 [facility] [id number]) Current Condition History of Current Condition Onset Date chronic Current Complaints R knee pain History of Current Condition 09/01-Pt is 1 week s/p R TKA and was hospitalized until Monday d/t DKA complication. He returned home with his after. Pt reports he felt like he barely got anywhere during hospitalization. He has been getting around home okay but has not gone upstairs. He has been doing exercises. Feels like it takes a few steps to get his heel down d/ tcalf tightness. 08/17:Pt has had chronic R knee pain and is getting R TKA 08/25. He got meniscal surgery on L knee in the fall and it is mostly recovered but still has some issues. pt is legally blind and uses guide dog for out of house amb but amb in house indep. He has 2 level house w/ramp entry if he goes through the studio and [address]/o rail[address] He can stay on one level if his computer is brought down. He has tub shower w/o grab bars or chair and has slightly higher toilet w/wall next to it he can push off. He has FWW already. 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-OP-C Subjective Start: 08/17/21 07:27 Freq: Status: Active Protocol: Document 09/01/21 10:08 [facility] (Rec: 09/01/21 12:16 [facility] [id number]) OP-PT Pain Assessment Location R knee Pain Location Details R med knee, calf pain Scale Used worst 10/10, av-4-5/10 Frequency Frequent Pain Aggravating Factors Exercise,Bending Pain Alleviating Factors Cold Other Pain Alleviating Factors tylenol PT-OP-F Manual Assessment Start: 08/17/21 07:27 Freq: Status: Active Protocol: Document 09/01/21 10:08 [facility] (Rec: 09/01/21 12:16 [facility] [id number]) Manual Assessments Soft Tissue Assessment Soft Tissue Mobility Assessment Pt has bruising on ant soares that he reports is normal. He has one small scab at the bottom of his soares. No irregular drainage on dressing (lower part)-pt only able to pull up pants to knee PT-OP-G Mobility & Gait Start: 08/17/21 07:27 Freq: Status: Active Protocol: Document 09/01/21 10:08 [facility] (Rec: 09/01/21 12:16 [facility] [id number]) OP Mobility Evaluation Bed Mobility Supine to and from Sit indep Transfers Sit to Stand indep w/RLE out in front w/UEs to FWW OP Gait Assessment Comments Gait Comments Pt amb w/antalgic gait pattern w/dec stance time on RLE and dec step length w/LLE. Not full knee ext during stance PT-OP-K Range of Motion Start: 08/17/21 07:27 Freq: Status: Active Protocol: Document 09/01/21 10:08 [facility] (Rec: 09/01/21 12:16 [facility] [id number]) Knee Goniometric Range of Motion Knee Measured in Degrees Right Flexion Active (degrees) 77 Extension Active (degrees) 15 Comments pain PT-OP-M Strength Start: 08/17/21 07:27 Freq: Status: Active Protocol: Document 09/01/21 10:08 [facility] (Rec: 09/01/21 12:16 [facility] [id number]) Hip Strength Hip Manual Muscle Testing Right Flexion (L2) 4- Good- External Rotation 3+ Fair+ Internal Rotation 3 Fair Left Flexion (L2) 4 Good External Rotation 4 Good Internal Rotation 4 Good Knee Strength Knee Manual Muscle Testing Right Flexion (S2) 3+ Fair+ Extension (L3) 3- Fair- Left Flexion (S2) 4 Good Extension (L3) 4 Good Ankle/Foot Strength Ankle and Foot Manual Muscle Testing Right Dorsiflexion (L4) 4- Good- Plantarflexion (S1) 4- Good- Comments PF tested seated B Left Dorsiflexion (L4) 5 Normal Plantarflexion (S1) 5 Normal Comments PF tested seated B PT-OP-Q Treatments Start: 08/17/21 07:27 Freq: Status: Active Protocol: Document 09/01/21 10:08 [facility] (Rec: 09/01/21 12:16 [facility] [id number]) Therapeutic Exercises Supine Exercises APs Side right Reps/Minutes 10 quad set Side right Reps/Minutes 5secx4 ext Supine Exercise Name passive Side right Reps/Minutes 1 min Comments pillow under heel SAQ Side right Reps/Minutes 10 SLR Supine Exercise Name AAROM Side right Reps/Minutes 6 heel slides Side right Reps/Minutes 5 sec x10 Sitting Exercises knee flex Side right Reps/Minutes 10 sec x5 Gait Training Gait Activity stairs Description up/down 4 in steps w/2 rails step tox1 Self-Care/Home Management Treatment Education Other Education edu to pt and importance of icing, edu re: how to prop leg in bed, edu on doing exercises 2-3x day, edu to discuss w/MD about wearing thigh high compression stockings as pt normally wears knee high but has not been wearing them, edu to call MD office right after PT appt re: calf discomfort to have MD determine if further testing needs to be done. 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 STG Duration 10/02/21 Half-Way Goal (LTG) Pt will be able to go up/down stairs reciprocally w/rail as needed without inc pain. LTG Duration 11/01/21 ROM Short Term Goal (STG) Pt will improve knee ROM to 3- 105 deg STG Duration 10/02/21 Donor Relations Officer Goal (LTG) Pt will have full knee ROM of 0-120 deg R knee to allow for good gait and stair mechanics. 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 LTG Duration 11/01/21 walking Short Term Goal (STG) Pt will be able to walk with cane and seeing eye dog in order to inc ability to mobilize in community. STG Duration 10/02/21 Half-Way Goal (LTG) Pt will be able to amb 2 miles with seeing eye dog and for usual walks without pain more than 2/10 LTG Duration 11/01/21 1 Donor Relations Officer Goal (LTG) Pt will be indep w/all mobility w/walker and demonstrate understanding of education in order to be prepared for R TKA. LTG Duration achieved discontinue Assessment Summary Assessment Pt presents 1 week s/p R TKA w /overall good pain control with tylenol and icing, but pt did have a complicated hospital stay d/t his diabetes and the response to the steroids in the hospital. He has been doing his exercises at home, but not the recommended amount of time. He did well w/review of exercises but did not significant pain and rquire time for R knee to be propped between exercises today. 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 Physical Therapy Plan Frequency and Duration Frequency of Treatment 2x/Week Duration of Treatment 2 months Plan of Care Start Date 09/01/21 Plan of Care End Date 11/01/21 Therapeutic Interventions Therapeutic Interventions Aquatic Therapy,Balance Training,Coordination Training ,Gait Training,Home Exercise Program,Joint Mobilizations, Manual Therapy,Neuromuscular Re-education,Patient/Caregiver Education,Self-Care/Home Management,Soft Tissue Mobilization,Taping, Therapeutic Activities, Therapeutic Exercises Modalities Cold Pack/Ice Massage,Electric Stimulation,Hot Packs Next Visit Focus/Plan Next Note Type Treatment Note Next Visit Plan stepper, review exercises as needed, leg press, cont to advance gait
--- NOTE | 2021-09-03 13:56 | PT.OTN ---
Current Diagnoses Unilateral primary osteoarthritis, right knee (09/03/21) Unilateral post-traumatic osteoarthritis, right knee (09/03/21) Difficulty in walking, not elsewhere classified (09/03/21) Weakness (09/03/21) Physical Therapy Treatment Note PT-OP-A Visit Information Start: 08/17/21 07:27 Freq: Status: Active Protocol: Document 09/03/21 11:09 MA (Rec: 09/03/21 12:04 MA [id number]) Out-Patient Physical Therapy Visit Information Visit Information Visit Type Treatment Note Visit Start Time 11:15 Visit Stop Time 12:00 Total Visit Minutes 45 Visit Number 2 Number of CONCIERGE RECEPTIONIST Visits 1 PT-OP-B Current Condition Start: 08/17/21 07:27 Freq: Status: Active Protocol: Document 09/01/21 10:08 [facility] (Rec: 09/01/21 12:16 [facility] [id number]) Current Condition History of Current Condition Onset Date chronic Current Complaints R knee pain History of Current Condition 09/01-Pt is 1 week s/p R TKA and was hospitalized until Monday d/t DKA complication. He returned home with his after. Pt reports he felt like he barely got anywhere during hospitalization. He has been getting around home okay but has not gone upstairs. He has been doing exercises. Feels like it takes a few steps to get his heel down d/ tcalf tightness. 08/17:Pt has had chronic R knee pain and is getting R TKA 08/25. He got meniscal surgery on L knee in the fall and it is mostly recovered but still has some issues. pt is legally blind and uses guide dog for out of house amb but amb in house indep. He has 2 level house w/ramp entry if he goes through the studio and [address]o rail. He can stay on one level if his computer is brought down. He has tub shower w/o grab bars or chair and has slightly higher toilet w/wall next to it he can push off. He has FWW already. 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 The dr checked for blood clots after last appt and he was negative. PT-OP-F Manual Assessment Start: 08/17/21 07:27 Freq: Status: Active Protocol: Document 09/01/21 10:08 [facility] (Rec: 09/01/21 12:16 [facility] [id number]) Manual Assessments Soft Tissue Assessment Soft Tissue Mobility Assessment Pt has bruising on ant soares that he reports is normal. He has one small scab at the bottom of his soares. No irregular drainage on dressing (lower part)-pt only able to pull up pants to knee PT-OP-G Mobility & Gait Start: 08/17/21 07:27 Freq: Status: Active Protocol: Document 09/01/21 10:08 [facility] (Rec: 09/01/21 12:16 [facility] [id number]) OP Mobility Evaluation Bed Mobility Supine to and from Sit indep Transfers Sit to Stand indep w/RLE out in front w/UEs to FWW OP Gait Assessment Comments Gait Comments Pt amb w/antalgic gait pattern w/dec stance time on RLE and dec step length w/LLE. Not full knee ext during stance PT-OP-K Range of Motion Start: 08/17/21 07:27 Freq: Status: Active Protocol: Document 09/01/21 10:08 [facility] (Rec: 09/01/21 12:16 [facility] [id number]) Knee Goniometric Range of Motion Knee Right Flexion Active (degrees) 77 Extension Active (degrees) 15 Comments pain PT-OP-M Strength Start: 08/17/21 07:27 Freq: Status: Active Protocol: Document 09/01/21 10:08 [facility] (Rec: 09/01/21 12:16 [facility] [id number]) Hip Strength Hip Manual Muscle Testing Right Flexion (L2) 4- Good- External Rotation 3+ Fair+ Internal Rotation 3 Fair Left Flexion (L2) 4 Good External Rotation 4 Good Internal Rotation 4 Good Knee Strength Knee Manual Muscle Testing Right Flexion (S2) 3+ Fair+ Extension (L3) 3- Fair- Left Flexion (S2) 4 Good Extension (L3) 4 Good Ankle/Foot Strength Ankle and Foot Manual Muscle Testing Right Dorsiflexion (L4) 4- Good- Plantarflexion (S1) 4- Good- Comments PF tested seated B Left Dorsiflexion (L4) 5 Normal Plantarflexion (S1) 5 Normal Comments PF tested seated B PT-OP-Q Treatments Start: 08/17/21 07:27 Freq: Status: Active Protocol: Document 09/03/21 11:09 MA (Rec: 09/03/21 12:04 MA [id number]) Cardio Equipment Recumbent Elliptical (PaperG) Duration (Minutes) 5 Resistance 1 Seat Position 13-11 Other scooted seat fwd after first 2 minutes Gym Equipment Shuttle Recovery squats Details zheng Resistance 50# Shuttle Recovery Platform Stable Reps/Time 10x 5 SH when flexed, cues for full extension Therapeutic Ball 65 CM Exercise Details knee flexion/HS curl Ball Size/Color 65 cm Green Body Position Hooklying Reps/Duration 10x 5SH Comments with belt for AAROM Therapeutic Exercises Supine Exercises quad set Side right Reps/Minutes 5x10 ext Supine Exercise Name passive Side right Reps/Minutes 1 min Comments pillow under heel SAQ Side right Reps/Minutes 10 SLR Supine Exercise Name AAROM-AROM Side right Reps/Minutes 10x heel slides Side right Reps/Minutes 5 sec x10 Sitting Exercises knee flex Sitting Exercise Name passive hang this session while PT set up leg press Side right PT-OP-R Modalities Start: 08/17/21 07:27 Freq: Status: Active Protocol: Document 09/03/21 11:09 MA (Rec: 09/03/21 12:04 MA [id number]) Hot Pack/Cold Pack Treatment Cold Pack Location R knee Patient Position Hooklying Treatment Duration (minutes) 10 Patient Tolerance Good PT-OP-T Assessment and Plan Start: 08/17/21 07:27 Freq: Status: Active Protocol: Document 09/03/21 11:09 MA (Rec: 09/03/21 12:04 MA [id number]) Physical Therapy Assessment Goals stairs Short Term Goal (STG) Pt will be able to go step to up/down stairs w/rail safely at home in order to 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 STG Duration 10/02/21 Barber Goal (LTG) Pt will be able to go up/down stairs reciprocally w/rail as needed without inc pain. LTG Duration 11/01/21 ROM Short Term Goal (STG) Pt will improve knee ROM to 3- 105 deg STG Duration 10/02/21 Alf Goal (LTG) Pt will have full knee ROM of 0-120 deg R knee to allow for good gait and stair mechanics. 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 LTG Duration 11/01/21 walking Short Term Goal (STG) Pt will be able to walk with cane and seeing eye dog in order to inc ability to mobilize in community. STG Duration 10/02/21 Alf Goal (LTG) Pt will be able to amb 2 miles with seeing eye dog and for usual walks without pain more than 2/10 LTG Duration 11/01/21 1 Alf Goal (LTG) Pt will be indep w/all mobility w/walker and demonstrate understanding of education in order to be prepared for R TKA. LTG Duration achieved discontinue Assessment Summary Assessment Pt has been doing his HEP exercises and requires no cues during review of exercises. He has 4/10 pain with quad sets and SLR, and 7/10 pain with heel slides. Pain decreases when switched to AAROM knee flexion with belt and LEs supported on theraball . Pt gets to 94 degrees flexion on leg press at end of session. Saul has recumbant bike at home and would like to try bike here at therapy next session. Physical Therapy Plan Frequency and Duration Frequency of Treatment 2x/Week Duration of Treatment 2 months Plan of Care Start Date 09/01/21 Plan of Care End Date 11/01/21 Therapeutic Interventions Therapeutic Interventions Aquatic Therapy,Balance Training,Coordination Training ,Gait Training,Home Exercise Program,Joint Mobilizations, Manual Therapy,Neuromuscular Re-education,Patient/Caregiver Education,Self-Care/Home Management,Soft Tissue Mobilization,Taping, Therapeutic Activities, Therapeutic Exercises Modalities Cold Pack/Ice Massage,Electric Stimulation,Hot Packs Next Visit Focus/Plan Next Note Type Treatment Note Next Visit Plan manual to R quads, try recum bike vs stepper next session, leg press, review exercises as needed, cont to advance gait
--- NOTE | 2021-09-08 12:24 | PT.OTN ---
Current Diagnoses Unilateral primary osteoarthritis, right knee (09/08/21) Unilateral post-traumatic osteoarthritis, right knee (09/08/21) Difficulty in walking, not elsewhere classified (09/08/21) Weakness (09/08/21) Physical Therapy Treatment Note PT-OP-A Visit Information Start: 08/17/21 07:27 Freq: Status: Active Protocol: Document 09/08/21 11:18 [facility] (Rec: 09/08/21 12:24 [facility] [id number]) Out-Patient Physical Therapy Visit Information Visit Information Visit Type Treatment Note Visit Note 08/26 Visit Start Time 11:18 Visit Stop Time 12:01 Total Visit Minutes 43 Visit Number 3 Number of OCCUPATIONAL THERAPY DEPARTMENT CHAIR Visits 0 PT-OP-B Current Condition Start: 08/17/21 07:27 Freq: Status: Active Protocol: Document 09/01/21 10:08 [facility] (Rec: 09/01/21 12:16 [facility] [id number]) Current Condition History of Current Condition Onset Date chronic Current Complaints R knee pain History of Current Condition 09/01-Pt is 1 week s/p R TKA and was hospitalized until Monday d/t DKA complication. He returned home with his after. Pt reports he felt like he barely got anywhere during hospitalization. He has been getting around home okay but has not gone upstairs. He has been doing exercises. Feels like it takes a few steps to get his heel down d/ tcalf tightness. 08/17:Pt has had chronic R knee pain and is getting R TKA 08/25. He got meniscal surgery on L knee in the fall and it is mostly recovered but still has some issues. pt is legally blind and uses guide dog for out of house amb but amb in house indep. He has 2 level house w/ramp entry if he goes through the studio and [address]/o rail. He can stay on one level if his computer is brought down. He has tub shower w/o grab bars or chair and has slightly higher toilet w/wall next to it he can push off. He has FWW already. 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 He has been doing a little bit with sitting and standing on the walker. He hasn't demoed a lot PT-OP-F Manual Assessment Start: 08/17/21 07:27 Freq: Status: Active Protocol: Document 09/01/21 10:08 [facility] (Rec: 09/01/21 12:16 [facility] [id number]) Manual Assessments Soft Tissue Assessment Soft Tissue Mobility Assessment Pt has bruising on ant soares that he reports is normal. He has one small scab at the bottom of his soares. No irregular drainage on dressing (lower part)-pt only able to pull up pants to knee PT-OP-G Mobility & Gait Start: 08/17/21 07:27 Freq: Status: Active Protocol: Document 09/01/21 10:08 [facility] (Rec: 09/01/21 12:16 [facility] [id number]) OP Mobility Evaluation Bed Mobility Supine to and from Sit indep Transfers Sit to Stand indep w/RLE out in front w/UEs to FWW OP Gait Assessment Comments Gait Comments Pt amb w/antalgic gait pattern w/dec stance time on RLE and dec step length w/LLE. Not full knee ext during stance PT-OP-K Range of Motion Start: 08/17/21 07:27 Freq: Status: Active Protocol: Document 09/01/21 10:08 [facility] (Rec: 09/01/21 12:16 [facility] [id number]) Knee Goniometric Range of Motion Knee Right Flexion Active (degrees) 77 Extension Active (degrees) 15 Comments pain PT-OP-M Strength Start: 08/17/21 07:27 Freq: Status: Active Protocol: Document 09/01/21 10:08 [facility] (Rec: 09/01/21 12:16 [facility] [id number]) Hip Strength Hip Manual Muscle Testing Right Flexion (L2) 4- Good- External Rotation 3+ Fair+ Internal Rotation 3 Fair Left Flexion (L2) 4 Good External Rotation 4 Good Internal Rotation 4 Good Knee Strength Knee Manual Muscle Testing Right Flexion (S2) 3+ Fair+ Extension (L3) 3- Fair- Left Flexion (S2) 4 Good Extension (L3) 4 Good Ankle/Foot Strength Ankle and Foot Manual Muscle Testing Right Dorsiflexion (L4) 4- Good- Plantarflexion (S1) 4- Good- Comments PF tested seated B Left Dorsiflexion (L4) 5 Normal Plantarflexion (S1) 5 Normal Comments PF tested seated B PT-OP-Q Treatments Start: 08/17/21 07:27 Freq: Status: Active Protocol: Document 09/08/21 11:18 [facility] (Rec: 09/08/21 12:24 [facility] [id number]) Cardio Equipment Recumbent Bicycle Duration (Minutes) 5 Resistance 0 Other circles back/forth Gym Equipment Shuttle Recovery squats Details zheng Resistance 50# Shuttle Recovery Platform Stable Reps/Time 15x 5 SH when flexed, cues for full extension Shuttle Balance Blue Clips Comments fwd: WBOS, NBOS, staggered stance B Therapeutic Ball 65 CM Exercise Details knee flexion/HS curl Ball Size/Color 65 cm Green Body Position Hooklying Reps/Duration 10x 5SH Gait Training Gait Activity gait Distance/Duration 200ft then throughout clinic Comments cues for no lat lean to R and for R knee flex stairs Description step to up/down Comments up/down 6 in steps w/1 rail and cane x1 then w/only cane x3x Manual Therapy Treatment Soft Tissue Mobilization R knee Body Location HS & quad Mobilization Type Rolling,Strumming Intensity/Depth Moderate Body Position Supine Comments w/PT AAROM into knee flex/ext, avoiding small scabs & incision & using gloves PT-OP-R Modalities Start: 08/17/21 07:27 Freq: Status: Active Protocol: Document 09/03/21 11:09 MA (Rec: 09/03/21 12:04 MA [id number]) Hot Pack/Cold Pack Treatment Cold Pack Location R knee Patient Position Hooklying Treatment Duration (minutes) 10 Patient Tolerance Good PT-OP-T Assessment and Plan Start: 08/17/21 07:27 Freq: Status: Active Protocol: Document 09/08/21 11:18 [facility] (Rec: 09/08/21 12:24 [facility] [id number]) Physical Therapy Assessment Goals stairs Short Term Goal (STG) Pt will be able to go step to up/down stairs w/rail safely at home in order to 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 STG Duration 10/02/21 Vest Maker Goal (LTG) Pt will be able to go up/down stairs reciprocally w/rail as needed without inc pain. LTG Duration 11/01/21 ROM Short Term Goal (STG) Pt will improve knee ROM to 3- 105 deg STG Duration 10/02/21 Vest Maker Goal (LTG) Pt will have full knee ROM of 0-120 deg R knee to allow for good gait and stair mechanics. 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 LTG Duration 11/01/21 walking Short Term Goal (STG) Pt will be able to walk with cane and seeing eye dog in order to inc ability to mobilize in community. STG Duration 10/02/21 Vest Maker Goal (LTG) Pt will be able to amb 2 miles with seeing eye dog and for usual walks without pain more than 2/10 LTG Duration 11/01/21 1 Mcc Goal (LTG) Pt will be indep w/all mobility w/walker and demonstrate understanding of education in order to be prepared for R TKA. LTG Duration achieved discontinue Assessment Summary Assessment Pt had 16-92 deg ROM today in supien and did well with all exercises including new gait training. he requires cues for gait w/cane but improves w/ those cues. pt asked not to go up the stiars without a rail at home yet but plant o cont to practice at home. Cleared to do small walks w/. Physical Therapy Plan Frequency and Duration Frequency of Treatment 2x/Week Duration of Treatment 2 months Plan of Care Start Date 09/01/21 Plan of Care End Date 11/01/21 Next Visit Focus/Plan Next Note Type Treatment Note Next Visit Plan cont to work on gait w/cane and stairs w/cane only, try standing heel raises and more standing balance
--- NOTE | 2021-09-10 12:41 | PT.OTN ---
Current Diagnoses Unilateral primary osteoarthritis, right knee (09/10/21) Unilateral post-traumatic osteoarthritis, right knee (09/10/21) Difficulty in walking, not elsewhere classified (09/10/21) Weakness (09/10/21) Physical Therapy Treatment Note PT-OP-A Visit Information Start: 08/17/21 07:27 Freq: Status: Active Protocol: Document 09/10/21 11:29 MA (Rec: 09/10/21 12:41 MA [id number]) Out-Patient Physical Therapy Visit Information Visit Information Visit Type Treatment Note Visit Note 09/26 Visit Start Time 11:30 Visit Stop Time 12:13 Total Visit Minutes 43 Visit Number 4 Number of RESPIRATORY SUPERVISOR Visits 1 PT-OP-B Current Condition Start: 08/17/21 07:27 Freq: Status: Active Protocol: Document 09/01/21 10:08 [facility] (Rec: 09/01/21 12:16 [facility] [id number]) Current Condition History of Current Condition Onset Date chronic Current Complaints R knee pain History of Current Condition 09/01-Pt is 1 week s/p R TKA and was hospitalized until Monday d/t DKA complication. He returned home with his after. Pt reports he felt like he barely got anywhere during hospitalization. He has been getting around home okay but has not gone upstairs. He has been doing exercises. Feels like it takes a few steps to get his heel down d/ tcalf tightness. 08/17:Pt has had chronic R knee pain and is getting R TKA 08/25. He got meniscal surgery on L knee in the fall and it is mostly recovered but still has some issues. pt is legally blind and uses guide dog for out of house amb but amb in house indep. He has 2 level house w/ramp entry if he goes through the studio and [address]o rail. He can stay on one level if his computer is brought down. He has tub shower w/o grab bars or chair and has slightly higher toilet w/wall next to it he can push off. He has FWW already. 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 He feels his balance isn't as good as it used to be. PT-OP-F Manual Assessment Start: 08/17/21 07:27 Freq: Status: Active Protocol: Document 09/01/21 10:08 [facility] (Rec: 09/01/21 12:16 [facility] [id number]) Manual Assessments Soft Tissue Assessment Soft Tissue Mobility Assessment Pt has bruising on ant soares that he reports is normal. He has one small scab at the bottom of his soares. No irregular drainage on dressing (lower part)-pt only able to pull up pants to knee PT-OP-G Mobility & Gait Start: 08/17/21 07:27 Freq: Status: Active Protocol: Document 09/01/21 10:08 [facility] (Rec: 09/01/21 12:16 [facility] [id number]) OP Mobility Evaluation Bed Mobility Supine to and from Sit indep Transfers Sit to Stand indep w/RLE out in front w/UEs to FWW OP Gait Assessment Comments Gait Comments Pt amb w/antalgic gait pattern w/dec stance time on RLE and dec step length w/LLE. Not full knee ext during stance PT-OP-K Range of Motion Start: 08/17/21 07:27 Freq: Status: Active Protocol: Document 09/01/21 10:08 [facility] (Rec: 09/01/21 12:16 [facility] [id number]) Knee Goniometric Range of Motion Knee Right Flexion Active (degrees) 77 Extension Active (degrees) 15 Comments pain PT-OP-M Strength Start: 08/17/21 07:27 Freq: Status: Active Protocol: Document 09/01/21 10:08 [facility] (Rec: 09/01/21 12:16 [facility] [id number]) Hip Strength Hip Manual Muscle Testing Right Flexion (L2) 4- Good- External Rotation 3+ Fair+ Internal Rotation 3 Fair Left Flexion (L2) 4 Good External Rotation 4 Good Internal Rotation 4 Good Knee Strength Knee Manual Muscle Testing Right Flexion (S2) 3+ Fair+ Extension (L3) 3- Fair- Left Flexion (S2) 4 Good Extension (L3) 4 Good Ankle/Foot Strength Ankle and Foot Manual Muscle Testing Right Dorsiflexion (L4) 4- Good- Plantarflexion (S1) 4- Good- Comments PF tested seated B Left Dorsiflexion (L4) 5 Normal Plantarflexion (S1) 5 Normal Comments PF tested seated B PT-OP-Q Treatments Start: 08/17/21 07:27 Freq: Status: Active Protocol: Document 09/10/21 11:29 MA (Rec: 09/10/21 12:41 MA [id number]) Cardio Equipment Recumbent Bicycle Duration (Minutes) 5 Resistance 0 Seat Position 6 Other circles back/forth Gym Equipment Shuttle Recovery squats Details zheng Resistance 50# Shuttle Recovery Platform Stable Reps/Time 15x 5 SH when flexed, cues for full extension Therapeutic Ball 65 CM Exercise Details knee flexion/HS curl Ball Size/Color 65 cm Green Body Position Hooklying Reps/Duration 10x 5SH Therapeutic Exercises Supine Exercises quad set Side right Reps/Minutes 5x10 ext Supine Exercise Name passive Side right Reps/Minutes 1 min Comments pillow under heel Sitting Exercises LAQ Side right Reps/Minutes x10 knee flex Sitting Exercise Name passive hang this session while PT set up leg press Side right Standing Exercises Heel raises Side bilateral Equipment Used stairs Reps/Minutes 10x10 SH Comments added to HEP Gait Training Gait Activity gait Distance/Duration 4x50 ft Comments Working on R heel strike and zheng knee flexion during swing thru stairs Description step to up/down Comments up/down 6 in steps w/1 rail and cane x1 then w/only cane x3 PT-OP-R Modalities Start: 08/17/21 07:27 Freq: Status: Active Protocol: Document 09/03/21 11:09 MA (Rec: 09/03/21 12:04 MA [id number]) Hot Pack/Cold Pack Treatment Cold Pack Location R knee Patient Position Hooklying Treatment Duration (minutes) 10 Patient Tolerance Good PT-OP-T Assessment and Plan Start: 08/17/21 07:27 Freq: Status: Active Protocol: Document 09/10/21 11:29 MA (Rec: 09/10/21 12:41 MA [id number]) Physical Therapy Assessment Goals stairs Short Term Goal (STG) Pt will be able to go step to up/down stairs w/rail safely at home in order to 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 STG Duration 10/02/21 Philosophy And Religion Instructor Goal (LTG) Pt will be able to go up/down stairs reciprocally w/rail as needed without inc pain. LTG Duration 11/01/21 ROM Short Term Goal (STG) Pt will improve knee ROM to 3- 105 deg STG Duration 10/02/21 Philosophy And Religion Instructor Goal (LTG) Pt will have full knee ROM of 0-120 deg R knee to allow for good gait and stair mechanics. 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 LTG Duration 11/01/21 walking Short Term Goal (STG) Pt will be able to walk with cane and seeing eye dog in order to inc ability to mobilize in community. STG Duration 10/02/21 [facility] Goal (LTG) Pt will be able to amb 2 miles with seeing eye dog and for usual walks without pain more than 2/10 LTG Duration 11/01/21 1 Philosophy And Religion Instructor Goal (LTG) Pt will be indep w/all mobility w/walker and demonstrate understanding of education in order to be prepared for R TKA. LTG Duration achieved discontinue Assessment Summary Assessment Pt's R knee AROM was 15-96 degrees this session. He was able to get to 98 degrees flexion on leg press. Focused treatment session on RLE extension as pt is still lacking 15 degrees. Worked on heel strike during gait and increasing knee flexion during swing through as pt tends to abduct RLE. Mckinley admits he has always abducted his leg due to knee pain prior to surgery. Added heel raises on stairs to HEP. 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 Pt has recently tried teaching with only his cane but admits he is still a little unbalanced. Physical Therapy Plan Frequency and Duration Frequency of Treatment 2x/Week Duration of Treatment 2 months Plan of Care Start Date 09/01/21 Plan of Care End Date 11/01/21 Therapeutic Interventions Therapeutic Interventions Aquatic Therapy,Balance Training,Coordination Training ,Gait Training,Home Exercise Program,Joint Mobilizations, Manual Therapy,Neuromuscular Re-education,Patient/Caregiver Education,Self-Care/Home Management,Soft Tissue Mobilization,Taping, Therapeutic Activities, Therapeutic Exercises Modalities Cold Pack/Ice Massage,Electric Stimulation,Hot Packs Next Visit Focus/Plan Next Note Type Treatment Note Next Visit Plan Focus more on RLE ext and standing balance. cont to work on gait w/cane and stairs w/ cane only, review standing heel raises
--- NOTE | 2021-09-15 13:06 | PT.OTN ---
Current Diagnoses Unilateral primary osteoarthritis, right knee (09/15/21) Unilateral post-traumatic osteoarthritis, right knee (09/15/21) Difficulty in walking, not elsewhere classified (09/15/21) Weakness (09/15/21) Physical Therapy Treatment Note PT-OP-A Visit Information Start: 08/17/21 07:27 Freq: Status: Active Protocol: Document 09/15/21 11:23 [facility] (Rec: 09/15/21 13:06 [facility] [id number]) Out-Patient Physical Therapy Visit Information Visit Information Visit Type Treatment Note Visit Note 10/26 Visit Start Time 11:19 Visit Stop Time 12:00 Total Visit Minutes 41 Visit Number 5 Number of MEDICAL AFFAIRS SPECIALIST Visits 0 PT-OP-B Current Condition Start: 08/17/21 07:27 Freq: Status: Active Protocol: Document 09/01/21 10:08 [facility] (Rec: 09/01/21 12:16 [facility] [id number]) Current Condition History of Current Condition Onset Date chronic Current Complaints R knee pain History of Current Condition 09/01-Pt is 1 week s/p R TKA and was hospitalized until Monday d/t DKA complication. He returned home with his after. Pt reports he felt like he barely got anywhere during hospitalization. He has been getting around home okay but has not gone upstairs. He has been doing exercises. Feels like it takes a few steps to get his heel down d/ tcalf tightness. 08/17:Pt has had chronic R knee pain and is getting R TKA 08/25. He got meniscal surgery on L knee in the fall and it is mostly recovered but still has some issues. pt is legally blind and uses guide dog for out of house amb but amb in house indep. He has 2 level house w/ramp entry if he goes through the studio and [address] w/o rail. He can stay on one level if his computer is brought down. He has tub shower w/o grab bars or chair and has slightly higher toilet w/wall next to it he can push off. He has FWW already. 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 (Rec: 09/15/21 13:06 [facility] [id number]) OP-PT Subjective Patient Comments Patient Comments Pt reports he did a small walk this AM. He already did his exercises. 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 Pain is better PT-OP-F Manual Assessment Start: 08/17/21 07:27 Freq: Status: Active Protocol: Document 09/01/21 10:08 [facility] (Rec: 09/01/21 12:16 [facility] [id number]) Manual Assessments Soft Tissue Assessment Soft Tissue Mobility Assessment Pt has bruising on ant soares that he reports is normal. He has one small scab at the bottom of his soares. No irregular drainage on dressing (lower part)-pt only able to pull up pants to knee PT-OP-G Mobility & Gait Start: 08/17/21 07:27 Freq: Status: Active Protocol: Document 09/01/21 10:08 [facility] (Rec: 09/01/21 12:16 [facility] [id number]) OP Mobility Evaluation Bed Mobility Supine to and from Sit indep Transfers Sit to Stand indep w/RLE out in front w/UEs to FWW OP Gait Assessment Comments Gait Comments Pt amb w/antalgic gait pattern w/dec stance time on RLE and dec step length w/LLE. Not full knee ext during stance PT-OP-K Range of Motion Start: 08/17/21 07:27 Freq: Status: Active Protocol: Document 09/01/21 10:08 [facility] (Rec: 09/01/21 12:16 [facility] [id number]) Knee Goniometric Range of Motion Knee Right Flexion Active (degrees) 77 Extension Active (degrees) 15 Comments pain PT-OP-M Strength Start: 08/17/21 07:27 Freq: Status: Active Protocol: Document 09/01/21 10:08 [facility] (Rec: 09/01/21 12:16 [facility] [id number]) Hip Strength Hip Manual Muscle Testing Right Flexion (L2) 4- Good- External Rotation 3+ Fair+ Internal Rotation 3 Fair Left Flexion (L2) 4 Good External Rotation 4 Good Internal Rotation 4 Good Knee Strength Knee Manual Muscle Testing Right Flexion (S2) 3+ Fair+ Extension (L3) 3- Fair- Left Flexion (S2) 4 Good Extension (L3) 4 Good Ankle/Foot Strength Ankle and Foot Manual Muscle Testing Right Dorsiflexion (L4) 4- Good- Plantarflexion (S1) 4- Good- Comments PF tested seated B Left Dorsiflexion (L4) 5 Normal Plantarflexion (S1) 5 Normal Comments PF tested seated B PT-OP-Q Treatments Start: 08/17/21 07:27 Freq: Status: Active Protocol: Document 09/15/21 11:23 [facility] (Rec: 09/15/21 13:06 [facility] [id number]) Cardio Equipment Recumbent Bicycle Duration (Minutes) 5 Resistance 0 Seat Position 7 Other circles back/forth- able to go back wards a few times Gym Equipment Shuttle Recovery squats Details zheng Resistance 87# Shuttle Recovery Platform Stable Reps/Time 2x15 Shuttle Balance Blue Clips Comments fwd: WBOS, NBOS, staggered stance B Therapeutic Exercises Standing Exercises sit to stands Side bilateral Reps/Minutes 10 Comments getting leg Heel raises Side bilateral Equipment Used stairs Reps/Minutes 10x5 SH at bottom Comments added to HEP Gait Training Gait Activity stairs Description step to up/down Comments up/down 6 in w/only cane x1 up 4 in and down 4 in recip w/ rail x1 up 6 in and down 4 in recip w/ rail prn x3 Manual Therapy Treatment Soft Tissue Mobilization R knee Body Location HS & quad & calf Mobilization Type Rolling,Strumming Intensity/Depth Moderate Body Position Supine Comments w/APs PT-OP-R Modalities Start: 08/17/21 07:27 Freq: Status: Active Protocol: Document 09/03/21 11:09 MA (Rec: 09/03/21 12:04 MA [id number]) Hot Pack/Cold Pack Treatment Cold Pack Location R knee Patient Position Hooklying Treatment Duration (minutes) 10 Patient Tolerance Good PT-OP-T Assessment and Plan Start: 08/17/21 07:27 Freq: Status: Active Protocol: Document 09/15/21 11:23 [facility] (Rec: 09/15/21 13:06 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 STG Duration 10/02/21 Residential Goal (LTG) Pt will be able to go up/down stairs reciprocally w/rail as needed without inc pain. LTG Duration 11/01/21 ROM Short Term Goal (STG) Pt will improve knee ROM to 3- 105 deg STG Duration 10/02/21 Pressure Test Operator Goal (LTG) Pt will have full knee ROM of 0-120 deg R knee to allow for good gait and stair mechanics. 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 LTG Duration 11/01/21 walking Short Term Goal (STG) Pt will be able to walk with cane and seeing eye dog in order to inc ability to mobilize in community. STG Duration 10/02/21 Residential Goal (LTG) Pt will be able to amb 2 miles with seeing eye dog and for usual walks without pain more than 2/10 LTG Duration 11/01/21 1 Pressure Test Operator Goal (LTG) Pt will be indep w/all mobility w/walker and demonstrate understanding of education in order to be prepared for R TKA. LTG Duration achieved discontinue Assessment Summary Assessment Pt had 16-99 deg prior to manual but did improve ext to 9 deg after manual treatment. He did well with exercises today and was able to progrss stairs and wt w/leg press Physical Therapy Plan Frequency and Duration Frequency of Treatment 2x/Week Duration of Treatment 2 months Plan of Care Start Date 09/01/21 Plan of Care End Date 11/01/21 Next Visit Focus/Plan Next Note Type Treatment Note Next Visit Plan Focus more on RLE ext and standing balance. cont to work on gait w/cane and stairs w/ cane only, review standing heel raises
--- NOTE | 2021-09-17 14:00 | PT.OTN ---
Current Diagnoses Unilateral primary osteoarthritis, right knee (09/17/21) Unilateral post-traumatic osteoarthritis, right knee (09/17/21) Difficulty in walking, not elsewhere classified (09/17/21) Weakness (09/17/21) Physical Therapy Treatment Note PT-OP-A Visit Information Start: 08/17/21 07:27 Freq: Status: Active Protocol: Document 09/17/21 11:18 MA (Rec: 09/17/21 13:14 MA [id number]) Out-Patient Physical Therapy Visit Information Visit Information Visit Type Treatment Note Visit Note 11/26 Visit Start Time 11:20 Visit Stop Time 12:00 Total Visit Minutes 40 Visit Number 6 Number of DESIGN DIRECTOR Visits 1 PT-OP-B Current Condition Start: 08/17/21 07:27 Freq: Status: Active Protocol: Document 09/01/21 10:08 [facility] (Rec: 09/01/21 12:16 [facility] [id number]) Current Condition History of Current Condition Onset Date chronic Current Complaints R knee pain History of Current Condition 09/01-Pt is 1 week s/p R TKA and was hospitalized until Monday d/t DKA complication. He returned home with his after. Pt reports he felt like he barely got anywhere during hospitalization. He has been getting around home okay but has not gone upstairs. He has been doing exercises. Feels like it takes a few steps to get his heel down d/ tcalf tightness. 08/17:Pt has had chronic R knee pain and is getting R TKA 08/25. He got meniscal surgery on L knee in the fall and it is mostly recovered but still has some issues. pt is legally blind and uses guide dog for out of house amb but amb in house indep. He has 2 level house w/ramp entry if he goes through the studio and [address]o rail. He can stay on one level if his computer is brought down. He has tub shower w/o grab bars or chair and has slightly higher toilet w/wall next to it he can push off. He has FWW already. 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 Having to use two canes is throwing me off. PT-OP-F Manual Assessment Start: 08/17/21 07:27 Freq: Status: Active Protocol: Document 09/01/21 10:08 [facility] (Rec: 09/01/21 12:16 [facility] [id number]) Manual Assessments Soft Tissue Assessment Soft Tissue Mobility Assessment Pt has bruising on ant soares that he reports is normal. He has one small scab at the bottom of his soares. No irregular drainage on dressing (lower part)-pt only able to pull up pants to knee PT-OP-G Mobility & Gait Start: 08/17/21 07:27 Freq: Status: Active Protocol: Document 09/01/21 10:08 [facility] (Rec: 09/01/21 12:16 [facility] [id number]) OP Mobility Evaluation Bed Mobility Supine to and from Sit indep Transfers Sit to Stand indep w/RLE out in front w/UEs to FWW OP Gait Assessment Comments Gait Comments Pt amb w/antalgic gait pattern w/dec stance time on RLE and dec step length w/LLE. Not full knee ext during stance PT-OP-K Range of Motion Start: 08/17/21 07:27 Freq: Status: Active Protocol: Document 09/01/21 10:08 [facility] (Rec: 09/01/21 12:16 [facility] [id number]) Knee Goniometric Range of Motion Knee Right Flexion Active (degrees) 77 Extension Active (degrees) 15 Comments pain PT-OP-M Strength Start: 08/17/21 07:27 Freq: Status: Active Protocol: Document 09/01/21 10:08 [facility] (Rec: 09/01/21 12:16 [facility] [id number]) Hip Strength Hip Manual Muscle Testing Right Flexion (L2) 4- Good- External Rotation 3+ Fair+ Internal Rotation 3 Fair Left Flexion (L2) 4 Good External Rotation 4 Good Internal Rotation 4 Good Knee Strength Knee Manual Muscle Testing Right Flexion (S2) 3+ Fair+ Extension (L3) 3- Fair- Left Flexion (S2) 4 Good Extension (L3) 4 Good Ankle/Foot Strength Ankle and Foot Manual Muscle Testing Right Dorsiflexion (L4) 4- Good- Plantarflexion (S1) 4- Good- Comments PF tested seated B Left Dorsiflexion (L4) 5 Normal Plantarflexion (S1) 5 Normal Comments PF tested seated B PT-OP-Q Treatments Start: 08/17/21 07:27 Freq: Status: Active Protocol: Document 09/17/21 11:18 MA (Rec: 09/17/21 13:14 MA [id number]) Cardio Equipment Recumbent Bicycle Duration (Minutes) 5 Resistance 0 Seat Position 7 Other able to complete full fwd revolutions Gym Equipment Shuttle Recovery squats Details zheng Resistance 87# Shuttle Recovery Platform Stable Reps/Time 2x15 Therapeutic Exercises Supine Exercises quad set Side right Reps/Minutes 5x10 ext Supine Exercise Name passive Side right Reps/Minutes 1 min Comments pillow under heel Standing Exercises Heel raises Side bilateral Equipment Used stairs Reps/Minutes 10x5 SH at bottom Comments added to HEP Gait Training Gait Activity gait Description No AD today Device Used white cane (for visual impairment) Distance/Duration 200 ft Comments Working on R heel strike and zheng knee flexion during swing thru Manual Therapy Treatment Soft Tissue Mobilization R knee Body Location HS & quad & calf Mobilization Type Rolling,Strumming Intensity/Depth Moderate Body Position Supine Comments w/APs PT-OP-R Modalities Start: 08/17/21 07:27 Freq: Status: Active Protocol: Document 09/03/21 11:09 MA (Rec: 09/03/21 12:04 MA [id number]) Hot Pack/Cold Pack Treatment Cold Pack Location R knee Patient Position Hooklying Treatment Duration (minutes) 10 Patient Tolerance Good PT-OP-T Assessment and Plan Start: 08/17/21 07:27 Freq: Status: Active Protocol: Document 09/17/21 11:18 MA (Rec: 09/17/21 13:14 MA [id number]) Physical Therapy Assessment Goals stairs Short Term Goal (STG) Pt will be able to go step to up/down stairs w/rail safely at home in order to 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 STG Duration 10/02/21 Intermediate Goal (LTG) Pt will be able to go up/down stairs reciprocally w/rail as needed without inc pain. LTG Duration 11/01/21 ROM Short Term Goal (STG) Pt will improve knee ROM to 3- 105 deg STG Duration 10/02/21 Intermediate Goal (LTG) Pt will have full knee ROM of 0-120 deg R knee to allow for good gait and stair mechanics. 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 LTG Duration 11/01/21 walking Short Term Goal (STG) Pt will be able to walk with cane and seeing eye dog in order to inc ability to mobilize in community. 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 LTG Duration achieved discontinue Assessment Summary Assessment Mckinley's R knee AROM was 8-102 degrees today. He was able to get to 109 degrees flexion at end of session after STM, when using weighted leg press. Pt requested working on gait without cane this session as having to use both his white cane (for visual impairment) and his quad cane was causing pt to get tripped up. Pt did well with gait using only white cane with cues for increasing R knee flexion. Pt will soon begin using his seeing-eye dog again. Requested pt bring dog next session to work on gait in clinic. Physical Therapy Plan Frequency and Duration Frequency of Treatment 2x/Week Duration of Treatment 2 months Plan of Care Start Date 09/01/21 Plan of Care End Date 11/01/21 Therapeutic Interventions Therapeutic Interventions Aquatic Therapy,Balance Training,Coordination Training ,Gait Training,Home Exercise Program,Joint Mobilizations, Manual Therapy,Neuromuscular Re-education,Patient/Caregiver Education,Self-Care/Home Management,Soft Tissue Mobilization,Taping, Therapeutic Activities, Therapeutic Exercises Modalities Cold Pack/Ice Massage,Electric Stimulation,Hot Packs Next Visit Focus/Plan Next Note Type Treatment Note Next Visit Plan Work on gait with dog and stairs with single rail vs cane. Focus more on RLE ext and standing balance and continue standing heel raises
--- NOTE | 2021-09-22 13:43 | PT.OTN ---
Current Diagnoses Unilateral primary osteoarthritis, right knee (09/22/21) Unilateral post-traumatic osteoarthritis, right knee (09/22/21) Difficulty in walking, not elsewhere classified (09/22/21) Weakness (09/22/21) Physical Therapy Treatment Note PT-OP-A Visit Information Start: 08/17/21 07:27 Freq: Status: Active Protocol: Document 09/22/21 11:20 MA (Rec: 09/22/21 12:05 MA [id number]) Out-Patient Physical Therapy Visit Information Visit Information Visit Type Treatment Note Visit Note 12/26 Visit Start Time 11:15 Visit Stop Time 12:00 Total Visit Minutes 45 Visit Number 7 Number of HOMEMAKER COMPANION Visits 2 PT-OP-B Current Condition Start: 08/17/21 07:27 Freq: Status: Active Protocol: Document 09/01/21 10:08 [facility] (Rec: 09/01/21 12:16 [facility] [id number]) Current Condition History of Current Condition Onset Date chronic Current Complaints R knee pain History of Current Condition 09/01-Pt is 1 week s/p R TKA and was hospitalized until Monday d/t DKA complication. He returned home with his after. Pt reports he felt like he barely got anywhere during hospitalization. He has been getting around home okay but has not gone upstairs. He has been doing exercises. Feels like it takes a few steps to get his heel down d/ tcalf tightness. 08/17:Pt has had chronic R knee pain and is getting R TKA 08/25. He got meniscal surgery on L knee in the fall and it is mostly recovered but still has some issues. pt is legally blind and uses guide dog for out of house amb but amb in house indep. He has 2 level house w/ramp entry if he goes through the studio and [address] w/o rail. He can stay on one level if his computer is brought down. He has tub shower w/o grab bars or chair and has slightly higher toilet w/wall next to it he can push off. He has FWW already. 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 He has one small scab at the bottom of his soares. No irregular drainage on dressing (lower part)-pt only able to pull up pants to knee PT-OP-G Mobility & Gait Start: 08/17/21 07:27 Freq: Status: Active Protocol: Document 09/01/21 10:08 [facility] (Rec: 09/01/21 12:16 [facility] [id number]) OP Mobility Evaluation Bed Mobility Supine to and from Sit indep Transfers Sit to Stand indep w/RLE out in front w/UEs to FWW OP Gait Assessment Comments Gait Comments Pt amb w/antalgic gait pattern w/dec stance time on RLE and dec step length w/LLE. Not full knee ext during stance PT-OP-K Range of Motion Start: 08/17/21 07:27 Freq: Status: Active Protocol: Document 09/01/21 10:08 [facility] (Rec: 09/01/21 12:16 [facility] [id number]) Knee Goniometric Range of Motion Knee Right Flexion Active (degrees) 77 Extension Active (degrees) 15 Comments pain PT-OP-M Strength Start: 08/17/21 07:27 Freq: Status: Active Protocol: Document 09/01/21 10:08 [facility] (Rec: 09/01/21 12:16 [facility] [id number]) Hip Strength Hip Manual Muscle Testing Right Flexion (L2) 4- Good- External Rotation 3+ Fair+ Internal Rotation 3 Fair Left Flexion (L2) 4 Good External Rotation 4 Good Internal Rotation 4 Good Knee Strength Knee Manual Muscle Testing Right Flexion (S2) 3+ Fair+ Extension (L3) 3- Fair- Left Flexion (S2) 4 Good Extension (L3) 4 Good Ankle/Foot Strength Ankle and Foot Manual Muscle Testing Right Dorsiflexion (L4) 4- Good- Plantarflexion (S1) 4- Good- Comments PF tested seated B Left Dorsiflexion (L4) 5 Normal Plantarflexion (S1) 5 Normal Comments PF tested seated B PT-OP-Q Treatments Start: 08/17/21 07:27 Freq: Status: Active Protocol: Document 09/22/21 11:20 MA (Rec: 09/22/21 12:05 MA [id number]) Cardio Equipment Recumbent Bicycle Duration (Minutes) 5 Resistance 0 Seat Position 7 Other able to complete full fwd revolutions Gym Equipment Shuttle Recovery Heel raises Resistance 75# Reps/Time 10x squats Details zheng Resistance 100# Shuttle Recovery Platform Stable Reps/Time 2x15 Therapeutic Exercises Standing Exercises Knee extension Side right Equipment Used lvl 2 TB Reps/Minutes x15 Gait Training Gait Activity gait Description guide dog on L Distance/Duration 200 ft Comments Working on R heel strike and zheng knee flexion during swing thru Manual Therapy Treatment Soft Tissue Mobilization R knee Body Location HS & quad & calf Mobilization Type Rolling,Strumming Intensity/Depth Moderate Body Position Supine Comments w/APs Neuro Re-Education Treatment Balance Activities Tandem Equipment rail prn Reps/Duration 1' ea SL Details modified SLS Surface Solid Equipment rail for balance Reps/Duration 2' ea Comments Modified SLS, one foot on bosu other on solid floor PT-OP-R Modalities Start: 08/17/21 07:27 Freq: Status: Active Protocol: Document 09/03/21 11:09 MA (Rec: 09/03/21 12:04 MA [id number]) Hot Pack/Cold Pack Treatment Cold Pack Location R knee Patient Position Hooklying Treatment Duration (minutes) 10 Patient Tolerance Good PT-OP-T Assessment and Plan Start: 08/17/21 07:27 Freq: Status: Active Protocol: Document 09/22/21 11:20 MA (Rec: 09/22/21 12:05 MA [id number]) Physical Therapy Assessment Goals stairs Short Term Goal (STG) Pt will be able to go step to up/down stairs w/rail safely at home in order to 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 STG Duration 10/02/21 Director Drug Goal (LTG) Pt will be able to go up/down stairs reciprocally w/rail as needed without inc pain. LTG Duration 11/01/21 ROM Short Term Goal (STG) Pt will improve knee ROM to 3- 105 deg STG Duration 10/02/21 Director Drug Goal (LTG) Pt will have full knee ROM of 0-120 deg R knee to allow for good gait and stair mechanics. 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 LTG Duration 11/01/21 walking Short Term Goal (STG) Pt will be able to walk with cane and seeing eye dog in order to inc ability to mobilize in community. STG Duration 10/02/21 Residential Goal (LTG) Pt will be able to amb 2 miles with seeing eye dog and for usual walks without pain more than 2/10 LTG Duration 11/01/21 1 Director Drug Goal (LTG) Pt will be indep w/all mobility w/walker and demonstrate understanding of education in order to be prepared for R TKA. LTG Duration achieved discontinue Assessment Summary Assessment Mckinley's R knee AROM was 8-110 degrees this session. Began gait training with guide dog. Pt has difficulty with heel strike R>L likely due to decreased ROM knee extension but does well with knee flexion during swing through. Began balance work today with pt unable to complete SLS but able to stand with one foot on solid floor and one on unstable surface for a modified challenge. Physical Therapy Plan Frequency and Duration Frequency of Treatment 2x/Week Duration of Treatment 2 months Plan of Care Start Date 09/01/21 Plan of Care End Date 11/01/21 Therapeutic Interventions Therapeutic Interventions Aquatic Therapy,Balance Training,Coordination Training ,Gait Training,Home Exercise Program,Joint Mobilizations, Manual Therapy,Neuromuscular Re-education,Patient/Caregiver Education,Self-Care/Home Management,Soft Tissue Mobilization,Taping, Therapeutic Activities, Therapeutic Exercises Modalities Cold Pack/Ice Massage,Electric Stimulation,Hot Packs Next Visit Focus/Plan Next Note Type Treatment Note Next Visit Plan Work on gait with dog and stairs with single rail vs cane. Focus more on RLE ext and standing balance and continue standing heel raises
--- NOTE | 2021-09-24 12:25 | PT.OTN ---
Current Diagnoses Unilateral primary osteoarthritis, right knee (09/24/21) Unilateral post-traumatic osteoarthritis, right knee (09/24/21) Difficulty in walking, not elsewhere classified (09/24/21) Weakness (09/24/21) Physical Therapy Treatment Note PT-OP-A Visit Information Start: 08/17/21 07:27 Freq: Status: Active Protocol: Document 09/24/21 11:21 MA (Rec: 09/24/21 12:17 MA [id number]) Out-Patient Physical Therapy Visit Information Visit Information Visit Type Treatment Note Visit Note 01/26 Visit Start Time 11:18 Visit Stop Time 11:45 Total Visit Minutes 42 Visit Number 8 Number of LOSS PREVENTION COORDINATOR Visits 3 PT-OP-B Current Condition Start: 08/17/21 07:27 Freq: Status: Active Protocol: Document 09/01/21 10:08 [facility] (Rec: 09/01/21 12:16 [facility] [id number]) Current Condition History of Current Condition Onset Date chronic Current Complaints R knee pain History of Current Condition 09/01-Pt is 1 week s/p R TKA and was hospitalized until Monday d/t DKA complication. He returned home with his after. Pt reports he felt like he barely got anywhere during hospitalization. He has been getting around home okay but has not gone upstairs. He has been doing exercises. Feels like it takes a few steps to get his heel down d/ tcalf tightness. 08/17:Pt has had chronic R knee pain and is getting R TKA 08/25. He got meniscal surgery on L knee in the fall and it is mostly recovered but still has some issues. pt is legally blind and uses guide dog for out of house amb but amb in house indep. He has 2 level house w/ramp entry if he goes through the studio and [address]o rail[address] He can stay on one level if his computer is brought down. He has tub shower w/o grab bars or chair and has slightly higher toilet w/wall next to it he can push off. He has FWW already. 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 PT-OP-F Manual Assessment Start: 08/17/21 07:27 Freq: Status: Active Protocol: Document 09/01/21 10:08 [facility] (Rec: 09/01/21 12:16 [facility] [id number]) Manual Assessments Soft Tissue Assessment Soft Tissue Mobility Assessment Pt has bruising on ant soares that he reports is normal. He has one small scab at the bottom of his soares. No irregular drainage on dressing (lower part)-pt only able to pull up pants to knee PT-OP-G Mobility & Gait Start: 08/17/21 07:27 Freq: Status: Active Protocol: Document 09/01/21 10:08 [facility] (Rec: 09/01/21 12:16 [facility] [id number]) OP Mobility Evaluation Bed Mobility Supine to and from Sit indep Transfers Sit to Stand indep w/RLE out in front w/UEs to FWW OP Gait Assessment Comments Gait Comments Pt amb w/antalgic gait pattern w/dec stance time on RLE and dec step length w/LLE. Not full knee ext during stance PT-OP-K Range of Motion Start: 08/17/21 07:27 Freq: Status: Active Protocol: Document 09/01/21 10:08 [facility] (Rec: 09/01/21 12:16 [facility] [id number]) Knee Goniometric Range of Motion Knee Right Flexion Active (degrees) 77 Extension Active (degrees) 15 Comments pain PT-OP-M Strength Start: 08/17/21 07:27 Freq: Status: Active Protocol: Document 09/01/21 10:08 [facility] (Rec: 09/01/21 12:16 [facility] [id number]) Hip Strength Hip Manual Muscle Testing Right Flexion (L2) 4- Good- External Rotation 3+ Fair+ Internal Rotation 3 Fair Left Flexion (L2) 4 Good External Rotation 4 Good Internal Rotation 4 Good Knee Strength Knee Manual Muscle Testing Right Flexion (S2) 3+ Fair+ Extension (L3) 3- Fair- Left Flexion (S2) 4 Good Extension (L3) 4 Good Ankle/Foot Strength Ankle and Foot Manual Muscle Testing Right Dorsiflexion (L4) 4- Good- Plantarflexion (S1) 4- Good- Comments PF tested seated B Left Dorsiflexion (L4) 5 Normal Plantarflexion (S1) 5 Normal Comments PF tested seated B PT-OP-Q Treatments Start: 08/17/21 07:27 Freq: Status: Active Protocol: Document 09/24/21 11:21 MA (Rec: 09/24/21 12:17 MA [id number]) Cardio Equipment Recumbent Bicycle Duration (Minutes) 7 Resistance 0-3 Seat Position 7-4 Other able to complete full fwd revolutions Therapeutic Exercises Sitting Exercises LAQ Side right Reps/Minutes x10 Standing Exercises Knee extension Side right Equipment Used lvl 2 TB Reps/Minutes x15 Manual Therapy Treatment Soft Tissue Mobilization R knee Body Location HS & quad & calf Mobilization Type Rolling,Strumming Intensity/Depth Moderate Body Position Hooklying Neuro Re-Education Treatment Balance Activities Tandem Equipment rail prn Reps/Duration 2' ea SL Details modified SLS Surface Solid Equipment rail for balance Reps/Duration 2' ea Comments Modified SLS, one foot on bosu other on solid floor PT-OP-R Modalities Start: 08/17/21 07:27 Freq: Status: Active Protocol: Document 09/03/21 11:09 MA (Rec: 09/03/21 12:04 MA [id number]) Hot Pack/Cold Pack Treatment Cold Pack Location R knee Patient Position Hooklying Treatment Duration (minutes) 10 Patient Tolerance Good PT-OP-T Assessment and Plan Start: 08/17/21 07:27 Freq: Status: Active Protocol: Document 09/24/21 11:21 MA (Rec: 09/24/21 12:17 MA [id number]) Physical Therapy Assessment Goals stairs Short Term Goal (STG) Pt will be able to go step to up/down stairs w/rail safely at home in order to 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 STG Duration 10/02/21 Nursing Home Goal (LTG) Pt will be able to go up/down stairs reciprocally w/rail as needed without inc pain. LTG Duration 11/01/21 ROM Short Term Goal (STG) Pt will improve knee ROM to 3- 105 deg STG Duration 10/02/21 Nursing Home Goal (LTG) Pt will have full knee ROM of 0-120 deg R knee to allow for good gait and stair mechanics. 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 LTG Duration 11/01/21 walking Short Term Goal (STG) Pt will be able to walk with cane and seeing eye dog in order to inc ability to mobilize in community. STG Duration 10/02/21 Blacksmith Helper Goal (LTG) Pt will be able to amb 2 miles with seeing eye dog and for usual walks without pain more than 2/10 LTG Duration 11/01/21 1 Blacksmith Helper Goal (LTG) Pt will be indep w/all mobility w/walker and demonstrate understanding of education in order to be prepared for R TKA. LTG Duration achieved discontinue Assessment Summary Assessment Pt's R knee AROM was 5-112 degrees this session showing continued improvement in ROM. He has difficutly with balance exercises; added tandem stance near countertop to HEP. Physical Therapy Plan Frequency and Duration Frequency of Treatment 2x/Week Duration of Treatment 2 months Plan of Care Start Date 09/01/21 Plan of Care End Date 11/01/21 Therapeutic Interventions Therapeutic Interventions Aquatic Therapy,Balance Training,Coordination Training ,Gait Training,Home Exercise Program,Joint Mobilizations, Manual Therapy,Neuromuscular Re-education,Patient/Caregiver Education,Self-Care/Home Management,Soft Tissue Mobilization,Taping, Therapeutic Activities, Therapeutic Exercises Modalities Cold Pack/Ice Massage,Electric Stimulation,Hot Packs Next Visit Focus/Plan Next Note Type Treatment Note Next Visit Plan Stairs with single rail. Work on gait focusing on heel strike and knee flexion during swing thru. Focus more on RLE ext and standing balance and continue standing heel raises
--- NOTE | 2021-09-27 08:18 | PT.OTN ---
Current Diagnoses Unilateral primary osteoarthritis, right knee (09/27/21) Unilateral post-traumatic osteoarthritis, right knee (09/27/21) Difficulty in walking, not elsewhere classified (09/27/21) Weakness (09/27/21) Physical Therapy Treatment Note PT-OP-A Visit Information Start: 08/17/21 07:27 Freq: Status: Active Protocol: Document 09/27/21 07:31 [facility] (Rec: 09/27/21 08:18 [facility] [id number]) Out-Patient Physical Therapy Visit Information Visit Information Visit Type Progress Note Visit Note 06/28 Visit Start Time 07:31 Visit Stop Time 08:14 Total Visit Minutes 43 Visit Number 9 Number of SALES ADMINISTRATOR Visits 0 PT-OP-B Current Condition Start: 08/17/21 07:27 Freq: Status: Active Protocol: Document 09/01/21 10:08 [facility] (Rec: 09/01/21 12:16 [facility] [id number]) Current Condition History of Current Condition Onset Date chronic Current Complaints R knee pain History of Current Condition 09/01-Pt is 1 week s/p R TKA and was hospitalized until Monday d/t DKA complication. He returned home with his after. Pt reports he felt like he barely got anywhere during hospitalization. He has been getting around home okay but has not gone upstairs. He has been doing exercises. Feels like it takes a few steps to get his heel down d/ tcalf tightness. 08/17:Pt has had chronic R knee pain and is getting R TKA 08/25. He got meniscal surgery on L knee in the fall and it is mostly recovered but still has some issues. pt is legally blind and uses guide dog for out of house amb but amb in house indep. He has 2 level house w/ramp entry if he goes through the studio and [address]o rail[address] He can stay on one level if his computer is brought down. He has tub shower w/o grab bars or chair and has slightly higher toilet w/wall next to it he can push off. He has FWW already. 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 PT-OP-F Manual Assessment Start: 08/17/21 07:27 Freq: Status: Active Protocol: Document 09/01/21 10:08 [facility] (Rec: 09/01/21 12:16 [facility] [id number]) Manual Assessments Soft Tissue Assessment Soft Tissue Mobility Assessment Pt has bruising on ant soares that he reports is normal. He has one small scab at the bottom of his soares. No irregular drainage on dressing (lower part)-pt only able to pull up pants to knee PT-OP-G Mobility & Gait Start: 08/17/21 07:27 Freq: Status: Active Protocol: Document 09/01/21 10:08 [facility] (Rec: 09/01/21 12:16 [facility] [id number]) OP Mobility Evaluation Bed Mobility Supine to and from Sit indep Transfers Sit to Stand indep w/RLE out in front w/UEs to FWW OP Gait Assessment Comments Gait Comments Pt amb w/antalgic gait pattern w/dec stance time on RLE and dec step length w/LLE. Not full knee ext during stance PT-OP-K Range of Motion Start: 08/17/21 07:27 Freq: Status: Active Protocol: Document 09/27/21 07:31 [facility] (Rec: 09/27/21 08:18 [facility] [id number]) Knee Goniometric Range of Motion Knee Right Flexion Active (degrees) 113 Extension Active (degrees) 4 PT-OP-M Strength Start: 08/17/21 07:27 Freq: Status: Active Protocol: Document 09/27/21 07:31 [facility] (Rec: 09/27/21 08:18 [facility] [id number]) Hip Strength Hip Manual Muscle Testing Right Flexion (L2) 4- Good- Extension (S1) 3+ Fair+ Abduction 4 Good Adduction 3+ Fair+ External Rotation 4 Good Internal Rotation 4 Good Left Flexion (L2) 4 Good Extension (S1) 4- Good- Abduction 5 Normal Adduction 4+ Good+ External Rotation 5 Normal Internal Rotation 5 Normal Knee Strength Knee Manual Muscle Testing Right Flexion (S2) 4 Good Extension (L3) 4 Good Left Flexion (S2) 4+ Good+ Extension (L3) 4+ Good+ Ankle/Foot Strength Ankle and Foot Manual Muscle Testing Right Dorsiflexion (L4) 5 Normal Plantarflexion (S1) 5 Normal Comments PF tested seated B Left Dorsiflexion (L4) 5 Normal Plantarflexion (S1) 5 Normal Comments PF tested standing heel raises PT-OP-Q Treatments Start: 08/17/21 07:27 Freq: Status: Active Protocol: Document 09/27/21 07:31 [facility] (Rec: 09/27/21 08:18 [facility] [id number]) Cardio Equipment Recumbent Bicycle Duration (Minutes) 7 Resistance 4 Seat Position 6-4 Other able to complete full fwd revolutions Gym Equipment Shuttle Recovery Unilateral Squats Details B Resistance 50# Shuttle Recovery Platform Stable Reps/Time 15 squats Details zheng Resistance 100# Shuttle Recovery Platform Stable Reps/Time x15 Therapeutic Exercises Standing Exercises step downs Side right Equipment Used 4 in Reps/Minutes 8 Comments focus on control squat Side bilateral Reps/Minutes 15 knee flex Side bilateral Reps/Minutes 15 march Side bilateral Reps/Minutes 20 Comments focus on control Manual Therapy Treatment Soft Tissue Mobilization scar Body Location R knee Mobilization Type Myofascial Release,Rolling, Strumming Comments w/knee flex/ext Joint Mobilizations tibiofemoral Joint R Direction AP FM on femur patellofemoral Joint R Direction sup, med, inf PT-OP-R Modalities Start: 08/17/21 07:27 Freq: Status: Active Protocol: Document 09/03/21 11:09 MA (Rec: 09/03/21 12:04 MA [id number]) Hot Pack/Cold Pack Treatment Cold Pack Location R knee Patient Position Hooklying Treatment Duration (minutes) 10 Patient Tolerance Good PT-OP-T Assessment and Plan Start: 08/17/21 07:27 Freq: Status: Active Protocol: Document 09/27/21 07:31 [facility] (Rec: 09/27/21 08:18 [facility] [id number]) Physical Therapy Assessment Goals stairs Short Term Goal (STG) Pt will be able to go step to up/down stairs w/rail safely at home in order to 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 STG Duration achieved Senior Living Goal (LTG) Pt will be able to go up/down stairs reciprocally w/rail as needed without inc pain. LTG Duration 11/01/21 ROM Short Term Goal (STG) Pt will improve knee ROM to 3- 105 deg\ 09/27-4-113 STG Duration 10/02/21 Senior Living Goal (LTG) Pt will have full knee ROM of 0-120 deg R knee to allow for good gait and stair mechanics. 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 09/27-improved LTG Duration 11/01/21 walking Short Term Goal (STG) Pt will be able to walk with cane and seeing eye dog in order to inc ability to mobilize in community. STG Duration achieved Computerized Table Cutter Goal (LTG) Pt will be able to amb 2 miles with seeing eye dog and for usual walks without pain more than 2/10 09/27-pt has been doing 4 block walks LTG Duration 11/01/21 1 Computerized Table Cutter Goal (LTG) Pt will be indep w/all mobility w/walker and demonstrate understanding of education in order to be prepared for R TKA. LTG Duration achieved discontinue Assessment Summary Assessment Pt is making excellent progress w/ROM this session and he cont to improve w/ balance, stablity and funcitonal ability. He is progressing as appropriate. Physical Therapy Plan Frequency and Duration Frequency of Treatment 2x/Week Duration of Treatment 2 months Plan of Care Start Date 09/01/21 Plan of Care End Date 11/01/21 Next Visit Focus/Plan Next Note Type Treatment Note Next Visit Plan cont to advance ROM R Knee and strength
--- NOTE | 2021-09-27 13:29 | PT.OPPN ---
Current Diagnoses Unilateral primary osteoarthritis, right knee (09/27/21) Unilateral post-traumatic osteoarthritis, right knee (09/27/21) Difficulty in walking, not elsewhere classified (09/27/21) Weakness (09/27/21) Physical Therapy Progress Note PT-OP-A Visit Information Start: 08/17/21 07:27 Freq: Status: Active Protocol: Document 09/27/21 07:31 [facility] (Rec: 09/27/21 08:18 [facility] [id number]) Out-Patient Physical Therapy Visit Information Visit Information Visit Type Progress Note Visit Note 06/28 Visit Start Time 07:31 Visit Stop Time 08:14 Total Visit Minutes 43 Visit Number 9 Number of DEPOT AGENT Visits 0 PT-OP-B Current Condition Start: 08/17/21 07:27 Freq: Status: Active Protocol: Document 09/01/21 10:08 [facility] (Rec: 09/01/21 12:16 [facility] [id number]) Current Condition History of Current Condition Onset Date chronic Current Complaints R knee pain History of Current Condition 09/01-Pt is 1 week s/p R TKA and was hospitalized until Monday d/t DKA complication. He returned home with his after. Pt reports he felt like he barely got anywhere during hospitalization. He has been getting around home okay but has not gone upstairs. He has been doing exercises. Feels like it takes a few steps to get his heel down d/ tcalf tightness. 08/17:Pt has had chronic R knee pain and is getting R TKA 08/25. He got meniscal surgery on L knee in the fall and it is mostly recovered but still has some issues. pt is legally blind and uses guide dog for out of house amb but amb in house indep. He has 2 level house w/ramp entry if he goes through the studio and [address] w/o rail[address] He can stay on one level if his computer is brought down. He has tub shower w/o grab bars or chair and has slightly higher toilet w/wall next to it he can push off. He has FWW already. 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 PT-OP-F Manual Assessment Start: 08/17/21 07:27 Freq: Status: Active Protocol: Document 09/01/21 10:08 [facility] (Rec: 09/01/21 12:16 [facility] [id number]) Manual Assessments Soft Tissue Assessment Soft Tissue Mobility Assessment Pt has bruising on ant soares that he reports is normal. He has one small scab at the bottom of his soares. No irregular drainage on dressing (lower part)-pt only able to pull up pants to knee PT-OP-G Mobility & Gait Start: 08/17/21 07:27 Freq: Status: Active Protocol: Document 09/01/21 10:08 [facility] (Rec: 09/01/21 12:16 [facility] [id number]) OP Mobility Evaluation Bed Mobility Supine to and from Sit indep Transfers Sit to Stand indep w/RLE out in front w/UEs to FWW OP Gait Assessment Comments Gait Comments Pt amb w/antalgic gait pattern w/dec stance time on RLE and dec step length w/LLE. Not full knee ext during stance PT-OP-K Range of Motion Start: 08/17/21 07:27 Freq: Status: Active Protocol: Document 09/27/21 07:31 [facility] (Rec: 09/27/21 08:18 [facility] [id number]) Knee Goniometric Range of Motion Knee Measured in Degrees Right Flexion Active (degrees) 113 Extension Active (degrees) 4 PT-OP-M Strength Start: 08/17/21 07:27 Freq: Status: Active Protocol: Document 09/27/21 07:31 [facility] (Rec: 09/27/21 08:18 [facility] [id number]) Hip Strength Hip Manual Muscle Testing Right Flexion (L2) 4- Good- Extension (S1) 3+ Fair+ Abduction 4 Good Adduction 3+ Fair+ External Rotation 4 Good Internal Rotation 4 Good Left Flexion (L2) 4 Good Extension (S1) 4- Good- Abduction 5 Normal Adduction 4+ Good+ External Rotation 5 Normal Internal Rotation 5 Normal Knee Strength Knee Manual Muscle Testing Right Flexion (S2) 4 Good Extension (L3) 4 Good Left Flexion (S2) 4+ Good+ Extension (L3) 4+ Good+ Ankle/Foot Strength Ankle and Foot Manual Muscle Testing Right Dorsiflexion (L4) 5 Normal Plantarflexion (S1) 5 Normal Comments PF tested seated B Left Dorsiflexion (L4) 5 Normal Plantarflexion (S1) 5 Normal Comments PF tested standing heel raises PT-OP-T Assessment and Plan Start: 08/17/21 07:27 Freq: Status: Active Protocol: Document 09/27/21 07:31 [facility] (Rec: 09/27/21 08:18 [facility] [id number]) Physical Therapy Assessment Goals stairs Short Term Goal (STG) Pt will be able to go step to up/down stairs w/rail safely at home in order to 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 STG Duration achieved Greenskeeper Laborer Goal (LTG) Pt will be able to go up/down stairs reciprocally w/rail as needed without inc pain. LTG Duration 11/01/21 ROM Short Term Goal (STG) Pt will improve knee ROM to 3- 105 deg\ 09/27-4-113 STG Duration 10/02/21 Greenskeeper Laborer Goal (LTG) Pt will have full knee ROM of 0-120 deg R knee to allow for good gait and stair mechanics. 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 09/27-improved LTG Duration 11/01/21 walking Short Term Goal (STG) Pt will be able to walk with cane and seeing eye dog in order to inc ability to mobilize in community. STG Duration achieved Greenskeeper Laborer Goal (LTG) Pt will be able to amb 2 miles with seeing eye dog and for usual walks without pain more than 2/09/27-pt has been doing 4 block walks LTG Duration 11/01/21 1 Retirement Goal (LTG) Pt will be indep w/all mobility w/walker and demonstrate understanding of education in order to be prepared for R TKA. LTG Duration achieved discontinue Assessment Summary Assessment Pt is making excellent progress w/ROM this session and he cont to improve w/ balance, stablity and funcitonal ability. He is progressing as appropriate. Physical Therapy Plan Frequency and Duration Frequency of Treatment 2x/Week Duration of Treatment 2 months Plan of Care Start Date 09/01/21 Plan of Care End Date 11/01/21 Next Visit Focus/Plan Next Note Type Treatment Note Next Visit Plan cont to advance ROM R Knee and strength
--- NOTE | 2021-09-29 12:19 | PT.OTN ---
Current Diagnoses Unilateral primary osteoarthritis, right knee (09/29/21) Unilateral post-traumatic osteoarthritis, right knee (09/29/21) Difficulty in walking, not elsewhere classified (09/29/21) Weakness (09/29/21) Physical Therapy Treatment Note PT-OP-A Visit Information Start: 08/17/21 07:27 Freq: Status: Active Protocol: Document 09/29/21 11:23 [facility] (Rec: 09/29/21 12:18 [facility] [id number]) Out-Patient Physical Therapy Visit Information Visit Information Visit Type Treatment Note Visit Note 07/29 Visit Start Time 11:21 Visit Stop Time 12:00 Total Visit Minutes 39 Visit Number 10 Number of COMMUNICATIONS INTERN Visits 0 PT-OP-B Current Condition Start: 08/17/21 07:27 Freq: Status: Active Protocol: Document 09/01/21 10:08 [facility] (Rec: 09/01/21 12:16 [facility] [id number]) Current Condition History of Current Condition Onset Date chronic Current Complaints R knee pain History of Current Condition 09/01-Pt is 1 week s/p R TKA and was hospitalized until Monday d/t DKA complication. He returned home with his after. Pt reports he felt like he barely got anywhere during hospitalization. He has been getting around home okay but has not gone upstairs. He has been doing exercises. Feels like it takes a few steps to get his heel down d/ tcalf tightness. 08/17:Pt has had chronic R knee pain and is getting R TKA 08/25. He got meniscal surgery on L knee in the fall and it is mostly recovered but still has some issues. pt is legally blind and uses guide dog for out of house amb but amb in house indep. He has 2 level house w/ramp entry if he goes through the studio and [address]o rail[address] He can stay on one level if his computer is brought down. He has tub shower w/o grab bars or chair and has slightly higher toilet w/wall next to it he can push off. He has FWW already. 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 He still takes tylenol and ibuprofen throughout the day. He was able to do 2 bulgarian chi for 2 20 min forms. Patient Reported Progress Improving PT-OP-F Manual Assessment Start: 08/17/21 07:27 Freq: Status: Active Protocol: Document 09/01/21 10:08 [facility] (Rec: 09/01/21 12:16 [facility] [id number]) Manual Assessments Soft Tissue Assessment Soft Tissue Mobility Assessment Pt has bruising on ant soares that he reports is normal. He has one small scab at the bottom of his soares. No irregular drainage on dressing (lower part)-pt only able to pull up pants to knee PT-OP-G Mobility & Gait Start: 08/17/21 07:27 Freq: Status: Active Protocol: Document 09/01/21 10:08 [facility] (Rec: 09/01/21 12:16 [facility] [id number]) OP Mobility Evaluation Bed Mobility Supine to and from Sit indep Transfers Sit to Stand indep w/RLE out in front w/UEs to FWW OP Gait Assessment Comments Gait Comments Pt amb w/antalgic gait pattern w/dec stance time on RLE and dec step length w/LLE. Not full knee ext during stance PT-OP-K Range of Motion Start: 08/17/21 07:27 Freq: Status: Active Protocol: Document 09/27/21 07:31 [facility] (Rec: 09/27/21 08:18 [facility] [id number]) Knee Goniometric Range of Motion Knee Right Flexion Active (degrees) 113 Extension Active (degrees) 4 PT-OP-M Strength Start: 08/17/21 07:27 Freq: Status: Active Protocol: Document 09/27/21 07:31 [facility] (Rec: 09/27/21 08:18 [facility] [id number]) Hip Strength Hip Manual Muscle Testing Right Flexion (L2) 4- Good- Extension (S1) 3+ Fair+ Abduction 4 Good Adduction 3+ Fair+ External Rotation 4 Good Internal Rotation 4 Good Left Flexion (L2) 4 Good Extension (S1) 4- Good- Abduction 5 Normal Adduction 4+ Good+ External Rotation 5 Normal Internal Rotation 5 Normal Knee Strength Knee Manual Muscle Testing Right Flexion (S2) 4 Good Extension (L3) 4 Good Left Flexion (S2) 4+ Good+ Extension (L3) 4+ Good+ Ankle/Foot Strength Ankle and Foot Manual Muscle Testing Right Dorsiflexion (L4) 5 Normal Plantarflexion (S1) 5 Normal Comments PF tested seated B Left Dorsiflexion (L4) 5 Normal Plantarflexion (S1) 5 Normal Comments PF tested standing heel raises PT-OP-Q Treatments Start: 08/17/21 07:27 Freq: Status: Active Protocol: Document 09/29/21 11:23 [facility] (Rec: 09/29/21 12:18 [facility] [id number]) Cardio Equipment Recumbent Bicycle Duration (Minutes) 6 Resistance 7 Seat Position 5-4 Other able to complete full fwd revolutions Therapeutic Exercises Standing Exercises step downs Side right Equipment Used 4 in, 5 in Reps/Minutes x10 ea height Comments focus on control squat Standing Exercise Name SL w/door frame Side bilateral Reps/Minutes 2x10 R, x10 L Manual Therapy Treatment Soft Tissue Mobilization scar Body Location R knee Mobilization Type Myofascial Release,Rolling, Strumming Comments w/knee flex/ext R knee Body Location HS & quad & calf Mobilization Type Rolling,Strumming Intensity/Depth Moderate Body Position Hooklying Joint Mobilizations tibiofemoral Joint R Direction AP FM on femur patellofemoral Joint R Direction sup, med, inf PT-OP-R Modalities Start: 08/17/21 07:27 Freq: Status: Active Protocol: Document 09/03/21 11:09 [facility] (Rec: 09/03/21 12:04 [facility] [id number]) Hot Pack/Cold Pack Treatment Cold Pack Location R knee Patient Position Hooklying Treatment Duration (minutes) 10 Patient Tolerance Good PT-OP-T Assessment and Plan Start: 08/17/21 07:27 Freq: Status: Active Protocol: Document 09/29/21 11:23 [facility] (Rec: 09/29/21 12:18 [facility] [id number]) Physical Therapy Assessment Goals stairs Short Term Goal (STG) Pt will be able to go step to up/down stairs w/rail safely at home in order to 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 STG Duration achieved Product Developer Goal (LTG) Pt will be able to go up/down stairs reciprocally w/rail as needed without inc pain. LTG Duration 11/01/21 ROM Short Term Goal (STG) Pt will improve knee ROM to 3- 105 deg\ 09/27-4- STG Duration 10/02/21 Product Developer Goal (LTG) Pt will have full knee ROM of 0-120 deg R knee to allow for good gait and stair mechanics. 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 09/27-improved LTG Duration 11/01/21 walking Short Term Goal (STG) Pt will be able to walk with cane and seeing eye dog in order to inc ability to mobilize in community. STG Duration achieved Half-Way Goal (LTG) Pt will be able to amb 2 miles with seeing eye dog and for usual walks without pain more than 2/10 09/27-pt has been doing 4 block walks LTG Duration 11/01/21 Assessment Summary Assessment 3-113 today after manual treatment. He cont to advance w/ strength and mobility w/inc participation in his classes. Physical Therapy Plan Frequency and Duration Frequency of Treatment 2x/Week Duration of Treatment 2 months Plan of Care Start Date 09/01/21 Plan of Care End Date 11/01/21 Next Visit Focus/Plan Next Note Type Treatment Note Next Visit Plan cont to advance ROM R Knee and strength & balance
--- NOTE | 2021-10-04 08:17 | PT.OTN ---
Current Diagnoses Unilateral primary osteoarthritis, right knee (10/04/21) Unilateral post-traumatic osteoarthritis, right knee (10/04/21) Difficulty in walking, not elsewhere classified (10/04/21) Weakness (10/04/21) Physical Therapy Treatment Note PT-OP-A Visit Information Start: 08/17/21 07:27 Freq: Status: Active Protocol: Document 10/04/21 07:34 [facility] (Rec: 10/04/21 08:17 [facility] [id number]) Out-Patient Physical Therapy Visit Information Visit Information Visit Type Treatment Note Visit Note 08/26 Visit Start Time 07:31 Visit Stop Time 08:14 Total Visit Minutes 43 Visit Number 11 Number of FLAT SPRING ASSEMBLER Visits 0 PT-OP-B Current Condition Start: 08/17/21 07:27 Freq: Status: Active Protocol: Document 09/01/21 10:08 [facility] (Rec: 09/01/21 12:16 [facility] [id number]) Current Condition History of Current Condition Onset Date chronic Current Complaints R knee pain History of Current Condition 09/01-Pt is 1 week s/p R TKA and was hospitalized until Monday d/t DKA complication. He returned home with his after. Pt reports he felt like he barely got anywhere during hospitalization. He has been getting around home okay but has not gone upstairs. He has been doing exercises. Feels like it takes a few steps to get his heel down d/ tcalf tightness. 08/17:Pt has had chronic R knee pain and is getting R TKA 08/25. He got meniscal surgery on L knee in the fall and it is mostly recovered but still has some issues. pt is legally blind and uses guide dog for out of house amb but amb in house indep. He has 2 level house w/ramp entry if he goes through the studio and [address] w/o rail[address] He can stay on one level if his computer is brought down. He has tub shower w/o grab bars or chair and has slightly higher toilet w/wall next to it he can push off. He has FWW already. 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 (Rec: 10/04/21 08:17 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 He was a little sore from that. Yesterday knee felt great. PT-OP-F Manual Assessment Start: 08/17/21 07:27 Freq: Status: Active Protocol: Document 09/01/21 10:08 [facility] (Rec: 09/01/21 12:16 [facility] [id number]) Manual Assessments Soft Tissue Assessment Soft Tissue Mobility Assessment Pt has bruising on ant soares that he reports is normal. He has one small scab at the bottom of his soares. No irregular drainage on dressing (lower part)-pt only able to pull up pants to knee PT-OP-G Mobility & Gait Start: 08/17/21 07:27 Freq: Status: Active Protocol: Document 09/01/21 10:08 [facility] (Rec: 09/01/21 12:16 [facility] [id number]) OP Mobility Evaluation Bed Mobility Supine to and from Sit indep Transfers Sit to Stand indep w/RLE out in front w/UEs to FWW OP Gait Assessment Comments Gait Comments Pt amb w/antalgic gait pattern w/dec stance time on RLE and dec step length w/LLE. Not full knee ext during stance PT-OP-K Range of Motion Start: 08/17/21 07:27 Freq: Status: Active Protocol: Document 09/27/21 07:31 [facility] (Rec: 09/27/21 08:18 [facility] [id number]) Knee Goniometric Range of Motion Knee Right Flexion Active (degrees) 113 Extension Active (degrees) 4 PT-OP-M Strength Start: 08/17/21 07:27 Freq: Status: Active Protocol: Document 09/27/21 07:31 [facility] (Rec: 09/27/21 08:18 [facility] [id number]) Hip Strength Hip Manual Muscle Testing Right Flexion (L2) 4- Good- Extension (S1) 3+ Fair+ Abduction 4 Good Adduction 3+ Fair+ External Rotation 4 Good Internal Rotation 4 Good Left Flexion (L2) 4 Good Extension (S1) 4- Good- Abduction 5 Normal Adduction 4+ Good+ External Rotation 5 Normal Internal Rotation 5 Normal Knee Strength Knee Manual Muscle Testing Right Flexion (S2) 4 Good Extension (L3) 4 Good Left Flexion (S2) 4+ Good+ Extension (L3) 4+ Good+ Ankle/Foot Strength Ankle and Foot Manual Muscle Testing Right Dorsiflexion (L4) 5 Normal Plantarflexion (S1) 5 Normal Comments PF tested seated B Left Dorsiflexion (L4) 5 Normal Plantarflexion (S1) 5 Normal Comments PF tested standing heel raises PT-OP-Q Treatments Start: 08/17/21 07:27 Freq: Status: Active Protocol: Document 10/04/21 07:34 [facility] (Rec: 10/04/21 08:17 [facility] [id number]) Cardio Equipment Recumbent Bicycle Duration (Minutes) 7 Resistance 8 Seat Position 5-4 Other able to complete full fwd revolutions Gym Equipment Shuttle Recovery Unilateral Squats Details B Resistance 62# Shuttle Recovery Platform Stable Reps/Time 15 Shuttle Balance red clips Comments fwd & side: WBOS & NBOS fwd: staggered stance B Therapeutic Exercises Standing Exercises step downs Side right Equipment Used 5 in Reps/Minutes x10 Comments focus on control squat Standing Exercise Name SL w/door frame Side bilateral Reps/Minutes 2x10 R, x10 L Manual Therapy Treatment Soft Tissue Mobilization scar Body Location R knee Mobilization Type Myofascial Release,Rolling, Strumming Comments w/knee flex/ext; plunger, dycem PT-OP-R Modalities Start: 08/17/21 07:27 Freq: Status: Active Protocol: Document 09/03/21 11:09 [facility] (Rec: 09/03/21 12:04 [facility] [id number]) Hot Pack/Cold Pack Treatment Cold Pack Location R knee Patient Position Hooklying Treatment Duration (minutes) 10 Patient Tolerance Good PT-OP-T Assessment and Plan Start: 08/17/21 07:27 Freq: Status: Active Protocol: Document 10/04/21 07:34 [facility] (Rec: 10/04/21 08:17 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 STG Duration achieved Operations And Maintenance Specialist Goal (LTG) Pt will be able to go up/down stairs reciprocally w/rail as needed without inc pain. LTG Duration 11/01/21 ROM Short Term Goal (STG) Pt will improve knee ROM to 3- 105 deg\ 09/27-4-113 STG Duration 10/02/21 Group Home Goal (LTG) Pt will have full knee ROM of 0-120 deg R knee to allow for good gait and stair mechanics. 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 09/27-improved LTG Duration 11/01/21 walking Short Term Goal (STG) Pt will be able to walk with cane and seeing eye dog in order to inc ability to mobilize in community. STG Duration achieved Operations And Maintenance Specialist Goal (LTG) Pt will be able to amb 2 miles with seeing eye dog and for usual walks without pain more than 2/10 09/27-pt has been doing 4 block walks LTG Duration 11/01/21 Assessment Summary Assessment ROm 4-116 prior to manual today. He cont to show better tolerance to more difficult exercises w/inc rang w/SL squats Physical Therapy Plan Frequency and Duration Frequency of Treatment 2x/Week Duration of Treatment 2 months Plan of Care Start Date 09/01/21 Plan of Care End Date 11/01/21 Next Visit Focus/Plan Next Note Type Treatment Note Next Visit Plan cont to advance ROM R Knee and strength & balance
--- NOTE | 2021-10-06 12:18 | PT.OTN ---
Current Diagnoses Unilateral primary osteoarthritis, right knee (10/06/21) Unilateral post-traumatic osteoarthritis, right knee (10/06/21) Difficulty in walking, not elsewhere classified (10/06/21) Weakness (10/06/21) Physical Therapy Treatment Note PT-OP-A Visit Information Start: 08/17/21 07:27 Freq: Status: Active Protocol: Document 10/06/21 11:24 [facility] (Rec: 10/06/21 12:18 [facility] [id number]) Out-Patient Physical Therapy Visit Information Visit Information Visit Type Treatment Note Visit Note 09/26 Visit Start Time 11:20 Visit Stop Time 12:00 Total Visit Minutes 40 Visit Number 12 Number of INDUSTRIAL ECOLOGIST Visits 0 PT-OP-B Current Condition Start: 08/17/21 07:27 Freq: Status: Active Protocol: Document 09/01/21 10:08 [facility] (Rec: 09/01/21 12:16 [facility] [id number]) Current Condition History of Current Condition Onset Date chronic Current Complaints R knee pain History of Current Condition 09/01-Pt is 1 week s/p R TKA and was hospitalized until Monday d/t DKA complication. He returned home with his after. Pt reports he felt like he barely got anywhere during hospitalization. He has been getting around home okay but has not gone upstairs. He has been doing exercises. Feels like it takes a few steps to get his heel down d/ tcalf tightness. 08/17:Pt has had chronic R knee pain and is getting R TKA 08/25. He got meniscal surgery on L knee in the fall and it is mostly recovered but still has some issues. pt is legally blind and uses guide dog for out of house amb but amb in house indep. He has 2 level house w/ramp entry if he goes through the studio and [address]o rail[address] He can stay on one level if his computer is brought down. He has tub shower w/o grab bars or chair and has slightly higher toilet w/wall next to it he can push off. He has FWW already. 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 Pt reports he would like to go a little slower w/his forms but his balance is still limited. He is doing stuff today that he couldn't do a week ago. PT-OP-F Manual Assessment Start: 08/17/21 07:27 Freq: Status: Active Protocol: Document 09/01/21 10:08 [facility] (Rec: 09/01/21 12:16 [facility] [id number]) Manual Assessments Soft Tissue Assessment Soft Tissue Mobility Assessment Pt has bruising on ant soares that he reports is normal. He has one small scab at the bottom of his soares. No irregular drainage on dressing (lower part)-pt only able to pull up pants to knee PT-OP-G Mobility & Gait Start: 08/17/21 07:27 Freq: Status: Active Protocol: Document 09/01/21 10:08 [facility] (Rec: 09/01/21 12:16 [facility] [id number]) OP Mobility Evaluation Bed Mobility Supine to and from Sit indep Transfers Sit to Stand indep w/RLE out in front w/UEs to FWW OP Gait Assessment Comments Gait Comments Pt amb w/antalgic gait pattern w/dec stance time on RLE and dec step length w/LLE. Not full knee ext during stance PT-OP-K Range of Motion Start: 08/17/21 07:27 Freq: Status: Active Protocol: Document 09/27/21 07:31 [facility] (Rec: 09/27/21 08:18 [facility] [id number]) Knee Goniometric Range of Motion Knee Right Flexion Active (degrees) 113 Extension Active (degrees) 4 PT-OP-M Strength Start: 08/17/21 07:27 Freq: Status: Active Protocol: Document 09/27/21 07:31 [facility] (Rec: 09/27/21 08:18 [facility] [id number]) Hip Strength Hip Manual Muscle Testing Right Flexion (L2) 4- Good- Extension (S1) 3+ Fair+ Abduction 4 Good Adduction 3+ Fair+ External Rotation 4 Good Internal Rotation 4 Good Left Flexion (L2) 4 Good Extension (S1) 4- Good- Abduction 5 Normal Adduction 4+ Good+ External Rotation 5 Normal Internal Rotation 5 Normal Knee Strength Knee Manual Muscle Testing Right Flexion (S2) 4 Good Extension (L3) 4 Good Left Flexion (S2) 4+ Good+ Extension (L3) 4+ Good+ Ankle/Foot Strength Ankle and Foot Manual Muscle Testing Right Dorsiflexion (L4) 5 Normal Plantarflexion (S1) 5 Normal Comments PF tested seated B Left Dorsiflexion (L4) 5 Normal Plantarflexion (S1) 5 Normal Comments PF tested standing heel raises PT-OP-Q Treatments Start: 08/17/21 07:27 Freq: Status: Active Protocol: Document 10/06/21 11:24 [facility] (Rec: 10/06/21 12:18 [facility] [id number]) Gym Equipment Shuttle Recovery Unilateral Squats Details R Resistance 62# Shuttle Recovery Platform Stable Reps/Time 15 Therapeutic Exercises Standing Exercises lunge Side bilateral Reps/Minutes 10 side step Standing Exercise Name in mini squat Side bilateral Equipment Used lvl 2 band at knees Reps/Minutes 2x20ft squat Standing Exercise Name SL w/door frame Side bilateral Reps/Minutes 2x10 R, x10 L Manual Therapy Treatment Soft Tissue Mobilization scar Body Location R knee Mobilization Type Myofascial Release,Rolling, Strumming Comments w/knee flex/ext R knee Body Location quad lat & MFR circumfrential Mobilization Type Myofascial Release,Rolling, Strumming Comments w/heel slides Joint Mobilizations hip Joint R Direction inf FM patellofemoral Joint R Direction sup, med, inf Neuro Re-Education Treatment Balance Activities SL Comments w/touch fwd, side (B) and back x10 B PT-OP-R Modalities Start: 08/17/21 07:27 Freq: Status: Active Protocol: Document 09/03/21 11:09 [facility] (Rec: 09/03/21 12:04 [facility] [id number]) Hot Pack/Cold Pack Treatment Cold Pack Location R knee Patient Position Hooklying Treatment Duration (minutes) 10 Patient Tolerance Good PT-OP-T Assessment and Plan Start: 08/17/21 07:27 Freq: Status: Active Protocol: Document 10/06/21 11:24 [facility] (Rec: 10/06/21 12:18 [facility] [id number]) Physical Therapy Assessment Goals stairs Short Term Goal (STG) Pt will be able to go step to up/down stairs w/rail safely at home in order to 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 STG Duration achieved Long-Term Goal (LTG) Pt will be able to go up/down stairs reciprocally w/rail as needed without inc pain. LTG Duration 11/01/21 ROM Short Term Goal (STG) Pt will improve knee ROM to 3- 105 deg\ 09/27-4-113 STG Duration 10/02/21 Steward/Stewardess Lounge Goal (LTG) Pt will have full knee ROM of 0-120 deg R knee to allow for good gait and stair mechanics. 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 09/27-improved LTG Duration 11/01/21 walking Short Term Goal (STG) Pt will be able to walk with cane and seeing eye dog in order to inc ability to mobilize in community. STG Duration achieved Steward/Stewardess Lounge Goal (LTG) Pt will be able to amb 2 miles with seeing eye dog and for usual walks without pain more than 2/10 09/27-pt has been doing 4 block walks LTG Duration 11/01/21 Assessment Summary Assessment Pt did well with exercises today and required min cue to avoid LE IR ins quat positions . He is progressing well with strength and balance and mostly limited w/ROM at this point for adriana cross sitting, full stair decent and full ext for gait. Physical Therapy Plan Frequency and Duration Frequency of Treatment 2x/Week Duration of Treatment 2 months Plan of Care Start Date 09/01/21 Plan of Care End Date 11/01/21 Next Visit Focus/Plan Next Note Type Treatment Note Next Visit Plan focus manual, work on ability to get into adriana cross seated position w/thigh, knee and hip joint mobility
--- NOTE | 2021-10-11 13:51 | PT.OTN ---
Current Diagnoses Unilateral primary osteoarthritis, right knee (10/11/21) Unilateral post-traumatic osteoarthritis, right knee (10/11/21) Difficulty in walking, not elsewhere classified (10/11/21) Weakness (10/11/21) Physical Therapy Treatment Note PT-OP-A Visit Information Start: 08/17/21 07:27 Freq: Status: Active Protocol: Document 10/11/21 13:01 [facility] (Rec: 10/11/21 13:51 [facility] [id number]) Out-Patient Physical Therapy Visit Information Visit Information Visit Type Treatment Note Visit Note 10/26 Visit Start Time 13:02 Visit Stop Time 13:45 Total Visit Minutes 43 Visit Number 13 Number of PACKAGING TECHNICIAN Visits 0 PT-OP-B Current Condition Start: 08/17/21 07:27 Freq: Status: Active Protocol: Document 09/01/21 10:08 [facility] (Rec: 09/01/21 12:16 [facility] [id number]) Current Condition History of Current Condition Onset Date chronic Current Complaints R knee pain History of Current Condition 09/01-Pt is 1 week s/p R TKA and was hospitalized until Monday d/t DKA complication. He returned home with his after. Pt reports he felt like he barely got anywhere during hospitalization. He has been getting around home okay but has not gone upstairs. He has been doing exercises. Feels like it takes a few steps to get his heel down d/ tcalf tightness. 08/17:Pt has had chronic R knee pain and is getting R TKA 08/25. He got meniscal surgery on L knee in the fall and it is mostly recovered but still has some issues. pt is legally blind and uses guide dog for out of house amb but amb in house indep. He has 2 level house w/ramp entry if he goes through the studio and [address] w/o rail[address] He can stay on one level if his computer is brought down. He has tub shower w/o grab bars or chair and has slightly higher toilet w/wall next to it he can push off. He has FWW already. 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 Knee gets achey occ. Notes motly if sits for a while and stands. He noted he can't get the swelling out today. He walked here today. He is progessively doing more in classes PT-OP-F Manual Assessment Start: 08/17/21 07:27 Freq: Status: Active Protocol: Document 09/01/21 10:08 [facility] (Rec: 09/01/21 12:16 [facility] [id number]) Manual Assessments Soft Tissue Assessment Soft Tissue Mobility Assessment Pt has bruising on ant soares that he reports is normal. He has one small scab at the bottom of his soares. No irregular drainage on dressing (lower part)-pt only able to pull up pants to knee PT-OP-G Mobility & Gait Start: 08/17/21 07:27 Freq: Status: Active Protocol: Document 09/01/21 10:08 [facility] (Rec: 09/01/21 12:16 [facility] [id number]) OP Mobility Evaluation Bed Mobility Supine to and from Sit indep Transfers Sit to Stand indep w/RLE out in front w/UEs to FWW OP Gait Assessment Comments Gait Comments Pt amb w/antalgic gait pattern w/dec stance time on RLE and dec step length w/LLE. Not full knee ext during stance PT-OP-K Range of Motion Start: 08/17/21 07:27 Freq: Status: Active Protocol: Document 09/27/21 07:31 [facility] (Rec: 09/27/21 08:18 [facility] [id number]) Knee Goniometric Range of Motion Knee Right Flexion Active (degrees) 113 Extension Active (degrees) 4 PT-OP-M Strength Start: 08/17/21 07:27 Freq: Status: Active Protocol: Document 09/27/21 07:31 [facility] (Rec: 09/27/21 08:18 [facility] [id number]) Hip Strength Hip Manual Muscle Testing Right Flexion (L2) 4- Good- Extension (S1) 3+ Fair+ Abduction 4 Good Adduction 3+ Fair+ External Rotation 4 Good Internal Rotation 4 Good Left Flexion (L2) 4 Good Extension (S1) 4- Good- Abduction 5 Normal Adduction 4+ Good+ External Rotation 5 Normal Internal Rotation 5 Normal Knee Strength Knee Manual Muscle Testing Right Flexion (S2) 4 Good Extension (L3) 4 Good Left Flexion (S2) 4+ Good+ Extension (L3) 4+ Good+ Ankle/Foot Strength Ankle and Foot Manual Muscle Testing Right Dorsiflexion (L4) 5 Normal Plantarflexion (S1) 5 Normal Comments PF tested seated B Left Dorsiflexion (L4) 5 Normal Plantarflexion (S1) 5 Normal Comments PF tested standing heel raises PT-OP-Q Treatments Start: 08/17/21 07:27 Freq: Status: Active Protocol: Document 10/11/21 13:01 [facility] (Rec: 10/11/21 13:51 [facility] [id number]) Cardio Equipment Recumbent Bicycle Duration (Minutes) 5 Resistance 10 Seat Position 5-4 Gym Equipment Shuttle Recovery Unilateral Squats Details R Resistance 75# Shuttle Recovery Platform Stable Reps/Time 15 Shuttle Balance red clips Comments fwd & side: WBOS & NBOS fwd: staggered stance B Therapeutic Exercises Standing Exercises lunge Standing Exercise Name fwd Side bilateral Reps/Minutes 10 ea side step Standing Exercise Name in mini squat Side bilateral Equipment Used lvl 2 band at knees Reps/Minutes x20ft step downs Side right Equipment Used 5 in Reps/Minutes x10 Comments focus on control Manual Therapy Treatment Soft Tissue Mobilization scar Body Location R knee Mobilization Type Myofascial Release,Rolling, Strumming Comments w/knee flex/ext & hip ER R knee Body Location R add w/ER Mobilization Type Myofascial Release,Rolling, Strumming Taping KT Treatment Focus swelling dec Type of Tape Kinesio Tape Comments 2 fans adriana corss on knee PT-OP-R Modalities Start: 08/17/21 07:27 Freq: Status: Active Protocol: Document 09/03/21 11:09 [facility] (Rec: 09/03/21 12:04 [facility] [id number]) Hot Pack/Cold Pack Treatment Cold Pack Location R knee Patient Position Hooklying Treatment Duration (minutes) 10 Patient Tolerance Good PT-OP-T Assessment and Plan Start: 08/17/21 07:27 Freq: Status: Active Protocol: Document 10/11/21 13:01 [facility] (Rec: 10/11/21 13:51 [facility] [id number]) Physical Therapy Assessment Goals stairs Short Term Goal (STG) Pt will be able to go step to up/down stairs w/rail safely at home in order to 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 STG Duration achieved Rewrite Editor Goal (LTG) Pt will be able to go up/down stairs reciprocally w/rail as needed without inc pain. LTG Duration 11/01/21 ROM Short Term Goal (STG) Pt will improve knee ROM to 3- 105 deg\ 09/27--113 STG Duration 10/02/21 Rewrite Editor Goal (LTG) Pt will have full knee ROM of 0-120 deg R knee to allow for good gait and stair mechanics. 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 09/27-improved LTG Duration 11/01/21 walking Short Term Goal (STG) Pt will be able to walk with cane and seeing eye dog in order to inc ability to mobilize in community. STG Duration achieved Mcfp Goal (LTG) Pt will be able to amb 2 miles with seeing eye dog and for usual walks without pain more than 2/10 09/27-pt has been doing 4 block walks LTG Duration 11/01/21 Assessment Summary Assessment Pt did better with control with all exercises. He showed improved balance. TOday flex was 115 but likely d/t slightly inc overall swelling as compared to recently. Physical Therapy Plan Frequency and Duration Frequency of Treatment 2x/Week Duration of Treatment 2 months Plan of Care Start Date 09/01/21 Plan of Care End Date 11/01/21 Next Visit Focus/Plan Next Note Type Treatment Note Next Visit Plan focus manual, work on ability to get into adriana cross seated position w/thigh, knee and hip joint mobility
--- NOTE | 2021-10-21 12:06 | PT.OTN ---
Current Diagnoses Unilateral primary osteoarthritis, right knee (10/21/21) Unilateral post-traumatic osteoarthritis, right knee (10/21/21) Difficulty in walking, not elsewhere classified (10/21/21) Weakness (10/21/21) Physical Therapy Treatment Note PT-OP-A Visit Information Start: 08/17/21 07:27 Freq: Status: Active Protocol: Document 10/21/21 11:21 MA (Rec: 10/21/21 12:06 MA [id number]) Out-Patient Physical Therapy Visit Information Visit Information Visit Type Treatment Note Visit Note 11/26 Visit Start Time 11:15 Visit Stop Time 12:00 Total Visit Minutes 45 Visit Number 14 Number of RESIDENT SERVICES MANAGER Visits 1 PT-OP-B Current Condition Start: 08/17/21 07:27 Freq: Status: Active Protocol: Document 09/01/21 10:08 [facility] (Rec: 09/01/21 12:16 [facility] [id number]) Current Condition History of Current Condition Onset Date chronic Current Complaints R knee pain History of Current Condition 09/01-Pt is 1 week s/p R TKA and was hospitalized until Monday d/t DKA complication. He returned home with his after. Pt reports he felt like he barely got anywhere during hospitalization. He has been getting around home okay but has not gone upstairs. He has been doing exercises. Feels like it takes a few steps to get his heel down d/ tcalf tightness. 08/17:Pt has had chronic R knee pain and is getting R TKA 08/25. He got meniscal surgery on L knee in the fall and it is mostly recovered but still has some issues. pt is legally blind and uses guide dog for out of house amb but amb in house indep. He has 2 level house w/ramp entry if he goes through the studio and [address]o rail. He can stay on one level if his computer is brought down. He has tub shower w/o grab bars or chair and has slightly higher toilet w/wall next to it he can push off. He has FWW already. 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 He has been able to walk up to 3 miles. PT-OP-F Manual Assessment Start: 08/17/21 07:27 Freq: Status: Active Protocol: Document 09/01/21 10:08 [facility] (Rec: 09/01/21 12:16 [facility] [id number]) Manual Assessments Soft Tissue Assessment Soft Tissue Mobility Assessment Pt has bruising on ant soares that he reports is normal. He has one small scab at the bottom of his soares. No irregular drainage on dressing (lower part)-pt only able to pull up pants to knee PT-OP-G Mobility & Gait Start: 08/17/21 07:27 Freq: Status: Active Protocol: Document 09/01/21 10:08 [facility] (Rec: 09/01/21 12:16 [facility] [id number]) OP Mobility Evaluation Bed Mobility Supine to and from Sit indep Transfers Sit to Stand indep w/RLE out in front w/UEs to FWW OP Gait Assessment Comments Gait Comments Pt amb w/antalgic gait pattern w/dec stance time on RLE and dec step length w/LLE. Not full knee ext during stance PT-OP-K Range of Motion Start: 08/17/21 07:27 Freq: Status: Active Protocol: Document 09/27/21 07:31 [facility] (Rec: 09/27/21 08:18 [facility] [id number]) Knee Goniometric Range of Motion Knee Right Flexion Active (degrees) 113 Extension Active (degrees) 4 PT-OP-M Strength Start: 08/17/21 07:27 Freq: Status: Active Protocol: Document 09/27/21 07:31 [facility] (Rec: 09/27/21 08:18 [facility] [id number]) Hip Strength Hip Manual Muscle Testing Right Flexion (L2) 4- Good- Extension (S1) 3+ Fair+ Abduction 4 Good Adduction 3+ Fair+ External Rotation 4 Good Internal Rotation 4 Good Left Flexion (L2) 4 Good Extension (S1) 4- Good- Abduction 5 Normal Adduction 4+ Good+ External Rotation 5 Normal Internal Rotation 5 Normal Knee Strength Knee Manual Muscle Testing Right Flexion (S2) 4 Good Extension (L3) 4 Good Left Flexion (S2) 4+ Good+ Extension (L3) 4+ Good+ Ankle/Foot Strength Ankle and Foot Manual Muscle Testing Right Dorsiflexion (L4) 5 Normal Plantarflexion (S1) 5 Normal Comments PF tested seated B Left Dorsiflexion (L4) 5 Normal Plantarflexion (S1) 5 Normal Comments PF tested standing heel raises PT-OP-Q Treatments Start: 08/17/21 07:27 Freq: Status: Active Protocol: Document 10/21/21 11:21 MA (Rec: 10/21/21 12:06 MA [id number]) Cardio Equipment Recumbent Bicycle Duration (Minutes) 5 Resistance 10 Seat Position 10 Therapeutic Exercises Standing Exercises Stretch Standing Exercise Name Calf and HS stretches on stairs Side bilateral Reps/Minutes x30 seconds ea lunge Standing Exercise Name fwd Side bilateral Reps/Minutes 2x10 ea Comments rail prn squat Side bilateral Reps/Minutes x15 Manual Therapy Treatment Soft Tissue Mobilization R knee Body Location HS Mobilization Type Myofascial Release,Rolling, Strumming Neuro Re-Education Treatment Balance Activities Bosu Comments 1. blue side standing balance 2. black side standing balance 3. black side mini squat with lateral weight shifts PT-OP-R Modalities Start: 08/17/21 07:27 Freq: Status: Active Protocol: Document 09/03/21 11:09 MA (Rec: 09/03/21 12:04 MA [id number]) Hot Pack/Cold Pack Treatment Cold Pack Location R knee Patient Position Hooklying Treatment Duration (minutes) 10 Patient Tolerance Good PT-OP-T Assessment and Plan Start: 08/17/21 07:27 Freq: Status: Active Protocol: Document 10/21/21 11:21 MA (Rec: 10/21/21 12:06 MA [id number]) Physical Therapy Assessment Goals stairs Short Term Goal (STG) Pt will be able to go step to up/down stairs w/rail safely at home in order to 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 STG Duration achieved Candle Pourer Goal (LTG) Pt will be able to go up/down stairs reciprocally w/rail as needed without inc pain. LTG Duration 11/01/21 ROM Short Term Goal (STG) Pt will improve knee ROM to 3- 105 deg\ 09/27-4-113 STG Duration 10/02/21 Candle Pourer Goal (LTG) Pt will have full knee ROM of 0-120 deg R knee to allow for good gait and stair mechanics. 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 09/27-improved LTG Duration 11/01/21 walking Short Term Goal (STG) Pt will be able to walk with cane and seeing eye dog in order to inc ability to mobilize in community. STG Duration achieved Candle Pourer Goal (LTG) Pt will be able to amb 2 miles with seeing eye dog and for usual walks without pain more than 2/10 09/27-pt has been doing 4 block walks LTG Duration 11/01/21 Assessment Summary Assessment Pt's R knee AROM is 3-116 degrees at end of session. He ocntinues to have swelling in posterior knee that restricts his knee flexion. Pt requires occassional Min A during lunges for LOB. He is challenged by standing work on the bosu. Physical Therapy Plan Frequency and Duration Frequency of Treatment 2x/Week Duration of Treatment 2 months Plan of Care Start Date 09/01/21 Plan of Care End Date 11/01/21 Therapeutic Interventions Therapeutic Interventions Aquatic Therapy,Balance Training,Coordination Training ,Gait Training,Home Exercise Program,Joint Mobilizations, Manual Therapy,Neuromuscular Re-education,Patient/Caregiver Education,Self-Care/Home Management,Soft Tissue Mobilization,Taping, Therapeutic Activities, Therapeutic Exercises Modalities Cold Pack/Ice Massage,Electric Stimulation,Hot Packs Next Visit Focus/Plan Next Note Type Treatment Note Next Visit Plan focus manual, work on ability to get into adriana cross seated position w/thigh, knee and hip joint mobility, balance challenges
--- NOTE | 2021-10-25 12:02 | PT.OTN ---
Current Diagnoses Unilateral primary osteoarthritis, right knee (10/25/21) Unilateral post-traumatic osteoarthritis, right knee (10/25/21) Difficulty in walking, not elsewhere classified (10/25/21) Weakness (10/25/21) Physical Therapy Treatment Note PT-OP-A Visit Information Start: 08/17/21 07:27 Freq: Status: Active Protocol: Document 10/25/21 11:08 MA (Rec: 10/25/21 12:02 MA [id number]) Out-Patient Physical Therapy Visit Information Visit Information Visit Type Treatment Note Visit Note 12/26 Visit Start Time 11:05 Visit Stop Time 11:55 Total Visit Minutes 50 Visit Number 15 Number of SENIOR PATIENT ACCOUNT REPRESENTATIVE Visits 2 PT-OP-B Current Condition Start: 08/17/21 07:27 Freq: Status: Active Protocol: Document 09/01/21 10:08 [facility] (Rec: 09/01/21 12:16 [facility] [id number]) Current Condition History of Current Condition Onset Date chronic Current Complaints R knee pain History of Current Condition 09/01-Pt is 1 week s/p R TKA and was hospitalized until Monday d/t DKA complication. He returned home with his after. Pt reports he felt like he barely got anywhere during hospitalization. He has been getting around home okay but has not gone upstairs. He has been doing exercises. Feels like it takes a few steps to get his heel down d/ tcalf tightness. 08/17:Pt has had chronic R knee pain and is getting R TKA 08/25. He got meniscal surgery on L knee in the fall and it is mostly recovered but still has some issues. pt is legally blind and uses guide dog for out of house amb but amb in house indep. He has 2 level house w/ramp entry if he goes through the studio and [address] w/o rail[address] He can stay on one level if his computer is brought down. He has tub shower w/o grab bars or chair and has slightly higher toilet w/wall next to it he can push off. He has FWW already. 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 PT-OP-F Manual Assessment Start: 08/17/21 07:27 Freq: Status: Active Protocol: Document 09/01/21 10:08 [facility] (Rec: 09/01/21 12:16 [facility] [id number]) Manual Assessments Soft Tissue Assessment Soft Tissue Mobility Assessment Pt has bruising on ant soares that he reports is normal. He has one small scab at the bottom of his soares. No irregular drainage on dressing (lower part)-pt only able to pull up pants to knee PT-OP-G Mobility & Gait Start: 08/17/21 07:27 Freq: Status: Active Protocol: Document 09/01/21 10:08 [facility] (Rec: 09/01/21 12:16 [facility] [id number]) OP Mobility Evaluation Bed Mobility Supine to and from Sit indep Transfers Sit to Stand indep w/RLE out in front w/UEs to FWW OP Gait Assessment Comments Gait Comments Pt amb w/antalgic gait pattern w/dec stance time on RLE and dec step length w/LLE. Not full knee ext during stance PT-OP-K Range of Motion Start: 08/17/21 07:27 Freq: Status: Active Protocol: Document 09/27/21 07:31 [facility] (Rec: 09/27/21 08:18 [facility] [id number]) Knee Goniometric Range of Motion Knee Right Flexion Active (degrees) 113 Extension Active (degrees) 4 PT-OP-M Strength Start: 08/17/21 07:27 Freq: Status: Active Protocol: Document 09/27/21 07:31 [facility] (Rec: 09/27/21 08:18 [facility] [id number]) Hip Strength Hip Manual Muscle Testing Right Flexion (L2) 4- Good- Extension (S1) 3+ Fair+ Abduction 4 Good Adduction 3+ Fair+ External Rotation 4 Good Internal Rotation 4 Good Left Flexion (L2) 4 Good Extension (S1) 4- Good- Abduction 5 Normal Adduction 4+ Good+ External Rotation 5 Normal Internal Rotation 5 Normal Knee Strength Knee Manual Muscle Testing Right Flexion (S2) 4 Good Extension (L3) 4 Good Left Flexion (S2) 4+ Good+ Extension (L3) 4+ Good+ Ankle/Foot Strength Ankle and Foot Manual Muscle Testing Right Dorsiflexion (L4) 5 Normal Plantarflexion (S1) 5 Normal Comments PF tested seated B Left Dorsiflexion (L4) 5 Normal Plantarflexion (S1) 5 Normal Comments PF tested standing heel raises PT-OP-Q Treatments Start: 08/17/21 07:27 Freq: Status: Active Protocol: Document 10/25/21 11:08 MA (Rec: 10/25/21 12:02 MA [id number]) Cardio Equipment Bicycle (Upright) Duration (Minutes) 6 Resistance 7 Seat Position 5 Therapeutic Exercises Standing Exercises lunge Standing Exercise Name 1. fwd stationary 2. fwd walking Side bilateral Reps/Minutes x10 ea Comments rail prn Manual Therapy Treatment Soft Tissue Mobilization scar Body Location R knee Mobilization Type Cross-Friction,Myofascial Release R knee Body Location HS Mobilization Type Myofascial Release,Rolling, Strumming Neuro Re-Education Treatment Balance Activities Bosu Comments 1. blue side standing balance 2. 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 STG Duration achieved Longterm Goal (LTG) Pt will be able to go up/down stairs reciprocally w/rail as needed without inc pain. LTG Duration 11/01/21 ROM Short Term Goal (STG) Pt will improve knee ROM to 3- 105 deg\ 09/27-4-113 STG Duration 10/02/21 Insurance Advisor Goal (LTG) Pt will have full knee ROM of 0-120 deg R knee to allow for good gait and stair mechanics. 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 09/27-improved LTG Duration 11/01/21 walking Short Term Goal (STG) Pt will be able to walk with cane and seeing eye dog in order to inc ability to mobilize in community. STG Duration achieved Insurance Advisor Goal (LTG) Pt will be able to amb 2 miles with seeing eye dog and for usual walks without pain more than 2/10 09/27-pt has been doing 4 block walks LTG Duration Achieved Assessment Summary Assessment Pt had increased swelling this morning which affected his ROM and gait. R knee AROM was 5-110 degrees at end of session. Discussed using ice and Ibuprofen to decrease swelling at home. Mckinley is challenged by lunges and requires Min A several times for lateral LOB. 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 Physical Therapy Plan Frequency and Duration Frequency of Treatment 2x/Week Duration of Treatment 2 months Plan of Care Start Date 09/01/21 Plan of Care End Date 11/01/21 Therapeutic Interventions Therapeutic Interventions Aquatic Therapy,Balance Training,Coordination Training ,Gait Training,Home Exercise Program,Joint Mobilizations, Manual Therapy,Neuromuscular Re-education,Patient/Caregiver Education,Self-Care/Home Management,Soft Tissue Mobilization,Taping, Therapeutic Activities, Therapeutic Exercises Modalities Cold Pack/Ice Massage,Electric Stimulation,Hot Packs Next Visit Focus/Plan Next Note Type Treatment Note Next Visit Plan Possibly add more sessions. focus manual, work on ability to get into adriana cross seated position w/thigh, knee and hip joint mobility, balance challenges
--- NOTE | 2021-11-01 15:20 | PT.OTN ---
Current Diagnoses Unilateral primary osteoarthritis, right knee (11/01/21) Unilateral post-traumatic osteoarthritis, right knee (11/01/21) Difficulty in walking, not elsewhere classified (11/01/21) Weakness (11/01/21) Physical Therapy Treatment Note PT-OP-A Visit Information Start: 08/17/21 07:27 Freq: Status: Active Protocol: Document 11/01/21 13:51 [facility] (Rec: 11/01/21 15:19 [facility] [id number]) Out-Patient Physical Therapy Visit Information Visit Information Visit Type Progress Note Visit Note 06/28 Visit Start Time 13:49 Visit Stop Time 14:29 Total Visit Minutes 40 Visit Number 16 Number of MUSEUM DIRECTOR Visits 0 PT-OP-B Current Condition Start: 08/17/21 07:27 Freq: Status: Active Protocol: Document 09/01/21 10:08 [facility] (Rec: 09/01/21 12:16 [facility] [id number]) Current Condition History of Current Condition Onset Date chronic Current Complaints R knee pain History of Current Condition 09/01-Pt is 1 week s/p R TKA and was hospitalized until Monday d/t DKA complication. He returned home with his after. Pt reports he felt like he barely got anywhere during hospitalization. He has been getting around home okay but has not gone upstairs. He has been doing exercises. Feels like it takes a few steps to get his heel down d/ tcalf tightness. 08/17:Pt has had chronic R knee pain and is getting R TKA 08/25. He got meniscal surgery on L knee in the fall and it is mostly recovered but still has some issues. pt is legally blind and uses guide dog for out of house amb but amb in house indep. He has 2 level house w/ramp entry if he goes through the studio and [address]/o rail[address] He can stay on one level if his computer is brought down. He has tub shower w/o grab bars or chair and has slightly higher toilet w/wall next to it he can push off. He has FWW already. 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 Notes he can walk a couple miles. reprots he can't kick as high as he'd like. PT-OP-F Manual Assessment Start: 08/17/21 07:27 Freq: Status: Active Protocol: Document 09/01/21 10:08 [facility] (Rec: 09/01/21 12:16 [facility] [id number]) Manual Assessments Soft Tissue Assessment Soft Tissue Mobility Assessment Pt has bruising on ant soares that he reports is normal. He has one small scab at the bottom of his soares. No irregular drainage on dressing (lower part)-pt only able to pull up pants to knee PT-OP-G Mobility & Gait Start: 08/17/21 07:27 Freq: Status: Active Protocol: Document 09/01/21 10:08 [facility] (Rec: 09/01/21 12:16 [facility] [id number]) OP Mobility Evaluation Bed Mobility Supine to and from Sit indep Transfers Sit to Stand indep w/RLE out in front w/UEs to FWW OP Gait Assessment Comments Gait Comments Pt amb w/antalgic gait pattern w/dec stance time on RLE and dec step length w/LLE. Not full knee ext during stance PT-OP-K Range of Motion Start: 08/17/21 07:27 Freq: Status: Active Protocol: Document 11/01/21 13:51 [facility] (Rec: 11/01/21 15:19 [facility] [id number]) Knee Goniometric Range of Motion Knee Right Flexion Active (degrees) 120 Extension Active (degrees) 2 PT-OP-M Strength Start: 08/17/21 07:27 Freq: Status: Active Protocol: Document 11/01/21 13:51 [facility] (Rec: 11/01/21 15:19 [facility] [id number]) Hip Strength Hip Manual Muscle Testing Right Flexion (L2) 5 Normal Extension (S1) 5 Normal Abduction 5 Normal Adduction 5 Normal External Rotation 5 Normal Internal Rotation 5 Normal Left Flexion (L2) 4 Good Extension (S1) 5 Normal Abduction 5 Normal Adduction 5 Normal External Rotation 5 Normal Internal Rotation 5 Normal Knee Strength Knee Manual Muscle Testing Right Flexion (S2) 5 Normal Extension (L3) 5 Normal Left Flexion (S2) 5 Normal Extension (L3) 5 Normal Ankle/Foot Strength Ankle and Foot Manual Muscle Testing Right Dorsiflexion (L4) 5 Normal Plantarflexion (S1) 5 Normal Left Dorsiflexion (L4) 5 Normal Plantarflexion (S1) 5 Normal Comments PF tested standing heel raises B PT-OP-Q Treatments Start: 08/17/21 07:27 Freq: Status: Active Protocol: Document 11/01/21 13:51 [facility] (Rec: 11/01/21 15:19 [facility] [id number]) Cardio Equipment Recumbent Bicycle Duration (Minutes) 5 Resistance 10 Seat Position 10 Manual Therapy Treatment Soft Tissue Mobilization scar Body Location R knee Mobilization Type Cross-Friction,Myofascial Release R knee Body Location HS Mobilization Type Myofascial Release,Rolling, Strumming Comments w/active HS stretch Joint Mobilizations tibiofemoral Joint R Direction AP FM on femur patellofemoral Joint R Direction sup, med, inf Self-Care/Home Management Treatment Education Other Education edu to pt re: exercises to continue including HS stretch, ext and flex stretches, SLS & squats and lunges PT-OP-R Modalities Start: 08/17/21 07:27 Freq: Status: Active Protocol: Document 10/25/21 11:08 [facility] (Rec: 10/25/21 12:02 MA [id number]) Hot Pack/Cold Pack Treatment Cold Pack Location R knee Patient Position Hooklying Treatment Duration (minutes) 10 Patient Tolerance Good PT-OP-T Assessment and Plan Start: 08/17/21 07:27 Freq: Status: Active Protocol: Document 11/01/21 13:51 [facility] (Rec: 11/01/21 15:19 [facility] [id number]) Physical Therapy Assessment Goals stairs Short Term Goal (STG) Pt will be able to go step to up/down stairs w/rail safely at home in order to 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 STG Duration achieved Correction Goal (LTG) Pt will be able to go up/down stairs reciprocally w/rail as needed without inc pain. LTG Duration achieved ROM Short Term Goal (STG) Pt will improve knee ROM to 3- 105 deg\ 09/27-4-113 STG Duration achieved 11/01 Correction Goal (LTG) Pt will have full knee ROM of 0-120 deg R knee to allow for good gait and stair mechanics. 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 09/27-improved LTG Duration ACHIEVED walking Short Term Goal (STG) Pt will be able to walk with cane and seeing eye dog in order to inc ability to mobilize in community. STG Duration achieved Correction Goal (LTG) Pt will be able to amb 2 miles with seeing eye dog and for usual walks without pain more than 2/10 09/27-pt has been doing 4 block walks LTG Duration Achieved Assessment Summary Assessment Pt did well and by end of session had 2-120 deg ROM. he is indep w/exercises for ROM and strength and does not feel like he has any restrictions from activity. Physical Therapy Plan Discharge Physical Therapy Discharge Reasons Goals Met
== END 2021-11-03 13:06 ==
LOC: PHYS 13:45
PROVIDERS: Family Provider Internal Medicine; PCP Internal Medicine; Referring Provider Orthopaedic Surgery; Visit Provider Orthopaedic Surgery
DX: M17.11 Unilateral primary osteoarthritis, right knee (principal); M17.31 Unilateral post-traumatic osteoarthritis, right knee; R53.1 Weakness; R26.2 Difficulty in walking, not elsewhere classified
CPT/HCPCS: 97110; 97112; 97116; 97140; 97162; 97164; 97535

== ENCOUNTER → 2021-12-29 08:10 | Outpatient (CLI) | payer MEDICARE, OTHER, SELFPAY ==
[2021-08-25 13:09] VITALS: BMI 25.0
--- NOTE | 2021-12-29 08:11 | DI.ECHO.S_ITS ---
[facility] +---------+ : : [address] [place] : : : : [id number] : : : : Phone: [phone]---------+ Echocardiogram Report + + :Name: MARCELLA HAMILTON Study Date: 12/29/2021 Height: 66.5 in: :[facility] ReadingLocation: Weight: 155 lb : : Gender: Male BSA: 1.8 m2 : :: 1950 Age: 71 yrs BP: 148/84 mmHg: :Reason For Study: LEFT VENTRICULAR OUTFLOW TRACT OBSTRUCTION : :Ordering Physician: RALPH, : :CRISTHIAN Performed By: Kasey Nunes : :Referring: CRISTHIAN CHINCHILLA : + + Interpretation Summary 1) Small left ventricular cavity with normal wall motion and normal systolic function (EF 65-70%). 2) The left ventricular outflow velocity with valsalva is 2.91m/s (peak gradient 33.8mmHg). 3) Normal right ventricular size and function. 4) There is systolic anterior motion of the mitral valve. 5) There is mild mitral regurgitation. 6) Compared to the Echo done 12/21/2020, peak LVOT gradient with valsalva has decreased from 70mm Hg to 33.8mmHg on this study. Procedure: A two-dimensional transthoracic echocardiogram with color flow and Doppler was performed. The study quality was technically adequate. Comparison is made with the echocardiogram of 12/21/2020. The patient was in sinus rhythm with heart rates between 59-63 bpm during the exam. Left Ventricle: Proximal septal thickening is noted. The left ventricular cavity is small. The left ventricular outflow velocity with valsalva is 2.91. The ejection fraction is estimated to be 65-70%. Left ventricular systolic function appears normal without focal wall motion abnormalities. Right Ventricle: The right ventricle is grossly normal size. The right ventricular systolic function is normal. Atria: The left atrial size is normal. Right atrial size is normal. There is no Doppler evidence for an interatrial shunt. Mitral Valve: The mitral valve leaflets appear moderately thickened, but open well. There is mild to moderate mitral annular calcification. There is systolic anterior motion of the mitral valve. There is mild mitral regurgitation. Aortic Valve: The aortic valve is trileaflet. There is mild aortic valve sclerosis. There is no aortic valve stenosis. There is trace aortic regurgitation. Tricuspid Valve: The tricuspid valve is normal in structure and function. There is trace tricuspid regurgitation. The right ventricular systolic pressure is estimated to be at least 27 mmHg based on an estimated right atrial pressure of 3 mm Hg. Pulmonic Valve: The pulmonic valve is not well seen, but is grossly normal. There is no pulmonic valvular regurgitation. Great Vessels: The aortic root is normal size. The ascending aorta could not be visualized. The IVC is of normal diameter and collapses greater than 50% with a sniff. This suggests a low right atrial pressure of 3 mm Hg. Pericardium/ Pleura There is no pericardial effusion. There is no pleural effusion. MMode/2D Measurements & Calculations LVIDd: 3.4 cm LVOT diam: 2.0 cm EPSS: 0.31 cm Ao root diam: 2.6 cm IVSd: 0.99 cm Ao Arch Diam (Prox Trans): 2.6 cm LVPWd: 1.1 cm LV arroyo. diameter/BSA (cm/m^2): 1.9 LA A2 area: 17.9 cm2 RA long axis: 4.4 cm LA A4 area: 14.4 cm2 RA area: 9.8 cm2 LA length (vol): 4.8 cm RA vol: 18.5 ml LA vol: 45.8 ml RA : 10.2 ml/m2 LA vol index: 25.4 ml/m2 IVC diam: 1.6 cm TAPSE: 2.1 cm Doppler Measurements & Calculations Ao V2 max: 145.4 cm/sec LVOT Max Karl: 133.2 cm/sec Ao V2 mean: 107.8 cm/sec LV V1 max P.1 mmHg Ao max P.5 mmHg LV V1 VTI: 31.7 cm Ao mean P.1 mmHg ROHIT(I,D): 3.2 cm2 Ao V2 VTI: 32.4 cm ROHIT(V,D): 3.0 cm2 sev ratio: 0.98 ROHIT indexed to BSA (cm^2/m^2): 1.8 MV E max karl: 86.4 cm/sec TR max karl: 242.3 cm/sec MV A max karl: 113.7 cm/sec TR max P.5 mmHg MV E/A: 0.76 PA V2 max: 77.9 cm/sec Med Peak E' Karl: 6.3 cm/sec PA V2 mean: 53.9 cm/sec E/E' med: 13.7 PA mean P.3 mmHg Lat Peak E' Karl: 6.7 cm/sec PA Accel Time: 0.16 sec E/E' lat: 12.8 E/e' average: 13.3 MV dec time: 0.32 sec SV(OT): 102.9 ml Reading Physician:12:48 PM
== END ==
PROVIDERS: Family Provider Internal Medicine; PCP Internal Medicine; Referring Provider Internal Medicine Cardiovascular Disease; Visit Provider Internal Medicine Cardiovascular Disease
DX: I51.89 Other ill-defined heart diseases (principal); I34.0 Nonrheumatic mitral (valve) insufficiency
CPT/HCPCS: 93306

== ENCOUNTER 2022-01-06 11:00 | Outpatient (RCR) | payer MEDICARE, OTHER, SELFPAY ==
[2021-08-25 13:09] VITALS: BMI 25.0
--- NOTE | 2021-12-09 13:26 | ST.OPIE ---
Visit Care Team Role Provider Type Mickey Brito MD Attending Provider Physician Family Provider Primary Care Provider Referring Provider Specialty: Internal Medicine Address: [address] [place] [address], [facility] Email: [email or web address] Speech-Language Pathology Initial Evaluation RIP AND GROOVE MACHINE OPERATOR Clinical Instructor Line Start: 12/09/21 13:20 Freq: Status: Active Protocol: Document 12/09/21 13:25 MG (Rec: 12/09/21 13:25 MG [id number]) Clinical Instructor Signature Clinical Instructor Clinical Instructor Yes: Lilian Lopez MA, [facility]-RIP AND GROOVE MACHINE OPERATOR RIP AND GROOVE MACHINE OPERATOR Clinical Swallow Evaluation Start: 12/09/21 10:51 Freq: Status: Active Protocol: Document 12/09/21 10:51 EK (Rec: 12/09/21 10:53 EK [id number]) Clinical Swallow Evaluation Session Time Visit Start Time 11:30 Visit Stop Time 12:15 Total Visit Minutes 45 Visit Information Visit Number 06/28 Plan of Care Dates 12/09/2021-03/06/22 Insurance Information Medicare Referral Referring Provider Mickey Brito MD Reason for Referral Dysphagia Setting Assessment Location Outpatient Care Visit Type Note Type Initial evaluation Next Note Type Next Note Type Treatment Note Patient Information Identification Type Name,ID Card History Pt is a 71-year-old male who lives with his spouse. Pt complains of gagging/choking on lukewarm liquids as well as feeling a sticking sensation in his throat while swallowing a variety of other textures. Pt reported that he has been experiencing these symptoms for years but only recently discussed it with his primary doctor. Pt is vegan and gluten free. Pt?s medical history is significant for legal blindness (for which he utilizes a guide dog), diabetes, peripheral neuropathy, and a cervical spine fracture from 1977. 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 Subjective Observations Pt arrived on time, accompanied by his guide dog. Session conducted and note written by student RIP AND GROOVE MACHINE OPERATOR Diane Whitehead under RIP AND GROOVE MACHINE OPERATOR supervision. Reported by Patient Other Symptoms Choking,Other Comment Food doesn't always go down when swallowing Current Diet Regular,Thin liquids Baseline Feeding Method Independent in self-feeding Patient Questionnaire Yes Type of Patient Questionnaire (e.g., EAT EAT-10 -10, MDADI, etc.) Results For food that is lukewarm, the pt scored 19 and for other types of food scored 11 on the EAT-10 questionnaire, where a score of 3 or higher indicates swallowing problems. Of note, the pt rated the statement when I swallow food sticks in my throat as being a severe problem. Objective Assessment Mental Status Alert,Responsive,Cooperative Dentition Dentures or partials present Lip Function Within normal limits Observation of Lips at Rest Symmetrical Pucker Within normal limits Lip Retraction Within normal limits Alternating Pucker/Lip Retraction Within normal limits Tongue Function Within normal limits Observations of Tongue at Rest Abnormal color Tongue Protrusion Within normal limits Tongue Lateralization Within normal limits Jaw Function Within normal limits Observations of Jaw at Rest Within normal limits Jaw Opening Within normal limits Jaw Closing Within normal limits Hard/Soft Palate Function Within normal limits Observations of Hard/Soft Palate Within normal limits Nasality Within normal limits Phonation Within normal limits Respiratory Sufficiency Within normal limits Comment Overall, the pt's structure and musculature were WNL for his age. Pt did have difficulty alternating air from cheek to cheek but this may have been due to a misunderstanding of the instructions. Pt's dentition was notable for upper and lower dentures and several titanium implants. Pt?s tongue was also notable for having a slight white film. Food and Liquid Trials Position During Assessment Upright (90 degrees) Liquids Trialed Thin Solids Trialed Puree,Dysphagia Advanced Administration Type Controlled cup sip,Self- feeding Oral Impairment Within normal limits Oral Phase Comments WNL for his age. Pharyngeal Impairment Moderately impaired Pharyngeal Phase Comments Pharyngeal phase is moderately impaired. Pt reports ?stuck? sensation in his throat following swallowing which may indicate the presence of residual food residue. No overt signs of penetration/ aspiration were noted and swallow function appeared to be triggered in a timely manner. A new MBSS is recommended to further assess the pt's current deficits and guide POC. Fatigue/Endurance Endurance WNL Comment WNL for limited trials. Strategies Attempted Effortful swallow Findings Swallowing Function Pharyngeal phase dysphagia Severity of Swallow Impairment Moderately impaired Prognosis Good Based on Cognitive status,Family support,Comorbidities,Duration of symptoms/severity Comment Pt presents with pharyngeal phase dysphagia characterized by choking/gagging and likely residue causing sticking sensation. Suspect incomplete epiglottic inversion based on pt complaints which would likely lead to the pharyngeal residue. [ End ] Comments Impact on QOL Recommendations Instrumental Assessment Yes Swallowing Treatment Yes Frequency 1x a week for several weeks then once every 2-3 weeks Duration 4 Months Recommended Solids Regular Recommended Liquids Thin Safety Precautions/Swallowing Remain upright (90 degrees) Recommendations during all oral intake, Alternate liquids and solids, Sensory enhancement (flavor, texture, temperature) Medication Recommendations As Tolerated Education Patient/Caregiver Education Described results of evaluation,Patient expressed understanding of evaluation, Patient expressed agreement with goals & treatment plans, Patient expressed understanding of safety precautions,Patient expressed understanding of feeding recommendations,Patient requires further education/ training Goals Short-term Goals 1. Pt will independently implement safe swallow strategies. 2. Pt will perform swallow exercises in order to improve pharyngeal function. 3. Pt will participate in a MBSS to further assess pharyngeal phase concerns. Long-term Goals 1. Pt will be consistent with HEP to improve and maintain swallow function. 2. Will decrease impact of swallowing disorder as measured by EAT-10.
--- NOTE | 2021-12-09 13:30 | ST.OPPOC ---
Physical, Occupational & Speech Therapy At [facility] Visit Care Team Role Provider Type Mickey Brito MD Attending Provider Physician Family Provider Primary Care Provider Referring Provider Address: [address] [place] [address], [id number] Speech Pathology Plan of Care IV THERAPY NURSE Clinical Instructor Line Start: 12/09/21 13:20 Freq: Status: Active Protocol: Document 12/09/21 13:25 MG (Rec: 12/09/21 13:25 MG [id number]) Clinical Instructor Signature Clinical Instructor Clinical Instructor Yes: Lilian Lopez MA, [facility]-IV THERAPY NURSE Speech Pathology Plan of Care Plan of Care Dates 12/09/2021-03/06/22 Referring Provider Mickey Brito MD Patient History Pt is a 71-year-old male who lives with his spouse. Pt complains of gagging/choking on lukewarm liquids as well as feeling a sticking sensation in his throat while swallowing a variety of other textures. Pt reported that he has been experiecing these symptoms for years but only recently discussed it with his primary doctor. Pt is vegan and gluten free. Pt?s medical history is significant for legal blindness (for which he utilizes a guide dog), diabetes, peripheral neuropathy, and a cervical spine fracture from 1977. 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 Short-term Goals 1. Pt will independently implement safe swallow strategies. 2. Pt will perform swallow exercises in order to improve orapharyngeal function. 3. Pt will participate in a MBSS to further assess pharyngeal phase concerns. Long-term Goals 1. Pt will be consistent with HEP to improve and maintain swallow function. 2. Will decrease impact of swallowing disorder as measured by EAT-10. Comment: Electronically Signed by: JENNIFER Purcell 12/09/21 6140 If you are in agreement with this Plan of Care, please return a signed and dated copy. I have reviewed this Plan of Care and certify that the skilled therapy services above are required to meet the patient?s needs. Physician Signature Date Printed Name and Credentials Clinical Instructor Signature Printed Name and Credentials
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
== END 2022-02-24 09:19 ==
LOC: SP 11:00
PROVIDERS: Family Provider Internal Medicine; PCP Internal Medicine; Referring Provider Internal Medicine; Visit Provider Internal Medicine
DX: R13.10 Dysphagia, unspecified (principal)
CPT/HCPCS: 92526; 92610

== ENCOUNTER → 2022-02-01 13:49 | Outpatient (CLI) | payer MEDICARE, OTHER, SELFPAY ==
[2021-08-25 13:09] VITALS: BMI 25.0
--- NOTE | 2022-02-01 13:51 | DI.RAD.S_ITS ---
PROCEDURE: FL BARIUM SWALLOW INDICATIONS: Dysphagia COMPARISON: None. FINDINGS: Function: There is normal esophageal peristalsis. No elicited gastroesophageal reflux. There is normal transit of a calibrated barium tablet through the esophagus into the stomach. Morphology: Air-contrast images demonstrate normal mucosal morphology. Single contrast views show no esophageal strictures, extrinsic mass effects, or diverticula. Limited images of the stomach demonstrate normal appearance. IMPRESSION: Unremarkable double-contrast barium swallow study. Dictated by: Sajan Yip M.D. on 02/01/2022 at 16:15 Approved by: Sajan Yip M.D. on 02/01/2022 at 16:15
== END ==
PROVIDERS: Family Provider Internal Medicine; PCP Internal Medicine; Referring Provider Internal Medicine; Visit Provider Internal Medicine
DX: R13.10 Dysphagia, unspecified (principal)
CPT/HCPCS: 74220

== ENCOUNTER → 2022-02-25 12:36 | Outpatient (CLI) | payer MEDICARE, OTHER, SELFPAY ==
[2021-08-25 13:09] VITALS: BMI 25.0
[2022-02-25 13:23] LABS: Hemoglobin A1C% w Est Avg Glu 6.1 % (4.0-6.0)
[2022-02-25 13:54] LABS: Prostate Specific Antigen 1.01 ng/mL (0.10-4.00)
[2022-02-25 15:21] LABS: Creatinine Urine Random 95.4 mg/dL
[2022-02-25 15:26] LABS: Microalbumi Creatinin Ratio Ur 82.8 ug/mg CR (<30); Microalbumin Urine Random 7.9 mg/dL (0-1.6)
== END ==
PROVIDERS: Family Provider Internal Medicine; PCP Internal Medicine; Referring Provider Internal Medicine; Visit Provider Internal Medicine
DX: E10.42 Type 1 diabetes mellitus with diabetic polyneuropathy (principal); N40.1 Benign prostatic hyperplasia with lower urinary tract symptoms; I25.10 Atherosclerotic heart disease of native coronary artery without angina pectoris; N13.8 Other obstructive and reflux uropathy
CPT/HCPCS: 36415; 82043; 82570; 83036; 84153

== ENCOUNTER → 2022-03-01 08:54 | Outpatient (CLI) | payer MEDICARE, OTHER, SELFPAY ==
[2021-08-25 13:09] VITALS: BMI 25.0
[2022-03-02 15:07] LABS: Fecal Immunochemical Test Negative (Negative)
== END ==
PROVIDERS: Family Provider Internal Medicine; PCP Internal Medicine; Referring Provider Internal Medicine; Visit Provider Internal Medicine
DX: Z12.11 Encounter for screening for malignant neoplasm of colon (principal)
CPT/HCPCS: 82274

== ENCOUNTER → 2022-05-18 10:29 | Outpatient (CLI) | payer MEDICARE, OTHER, SELFPAY ==
[2022-05-16 16:37] VITALS: BMI 25.0
--- NOTE | 2022-05-18 10:30 | DI.US.S_ITS ---
PROCEDURE: US SCROTUM INDICATIONS: SCROTAL MASS - RULE OUT TORSION TECHNIQUE: Real-time scanning was performed of the scrotum and testicles, with image documentation. Color and pulse Doppler interrogation was performed of both testicles. COMPARISON: None. FINDINGS: Right: Testicle is normal in size at 5.9 x 3.2 x 2.5 cm, and homogenous in echotexture. Punctate calcifications are noted within the right testicle. Epididymis is normal in overall size and morphology. There is a large right hydrocele. An anechoic cyst is present within the hydrocele. No varicocele. Overlying scrotal skin is normal in thickness. Left: Testicle is normal in size at 5.8 x 3.0 x 2.3 cm, and homogeneous in echotexture. Epididymis is normal in overall size and morphology. An epididymal head cyst is present. No varicocele. There is a small left hydrocele with echogenic debris present. A hypoechoic region in the left testicle suggests a prominent rete testis. This is surrounded by multiple vessels. Overlying scrotal skin is normal in thickness. Doppler: Color and pulse Doppler demonstrate normal and symmetric arterial flow in both testicles. IMPRESSION: 1. Prominent hypoechoic region within the left testicle suggesting a prominent rete testis. 6-8 week follow-up is recommended to ensure stability of this finding and exclude occult mass. 2. Arterial flow detected within the bilateral testicles. 3. Bilateral hydroceles and left epididymal head cyst. Dictated by: Adia Tirado M.D. on 05/18/2022 at 12:42 Approved by: Adia Tirado M.D. on 05/18/2022 at 13:02
== END ==
PROVIDERS: Family Provider Internal Medicine; PCP Internal Medicine; Referring Provider Internal Medicine; Visit Provider Internal Medicine
DX: N43.3 Hydrocele, unspecified (principal); N50.3 Cyst of epididymis
CPT/HCPCS: 76870

== ENCOUNTER → 2022-05-31 09:01 | Outpatient (CLI) | payer MEDICARE, OTHER, SELFPAY ==
[2022-05-16 16:37] VITALS: BMI 25.0
[2022-05-31 11:07] LABS: BUN Creatinine Ratio 26.1 (6-22); Blood Urea Nitrogen 24 mg/dL (9-20); Calcium 8.7 mg/dL (8.4-10.2); Carbon Dioxide 26 mmol/L (22-32); Chloride 102 mmol/L (98-107); Estimated Glomerular Filt Rate > 60 mL/min (>60); Glucose 106 mg/dL (80-110); HEMOLYSIS < 15 (0-50); Potassium 4.4 mmol/L (3.4-5.1); Sodium 138 mmol/L (137-145)
[2022-06-01 07:09] LABS: C Peptide < 0.1 ng/mL (1.1-4.4)
== END ==
PROVIDERS: Family Provider Internal Medicine; PCP Internal Medicine; Referring Provider Internal Medicine; Visit Provider Internal Medicine
DX: E10.42 Type 1 diabetes mellitus with diabetic polyneuropathy (principal); Z96.41 Presence of insulin pump (external) (internal)
CPT/HCPCS: 36415; 80048; 83036; 84681

== ENCOUNTER → 2022-06-24 08:57 | Outpatient (CLI) | payer MEDICARE, OTHER, SELFPAY ==
[2022-05-16 16:37] VITALS: BMI 25.0
[2022-06-24 09:27] LABS: COVID19 -Nasal RAPID Negative (Negative)
== END ==
PROVIDERS: Family Provider Internal Medicine; PCP Internal Medicine; Visit Provider Urology
DX: Z20.822 Contact with and (suspected) exposure to COVID-19 (principal)
CPT/HCPCS: 87635; C9803

== ENCOUNTER 2022-06-27 06:49 | Day surgery (SDC) | payer MEDICARE, OTHER, SELFPAY ==
[2022-05-16 16:37] VITALS: BMI 25.0
[2022-06-21 12:00] VITALS: BMI 25.8
[2022-06-27] VITALS (9 sets, daily range): BP systolic 127–172; BP diastolic 65–79; PULSE 58–66; RESP 11–16; TEMP 36.1–36.9; O2SAT 95–100; BMI 25.0
--- NOTE | 2022-06-27 | PATH_ITS ---
[facility] Accession Number: [id number] No. of containers..01 Tissue . 01 Material submitted: . body - RIGHT HYDROCELE SAC . 01 Diagnosis: Right Hydrocele Sac, Excision: Consistent with hydrocele sac with associated chronic inflammation and fibrosis. Negative for neoplasia. MRV 06/29/2022 1542 Local . 01 Electronically signed: . Imelda Rider MD, Pathologist NPI- [id number] . 01 Gross description: . The specimen is received in formalin labeled with the patient's name, , and right hydrocele sac, and consists of a jefferson roughened membranous soft tissue fragment measuring 5.5 x 3.7 x 0.6 cm. One surface is roughened with a small amount of attached soft tissue while the opposite surface is jefferson and relatively smooth. The roughened surface is inked blue. Sectioning reveals a pink-jefferson firm cut surface. Scrap Materials Buyer sections are submitted in cassettes A1-A2. ([id number]) /MRV 06/28/2022 1538 Local . 01 Pathologist provided ICD-10: N43.3 . 01 CPT . 643609 Specimen Comment: A courtesy copy of this report has been sent to [phone] Performed at: 01 [facility] [address] [place] [address] [address], [place], [place] [id number] MD Marky Galvez MD Phone: [phone]
--- NOTE | 2022-06-27 07:36 | PM.PREOP ---
Pre-operative Note COVID-19 COVID-19 status: Negative Result date/Date tested (Pos, Neg/Pending): 06/24/22 Criteria for continued procedure: Delay expected to result in less-positive ultimate med/surg outcome and Non-surgical alternatives not available or appropriate per current SOC Interval Note History & Physical reviewed/Exam performed by Physician: Yes Changes to H&P: No
[2022-06-27] MEDS: LACTATED RINGERS 1,000 ML 42 ML IV (07:43)
[2022-06-27] MEDS: CEFAZOLIN 2 GM/100 ML PREMIX 100 ML IV (08:05)
[2022-06-27] MEDS: LIDOCAINE 2% INJ MDV 50ML 50 MG INJ (08:20)
--- NOTE | 2022-06-27 08:25 | SUR.OPER ---
Supine on padded OR bed, head on pillow, arms secured on padded arm boards at <90 degrees abduction, legs uncrossed, safety belt at thigh, tape over blanket over lower legs.
[2022-06-27] MEDS: BACITRACIN OINT 0.9 GM PCKT 1 APPLIC TOP (08:30)
--- NOTE | 2022-06-27 09:22 | PM.OP.1 ---
Procedure & Clinicians Procedure: Right hydrocelectomy Same procedure as scheduled: Yes Indications: This 72-year-old male presented with complaints of right hemiscrotal enlargement which was uncomfortable and bothersome. He underwent ultrasound which revealed this to be hydrocele he presents this time for right hydrocelectomy. Surgeon: Braulio Bradshaw Click Yes if Unassisted: Yes Anesthesia Type: General Operative Notes Findings: Findings: Right hemiscrotal enlargement. The dartos was somewhat thickened. There were inflammatory changes around the hydrocele sac. Which appeared to be old. The hydrocele sac itself was quite thickened. There was a small epididymal cyst which was on addressed. Otherwise normal anatomy was noted. The hydrocele sac was sent for pathologic examination. Closure Type: primary Specimen(s): other (Hydrocele sac) Estimated Blood Loss (mL): 5 Blood products transfused: none Procedure in detail: Procedure in detail: After informed consent was obtained, the patient was identified and brought to the operating room worries placed in a supine position on the table. Patient had anesthesia induced and maintained. The patient was then shaved, prepped, draped, prepared for right hemiscrotal surgery. After time-out and ensuring an adequate level of anesthesia a transverse incision was made in the right hemiscrotum the dissection carried down through the layers of the dartos. The hydrocele testes and cord were then delivered. The hydrocele sac was opened anteriorly and the yellow fluid which was clear was evacuated. The excess sac was then excised with electrocautery. The edges where the hydrocele sac had been excised were then run with a 2-0 chromic gut suture. The epididymis was ?somewhat floppy? and therefore it was tacked down with a running 2-0 chromic gut suture. Cord block was performed with 2% lidocaine in the testes return to the scrotum. The skin edges were reapproximated in the following fashion the dartos was reapproximated with a running 2-0 Vicryl and the skin edges with interrupted vertical mattress of 2-0 chromic. The skin was then infiltrated with 2% lidocaine. Dressings were applied the patient was awakened having tolerated the procedure well and transferred to the postanesthesia care unit for recovery there were no complications. Complications: none Post-operative Condition: stable Disposition: PACU Plan for aftercare: Patient to be discharged to home to follow up my office in approximately 10-14 days
[2022-06-27] MEDS: ACETAMINOPHEN 325 MG TABLET 650 MG PO (10:20)
== END 2022-06-27 10:40 | disposition home or self-care (01) ==
PROVIDERS: Family Provider Internal Medicine; PCP Internal Medicine; Referring Provider Urology; Visit Provider Urology
PROC: (CPT 55040; principal; 2022-06-27 07:45)
DX: N43.3 Hydrocele, unspecified (principal); E10.40 Type 1 diabetes mellitus with diabetic neuropathy, unspecified; E10.319 Type 1 diabetes mellitus with unspecified diabetic retinopathy without macular edema; Z79.4 Long term (current) use of insulin
CPT/HCPCS: 55040; 82962; J0690; J1100; J2405; J2704; J3010

== ENCOUNTER → 2022-09-06 08:35 | Outpatient (CLI) | payer MEDICARE, OTHER, SELFPAY ==
[2022-05-16 16:37] VITALS: BMI 25.0
[2022-09-06 10:07] LABS: Add Manual Diff / Slide Review NO; Basophils Absolute Auto 0 /uL (0-100); Basophils Percent Auto 0.9 % (0-2); Eosinophils Absolute Auto 100 /uL (0-450); Eosinophils Percent Auto 2.4 % (2-4); Hematocrit 44.7 % (41-53); Hemoglobin 15.3 g/dL (13.5-17.5); Lymphocytes Absolute Auto 1500 /uL (1100-4500); Lymphocytes Percent Auto 26.8 % (25-40); Mean Corpuscular HGB Conc 34.2 % (30-36); Mean Corpuscular Hemoglobin 32.5 PG (26-34); Mean Corpuscular Volume 95.1 fL (80-100); Monocytes Absolute Auto 700 /uL (0-900); Monocytes Percent Auto 12.8 % (3-14); Neutrophils Absolute Auto 3200 /uL (1500-7000); Neutrophils Percent Auto 57.1 % (50-75); Platelet Count 191 X10^3/uL (150-400); Red Cell Distribution Width 12.9 % (11.6-14.8); White Blood Cell Count 5.6 X10^3/uL (4.5-11.0)
[2022-09-06 10:18] LABS: Hemoglobin A1C% w Est Avg Glu 6.3 % (4.0-6.0)
[2022-09-06 10:39] LABS: Aspartate Aminotransferase 33 IU/L (17-59); BUN Creatinine Ratio 22.3 (6-22); Blood Urea Nitrogen 21 mg/dL (9-20); Calcium 8.8 mg/dL (8.4-10.2); Carbon Dioxide 29 mmol/L (22-32); Chloride 105 mmol/L (98-107); Cholesterol 101 mg/dL (140-199); Estimated Glomerular Filt Rate > 60 mL/min (>60); Glucose 63 mg/dL (80-110); HDL Cholesterol 39 mg/dL (40-60); HEMOLYSIS < 15 (0-50); LDL Cholesterol Calculated 49 mg/dL (<100); Potassium 4.4 mmol/L (3.4-5.1); Sodium 140 mmol/L (137-145); Triglycerides 65 mg/dL (35-150)
== END ==
PROVIDERS: Family Provider Internal Medicine; PCP Internal Medicine; Referring Provider Internal Medicine Cardiovascular Disease; Visit Provider Internal Medicine Cardiovascular Disease
DX: E10.319 Type 1 diabetes mellitus with unspecified diabetic retinopathy without macular edema (principal); I25.10 Atherosclerotic heart disease of native coronary artery without angina pectoris; E10.42 Type 1 diabetes mellitus with diabetic polyneuropathy; E78.2 Mixed hyperlipidemia
CPT/HCPCS: 36415; 80048; 80061; 83036; 84450; 85025

== ENCOUNTER 2022-11-08 20:37 | Emergency (ER) | payer MEDICARE, OTHER, SELFPAY ==
[2022-05-16 16:37] VITALS: BMI 25.0
[2022-11-08 20:55] VITALS: BP 166/70; PULSE 65; RESP 18; TEMP 36.4; O2SAT 99; BMI 26.4
--- NOTE | 2022-11-08 22:58 | ED.SKABFB ---
HPI - Skin/Abscess/Foreign Bdy General Chief complaint: Skin/Abscess/Foreign Body Stated complaint: wound on right soares Time Seen by Provider: 11/08/22 22:50 Source: patient Mode of arrival: Ambulatory Limitations: other History of Present Illness HPI narrative: Patient is a 72-year-old male who is an insulin-dependent diabetic. He also has neuropathy. Noticed a wound on his right anterior soares about a week and a half ago. He has been treating it with topical antibiotic ointment. His states that today she noticed that there appeared to be some drainage from the area and there is some surrounding redness. Related Data Home Medications Medication Instructions Recorded Confirmed timolol maleate 0.5 % eye drops 1 drp EYE-LEFT QAM #2.5 mL 12/21/12 10/07/22 aspirin 81 mg tablet,delayed 81 mg PO BEDTIME 08/17/21 10/07/22 release latanoprost 0.005 % eye drops 1 drp EYE-LEFT BEDTIME 08/17/21 10/07/22 metoprolol succinate 25 mg 37.5 mg PO BEDTIME 08/17/21 10/07/22 tablet,extended release 24 hr cholecalciferol (vitamin D3) 50 50 mcg PO DAILY 11/01/21 10/07/22 mcg (2,000 unit) capsule ferrous sulfate 325 mg (65 mg 325 mg PO DAILY 11/01/21 10/07/22 iron) tablet (Feosol) Previous Rx's Medication Instructions Recorded atorvastatin 40 mg tablet 40 mg PO BEDTIME #30 tabs 12/23/20 insulin lispro 100 unit/mL 1 sliding scale dose SUBCUT 12/17/21 subcutaneous solution (Humalog USEASDIRECTD #10 mL U-100 Insulin) tamsulosin 0.4 mg capsule 0.4 mg PO DAILY #90 caps 02/25/22 nitroglycerin 0.4 mg sublingual 0.4 mg sublingual Q5-15M PRN chest 08/19/22 tablet pain #25 tabs flash glucose sensor (FreeStyle #7 ea 09/09/22 Hao 14 Day Sensor kit) insulin pump cart,cont inf,BT #5 ea 10/24/22 (Omnipod Dash Pods (Gen 4) subcutaneous cartridge) cephalexin 500 mg capsule 500 mg PO QID 7 days #28 caps 05/23/23 Allergies Allergy/AdvReac Type Severity Reaction Status Date / Time codeine [CODEINE] Allergy Severe Tongue & Verified 11/08/22 20:59 throat swelling, vomiting, total body rash propoxyphene Allergy Nausea Verified 11/08/22 20:59 prochlorperazine AdvReac Severe Nausea, Verified 11/08/22 20:59 [PROCHLORPERAZINE] vomiting, unable to urinate Narcotics AdvReac Severe Most Uncoded 11/08/22 20:59 don't work on me, nausea, vomiting Steroid AdvReac Severe Ketoacidosi Uncoded 11/08/22 20:59 s Review of Systems Musculoskeletal Musculoskeletal: Reports system reviewed and no additional complaints, except as documented Integumentary/Breasts Skin/Breast: Reports system reviewed and no additional complaints, except as documented Hematologic/Lymphatic On Anticoagulants: No Patient History Medical History Anxiety BPH (benign prostatic hyperplasia) BPH w urinary obs/LUTS Coronary artery disease COVID-19 virus infection (03/2022) Do not resuscitate Dysphagia Easy bruisability Glaucoma History of alcohol use disorder HTN (hypertension) Hydrocele Hyperlipidemia Insulin pump in place Legal blindness Legally blind Male circumcision Mixed hyperlipidemia Osteoarthritis Polyneuropathy, unspecified Tinnitus 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 Surgical History H/O eye surgery H/O shoulder surgery (01/25/09) History of cystoscopy History of hydrocelectomy History of surgery (1998) History of surgery History of total right knee replacement (08/25/21) History of vasectomy (05/1987) Hx of arthroscopy of left knee (06/10/21) Hx of left cataract extraction Hx of oral surgery Family History Mother Alcoholism Father Drowned Family/Other Cancer Diabetes mellitus Hypertension Kidney stones Thyroid disease IBD (inflammatory bowel disease) Social History number of children: 4 household members: spouse Smoking Status: Former smoker alcohol intake: former Type(s) of exercise: other frequency: daily Smoking Status: Former smoker alcohol intake frequency: holidays/special occasions only Substance Use Type: does not use and former substance user Exam Initial Vital Signs Initial Vital Signs: Vital Signs Temperature 97.6 F 11/08/22 20:55 Pulse Rate 65 11/08/22 20:55 Respiratory Rate 18 11/08/22 20:55 Blood Pressure 166/70 H 11/08/22 20:55 Pulse Oximetry 99 11/08/22 20:55 Oxygen Delivery Method Room Air 11/08/22 20:55 HENMT Head: normal to inspection and normocephalic Skin Other: There is a 3 cm x 1 cm area of skin abrasion/ulceration in the anterior portion of the right distal soares. There was also a large area of surrounding erythema. There is no drainage noted. No crepitus noted. Extrem General: No edema Course Orders Ordered: Discontinued Medications Cephalexin HCl (Cephalexin 250 Mg Capsule) 500 mg PO NOW ONE Stop: 11/08/22 22:58 Last Admin: 11/08/22 23:02 Dose: 500 mg Documented By: SB Vital Signs Vital signs: Vital Signs - 8 hr 11/08/22 20:55 Temperature 97.6 F Pulse Rate 65 Respiratory Rate 18 Blood Pressure 166/70 H Pulse Oximetry 99 Oxygen Delivery Method Room Air MDM - Skin/Abscess/Foreign Bdy MDM Narrative Medical decision making narrative: Patient does have findings that are consistent with cellulitis to his right lower extremity. He is nontoxic appearing. There is no abscess. Plan will be is to discharge home on a prescription for antibiotics. He was given her 1st dose here in the emergency department and a prescription was sent to the pharmacy of his choice. No indication for admission to the hospital however I did discuss this with the patient and the patient's about specific return precautions. They expressed understanding Discharge Plan Departure Patient Disposition: Home Clinical Impression: Cellulitis Instructions: DI for Cellulitis -- Adult Activity Restrictions/Additional Instructions: I do recommend that you take the antibiotics as directed. You can shower like normal. You can use topical antibiotic ointment over the area. Return to the emergency department for new or worsening symptoms. Prescriptions: New cephalexin 500 mg capsule 500 mg PO QID 7 Days Qty: 28 0RF No Action timolol maleate 0.5 % Drops 1 drp EYE-LEFT QAM Qty: 2.5 insulin lispro [Humalog U-100 Insulin] 100 unit/mL solution 1 sliding scale dose SUBCUT USEASDIRECTD Qty: 10 1RF Patient Comments: 0.3 units/per hour on insulin pump Rx Instructions: max dose 50U/day in pump change pump ever 72 hours (DME) FreeStyle Hao 14 Day Sensor Kit See Rx Instructions .Route Qty: 7 0RF Rx Instructions: As directed;Heri P#[phone] F#[phone];90 supply. Change senor every 14 days. (DME) Omnipod Dash Pods (Gen 4) Cartridge See Rx Instructions .ROUTE .MEDSUPPLY Qty: 5 6RF Rx Instructions: As directed and change it every 3 days. tamsulosin 0.4 mg capsule 0.4 mg PO DAILY Qty: 90 3RF ferrous sulfate [Feosol] 325 mg (65 mg iron) tablet 325 mg PO DAILY cholecalciferol (vitamin D3) 50 mcg (2,000 unit) capsule 50 mcg PO DAILY nitroglycerin 0.4 mg tablet, sublingual 0.4 mg sublingual Q5-15M PRN (Reason: chest pain) Qty: 25 3RF Rx Instructions: do not exceed 3 doses per episode atorvastatin 40 mg tablet 40 mg PO BEDTIME Qty: 30 0RF latanoprost 0.005 % Drops 1 drp EYE-LEFT BEDTIME metoprolol succinate 25 mg Tablet Extended Release 24 Hr 37.5 mg PO BEDTIME aspirin 81 mg tablet,delayed release (DR/EC) 81 mg PO BEDTIME Referrals: Mickey Brito MD [Primary Care Provider] - Stand Alone Forms: Patient Portal/API
[2022-11-08] MEDS: cephALEXin 250 MG CAPSULE 500 MG PO (23:02)
== END 2022-11-08 23:19 | disposition home or self-care (01) ==
PROVIDERS: Emergency Provider Emergency Medicine; Family Provider Internal Medicine; PCP Internal Medicine
DX: L03.115 Cellulitis of right lower limb (principal)
CPT/HCPCS: 99283

== ENCOUNTER → 2023-05-17 16:11 | Outpatient (CLI) | payer MEDICARE, OTHER, SELFPAY ==
[2022-05-16 16:37] VITALS: BMI 25.0
[2023-05-17 17:04] LABS: Hemoglobin A1C% w Est Avg Glu 6.3 % (4.0-6.0)
[2023-05-17 17:22] LABS: BUN Creatinine Ratio 31.8 (6-22); Blood Urea Nitrogen 28 mg/dL (9-20); Calcium 9.2 mg/dL (8.4-10.2); Carbon Dioxide 31 mmol/L (22-32); Chloride 101 mmol/L (98-107); Estimated Glomerular Filt Rate > 60 mL/min (>60); Glucose 93 mg/dL (80-110); HEMOLYSIS 40 (0-50); Potassium 4.3 mmol/L (3.4-5.1); Sodium 137 mmol/L (137-145)
[2023-05-17 17:46] LABS: Prostate Specific Antigen 0.944 ng/mL (0.10-4.00)
[2023-05-17 19:00] LABS: Creatinine Urine Random 51.5 mg/dL
[2023-05-17 19:09] LABS: Microalbumin Urine Random 10.2 mg/dL (0-1.6)
== END ==
PROVIDERS: Family Provider Internal Medicine; PCP Internal Medicine; Referring Provider Internal Medicine; Visit Provider Internal Medicine
DX: E10.42 Type 1 diabetes mellitus with diabetic polyneuropathy (principal); N40.1 Benign prostatic hyperplasia with lower urinary tract symptoms; E10.3493 Type 1 diabetes mellitus with severe nonproliferative diabetic retinopathy without macular edema, bilateral; N13.8 Other obstructive and reflux uropathy
CPT/HCPCS: 36415; 80048; 82043; 82570; 83036; 84153

== ENCOUNTER → 2023-05-18 08:59 | Outpatient (CLI) | payer MEDICARE, OTHER, SELFPAY ==
[2022-05-16 16:37] VITALS: BMI 25.0
[2023-05-19 12:54] LABS: Fecal Immunochemical Test Negative (Negative)
== END ==
PROVIDERS: Family Provider Internal Medicine; PCP Internal Medicine; Referring Provider Internal Medicine; Visit Provider Internal Medicine
DX: Z12.11 Encounter for screening for malignant neoplasm of colon (principal)
CPT/HCPCS: 82274

== ENCOUNTER → 2023-06-15 06:49 | Outpatient (CLI) | payer MEDICARE, OTHER, SELFPAY ==
[2022-05-16 16:37] VITALS: BMI 25.0
--- NOTE | 2023-06-15 | DI.ECHO.S_ITS ---
[place] [facility]---------+ [facility] +---------+ : : [address] : : : : [id number] : : : : Phone: [phone]+ Echocardiogram Report + + :Name: MARCELLA HAMILTON Study Date: 06/15/2023 Height: 66.5 in: :[facility] ReadingLocation: Weight: 165 lb : : Gender: Male BSA: 1.9 m2 : :: 1950 Age: 73 yrs BP: 155/84 mmHg: :Reason For Study: LEFT VENTRICULAR OUTFLOW TRACT OBSTRUCTION : :Ordering Physician: RALPH, : :CRISTHIAN Performed By: Kasey Nunes : :Referring: CRISTHIAN CHINCHILLA : + + Interpretation Summary 1) Small left ventricular cavity with normal wall motion and normal systolic function (EF 65-70%). 2) Increased septal wall thickness at 1.7cm. The left ventricular outflow velocity with valsalva is 2.89m/s (peak gradient 33mmHg). 3) Normal right ventricular size and function. 4) There is systolic anterior motion of the mitral valve. 5) There is mild mitral regurgitation. 6) Compared to the Echo done 12/29/2021, no significant change. Procedure: A two-dimensional transthoracic echocardiogram with color flow and Doppler was performed. The study quality was technically adequate. Comparison is made with the echocardiogram of 12/29/2021. The patient was in sinus rhythm with heart rates between 59-65 bpm during the exam. Left Ventricle: The left ventricle is normal in size. Proximal septal thickening is noted. The left ventricular outflow velocity with valsalva is 2.85. The ejection fraction is estimated to be 65-70%. Left ventricular systolic function appears normal without focal wall motion abnormalities. Right Ventricle: The right ventricle is normal in size and function. Atria: The left atrial size is normal. Right atrial size is normal. There is no Doppler evidence for an interatrial shunt. Mitral Valve: There is mild to moderate mitral annular calcification. The mitral valve leaflets appear moderately thickened, but open well. There is systolic anterior motion of the mitral valve. There is mild mitral regurgitation. Aortic Valve: The aortic valve is trileaflet. The aortic valve is slightly calcified. The aortic valve opens well. There is no aortic valve stenosis. No aortic regurgitation is present. Tricuspid Valve: The tricuspid valve is normal in structure and function. There is mild tricuspid regurgitation. The right ventricular systolic pressure is estimated to be at least 39 mmHg based on an estimated right atrial pressure of 3 mm Hg. Pulmonic Valve: The pulmonic valve is not well visualized. There is a trace or physiologic amount of pulmonic regurgitation. Great Vessels: The aortic root is normal size. The dimensions of the ascending aorta are normal. The IVC is of normal diameter and collapses greater than 50% with a sniff. This suggests a low right atrial pressure of 3 mm Hg. Pericardium/ Pleura There is no pericardial effusion. There is no pleural effusion. MMode/2D Measurements & Calculations LVIDd: 5.0 cm LVOT diam: 1.9 cm LVIDs: 2.7 cm Ao root diam: 2.6 cm FS: 45.2 % asc Aorta Diam: 2.8 cm IVSd: 0.99 cm Ao Arch Diam (Prox Trans): 2.7 cm LVPWd: 0.70 cm LV arroyo. diameter/BSA (cm/m^2): 2.7 LV sys. diameter/BSA (cm/m^2): 1.5 LA A2 area: 15.5 cm2 RA long axis: 4.4 cm LA A4 area: 14.9 cm2 RA area: 13.5 cm2 LA length (vol): 5.1 cm RA vol: 34.9 ml LA vol: 38.1 ml RA : 18.8 ml/m2 LA vol index: 20.6 ml/m2 IVC diam: 1.5 cm RVD1 (basal): 3.4 cm TAPSE: 1.9 cm Doppler Measurements & Calculations Ao V2 max: 138.4 cm/sec LVOT Max Karl: 131.1 cm/sec Ao V2 mean: 104.4 cm/sec LV V1 max P.9 mmHg Ao max P.7 mmHg LV V1 VTI: 31.8 cm Ao mean P.7 mmHg ROHIT(I,D): 2.8 cm2 Ao V2 VTI: 31.0 cm ROHIT(V,D): 2.6 cm2 sev ratio: 1.0 ROHIT indexed to BSA (cm^2/m^2): 1.5 MV E max karl: 108.2 cm/sec TR max karl: 297.8 cm/sec MV A max karl: 103.7 cm/sec TR max P.5 mmHg MV E/A: 1.0 PA V2 max: 80.9 cm/sec Med Peak E' Karl: 6.8 cm/sec PA V2 mean: 62.6 cm/sec E/E' med: 15.9 PA mean P.7 mmHg Lat Peak E' Karl: 6.9 cm/sec PA pr(Accel): 20.8 mmHg E/E' lat: 15.6 E/e' average: 15.8 MV dec time: 0.31 sec SV(LVOT): 86.5 ml Reading Physician:10:53 AM
== END ==
PROVIDERS: Family Provider Internal Medicine; PCP Internal Medicine; Referring Provider Internal Medicine Cardiovascular Disease; Visit Provider Internal Medicine Cardiovascular Disease
DX: Q24.8 Other specified congenital malformations of heart (principal); I08.1 Rheumatic disorders of both mitral and tricuspid valves
CPT/HCPCS: 93306

== ENCOUNTER → 2023-09-14 16:49 | Outpatient (CLI) | payer MEDICARE, OTHER, SELFPAY ==
[2022-05-16 16:37] VITALS: BMI 25.0
[2023-09-14 18:30] LABS: Aspartate Aminotransferase 51 IU/L (17-59); BUN Creatinine Ratio 22.5 (6-22); Blood Urea Nitrogen 20 mg/dL (9-20); Calcium 8.9 mg/dL (8.4-10.2); Carbon Dioxide 35 mmol/L (22-32); Chloride 105 mmol/L (98-107); Estimated Glomerular Filt Rate > 60 mL/min (>60); Glucose 95 mg/dL (80-110); HEMOLYSIS 31 (0-50); Potassium 4.8 mmol/L (3.4-5.1); Sodium 139 mmol/L (137-145)
[2023-09-14 19:13] LABS: Hemoglobin A1C% w Est Avg Glu 6.2 % (4.0-6.0)
== END ==
PROVIDERS: Family Provider Internal Medicine; PCP Internal Medicine; Referring Provider Internal Medicine; Visit Provider Internal Medicine
DX: E10.42 Type 1 diabetes mellitus with diabetic polyneuropathy (principal); E78.2 Mixed hyperlipidemia
CPT/HCPCS: 36415; 80048; 83036; 84450

== ENCOUNTER → 2023-11-17 08:49 | Outpatient (CLI) | payer MEDICARE, OTHER, SELFPAY ==
[2022-05-16 16:37] VITALS: BMI 25.0
[2023-11-17 10:49] LABS: Add Manual Diff / Slide Review NO; Basophils Absolute Auto 100 /uL (0-100); Eosinophils Absolute Auto 100 /uL (0-450); Eosinophils Percent Auto 2.9 % (2-4); Hematocrit 41.7 % (41-53); Hemoglobin 14.4 g/dL (13.5-17.5); Lymphocytes Absolute Auto 1600 /uL (1100-4500); Lymphocytes Percent Auto 31.8 % (25-40); Mean Corpuscular HGB Conc 34.5 % (30-36); Mean Corpuscular Hemoglobin 33.3 PG (26-34); Mean Corpuscular Volume 96.5 fL (80-100); Monocytes Absolute Auto 600 /uL (0-900); Monocytes Percent Auto 12.4 % (3-14); Neutrophils Absolute Auto 2700 /uL (1500-7000); Neutrophils Percent Auto 51.9 % (50-75); Platelet Count 175 X10^3/uL (150-400); Red Blood Cell Count 4.32 X10^6/uL (4.5-5.9); Red Cell Distribution Width 13.3 % (11.6-14.8); White Blood Cell Count 5.2 X10^3/uL (4.5-11.0)
[2023-11-17 11:18] LABS: BUN Creatinine Ratio 18.5 (6-22); Blood Urea Nitrogen 20 mg/dL (9-20); Calcium 8.8 mg/dL (8.4-10.2); Carbon Dioxide 31 mmol/L (22-32); Chloride 108 mmol/L (98-107); Cholesterol 89 mg/dL (140-199); Estimated Glomerular Filt Rate > 60 mL/min (>60); Glucose 111 mg/dL (80-110); HDL Cholesterol 37 mg/dL (40-60); HEMOLYSIS 19 (0-50); LDL Cholesterol Calculated 40 mg/dL (<100); Potassium 5.2 mmol/L (3.4-5.1); Sodium 138 mmol/L (137-145); Triglycerides 60 mg/dL (35-150)
== END ==
PROVIDERS: Family Provider Internal Medicine; PCP Internal Medicine; Referring Provider Internal Medicine Cardiovascular Disease; Visit Provider Internal Medicine Cardiovascular Disease
DX: I25.10 Atherosclerotic heart disease of native coronary artery without angina pectoris (principal)
CPT/HCPCS: 36415; 80048; 80061; 85025

== ENCOUNTER 2024-01-01 08:07 | Emergency (ER) | payer MEDICARE, OTHER, SELFPAY ==
[2022-05-16 16:37] VITALS: BMI 25.0
[2024-01-01] VITALS (7 sets, daily range): BP systolic 119–137; BP diastolic 55–63; PULSE 51–58; RESP 11–18; TEMP 36.9–37; O2SAT 96–99; BMI 25.0
--- NOTE | 2024-01-01 08:15 | ED.GENADULT ---
HPI - General Adult General Chief complaint: Syncope Stated complaint: Syncope Time Seen by Provider: 01/01/24 08:09 Source: patient and EMS Mode of arrival: EMS Limitations: no limitations History of Present Illness HPI narrative: Patient is a 73-year-old male who arrives in the emergency department for evaluation of a presyncope/syncopal episode. 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 He stated that he was recently started on a new blood pressure medicine but does not know the name of it. This is started by his primary doctor. He made it known during the initial HPI that he was a DNR. He stated that he did travel last week. Spent some time in [place] where it was warm. Has been feeling somewhat poorly since that time. Patient did receive some fluids by EMS prior to arrival. Related Data Home Medications Medication Instructions Recorded Confirmed timolol maleate 0.5 % eye drops 1 drp EYE-LEFT QAM #2.5 mL 12/21/12 12/13/23 aspirin 81 mg tablet,delayed 81 mg PO BEDTIME 08/17/21 12/13/23 release latanoprost 0.005 % eye drops 1 drp EYE-LEFT BEDTIME 08/17/21 12/13/23 metoprolol succinate 25 mg 37.5 mg PO BEDTIME 08/17/21 12/13/23 tablet,extended release 24 hr cholecalciferol (vitamin D3) 50 50 mcg PO DAILY 11/01/21 12/13/23 mcg (2,000 unit) capsule ferrous sulfate 325 mg (65 mg 325 mg PO DAILY 11/01/21 12/13/23 iron) tablet (Feosol) Previous Rx's Medication Instructions Recorded nitroglycerin 0.4 mg sublingual 0.4 mg sublingual Q5-15M PRN chest 08/19/22 tablet pain #25 tabs flash glucose sensor (FreeStyle #7 ea 09/09/22 Hao 14 Day Sensor kit) insulin pump cart,cont inf,BT #5 ea 08/17/23 (Omnipod Dash Pods (Gen 4) subcutaneous cartridge) Humalog U-100 Insulin 100 unit/mL 1 sliding scale dose SUBCUT 08/25/23 subcutaneous solution (insulin USEASDIRECTD #10 mL lispro) atorvastatin 40 mg tablet 40 mg PO BEDTIME #90 tabs 11/15/23 amlodipine 5 mg tablet 5 mg PO DAILY #90 tabs 12/13/23 tamsulosin 0.4 mg capsule 0.4 mg PO DAILY #90 caps 01/01/24 Allergies Allergy/AdvReac Type Severity Reaction Status Date / Time codeine [CODEINE] Allergy Severe Tongue & Verified 12/13/23 14:20 throat swelling, vomiting, total body rash propoxyphene Allergy Nausea Verified 12/13/23 14:20 losartan AdvReac Severe hyperkalemi Verified 12/13/23 15:45 a prochlorperazine AdvReac Severe Nausea, Verified 12/13/23 14:20 [PROCHLORPERAZINE] vomiting, unable to urinate Narcotics AdvReac Severe Most Uncoded 12/13/23 14:20 don't work on me, nausea, vomiting Steroid AdvReac Severe Ketoacidosi Uncoded 12/13/23 14:20 s Review of Systems Review of Systems ROS Unobtainable: All systems reviewed & are unremarkable except as noted in HPI and below Patient History Medical History Essential hypertension COVID-19 virus infection (03/2022) Male circumcision History of alcohol use disorder Hydrocele BPH w urinary obs/LUTS Do not resuscitate Dysphagia Mixed hyperlipidemia Coronary artery disease Polyneuropathy, unspecified 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 Anxiety Easy bruisability Osteoarthritis BPH (benign prostatic hyperplasia) Tinnitus Glaucoma Insulin pump in place Legally blind HTN (hypertension) Hyperlipidemia Surgical History History of hydrocelectomy History of total right knee replacement (08/25/21) History of cystoscopy History of vasectomy (05/1987) Hx of oral surgery Hx of left cataract extraction History of surgery Hx of arthroscopy of left knee (06/10/21) History of surgery (1998) H/O shoulder surgery (01/25/09) H/O eye surgery Family History Mother Alcoholism Father Drowned Family/Other Cancer Diabetes mellitus Hypertension Kidney stones Thyroid disease IBD (inflammatory bowel disease) Social History number of children: 4 household members: spouse Smoking Status: Former smoker alcohol intake: former Type(s) of exercise: other frequency: daily Smoking Status: Former smoker alcohol intake frequency: holidays/special occasions only Substance Use Type: does not use and former substance user Exam Initial Vital Signs Initial Vital Signs: Vital Signs Pulse Rate 54 L 01/01/24 08:13 Pulse Oximetry 96 01/01/24 08:13 HENMT Head: normal to inspection and normocephalic Resp Effort & Inspection: normal respiratory effort Cardio Rate: regular rate GI Inspection: non-distended Skin Other: Somewhat diaphoretic Neuro General: patient alert and patient awake Extrem Other: No gross deformities Course Orders Ordered: ED Orders 01/01/24 08:10 EKG-12 Lead Stat 01/01/24 08:18 Basic Metabolic Panel Stat Complete Blood Count AUTO DIFF Stat Ethanol (ETOH) Stat Discontinued Medications Sodium Chloride (Normal Saline 0.9%) 1,000 mls @ 1,000 mls/hr IV BOLUS ONE Stop: 01/01/24 09:13 Last Admin: 01/01/24 08:38 Dose: 1,000 mls/hr Documented By: MICHAELA Vital Signs Vital signs: Vital Signs - 8 hr 01/01/24 08:13 01/01/24 08:17 01/01/24 08:17 Temperature Pulse Rate 54 L 52 L Respiratory Rate 13 Blood Pressure 137/63 Pulse Oximetry 96 98 Oxygen Delivery Method 01/01/24 08:18 01/01/24 08:30 01/01/24 08:30 Temperature 98.6 F Pulse Rate 53 L 51 L Respiratory Rate 18 11 L Blood Pressure 137/63 128/59 L Pulse Oximetry 98 96 Oxygen Delivery Method Room Air 01/01/24 09:00 01/01/24 09:00 01/01/24 09:10 Temperature Pulse Rate 54 L 58 L Respiratory Rate 11 L 13 Blood Pressure 137/61 Pulse Oximetry 98 99 Oxygen Delivery Method 01/01/24 09:10 Temperature Pulse Rate Respiratory Rate Blood Pressure 124/63 Pulse Oximetry Oxygen Delivery Method Medical Decision Making Lab Data Lab results reviewed: Yes I reviewed the patient's lab results. 01/01/24 08:18 01/01/24 08:18 Labs: Lab Results 01/01/24 Range/Units 08:18 WBC 6.4 (4.5-11.0) X10^3/uL RBC 4.39 L (4.5-5.9) X10^6/uL Hgb 14.6 (13.5-17.5) g/dL Hct 42.8 (41-53) % MCV 97.5 (80-100) fL MCH 33.2 (26-34) PG MCHC 34.1 (30-36) % RDW 13.3 (11.6-14.8) % Plt Count 187 (150-400) X10^3/uL Neut % (Auto) 56.5 (50-75) % Lymph % (Auto) 26.1 (25-40) % [place] % (Auto) 12.6 (3-14) % Eos % (Auto) 4.4 H (2-4) % Baso % (Auto) 0.4 (0-2) % Neut # (Auto) 3600 (2075-4952) /uL Lymph # (Auto) 1700 (9501-0717) /uL [place] # (Auto) 800 (0-900) /uL Eos # (Auto) 300 (0-450) /uL Baso # (Auto) 0 (0-100) /uL Sodium 136 L (137-145) mmol/L Potassium 4.2 (3.4-5.1) mmol/L Chloride 108 H (98-107) mmol/L Carbon Dioxide 24 (22-32) mmol/L BUN 20 (9-20) mg/dL Creatinine 1.05 (0.66-1.25) mg/dL Estimated GFR > 60 (>60) mL/min BUN/Creatinine Ratio 19.0 (6-22) Glucose 146 H (80-110) mg/dL Calcium 8.8 (8.4-10.2) mg/dL Ethyl Alcohol < 10 ( - 10) mg/dL Point of Care Testing Glucose POC 133 Point of care testing: Point of Care Testing Glucose POC 133 ECG Data Attestation: I personally reviewed and interpreted this ECG as follows: Interpretation: Sinus bradycardia Ventricular rate of 52 Normal axis Normal QRS Normal QTC No ST T wave changes MDM Narrative Medical decision making narrative: Blood pressure is unremarkable. Has been bradycardic into the 50s and low 60s. He states this is baseline for him. He was able to stand at bedside. Was not orthostatic. Does feel weak. I suspect that this is related to the amlodipine which he just started a couple days ago. Had a discussion with him regarding options. We opted to stop the amlodipine. Will have him continue with the metoprolol. He will take his blood pressure at home and contact his primary doctor to discuss potentially new medications. Discharge Plan Departure Patient Disposition: Home Clinical Impression: Pre-syncope Instructions: DI for Syncope in Adults (Fainting) Activity Restrictions/Additional Instructions: Continue to take your metoprolol. Stop taking the amlodipine which is the new medication that was started over the weekend. Be sure that you are staying hydrated. I suspect that your symptoms will improve the next couple days. Continue to take your blood pressure at home. Contact your primary care doctor's office for follow-up. Return to the emergency department for new symptoms. Prescriptions: No Action timolol maleate 0.5 % Drops 1 drp EYE-LEFT QAM Qty: 2.5 (DME) FreeStyle Hao 14 Day Sensor Kit See Rx Instructions .Route Qty: 7 0RF Rx Instructions: As directed;Heri P#[phone] F#[phone];90 supply. Change senor every 14 days. (DME) Omnipod Dash Pods (Gen 4) Cartridge See Rx Instructions .ROUTE .MEDSUPPLY Qty: 5 6RF Rx Instructions: As directed and change it every 3 days. insulin lispro [Humalog U-100 Insulin] 100 unit/mL solution 1 sliding scale dose SUBCUT USEASDIRECTD Qty: 10 1RF Patient Comments: 0.3 units/per hour on insulin pump Rx Instructions: max dose 50U/day in pump change pump ever 72 hours atorvastatin 40 mg tablet 40 mg PO BEDTIME Qty: 90 3RF tamsulosin 0.4 mg capsule 0.4 mg PO DAILY Qty: 90 3RF amlodipine 5 mg tablet 5 mg PO DAILY Qty: 90 3RF ferrous sulfate [Feosol] 325 mg (65 mg iron) tablet 325 mg PO DAILY cholecalciferol (vitamin D3) 50 mcg (2,000 unit) capsule 50 mcg PO DAILY nitroglycerin 0.4 mg tablet, sublingual 0.4 mg sublingual Q5-15M PRN (Reason: chest pain) Qty: 25 3RF Rx Instructions: do not exceed 3 doses per episode latanoprost 0.005 % Drops 1 drp EYE-LEFT BEDTIME metoprolol succinate 25 mg Tablet Extended Release 24 Hr 37.5 mg PO BEDTIME aspirin 81 mg tablet,delayed release (DR/EC) 81 mg PO BEDTIME Referrals: Mickey Brito MD [Primary Care Provider] - Stand Alone Forms: Patient Portal/API
--- NOTE | 2024-01-01 08:22 | EKG_ITS ---
[address] [place] [address] [address], [place] [address] Test Date: 2024-01-01 Pat Name: Saul Mcmillan Department: Room: Gender: Male Manager Of Clinical: PADMAJA : 1950 Requested By: Order Number: [id number] Reading MD: Praful Betancourt MD Measurements Intervals [place] Rate: 52 P: 15 MA: 166 QRS: 34 QRSD: 76 T: 6 QT: 446 QTc: 414 Interpretive Statements Sinus bradycardia Electronically Signed On 01-01-2024 10:42:02 PDT by Praful Betancourt MD
[2024-01-01 08:28] LABS: Add Manual Diff / Slide Review NO; Basophils Absolute Auto 0 /uL (0-100); Basophils Percent Auto 0.4 % (0-2); Eosinophils Absolute Auto 300 /uL (0-450); Eosinophils Percent Auto 4.4 % (2-4); Hematocrit 42.8 % (41-53); Hemoglobin 14.6 g/dL (13.5-17.5); Lymphocytes Absolute Auto 1700 /uL (1100-4500); Lymphocytes Percent Auto 26.1 % (25-40); Mean Corpuscular HGB Conc 34.1 % (30-36); Mean Corpuscular Hemoglobin 33.2 PG (26-34); Mean Corpuscular Volume 97.5 fL (80-100); Monocytes Absolute Auto 800 /uL (0-900); Monocytes Percent Auto 12.6 % (3-14); Neutrophils Absolute Auto 3600 /uL (1500-7000); Neutrophils Percent Auto 56.5 % (50-75); Platelet Count 187 X10^3/uL (150-400); Red Blood Cell Count 4.39 X10^6/uL (4.5-5.9); Red Cell Distribution Width 13.3 % (11.6-14.8); White Blood Cell Count 6.4 X10^3/uL (4.5-11.0)
[2024-01-01] MEDS: SODIUM CHLORIDE 0.9% 1,000 ML 1000 ML IV (08:38)
[2024-01-01 08:41] LABS: Blood Urea Nitrogen 20 mg/dL (9-20); Calcium 8.8 mg/dL (8.4-10.2); Carbon Dioxide 24 mmol/L (22-32); Chloride 108 mmol/L (98-107); Estimated Glomerular Filt Rate > 60 mL/min (>60); Glucose 146 mg/dL (80-110); HEMOLYSIS 45 (0-50); Potassium 4.2 mmol/L (3.4-5.1); Sodium 136 mmol/L (137-145)
[2024-01-01 08:42] LABS: Ethanol (ETOH) < 10 mg/dL
--- NOTE | 2024-01-01 09:16 | PC.NURSE ---
Pt ambulated well; pt states he felt dizzy while standing and ambulating. Orthostatic vital signs: laying 55bpm 137/61, sitting 60bpm 124/63, standing 58bpm 126/61. MD Mena made aware.
== END 2024-01-01 09:44 | disposition home or self-care (01) ==
PROVIDERS: Emergency Provider Emergency Medicine; Family Provider Internal Medicine; PCP Internal Medicine
DX: R55 Syncope and collapse (principal); R00.1 Bradycardia, unspecified
CPT/HCPCS: 80048; 80320; 82962; 85025; 93005; 93010; 99283; 99284

== ENCOUNTER 2024-02-19 11:45 | Emergency (ER) | payer MEDICARE, OTHER, SELFPAY ==
[2022-05-16 16:37] VITALS: BMI 25.0
[2024-02-19] VITALS (14 sets, daily range): BP systolic 165–194; BP diastolic 70–89; PULSE 54–58; RESP 8–17; TEMP 36.7; O2SAT 95–99; BMI 25.2
--- NOTE | 2024-02-19 11:52 | EKG_ITS ---
[address] [address] Test Date: 2024-02-19 Pat Name: Saul Mcmillan Department: Room: Gender: Male County Administrator: MITUL : 1950 Requested By: Order Number: [id number] Reading MD: Praful Betancourt MD Measurements Intervals [place] Rate: 54 P: 24 CT: 164 QRS: 52 QRSD: 78 T: -2 QT: 452 QTc: 428 Interpretive Statements Sinus bradycardia Electronically Signed On 02-19-2024 14:59:12 PDT by Praful Betancourt MD
--- NOTE | 2024-02-19 11:52 | DI.RAD.S_ITS ---
PROCEDURE: XR CHEST 1V INDICATIONS: chest pain TECHNIQUE: One view of the chest was acquired. COMPARISON: [facility], CR, XR CHEST 1V, 08/27/2021, 0:53. FINDINGS: Overlying EKG leads limit evaluation. Surgical changes and devices: None. Lungs and pleura: Lung volumes are slightly low, but lungs are clear. No pleural effusions or pneumothorax. Mediastinum: Mediastinal contours appear normal. Heart size is normal. Aortic arch is calcified, indicating atherosclerosis. Bones and chest wall: No suspicious bony lesions. Overlying soft tissues appear unremarkable. IMPRESSION: No acute cardiopulmonary process. Dictated by: Obie Michel M.D. on 02/19/2024 at 11:56 Approved by: Obie Michel M.D. on 02/19/2024 at 11:56
--- NOTE | 2024-02-19 11:53 | DI.CT.S_ITS ---
PROCEDURE: CT CERVICAL SPINE WO CON INDICATIONS: fall in shower, + LOC TECHNIQUE: Noncontrast 3 mm thick sections acquired from the skull base to the T4 level. Sagittal and coronal reformats were then constructed. For radiation dose reduction, the following was used: automated exposure control, adjustment of mA and/or kV according to patient size. COMPARISON: None. FINDINGS: Image quality: Excellent. Bones: Subtle nondisplaced lucency in the left lateral arch of C2 (2/30, 4/52). Straightening of the normal cervical lordosis. Moderate to marked multilevel degenerative changes with osteophytosis, disc height loss and facet arthropathy, worse at C5-C6. Visualized superior ribs are intact. Soft tissues: Prevertebral soft tissues are normal in thickness. No paravertebral hematomas. No apical pneumothoraces. Mild calcification IMPRESSION: 1. Subtle nondisplaced lucency in the left lateral arch of C2 which may reflect a subtle nondisplaced fracture versus a vascular channel. Correlate for point tenderness. If clinically warranted, consider a MRI of the C-spine for further evaluation. 2. Straightening of the normal cervical lordosis which may be secondary to muscular strain/spasm. 3. Moderate to marked multilevel degenerative changes of the spine, worse at C5-C6. Dictated by: Obie Michel M.D. on 02/19/2024 at 12:38 Approved by: Obie Michel M.D. on 02/19/2024 at 12:45
--- NOTE | 2024-02-19 11:53 | DI.CT.S_ITS ---
PROCEDURE: CT HEAD/BRAIN WO CON INDICATIONS: fall in shower, + LOC TECHNIQUE: Noncontrast 4.5 mm thick angled axial sections acquired from the foramen magnum to the vertex, with coronal and sagittal reformats. For radiation dose reduction, the following was used: automated exposure control, adjustment of mA and/or kV according to patient size. COMPARISON: None available at time of dictation. FINDINGS: Image quality: Diagnostic. CSF spaces: Basal cisterns are patent. No extra-axial fluid collections. Ventricles are normal in size and shape. Brain: No midline shift. No intracranial masses or hemorrhage. Lin-white matter interface is normal. Mild diffuse cerebral volume loss. Periventricular and subcortical white matter hypodensities are most consistent with chronic microvascular ischemic changes. Skull and face: Calvarium and visualized facial bones are intact, without suspicious lesions. Chronic appearing deformity of the right globe. Sinuses: Mild pansinus mucosal thickening. Mastoids are clear. IMPRESSION: No acute intracranial pathology. Chronic appearing right globe deformity. Correlate with clinical history. Approved by: Génesis Posey M.D.,Ph.D. on 02/19/2024 at 13:03
[2024-02-19 11:58] LABS: Add Manual Diff / Slide Review NO; Basophils Absolute Auto 100 /uL (0-100); Basophils Percent Auto 0.9 % (0-2); Eosinophils Absolute Auto 100 /uL (0-450); Eosinophils Percent Auto 2.6 % (2-4); Hematocrit 39.2 % (41-53); Hemoglobin 13.6 g/dL (13.5-17.5); Lymphocytes Absolute Auto 1500 /uL (1100-4500); Lymphocytes Percent Auto 26.9 % (25-40); Mean Corpuscular HGB Conc 34.7 % (30-36); Mean Corpuscular Hemoglobin 33.4 PG (26-34); Mean Corpuscular Volume 96.2 fL (80-100); Monocytes Absolute Auto 1100 /uL (0-900); Monocytes Percent Auto 19.7 % (3-14); Neutrophils Absolute Auto 2800 /uL (1500-7000); Neutrophils Percent Auto 49.9 % (50-75); Platelet Count 193 X10^3/uL (150-400); Red Blood Cell Count 4.07 X10^6/uL (4.5-5.9); Red Cell Distribution Width 13.1 % (11.6-14.8); White Blood Cell Count 5.6 X10^3/uL (4.5-11.0)
[2024-02-19 12:00] LABS: Prothrombin Time 11.8 SECONDS (9.4-12.5)
[2024-02-19 12:03] LABS: PTT Partial Thromboplastin Tim 23 SECONDS (25.1-36.5)
[2024-02-19 12:05] LABS: Alanine Aminotransferase 21 IU/L (<50); Albumin 3.4 g/dL (3.5-5.0); Alkaline Phosphatase 68 U/L (38-126); Aspartate Aminotransferase 39 IU/L (17-59); BUN Creatinine Ratio 21.6 (6-22); Bilirubin Total 0.8 mg/dL (0.2-1.3); Blood Urea Nitrogen 36 mg/dL (9-20); Calcium 8.5 mg/dL (8.4-10.2); Carbon Dioxide 30 mmol/L (22-32); Chloride 102 mmol/L (98-107); Creatine Kinase 66 U/L (55-170); Estimated Glomerular Filt Rate 43 mL/min (>60); Globulin 3.4 g/dL (1.7-4.1); Glucose 126 mg/dL (80-110); HEMOLYSIS 62 (0-50); Lipase 49 U/L (23-300); Magnesium 2.3 mg/dL (1.6-2.3); Potassium 3.7 mmol/L (3.4-5.1); Sodium 136 mmol/L (137-145); Total Protein 6.8 g/dL (6.3-8.2)
[2024-02-19 12:16] LABS: NT-proBNP (BNP-Adult 18+) 1120 pg/mL (<125); Troponin I < 0.012 ng/mL (0.01-0.034)
--- NOTE | 2024-02-19 12:45 | ED.GENADULT ---
HPI - General Adult General Chief complaint: Syncope Stated complaint: 1950 Time Seen by Provider: 02/19/24 12:45 Source: patient and EMS Mode of arrival: EMS Limitations: no limitations History of Present Illness HPI narrative: 73-year-old male history of type 1 diabetes with blindness, hypertension, coronary artery disease, dyslipidemia cardiomyopathy who presents with complaint of fall versus syncopal episode. Patient states he was taking a shower this morning and likely pass out. Went to get up and then fell or passed out again. Patient states was out for a period of time unsure exactly how long. was watching TV did not hear him but he states he thinks a few minutes. Patient did have recent COVID infection after a cruise to [place]. Patient states he started having symptoms on Monday with nonproductive cough, congestion and feeling run down. Started Paxlovid 2 days ago and was feeling somewhat better. Patient denies fevers has had some chills. Patient denies headache, no neck or back pain, felt a little bit dizzy when EMS picked him up but feels okay flat. Denies any chest pain or shortness of breath today. Denies any back pain abdominal or flank pain. Denies any nausea or vomiting. Denies issues with bowel movements. States he is chronic neuropathy no new changes. Does have a complaint of right ankle pain over the area of the Achilles tendon. Patient states he has been diabetic since 1958 has known history of cardiomyopathy and arterial disease. Patient states no prior cardiac interventions, no pulmonary surgeries. Has had prior knee surgery. Has allergies or adverse responses to codeine, opiates, Compazine and steroids. No tobacco, denies regular alcohol or recreational drugs. States he is a DNR/DNI. His primary care physician is Dr. Brito. His infrastructure tech is Dr. Chinchilla. Related Data Home Medications Medication Instructions Recorded Confirmed timolol maleate 0.5 % eye drops 1 drp EYE-LEFT QAM #2.5 mL 12/21/12 01/26/24 aspirin 81 mg tablet,delayed 81 mg PO BEDTIME 08/17/21 01/26/24 release latanoprost 0.005 % eye drops 1 drp EYE-LEFT BEDTIME 08/17/21 01/26/24 metoprolol succinate 25 mg 37.5 mg PO BEDTIME 08/17/21 01/26/24 tablet,extended release 24 hr cholecalciferol (vitamin D3) 50 50 mcg PO DAILY 11/01/21 01/26/24 mcg (2,000 unit) capsule ferrous sulfate 325 mg (65 mg 325 mg PO DAILY 11/01/21 01/26/24 iron) tablet (Feosol) Previous Rx's Medication Instructions Recorded flash glucose sensor (FreeStyle #7 ea 09/09/22 Hao 14 Day Sensor kit) insulin pump cart,cont inf,BT #5 ea 08/17/23 (Omnipod Dash Pods (Gen 4) subcutaneous cartridge) Humalog U-100 Insulin 100 unit/mL 1 sliding scale dose SUBCUT 08/25/23 subcutaneous solution (insulin USEASDIRECTD #10 mL lispro) atorvastatin 40 mg tablet 40 mg PO BEDTIME #90 tabs 11/15/23 tamsulosin 0.4 mg capsule 0.4 mg PO DAILY #90 caps 01/01/24 nitroglycerin 0.4 mg sublingual 0.4 mg sublingual Q5-15M PRN chest 01/09/24 tablet pain #25 tabs hydrochlorothiazide 25 mg tablet 25 mg PO QAM #90 tabs 01/26/24 Allergies Allergy/AdvReac Type Severity Reaction Status Date / Time codeine [CODEINE] Allergy Severe Tongue & Verified 01/26/24 14:02 throat swelling, vomiting, total body rash propoxyphene Allergy Nausea Verified 01/26/24 14:02 losartan AdvReac Severe hyperkalemi Verified 01/26/24 14:02 a prochlorperazine AdvReac Severe Nausea, Verified 01/26/24 14:02 [PROCHLORPERAZINE] vomiting, unable to urinate Narcotics AdvReac Severe Most Uncoded 01/26/24 14:02 don't work on me, nausea, vomiting Steroid AdvReac Severe Ketoacidosi Uncoded 01/26/24 14:02 s Review of Systems Review of Systems ROS Unobtainable: All systems reviewed & are unremarkable except as noted in HPI and below Patient History Medical History Essential hypertension COVID-19 virus infection (03/2022) Male circumcision History of alcohol use disorder Hydrocele BPH w urinary obs/LUTS Do not resuscitate Dysphagia Mixed hyperlipidemia Coronary artery disease Polyneuropathy, unspecified 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 Anxiety Easy bruisability Osteoarthritis BPH (benign prostatic hyperplasia) Tinnitus Glaucoma Insulin pump in place Legally blind HTN (hypertension) Hyperlipidemia Surgical History History of hydrocelectomy History of total right knee replacement (08/25/21) History of cystoscopy History of vasectomy (05/1987) Hx of oral surgery Hx of left cataract extraction History of surgery Hx of arthroscopy of left knee (06/10/21) History of surgery (1998) H/O shoulder surgery (01/25/09) H/O eye surgery Family History Mother Alcoholism Father Drowned Family/Other Cancer Diabetes mellitus Hypertension Kidney stones Thyroid disease IBD (inflammatory bowel disease) Social History number of children: 4 household members: spouse Smoking Status: Former smoker alcohol intake: former Type(s) of exercise: other frequency: daily Smoking Status: Former smoker alcohol intake frequency: holidays/special occasions only Substance Use Type: does not use and former substance user Exam Narrative Exam Narrative: GEN: Patient appears in [id number] distress. HEAD: No evidence of trauma, no raccoon/Gorman sign. NECK: Nontender, painless range of motion, trachea midline Negative Nexus criteria, no midline line tenderness, distracting injury, altered mental status, neuro deficit, recent EtOH. EYES: PERRLA, EOMI ENT: External inspection normal, trachea is midline, TM's are normal no hemotypanum, Nares are clear, no septal hematoma, no dental or oral injury, airway is normal and with normal occlusion, No bony tenderness RESP: Chest is nontender and has symmetric movement, no ecchymosis, breath sounds are normal no crackles, wheezes or rales CVS: Heart sounds are normal, no murmur noted, No JVD. ABG/GI: Nontender, soft, normal bowel sounds, no distention, no organomegaly, pelvic rock is negative NEURO: Oriented AOx3, neuro is grossly intact, sensation and motor is normal all 4 extremities moving, cranial nerves II through XII are intact, GCS is 15 PSYCH: Normal mood and affect SKIN: Patient has some abrasions on extremities, patient does have some ecchymosis of the left posterior chest and side in a pattern that appears to be consistent with having laid on the floor for a period of time, no hematoma the area is not tender to palpation, warm and dry, no crepitus and without decubitus BACK: No CVA tenderness, no vertebral tenderness, no step-off's, no crepitus EXT: Patient has tenderness over the right Achilles tendon, no bony tenderness of the foot, ankle knee or hip. No other bony tenderness of the rest of his extremities. Hips are nontender, no pedal edema, normal color and temperature, normal range of motion of extremities with normal tendon exam, 2+ pulses in all four extremities Initial Vital Signs Initial Vital Signs: Vital Signs Temperature 98.0 F 02/19/24 11:46 Pulse Rate 55 L 02/19/24 11:46 Respiratory Rate 14 02/19/24 11:46 Blood Pressure 176/81 H 02/19/24 11:46 Pulse Oximetry 99 02/19/24 11:46 Oxygen Delivery Method Room Air 02/19/24 11:46 Course Orders Ordered: ED Orders 02/19/24 11:40 Complete Blood Count AUTO DIFF Stat Comprehensive Metabolic Panel Stat Lipase Stat Magnesium Stat NT-proBNP (BNP-Adult 18+) Stat PTT Partial Thromboplastin Jus Stat Prothrombin Time INR Stat Troponin & CK Cardiac Panel Stat 02/19/24 11:52 XR chest 1V Stat EKG-12 Lead Stat 02/19/24 11:53 CT cervical spine wo con Stat CT head/brain wo con Stat 02/19/24 13:32 XR ankle RT min 3V Stat 02/19/24 13:55 COVID19 -Nasal RAPID Stat Discontinued Medications Sodium Chloride (Normal Saline 0.9%) 500 mls @ 1,000 mls/hr IV BOLUS ONE Stop: 02/19/24 14:01 Last Infusion: 02/19/24 15:23 Dose: Infused Documented By: Admin: 02/19/24 13:50 Dose: 1,000 mls/hr Documented By: SB Vital Signs Vital signs: Vital Signs - 8 hr 02/19/24 11:46 02/19/24 11:47 02/19/24 12:00 Temperature 98.0 F Pulse Rate 55 L 55 L 56 L Respiratory Rate 14 14 Blood Pressure 176/81 H Pulse Oximetry 99 95 97 Oxygen Delivery Method Room Air 02/19/24 12:01 02/19/24 12:01 02/19/24 12:34 Temperature Pulse Rate 57 L Respiratory Rate 17 Blood Pressure 178/70 H 183/77 H Pulse Oximetry 98 Oxygen Delivery Method 02/19/24 12:34 02/19/24 13:00 02/19/24 13:01 Temperature Pulse Rate 54 L 54 L Respiratory Rate 15 9 L Blood Pressure 174/76 H Pulse Oximetry 97 98 Oxygen Delivery Method 02/19/24 13:01 02/19/24 13:30 02/19/24 13:30 Temperature Pulse Rate 54 L 58 L Respiratory Rate 10 L 13 Blood Pressure 194/81 H Pulse Oximetry 96 98 Oxygen Delivery Method Room Air 02/19/24 14:00 02/19/24 14:01 02/19/24 14:01 Temperature Pulse Rate 54 L 54 L Respiratory Rate 8 L 15 Blood Pressure 179/79 H Pulse Oximetry 98 96 Oxygen Delivery Method Room Air 02/19/24 14:30 02/19/24 14:30 02/19/24 15:00 Temperature Pulse Rate 55 L Respiratory Rate Blood Pressure 183/77 H 177/77 H Pulse Oximetry 97 Oxygen Delivery Method 02/19/24 15:00 02/19/24 15:30 02/19/24 15:30 Temperature Pulse Rate 56 L 56 L Respiratory Rate 14 Blood Pressure 182/78 H Pulse Oximetry 97 97 Oxygen Delivery Method Room Air 02/19/24 16:00 02/19/24 16:00 Temperature Pulse Rate 57 L Respiratory Rate 17 Blood Pressure 165/89 H Pulse Oximetry 97 Oxygen Delivery Method Room Air Medical Decision Making Lab Data 02/19/24 11:40 02/19/24 11:40 Labs: Lab Results 02/19/24 02/19/24 Range/Units 11:40 13:55 WBC 5.6 (4.5-11.0) X10^3/uL RBC 4.07 L (4.5-5.9) X10^6/uL Hgb 13.6 (13.5-17.5) g/dL Hct 39.2 L (41-53) % MCV 96.2 (80-100) fL MCH 33.4 (26-34) PG MCHC 34.7 (30-36) % RDW 13.1 (11.6-14.8) % Plt Count 193 (150-400) X10^3/uL Neut % (Auto) 49.9 L (50-75) % Lymph % (Auto) 26.9 (25-40) % Prentiss % (Auto) 19.7 H (3-14) % Eos % (Auto) 2.6 (2-4) % Baso % (Auto) 0.9 (0-2) % Neut # (Auto) 2800 (4921-3736) /uL Lymph # (Auto) 1500 (0346-0307) /uL Prentiss # (Auto) 1100 H (0-900) /uL Eos # (Auto) 100 (0-450) /uL Baso # (Auto) 100 (0-100) /uL PT 11.8 (9.4-12.5) SECONDS INR 1.0 (0.9-1.3) APTT 23 L (25.1-36.5) SECONDS Sodium 136 L (137-145) mmol/L Potassium 3.7 (3.4-5.1) mmol/L Chloride 102 (98-107) mmol/L Carbon Dioxide 30 (22-32) mmol/L BUN 36 H (9-20) mg/dL Creatinine 1.67 H (0.66-1.25) mg/dL Estimated GFR 43 L (>60) mL/min BUN/Creatinine Ratio 21.6 (6-22) Glucose 126 H (80-110) mg/dL Calcium 8.5 (8.4-10.2) mg/dL Magnesium 2.3 (1.6-2.3) mg/dL Total Bilirubin 0.8 (0.2-1.3) mg/dL AST 39 (17-59) IU/L ALT 21 (<50) IU/L Alkaline Phosphatase 68 (38-126) U/L Total Creatine Kinase 66 (55-170) U/L Troponin I < 0.012 (0.01-0.034) ng/mL NT-Pro-B Natriuret Pep 1120 H (<125) pg/mL Total Protein 6.8 (6.3-8.2) g/dL Albumin 3.4 L (3.5-5.0) g/dL Globulin 3.4 (1.7-4.1) g/dL Albumin/Globulin Ratio 1.0 (1.0-2.8) Lipase 49 (23-300) U/L SARS-CoV-2 (PCR) Positive H (Negative) Imaging Data CT scan - head: Radiologist's Impression: Close Head CT (Signed) Génesis Posey - 02/19/[address] 02/19/24 Chest X-Ray (Signed) Obie Michel - 02/19/24 Echocardiogram Ultrasound (Signed) Sheryl Chinchilla - 06/15/23 Scrotum Ultrasound (Signed) Adia Tirado - 05/18/22 Barium Swallow X-Ray (Signed) Sajan Yip - 02/01/22 Echocardiogram Ultrasound (Signed) Sheryl Chinchilla - 12/29/21 Vascular Ultrasound (Signed) Taran Ba - 09/01/21 Renal Ultrasound (Signed) Nick Penny - 08/27/21 Abdomen/Pelvis CT (Signed) Marky Yee - 08/26/21 Chest X-Ray (Signed) Saul Renner - 08/26/21 Telemetry Strips 08/26/21 Knee X-Ray (Signed) Pritesh Tomlinson - 08/25/21 Knee MRI (Signed) Nick Penny - 05/24/21 Myocardial Perfusion Scan Nuc Med (Signed) Sheryl Chinchilla - 12/21/20 Echocardiogram Ultrasound (Signed) Haroon Hawkins - 12/21/20 Telemetry Strips 12/21/20 Chest/Abdomen CTA (Signed) Luis Gutierrez - 12/21/20 Chest X-Ray (Signed) Luis Gutierrez - 12/20/20 Telemetry Strips 12/20/20 Knee MRI (Signed) Sajan Yip - 06/27/20 Chest X-Ray (Signed) Fly Rider - 06/11/19 Echocardiogram Ultrasound (Signed) Dilshad Lala - 03/28/19 Hip X-Ray (Signed) Sajan Yip - 07/01/[address] [address] [address] Scan Report Signed Patient: Saul Mcmillan MR#: [id number] : 1950 Acct:[id number] Age/Sex: 73 / M Date of Service: 02/19/24 Loc: ED Accession Number: [id number] Procedure: CT head/brain wo con Ordering Provider: Leonor Cruz D.O. PROCEDURE: CT HEAD/BRAIN WO CON INDICATIONS: fall in shower, + LOC TECHNIQUE: Noncontrast 4.5 mm thick angled axial sections acquired from the foramen magnum to the vertex, with coronal and sagittal reformats. For radiation dose reduction, the following was used: automated exposure control, adjustment of mA and/or kV according to patient size. COMPARISON: None available at time of dictation. FINDINGS: Image quality: Diagnostic. CSF spaces: Basal cisterns are patent. No extra-axial fluid collections. Ventricles are normal in size and shape. Brain: No midline shift. No intracranial masses or hemorrhage. Lin-white matter interface is normal. Mild diffuse cerebral volume loss. Periventricular and subcortical white matter hypodensities are most consistent with chronic microvascular ischemic changes. Skull and face: Calvarium and visualized facial bones are intact, without suspicious lesions. Chronic appearing deformity of the right globe. Sinuses: Mild pansinus mucosal thickening. Mastoids are clear. IMPRESSION: No acute intracranial pathology. Chronic appearing right globe deformity. Correlate with clinical history. Approved by: Génesis Posey M.D.,Ph.D. on 02/19/2024 at 13:03 Chest x-ray: Radiologist's Impression: Close Head CT (Signed) Génesis Posey - 02/19/[address] 02/19/24 Chest X-Ray (Signed) Obie Michel - 02/19/24 Echocardiogram Ultrasound (Signed) Sheryl Chinchilla - 06/15/23 Scrotum Ultrasound (Signed) Adia Tirado - 05/18/22 Barium Swallow X-Ray (Signed) Sajan Yip - 02/01/22 Echocardiogram Ultrasound (Signed) Sheryl Chinchilla - 12/29/21 Vascular Ultrasound (Signed) Taran Ba - 09/01/21 Renal Ultrasound (Signed) Nick Penny - 08/27/21 Abdomen/Pelvis CT (Signed) Marky Yee - 08/26/21 Chest X-Ray (Signed) Saul Renner - 08/26/21 Telemetry Strips 08/26/21 Knee X-Ray (Signed) Pritesh Tomlinson - 08/25/21 Knee MRI (Signed) Nick Penny - 05/24/21 Myocardial Perfusion Scan Nuc Med (Signed) Sheryl Chinchilla - 12/21/20 Echocardiogram Ultrasound (Signed) RossHaroon - 12/21/20 Telemetry Strips 12/21/20 Chest/Abdomen CTA (Signed) MattLuis - 12/21/20 Chest X-Ray (Signed) Luis Gutierrez - 12/20/20 Telemetry Strips 12/20/20 Knee MRI (Signed) Sajan Yip - 06/27/20 Chest X-Ray (Signed) Fly Rider - 06/11/19 Echocardiogram Ultrasound (Signed) Dilshad Lala - 03/28/19 Hip X-Ray (Signed) Sajan Yip - 07/01/18 [facility] [address] XRay Report Signed Patient: Saul Mcmillan MR#: [id number] : 1950 Acct:[id number] Age/Sex: 73 / M Date of Service: 02/19/24 Loc: ED Accession Number: [id number] Procedure: XR chest 1V Ordering Provider: Leonor Cruz D.O. PROCEDURE: XR CHEST 1V INDICATIONS: chest pain TECHNIQUE: One view of the chest was acquired. COMPARISON: [facility], , XR CHEST 1V, 08/27/2021, 0:53. FINDINGS: Overlying EKG leads limit evaluation. Surgical changes and devices: None. Lungs and pleura: Lung volumes are slightly low, but lungs are clear. No pleural effusions or pneumothorax. Mediastinum: Mediastinal contours appear normal. Heart size is normal. Aortic arch is calcified, indicating atherosclerosis. Bones and chest wall: No suspicious bony lesions. Overlying soft tissues appear unremarkable. IMPRESSION: No acute cardiopulmonary process. Dictated by: Obie Michel M.D. on 02/19/2024 at 11:56 Approved by: Obie Michel M.D. on 02/19/2024 at 11:56 ECG Data Attestation: I personally reviewed and interpreted this ECG as follows: Prior ECG tracings: available for review Interpretation: Sinus bradycardia, rate of 54 MT 164 QRS is 78 QTC of 428, no acute ST elevation depression. Patient has prior from 01/01/[address] changes. MDM Narrative Medical decision making narrative: 73-year-old male longstanding diabetes, hypertension, known cardiomyopathy with what sounds like 2 syncopal episodes while taking a shower this morning. Patient does have a history with an EF of 65-70% with a small left ventricular cavity with normal wall motion and systolic function and increased septal wall thickness at 1.7 cm and left ventricular outflow velocity with Valsalva at 2.89 and per S normal right ventricle and mild mitral regurg from 06/15/2023. Patient also has had a recent infection with COVID in the past 4 days and started on Paxlovid Monday. Labs show white count of 5.6 hemoglobin of 13.6 platelets of 193. Sodium 136 potassium 3 7 chloride 102 CO2 of 30 BUN 36 creatinine of 1.67 this is increased from December of 2019 14, glucose of 126 LFTs are negative troponins less than 0.012 with a BNP of [address] shows no acute change. CT cervical spine subtle nondisplaced lucency left lateral arch of C2 which may reflect subtle nondisplaced fracture versus vascular channel correlate for point tenderness clinically warranted consider MRSA C-spine for further evaluation straightening of normal cervical lordosis which may be secondary to muscular strain spasm moderate marked multilevel degenerative changes of the spine worse at C5-6. Chest x-ray negative for acute change EKG shows no acute changes. Ankle x-ray negative for acute change or effusion. Achilles tendon appears normal. On re-evaluation patient is nontender. Had reviewed his findings from his CT images including cervical spine. Patient states he does not have any pain did not have pain earlier so suspicion for fracture is low. Patient does have some tenderness over the Achilles tendon for the patient but minimally tender on examination we will put in ortho shoe and weightbear as tolerated. Patient have cardiac history is positive for COVID, patient also probably has a component of dehydration his BUN and creatinine were elevated from prior. Discussed observation with patient he would prefer to discharge home. He had a 500 mL bolus and feels much improved was able to ambulate in the department and would like to discharge home. Discussed to continue to hydrate, return precautions as he does have some cardiac risk factors that can contribute to syncope. Patient feels comfortable with this plan. Discharge Plan Departure Patient Disposition: Home Clinical Impression: Syncope, COVID-19 virus infection Instructions: DI for Syncope in Adults (Fainting) Activity Restrictions/Additional Instructions: Please follow up with your physician as needed. If you continued to have discomfort at the Achilles tendon please follow up with Orthopedic surgery. You may weightbear as tolerated. Please wear the ortho boot provided if you are having persistent discomfort over the area of the tendon. You do appear to have a component of dehydration based on your labs today continue to hydrate regularly. I suspect a combination of your cardiac history, dehydration and current COVID infection is what caused your syncopal episode today. You have any recurrent episodes of lightheadedness or passing out, severe fevers, severe headaches, new chest pain or shortness of breath, increasing swelling of your extremities any signs of infection of the wound on your soares or other new or concerning changes please return for re-evaluation. Prescriptions: No Action timolol maleate 0.5 % Drops 1 drp EYE-LEFT QAM Qty: 2.5 (DME) FreeStyle Hao 14 Day Sensor Kit See Rx Instructions .Route Qty: 7 0RF Rx Instructions: As directed;[employer] P#[phone] F#[phone];90 supply. Change senor every 14 days. (DME) Omnipod Dash Pods (Gen 4) Cartridge See Rx Instructions .ROUTE .MEDSUPPLY Qty: 5 6RF Rx Instructions: As directed and change it every 3 days. insulin lispro [Humalog U-100 Insulin] 100 unit/mL solution 1 sliding scale dose SUBCUT USEASDIRECTD Qty: 10 1RF Patient Comments: 0.3 units/per hour on insulin pump Rx Instructions: max dose 50U/day in pump change pump ever 72 hours atorvastatin 40 mg tablet 40 mg PO BEDTIME Qty: 90 3RF tamsulosin 0.4 mg capsule 0.4 mg PO DAILY Qty: 90 3RF hydrochlorothiazide 25 mg tablet 25 mg PO QAM Qty: 90 3RF ferrous sulfate [Feosol] 325 mg (65 mg iron) tablet 325 mg PO DAILY cholecalciferol (vitamin D3) 50 mcg (2,000 unit) capsule 50 mcg PO DAILY nitroglycerin 0.4 mg tablet, sublingual 0.4 mg sublingual Q5-15M PRN (Reason: chest pain) Qty: 25 3RF Rx Instructions: do not exceed 3 doses per episode latanoprost 0.005 % Drops 1 drp EYE-LEFT BEDTIME metoprolol succinate 25 mg Tablet Extended Release 24 Hr 37.5 mg PO BEDTIME aspirin 81 mg tablet,delayed release (DR/EC) 81 mg PO BEDTIME Referrals: Claudia Hernandez MD [Physician] - Mickey Brito MD [Primary Care Provider] - Stand Alone Forms: Patient Portal/API
--- NOTE | 2024-02-19 13:32 | DI.RAD.S_ITS ---
PROCEDURE: XR ANKLE RT MIN 3V INDICATIONS: ankle pain, more achilles tendon area TECHNIQUE: 3 views of the ankle were acquired. COMPARISON: None. FINDINGS: Bones: No fractures or dislocations. Ankle mortise is normally aligned. No suspicious bony lesions. Soft tissues: No tibiotalar joint effusion. Achilles tendon appears normal. IMPRESSION: No acute bony abnormality or significant effusion. Approved by: Génesis Posey M.D.,Ph.D. on 02/19/2024 at 14:45
[2024-02-19] MEDS: SODIUM CHLORIDE 0.9% 500 ML 1000 ML IV (13:50)
[2024-02-19 14:14] LABS: COVID19 -Nasal RAPID POSITIVE (Negative)
== END 2024-02-19 16:45 | disposition home or self-care (01) ==
PROVIDERS: Emergency Provider Emergency Medicine; Family Provider Internal Medicine; PCP Internal Medicine
DX: U07.1 COVID-19 (principal); R55 Syncope and collapse; R00.1 Bradycardia, unspecified; R07.9 Chest pain, unspecified; Z79.899 Other long term (current) drug therapy
CPT/HCPCS: 36415; 70450; 71045; 72125; 73610; 80053; 82550; 83690; 83735; 83880; 84484; 85025; 85610; 85730; 87635; 93005; 93010; 96360; 96361; 99284

== ENCOUNTER → 2024-03-14 15:49 | Outpatient (CLI) | payer MEDICARE, OTHER, SELFPAY ==
[2022-05-16 16:37] VITALS: BMI 25.0
[2024-03-14 17:02] LABS: Hemoglobin A1C% w Est Avg Glu 5.9 % (4.0-6.0)
[2024-03-14 17:16] LABS: Blood Urea Nitrogen 29 mg/dL (9-20); Calcium 9.4 mg/dL (8.4-10.2); Carbon Dioxide 31 mmol/L (22-32); Chloride 104 mmol/L (98-107); Estimated Glomerular Filt Rate 36 mL/min (>60); Glucose 108 mg/dL (80-110); HEMOLYSIS < 15 (0-50); Potassium 5.2 mmol/L (3.4-5.1); Sodium 138 mmol/L (137-145)
== END ==
PROVIDERS: Family Provider Internal Medicine; PCP Internal Medicine; Referring Provider Internal Medicine; Visit Provider Internal Medicine
DX: E10.42 Type 1 diabetes mellitus with diabetic polyneuropathy (principal)
CPT/HCPCS: 36415; 80048; 83036

== ENCOUNTER → 2024-03-19 13:54 | Outpatient (CLI) | payer MEDICARE, OTHER, SELFPAY ==
[2022-05-16 16:37] VITALS: BMI 25.0
--- NOTE | 2024-03-19 13:55 | DI.US.S_ITS ---
PROCEDURE: US RENAL COMPLETE INDICATIONS: elev creatinine TECHNIQUE: Real-time scanning was performed of the kidneys and bladder, with image documentation. COMPARISON: [facility], US, US RENAL COMPLETE, 08/27/2021, 8:13. FINDINGS: Kidneys: Kidneys are normal in size. Right kidney measures 9.8 cm long; left kidney measures 9.4 cm long. Right renal cortical thickness is 1.4 cm; left renal cortical thickness is 1.5 cm. There is questionable increased echogenicity in the right inferior pole. Remainder of visualized renal cortical echotexture is normal. No hydronephrosis or nephrolithiasis. No suspicious solid mass lesions. Bladder: Pre-void bladder volume is 190 mL. Post-void residual is 72 mL. Pre-void images demonstrate no intraluminal masses or stones. On pre-void images, bilateral ureteral jets are noted with color Doppler interrogation. (Of note, ureteral jets may not be detectable in up to 25% of cases due to insufficient differences in specific gravity between ureteral and bladder urine). Miscellaneous: No free pelvic fluid. IMPRESSION: No nephrolithiasis or hydronephrosis. Query possibly increased right inferior pole echogenicity, which can be seen in the setting of medical renal disease. Prevoid volume of 190 cc with postvoid residual volume of 72 cc. Bilateral ureteral jets visualized. Approved by: Génesis Posey M.D.,Ph.D. on 03/19/2024 at 19:47
== END ==
PROVIDERS: Family Provider Internal Medicine; PCP Internal Medicine; Referring Provider Internal Medicine; Visit Provider Internal Medicine
DX: R79.89 Other specified abnormal findings of blood chemistry (principal)
CPT/HCPCS: 76770

== ENCOUNTER → 2024-03-27 10:35 | Outpatient (CLI) | payer MEDICARE, OTHER, SELFPAY ==
[2022-05-16 16:37] VITALS: BMI 25.0
[2024-03-27 13:41] LABS: Blood Urea Nitrogen 30 mg/dL (9-20); Calcium 9.1 mg/dL (8.4-10.2); Carbon Dioxide 26 mmol/L (22-32); Chloride 105 mmol/L (98-107); Estimated Glomerular Filt Rate 43 mL/min (>60); Glucose 99 mg/dL (80-110); HEMOLYSIS < 15 (0-50); Potassium 4.7 mmol/L (3.4-5.1); Sodium 137 mmol/L (137-145)
== END ==
PROVIDERS: Family Provider Internal Medicine; PCP Internal Medicine; Referring Provider Internal Medicine; Visit Provider Internal Medicine
DX: R79.89 Other specified abnormal findings of blood chemistry (principal)
CPT/HCPCS: 36415; 80048

== ENCOUNTER → 2024-07-01 10:19 | Outpatient (CLI) | payer MEDICARE, OTHER, SELFPAY ==
[2022-05-16 16:37] VITALS: BMI 25.0
[2024-07-01 11:40] LABS: Hemoglobin A1C% w Est Avg Glu 5.9 % (4.0-6.0)
[2024-07-01 11:41] LABS: Aspartate Aminotransferase 39 IU/L (17-59); BUN Creatinine Ratio 14.4 (6-22); Blood Urea Nitrogen 36 mg/dL (9-20); Calcium 9.1 mg/dL (8.4-10.2); Carbon Dioxide 30 mmol/L (22-32); Chloride 104 mmol/L (98-107); Cholesterol 93 mg/dL (140-199); Estimated Glomerular Filt Rate 26 mL/min (>60); Glucose 83 mg/dL (80-110); HDL Cholesterol 34 mg/dL (40-60); HEMOLYSIS < 15 (0-50); LDL Cholesterol Calculated 50 mg/dL (<100); Potassium 4.4 mmol/L (3.4-5.1); Sodium 138 mmol/L (137-145); Triglycerides 45 mg/dL (35-150)
[2024-07-01 11:52] LABS: Creatinine Urine Random 50.76 mg/dL
[2024-07-01 11:59] LABS: Microalbumin Urine Random 5.5 mg/dL (0-1.6)
[2024-07-01 12:11] LABS: Prostate Specific Antigen 1.16 ng/mL (0.10-4.00)
== END ==
PROVIDERS: Family Provider Internal Medicine; PCP Internal Medicine; Referring Provider Internal Medicine; Visit Provider Internal Medicine
DX: E10.42 Type 1 diabetes mellitus with diabetic polyneuropathy (principal); N40.1 Benign prostatic hyperplasia with lower urinary tract symptoms; E78.2 Mixed hyperlipidemia; I25.10 Atherosclerotic heart disease of native coronary artery without angina pectoris; N13.8 Other obstructive and reflux uropathy
CPT/HCPCS: 36415; 80048; 80061; 82043; 82570; 83036; 84153; 84450

== ENCOUNTER → 2024-07-05 07:30 | Outpatient (CLI) | payer MEDICARE, OTHER, SELFPAY ==
[2022-05-16 16:37] VITALS: BMI 25.0
--- NOTE | 2024-07-05 07:31 | DI.US.S_ITS ---
PROCEDURE: US RENAL COMPLETE INDICATIONS: acute kidney injury, worsening renal labs TECHNIQUE: Real-time scanning was performed of the kidneys and bladder, with image documentation. COMPARISON: [facility], , RENAL COMPLETE, 03/19/2024, 14:26. FINDINGS: Kidneys: Echogenic kidneys. Kidneys measure 9-10 cm. No hydronephrosis. No solid renal mass. Bladder: Both ureteral jets were seen. Elevated postvoid residual 80 cc. Prostate measures 3.8 x 3.7 x 3.4 cm. Miscellaneous: No free pelvic fluid. IMPRESSION: Elevated postvoid residual measuring 80 cc. No hydronephrosis. Echogenic kidneys can be seen with medical renal disease, nonspecific. Dictated by: Benjamin Chauhan M.D. on 07/05/2024 at 10:12 Approved by: Benjamin Chauhan M.D. on 07/05/2024 at 10:13
== END ==
LOC: US 07:30
PROVIDERS: Family Provider Internal Medicine; PCP Internal Medicine; Referring Provider Internal Medicine; Visit Provider Internal Medicine
DX: N28.9 Disorder of kidney and ureter, unspecified (principal); N17.9 Acute kidney failure, unspecified; R33.8 Other retention of urine
CPT/HCPCS: 76770

== ENCOUNTER → 2024-07-09 09:32 | Outpatient (CLI) | payer MEDICARE, OTHER, SELFPAY ==
[2022-05-16 16:37] VITALS: BMI 25.0
[2024-07-09 10:39] LABS: BUN Creatinine Ratio 15.5 (6-22); Blood Urea Nitrogen 36 mg/dL (9-20); Calcium 9.3 mg/dL (8.4-10.2); Carbon Dioxide 31 mmol/L (22-32); Chloride 104 mmol/L (98-107); Estimated Glomerular Filt Rate 29 mL/min (>60); Glucose 107 mg/dL (80-110); HEMOLYSIS < 15 (0-50); Potassium 5.2 mmol/L (3.4-5.1); Sodium 138 mmol/L (137-145)
== END ==
PROVIDERS: Family Provider Internal Medicine; PCP Internal Medicine; Referring Provider Internal Medicine; Visit Provider Internal Medicine
DX: N17.9 Acute kidney failure, unspecified (principal); I10 Essential (primary) hypertension; R79.89 Other specified abnormal findings of blood chemistry
CPT/HCPCS: 36415; 80048

== ENCOUNTER → 2024-08-09 08:26 | Outpatient (CLI) | payer MEDICARE, OTHER, SELFPAY ==
[2022-05-16 16:37] VITALS: BMI 25.0
[2024-08-09 10:14] LABS: Hemoglobin 12.6 g/dL (13.5-17.5)
[2024-08-09 10:44] LABS: BUN Creatinine Ratio 23.3 (6-22); Blood Urea Nitrogen 37 mg/dL (9-20); Calcium 9.2 mg/dL (8.4-10.2); Carbon Dioxide 25 mmol/L (22-32); Chloride 107 mmol/L (98-107); Estimated Glomerular Filt Rate 45 mL/min (>60); Glucose 112 mg/dL (80-110); HEMOLYSIS < 15 (0-50); Sodium 141 mmol/L (137-145)
[2024-08-09 10:50] LABS: Microalbumin Urine Random 10.2 mg/dL (0-1.6)
== END ==
LOC: LAB 08:30
PROVIDERS: Family Provider Internal Medicine; PCP Internal Medicine; Referring Provider Student in an Organized Health Care Education/Training Program; Visit Provider Student in an Organized Health Care Education/Training Program
DX: N05.9 Unspecified nephritic syndrome with unspecified morphologic changes (principal); D70.9 Neutropenia, unspecified; D63.1 Anemia in chronic kidney disease; R80.9 Proteinuria, unspecified
CPT/HCPCS: 36415; 80048; 82043; 82570; 85014; 85018

== ENCOUNTER → 2024-09-16 06:42 | Outpatient (CLI) | payer MEDICARE, OTHER, SELFPAY ==
[2022-05-16 16:37] VITALS: BMI 25.0
[2024-09-16 07:51] LABS: Creatinine Urine Random 60.79 mg/dL; Protein (Total) Urine Random 13 mg/dL (0-12); Protein Creatinine Ratio Urine 0.21 GRAM/24H
[2024-09-16 08:10] LABS: Hematocrit 33.4 % (41-53); Hemoglobin 11.4 g/dL (13.5-17.5); Mean Corpuscular HGB Conc 34.1 % (30-36); Mean Corpuscular Hemoglobin 33.4 PG (26-34); Mean Corpuscular Volume 98.1 fL (80-100); Platelet Count 207 X10^3/uL (150-400); Red Cell Distribution Width 13.1 % (11.6-14.8); White Blood Cell Count 6.1 X10^3/uL (4.5-11.0)
[2024-09-16 08:22] LABS: Hemoglobin A1C% w Est Avg Glu 5.7 % (4.0-6.0)
[2024-09-16 08:25] LABS: BUN Creatinine Ratio 26.1 (6-22); Blood Urea Nitrogen 35 mg/dL (9-20); Calcium 9.2 mg/dL (8.4-10.2); Carbon Dioxide 24 mmol/L (22-32); Chloride 107 mmol/L (98-107); Estimated Glomerular Filt Rate 56 mL/min (>60); Glucose 55 mg/dL (80-110); HEMOLYSIS 18 (0-50); Potassium 4.8 mmol/L (3.4-5.1); Sodium 140 mmol/L (137-145)
[2024-09-16 08:27] LABS: Cholesterol 107 mg/dL (140-199); HDL Cholesterol 43 mg/dL (40-60); LDL Cholesterol Calculated 52 mg/dL (<100); Phosphorous 3.8 mg/dL (2.3-3.7); Triglycerides 58 mg/dL (35-150)
[2024-09-17 07:09] LABS: Parathyroid Hormone Int 27 pg/mL (15-65)
== END ==
PROVIDERS: Urology; Family Provider Internal Medicine; PCP Internal Medicine; Referring Provider Internal Medicine Cardiovascular Disease; Visit Provider Internal Medicine Cardiovascular Disease
DX: E10.39 Type 1 diabetes mellitus with other diabetic ophthalmic complication (principal); D63.1 Anemia in chronic kidney disease; I25.10 Atherosclerotic heart disease of native coronary artery without angina pectoris; N05.9 Unspecified nephritic syndrome with unspecified morphologic changes; D70.9 Neutropenia, unspecified; E83.30 Disorder of phosphorus metabolism, unspecified; N25.81 Secondary hyperparathyroidism of renal origin; R80.9 Proteinuria, unspecified; E10.3493 Type 1 diabetes mellitus with severe nonproliferative diabetic retinopathy without macular edema, bilateral; R79.89 Other specified abnormal findings of blood chemistry
CPT/HCPCS: 36415; 80048; 80061; 82570; 83036; 83970; 84100; 84156; 85027

== ENCOUNTER → 2024-09-24 16:11 | Outpatient (CLI) | payer MEDICARE, OTHER, SELFPAY ==
[2022-05-16 16:37] VITALS: BMI 25.0
--- NOTE | 2024-09-24 16:13 | DI.ECHO.S_ITS ---
[facility]+ [facility] : : [id number] : [place] : : [id number] : : Phone: [phone] Echocardiogram Report + + :Name: MARCELLA HAMILTON Study Date: 09/24/2024 Height: 66 in : :[facility] ReadingLocation: Weight: 153 lb : : Gender: Male BSA: 1.8 m2 : :: 1950 Age: 74 yrs BP: 201/87 mmHg: :Reason For Study: LVOT OBSTRUCTION : :Ordering Physician: RALPH, : :CRISTHIAN Performed By: Jesse Hylton : :Referring: CRISTHIAN CHINCHILLA : + + Interpretation Summary 1) Normal left ventricular thickness, size, wall motion, and systolic function (EF 65-70%). 2) Increased septal wall thickness at 1.7cm. No LVOT gradient present today but tihs could be due to technical limitation. 3) Normal right ventricular size and function. 4) There is systolic anterior motion of the mitral valve. 5) There is mild mitral regurgitation. 6) The right ventricular systolic pressure is estimated to be at least 51 mmHg based on an estimated right atrial pressure of 3 mm Hg. 7) Hypetension is present during the study (BP 201/87mmHg). 8) Compared to the Echo done 06/15/2023, no LVOT gradient is noted on this study. Procedure: A two-dimensional transthoracic echocardiogram with color flow and Doppler was performed. The study quality was technically adequate. Comparison is made with the echocardiogram of 06/15/2023. The patient was in normal sinus rhythm during the exam. Left Ventricle: The left ventricle is normal in size. Proximal septal thickening is noted. Increased septal wall thickness at 1.7cm. There is no ventricular septal defect visualized. The ejection fraction is estimated to be 65-70%. Left ventricular systolic function appears normal without focal wall motion abnormalities. Diastolic parameters suggest probable normal left ventricular diastolic function and normal filling pressures. Right Ventricle: The right ventricle is normal in size and function. Atria: The left atrium is moderately dilated. Right atrial size is normal. There is no Doppler evidence for an interatrial shunt. Mitral Valve: The mitral valve leaflets appear mildly thickened, but open well. The mitral valve leaflets are mildly calcified. Calcification on AMVL/chord. There is mild mitral regurgitation. Aortic Valve: The aortic valve is trileaflet. The aortic valve is mildly calcified. The aortic valve opens well. There is trace aortic regurgitation. Tricuspid Valve: The tricuspid valve leaflets are thin and pliable. There is mild tricuspid regurgitation. The right ventricular systolic pressure is estimated to be at least 51 mmHg based on an estimated right atrial pressure of 3 mm Hg. Pulmonic Valve: The pulmonic valve is not well visualized. There is trace pulmonic regurgitation. Great Vessels: The aortic root is normal size. The dimensions of the ascending aorta are normal. The pulmonary artery is normal size. The IVC is of normal diameter and collapses greater than 50% with a sniff. This suggests a low right atrial pressure of 3 mm Hg. Pericardium/ Pleura There is no pericardial effusion. There is no pleural effusion. MMode/2D Measurements & Calculations LVIDd: 5.2 cm LVOT diam: 1.9 cm LVIDs: 3.2 cm Ao root diam: 2.7 cm FS: 37.8 % asc Aorta Diam: 3.0 cm EPSS: 0.73 cm Ao Arch Diam (Prox Trans): 1.6 cm IVSd: 0.99 cm LVPWd: 0.92 cm LV arroyo. diameter/BSA (cm/m^2): 2.9 LV sys. diameter/BSA (cm/m^2): 1.8 LA A2 area: 23.9 cm2 RA long axis: 4.6 cm LA A4 area: 20.2 cm2 RA area: 15.4 cm2 LA length (vol): 5.7 cm RA vol: 43.4 ml LA vol: 71.9 ml RA : 24.3 ml/m2 LA vol index: 40.3 ml/m2 IVC diam: 2.0 cm RVD1 (basal): 3.6 cm RVD2 (mid): 2.6 cm TAPSE: 2.9 cm Doppler Measurements & Calculations Ao V2 max: 166.8 cm/sec LVOT Max Karl: 120.0 cm/sec Ao V2 mean: 114.2 cm/sec LV V1 max P.8 mmHg Ao max P.1 mmHg LV V1 VTI: 34.4 cm Ao mean P.8 mmHg ROHIT(I,D): 2.2 cm2 Ao V2 VTI: 44.8 cm ROHIT(V,D): 2.0 cm2 sev ratio: 0.77 ROHIT indexed to BSA (cm^2/m^2): 1.2 MV E max karl: 130.9 cm/sec TR max karl: 345.4 cm/sec MV A max karl: 110.0 cm/sec TR max P.7 mmHg MV E/A: 1.2 PA V2 max: 83.0 cm/sec MV dec time: 0.18 sec PA V2 mean: 58.3 cm/sec MR ERO: 0.16 cm2 PA mean P.5 mmHg PA pr(Accel): -3.2 mmHg MR PISA: 3.0 cm2 SV(LVOT): 96.6 ml MR flow rate: 112.1 cm3/sec MR PISA radius: 0.70 cm Reading Physician:09:40 AM
== END ==
PROVIDERS: Family Provider Internal Medicine; PCP Internal Medicine; Referring Provider Internal Medicine Cardiovascular Disease; Visit Provider Internal Medicine Cardiovascular Disease
DX: Q24.8 Other specified congenital malformations of heart (principal); I08.1 Rheumatic disorders of both mitral and tricuspid valves
CPT/HCPCS: 93306

== ENCOUNTER → 2024-10-07 06:49 | Outpatient (CLI) | payer MEDICARE, OTHER, SELFPAY ==
[2022-05-16 16:37] VITALS: BMI 25.0
[2024-10-07 08:19] LABS: Glucose 111 mg/dL (80-110)
[2024-10-07 13:29] LABS: HEMOLYSIS < 15 (0-50); Potassium 5.2 mmol/L (3.4-5.1)
[2024-10-07 23:09] LABS: C Peptide < 0.1 ng/mL (1.1-4.4)
== END ==
PROVIDERS: Family Provider Internal Medicine; PCP Internal Medicine; Referring Provider Student in an Organized Health Care Education/Training Program; Visit Provider Student in an Organized Health Care Education/Training Program
DX: E87.5 Hyperkalemia (principal); E10.42 Type 1 diabetes mellitus with diabetic polyneuropathy; E10.22 Type 1 diabetes mellitus with diabetic chronic kidney disease; N18.30 Chronic kidney disease, stage 3 unspecified
CPT/HCPCS: 36415; 82947; 84132; 84681

== ENCOUNTER → 2024-10-15 06:44 | Outpatient (CLI) | payer MEDICARE, OTHER, SELFPAY ==
[2022-05-16 16:37] VITALS: BMI 25.0
[2024-10-15 09:01] LABS: HEMOLYSIS < 15 (0-50)
== END ==
PROVIDERS: Family Provider Internal Medicine; PCP Internal Medicine; Referring Provider Student in an Organized Health Care Education/Training Program; Visit Provider Student in an Organized Health Care Education/Training Program
DX: E87.5 Hyperkalemia (principal)
CPT/HCPCS: 36415; 84132

== ENCOUNTER → 2024-10-25 10:48 | Outpatient (CLI) | payer MEDICARE, OTHER, SELFPAY ==
[2022-05-16 16:37] VITALS: BMI 25.0
--- NOTE | 2024-10-25 11:31 | DIAB.INIT ---
Initial Diabetes Education Assessment: Personal CGM and Pump switch Name: Saul Mcmillan Date: 10/25/24 Time: 1055-130p Dx: Type I Diabetes Provider: Alisha Sen presents for Medtronic 780g and Guardian 4 CGM start, accompanied by and Medtronic animal trainer supervisor. Switching from FSL/Omnipod system. Training considerations for vision loss. Using same settings from Omnipod for 780g. Currently provided 3 day infusion sets. Will complete paperwork for 7 day infusion set coverage. 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 Provided appropriate educational handouts. Discussed the following topics: Provided education, precautions and recommendations with CGM and pump placement Goals: Change infusion set q 3 days Wear new pump and CGM Follow-up: MELANI IBANEZ follow-up 4 days and with pump training in 24 hours. Danielle Foreman RDN, SHAMAR Certified Diabetes Care and Tubing Machine Operator P: [phone] Thank you for this referral
== END ==
LOC: DIET 10:49
PROVIDERS: Family Provider Internal Medicine; PCP Internal Medicine
DX: Z46.81 Encounter for fitting and adjustment of insulin pump (principal); E10.9 Type 1 diabetes mellitus without complications; Z71.3 Dietary counseling and surveillance
CPT/HCPCS: 95249

== ENCOUNTER → 2024-10-29 10:17 | Outpatient (CLI) | payer MEDICARE, OTHER, SELFPAY ==
[2022-05-16 16:37] VITALS: BMI 25.0
--- NOTE | 2024-10-29 15:19 | DIAB.FU ---
Follow-up Diabetes Education Assessment Name: Saul Mcmillan Date: 10/29/24 Time: 1020-11a Dx: Type I Diabetes Provider: Soliscarl Mckinley presents for Medtronic 780g and Guardian 4 CGM follow-up, accompanied by . Switched from FSL/Omnipod system.Training considerations were made for vision limitations. Mckinley started smart guard for autocorrections, and although blood sugars seem to be doing well, he is feeling as though this pump is not for him given his vision limitations. States he struggled to complete the infusion set change on his own. He is also finding the same limitation with this pump as with Omnipod and not being able to bolus easily with his phone screen reader. Omnipod and the 780G, he is not able to confirm boluses without help. He would like to try Tandem mobi using their will, which would be compatible with his phone reader per report. Plans to resume pods this week. Main limitation with pods are twofold: 1. cost is 3k for three months worth of supplies. 2. With the progression of his sight loss, he worries about needing sight to bolus and manage BG. With Omnipod he has historically used his limited sight to try and bolus. 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 Provided appropriate educational handouts. Discussed the following topics: discussed different pump options and limitations Reviewed his goals for his diabetes care and needs in a pump RD messaged both representatives at each pump company to determine how to facilitate his wish to switch pumps Goals: Change infusion set q 3 days - met Wear new pump and CGM- met Restart pods- new Follow-up: NOMANN SHAMAR follow-up after RDN and patient determine next steps for pump return and acquisition. Danielle Foreman RDN, SHAMAR Certified Diabetes Care and Traffic Division Commanding Officer P: [phone] Thank you for this referral
== END ==
PROVIDERS: Family Provider Internal Medicine; PCP Internal Medicine; Referring Provider Internal Medicine
DX: Z46.81 Encounter for fitting and adjustment of insulin pump (principal); E10.9 Type 1 diabetes mellitus without complications; Z71.3 Dietary counseling and surveillance
CPT/HCPCS: G0108

== ENCOUNTER → 2024-11-28 10:42 | Outpatient (CLI) | payer MEDICARE, OTHER, SELFPAY ==
[2022-05-16 16:37] VITALS: BMI 25.0
[2024-11-28 13:00] LABS: Blood Urea Nitrogen 41 mg/dL (9-20); Calcium 9.3 mg/dL (8.4-10.2); Carbon Dioxide 27 mmol/L (22-32); Chloride 105 mmol/L (98-107); Estimated Glomerular Filt Rate 59 mL/min (>60); Glucose 151 mg/dL (70-99); HEMOLYSIS < 15 (0-50); Sodium 139 mmol/L (137-145)
== END ==
LOC: LAB 10:43
PROVIDERS: Family Provider Internal Medicine; PCP Internal Medicine; Referring Provider Urology; Visit Provider Urology
DX: R79.89 Other specified abnormal findings of blood chemistry (principal)
CPT/HCPCS: 36415; 80048

== ENCOUNTER → 2024-12-05 11:01 | Outpatient (CLI) | payer MEDICARE, OTHER, SELFPAY ==
[2022-05-16 16:37] VITALS: BMI 25.0
--- NOTE | 2024-12-05 11:04 | DIAB.MNT ---
Initial Diabetes Medical Nutrition Therapy Assessment Name: Saul Mcmillan Date: 12/05/24 Time: 11a-1210p Dx: Type I Diabetes with CKD Provider: Alisha Sen presents for MNT visit, accompanied by . Reports main concern today is fatigue, though also endorses wt loss over the last few months since diet changes. Reports he has been on a vegan diet by choice for some time, since seeing his disease control inspector last he has cut out his main sources of protein and iron, ie beans and nuts. Labs have improved since last draw. Current diet seems inadequate in protein and carb given diet choices and CKD management. States he is avoiding all foods that are high in potassium, not just having them in moderation. Reports goal of 90ml/min for GFR by disease control inspector. last result was 59ml/min. H/o lower HCT, though last labs were lowest yet. Anemia? States he does take iron x 65mg with vitamin c. Chooses low CHO and complex CHO choices for Dm management purposes. Diet recall: a: 1/2c coconut vegan yogurt with 1/2c blueberries 11a-12p: onions, green peppers, carrots, asparagus, mushrooms and sometimes fruit, occasinoally tofu 5-8p: same as lunch snack: popcorn without any toppings in air popper Hs: few spoonfuls of coconut yogurt with meds water all day sometimes sports drink, which may have potassium Anthropometrics: Ht: 5'6.5 Wt: 145# reported 11/2024 153# reported last visit wt hx: 159# 07/2024 153# 09/2024 -13-14# since July 8.5% loss over 4 months Self Monitoring Blood Glucose: Not using CGM at this time. Pricking finger. Denies any drastic changes in BG that may impact fatigue. Plans to receive new CGM and pump this month. Diabetes Medications: Lispro via insulin pump Pertinent Labs: HgA1c: 5.7% 08/2024 Past Medical History: (Last Updated 07/23/24 @ 15:28 by Braulio Bradshaw MD) MEL (acute kidney injury) Anxiety OccasionalBPH (benign prostatic hyperplasia) 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 Coronary artery disease COVID-19 virus infection (03/2022) Do not resuscitate Dysphagia Easy bruisability Elevated serum creatinine Essential hypertension Glaucoma History of alcohol use disorder HTN (hypertension) Hydrocele Hyperlipidemia Incomplete emptying of bladder Insulin pump in place Legally blind Right eye surgically removed 1998Male circumcision Mixed hyperlipidemia Osteoarthritis Polyneuropathy, unspecified Tinnitus 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 Nutrition Rx: CKD: <2000mg Potassium <2300mg Na 30-40g PRO (based on 0.5-0.6g/kg, may want to consider 0.8g/kg given T1DM) Nutrition Diagnosis: - Inadequate protein intake r/t trying to manage CKD, DM and prefers vegan diet aeb diet recall and pt report - Predicted inadequate kcal intake r/t limiting diet due to chronic diseases and vegan diet choices aeb diet recall and pt report and wt loss of 8% over 4 months Intervention: This participant was very receptive. Provided appropriate educational handouts. Discussed the following topics: Reviewed CKD MNT Reviewed CKD and HCT labs Discussed potential for iron deficiency given low HCT and impact on fatigue Discussed plant based proteins in moderation Reviewed potassium content and recs Encouraged waiting on phos restriction until next lab results Provided CGM sample Set SMART Goals Goals: Add 1/2c of lower potassium beans and 3oz tofu to lunch and dinner Consider eating q 3-4 hours Wear CGM Follow-up: MELANI IBANEZ follow-up in 3-4 weeks after pt trip in December. Danielle Foreman RDN, SHAMAR Certified Diabetes Care and Coat Joiner P: [phone] Thank you for this referral
== END ==
PROVIDERS: Family Provider Internal Medicine; PCP Internal Medicine
DX: E10.22 Type 1 diabetes mellitus with diabetic chronic kidney disease (principal); N18.9 Chronic kidney disease, unspecified; R53.83 Other fatigue; Z71.3 Dietary counseling and surveillance; Z96.41 Presence of insulin pump (external) (internal)
CPT/HCPCS: 97802

== ENCOUNTER → 2024-12-16 14:40 | Outpatient (CLI) | payer MEDICARE, OTHER, SELFPAY ==
[2022-05-16 16:37] VITALS: BMI 25.0
[2024-12-16 15:38] LABS: Creatinine Urine Random 18.14 mg/dL; Protein (Total) Urine Random 18 mg/dL (0-12); Protein Creatinine Ratio Urine 0.99 GRAM/24H
[2024-12-16 16:48] LABS: BUN Creatinine Ratio 25.6 (6-22); Blood Urea Nitrogen 32 mg/dL (9-20); Calcium 9.4 mg/dL (8.4-10.2); Carbon Dioxide 32 mmol/L (22-32); Chloride 102 mmol/L (98-107); Estimated Glomerular Filt Rate > 60 mL/min (>60); Glucose 47 mg/dL (70-99); HEMOLYSIS < 15 (0-50); Potassium 5.1 mmol/L (3.4-5.1); Sodium 140 mmol/L (137-145)
[2024-12-16 16:57] LABS: Hematocrit 38.4 % (41-53)
[2024-12-19 05:36] LABS: Parathyroid Hormone Int 42 pg/mL (15-65)
== END ==
PROVIDERS: Family Provider Internal Medicine; PCP Internal Medicine; Referring Provider Internal Medicine; Visit Provider Internal Medicine
DX: D70.9 Neutropenia, unspecified (principal); D63.1 Anemia in chronic kidney disease; N05.9 Unspecified nephritic syndrome with unspecified morphologic changes; N25.81 Secondary hyperparathyroidism of renal origin; R80.9 Proteinuria, unspecified
CPT/HCPCS: 36415; 80048; 82570; 83970; 84156; 85014; 85018

== ENCOUNTER → 2024-12-17 15:59 | Outpatient (CLI) | payer MEDICARE, OTHER, SELFPAY ==
[2022-05-16 16:37] VITALS: BMI 25.0
[2024-12-17 17:20] LABS: Hematocrit 36.6 % (41-53); Hemoglobin 12.6 g/dL (13.5-17.5); Mean Corpuscular HGB Conc 34.5 % (30-36); Mean Corpuscular Hemoglobin 33.2 PG (26-34); Mean Corpuscular Volume 96.1 fL (80-100); Platelet Count 195 X10^3/uL (150-400)
[2024-12-17 17:58] LABS: HEMOLYSIS < 15 (0-50); Iron 60 ug/dL (49-181)
[2024-12-17 18:11] LABS: Percent Iron Saturation 25 % (20-50); Total Iron Binding Capacity 240 ug/dL (261-462); Transferrin 172 mg/dL (206-381)
[2024-12-17 18:14] LABS: Hemoglobin A1C% w Est Avg Glu 6.0 % (4.0-6.0)
[2024-12-17 18:34] LABS: TSH w/ Reflex to FT4 1.24 uIU/mL (0.47-4.68)
[2024-12-17 18:49] LABS: Vitamin B12 Reflex MMA if <400 818 pg/mL (239-931)
[2024-12-17 18:58] LABS: Ferritin 168 ng/mL (18-464)
== END ==
PROVIDERS: Family Provider Internal Medicine; PCP Internal Medicine; Referring Provider Internal Medicine; Visit Provider Internal Medicine
DX: E10.42 Type 1 diabetes mellitus with diabetic polyneuropathy (principal); D64.9 Anemia, unspecified; E53.8 Deficiency of other specified B group vitamins
CPT/HCPCS: 36415; 82607; 82728; 83036; 83540; 83550; 84443; 85027

== ENCOUNTER → 2024-12-31 10:51 | Outpatient (CLI) | payer MEDICARE, OTHER, SELFPAY ==
[2022-05-16 16:37] VITALS: BMI 25.0
--- NOTE | 2025-01-16 10:54 | DIAB.MNTFU ---
Follow-up Diabetes Medical Nutrition Therapy Assessment Name: Saul Mcmillan Date: 12/31/24 Time: -8412g Dx: Type I Diabetes with CKD Provider: Alisha Sen presents for MNT visit, accompanied by . Continued concerns for fatigue. Added tofu and beans 1x per day to diet since last visit. Also added some eggs and cheese for protein. Labs indicate low HCT. Continues on Omnipod insulin pump. No concerns currently for wt loss per report. Diet recall: 5-530a: 1/2c coconut vegan yogurt with 12c blueberries 830a: apple and granola bar 11a-12p: veggies and cheese 3p: apple or popcorn 5-8p: same as lunch + tofu or beans snack: popcorn without any toppings in air popper OR yogurt water all day Plans to see PCP and Kidney specialist this month. Anthropometrics: Ht: 5'6.5 Wt: 143# reported 12/2024 145# reported 11/2024 153# reported last visit wt hx: 159# 07/2024 153# 09/2024 -13-14# since July 8.5% loss over 4 months Self Monitoring Blood Glucose: Using Dexcom G7. Reports 75% in range time. Diabetes Medications: Lispro via insulin pump Pertinent Labs: HgA1c: 5.7% 08/2024 HCT 36.6 Past Medical History: (Last Updated 07/23/24 @ 15:28 by Braulio Bradshaw MD)MEL (acute kidney injury) Anxiety OccasionalBPH (benign prostatic hyperplasia) 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 Coronary artery disease COVID-19 virus infection (03/2022) Do not resuscitate Dysphagia Easy bruisability Elevated serum creatinine Essential hypertension Glaucoma History of alcohol use disorder HTN (hypertension) Hydrocele Hyperlipidemia Incomplete emptying of bladder Insulin pump in place Legally blind Right eye surgically removed 1998Male circumcision Mixed hyperlipidemia Osteoarthritis Polyneuropathy, unspecified Tinnitus 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 Nutrition Rx: CKD: <2000mg Potassium <2300mg Na 30-40g PRO (based on 0.5-0.6g/kg, may want to consider 0.8g/kg given T1DM) Nutrition Diagnosis: - Inadequate protein intake r/t trying to manage CKD, DM and prefers vegan diet aeb diet recall and pt report- in progress/improved - Predicted inadequate kcal intake r/t limiting diet due to chronic diseases and vegan diet choices aeb diet recall and pt report and wt loss of 8% over 4 months - improved - Predicted increased needs for iron r/t CKD and diet low in iron aeb diet recall and reported fatigue and low HCT- new Intervention: This participant was very receptive. Provided appropriate educational handouts. Discussed the following topics: Reviewed CKD MNT Discussed potential for iron deficiency given low HCT and impact on fatigue Discussed plant based proteins in moderation Reviewed potassium recs Discouraged continued wt loss at this time Set SMART Goals Goals: Add 1/2c of lower potassium beans and 3oz tofu to lunch and dinner- 50% met Consider eating q 3-4 hours- met Wear CGM- met Add beans or tofu BID- new Follow-up: MELANI IBANEZ follow-up in 2 weeks for Tandem pump start. Danielle Foreman RDN, SHAMAR Certified Diabetes Care and Director Of Graduate Admissions P: [phone] Thank you for this referral
== END ==
LOC: DIET 10:52
PROVIDERS: Family Provider Internal Medicine; PCP Internal Medicine; Referring Provider Internal Medicine
DX: E10.22 Type 1 diabetes mellitus with diabetic chronic kidney disease (principal); N18.9 Chronic kidney disease, unspecified; Z96.41 Presence of insulin pump (external) (internal); Z71.3 Dietary counseling and surveillance
CPT/HCPCS: 97803

== ENCOUNTER → 2025-01-16 13:26 | Outpatient (CLI) | payer MEDICARE, OTHER, SELFPAY ==
[2022-05-16 16:37] VITALS: BMI 25.0
--- NOTE | 2025-01-22 14:03 | DIAB.FU ---
Follow-up Diabetes Education Assessment Name: Saul Mcmillan Date: 01/16/25 Time: 2-3p Dx: Type I Diabetes with CKD Provider: Alisha Note that this appt took place prior to ED visit. Mckinley presents for Tandem Mobi insulin pump start, accompanied by and Tandem marine mammal trainer. Today Mckinley brought all Tandem Mobi supplies for education and placement of infusion set. States he would prefer to d/c Omnipod Dash use due to cost and lack of connection to his phone, which is a barrier for bolusing given sight limitations. Omnipod settings: basal: 3u/hour ISF: 1:50 IC: 1:30 target 100mg/dl TDD: 18u/d New settings with Mobi: Basal: same at 3u/hour ISF: 1:93 IC: 1:24 target 120mg/dl Today we weakened the correction factor to reduce lows and strengthened insulin to carb ratio in order to prevent elevations postprandially. These were based on TDD. Anthropometrics: Ht: 5'6.5 Wt: 143# reported 12/2024 145# reported 11/2024 153# reported last visit wt hx: 159# 07/2024 153# 09/2024 -13-14# since July 8.5% loss over 4 months Self Monitoring Blood Glucose: Using Dexcom G7. excessive time 180-250mg/dl, otherwise meeting most of ADA goals for TIR. Predict we could reduce low occurrences based on trends. TIR: 2% very high 27% high 70% in range 1% low <1% very low avmg/dl GMI: 7% std dev: 46mg/dl variance: 29.3% Diabetes Medications: Lispro via insulin pump Pertinent Labs: HgA1c: 5.7% 08/2024 HCT 36.6 Past Medical History: (Last Updated 07/23/24 @ 15:28 by Braulio Bradshaw MD)MEL (acute kidney injury) Anxiety OccasionalBPH (benign prostatic hyperplasia) 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 Coronary artery disease COVID-19 virus infection (03/2022) Do not resuscitate Dysphagia Easy bruisability Elevated serum creatinine Essential hypertension Glaucoma History of alcohol use disorder HTN (hypertension) Hydrocele Hyperlipidemia Incomplete emptying of bladder Insulin pump in place Legally blind Right eye surgically removed 1998Male circumcision Mixed hyperlipidemia Osteoarthritis Polyneuropathy, unspecified Tinnitus 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 Intervention: This participant was very receptive. Provided appropriate educational handouts. Discussed the following topics: Prior to Tandem training we discussed new Omnipod 5 connection abilities, however today he would like to continue with Mobi Reviewed Tandem infusion set placement, precautions, and potential barriers and solutions for placement given barriers with sight Provided education on bolusing and correction with Mobi Set SMART Goals Goals: Add beans or tofu BID- met Wear new pump and change infusion set q 3 days- new Follow-up: MELANI IBANEZ follow-up in 1 day and 3 days with Tandem marine mammal trainer and 1 week with NOMAN/SHAMAR Foreman RDN, SHAMAR Certified Diabetes Care and Assembler [employer] P: [phone] Thank you for this referral
== END ==
PROVIDERS: Family Provider Internal Medicine; PCP Internal Medicine; Referring Provider Internal Medicine
DX: Z46.81 Encounter for fitting and adjustment of insulin pump (principal); E10.22 Type 1 diabetes mellitus with diabetic chronic kidney disease; Z71.3 Dietary counseling and surveillance; Z96.41 Presence of insulin pump (external) (internal)
CPT/HCPCS: G0108

== ENCOUNTER 2025-01-21 05:02 | Emergency (ER) | payer MEDICARE, OTHER, SELFPAY ==
[2022-05-16 16:37] VITALS: BMI 25.0
[2025-01-21] VITALS (14 sets, daily range): BP systolic 128–173; BP diastolic 60–71; PULSE 55–63; RESP 15–18; TEMP 36.6; O2SAT 96–100; BMI 22.8
--- NOTE | 2025-01-21 05:11 | DI.RAD.S_ITS ---
PROCEDURE: XR CHEST 1V INDICATIONS: chest pain TECHNIQUE: One view of the chest was acquired. COMPARISON: [facility], CR, XR CHEST 1V, 02/19/2024, 12:19. FINDINGS: Surgical changes and devices: None. Lungs and pleura: Lungs are clear. No pleural effusions or pneumothorax. Mediastinum: Mediastinal contours appear normal. Heart size is normal. Bones and chest wall: No suspicious bony lesions. Overlying soft tissues appear unremarkable. IMPRESSION: No acute cardiopulmonary abnormalities or focal consolidation. No significant discrepancy with the hedge trimmer radiology preliminary report. Dictated by: Pacheco Mari M.D. on 01/21/2025 at 7:10 Approved by: Pacheco Mari M.D. on 01/21/2025 at 7:11
[2025-01-21 05:40] LABS: Base Excess VBG -1.6 mmol/L (0-4); HCO3 VBG 23 mmol/L (24-28); Oxygen Saturation VBG 90 % (70-75); PCO2 VBG 36.8 mmHg (45-50); PO2 VBG 58 mmHg (35-45); Total CO2 VBG 22 mmol/L (24-29); pH VBG 7.40 (7.33-7.43)
--- NOTE | 2025-01-21 05:48 | ED.GENADULT ---
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 No fevers or chills. No nausea or vomiting. No diarrhea. No chest pain or shortness of breath. No painful urination but some frequency of urination. Related Data Home Medications ?Medication ?Instructions ?Recorded ?Confirmed timolol maleate 0.5 % eye drops 1 drp EYE-LEFT QAM #2.5 mL 12/21/12 01/06/25 aspirin 81 mg tablet,delayed 81 mg PO BEDTIME 08/17/21 01/06/25 release latanoprost 0.005 % eye drops 1 drp EYE-LEFT BEDTIME 08/17/21 01/06/25 cholecalciferol (vitamin D3) 50 50 mcg PO DAILY 11/01/21 01/06/25 mcg (2,000 unit) capsule ferrous sulfate 325 mg (65 mg 325 mg PO DAILY 11/01/21 01/06/25 iron) tablet (Feosol) nifedipine 30 mg tablet,extended 30 mg PO DAILY 09/23/24 01/06/25 release Previous Rx's ?Medication ?Instructions ?Recorded flash glucose sensor (FreeStyle #7 ea 09/09/22 Hao 14 Day Sensor kit) insulin pump cart,cont inf,BT #30 ea 03/12/24 (Omnipod Dash Pods (Gen 4) subcutaneous cartridge) atorvastatin 40 mg tablet 40 mg PO BEDTIME #90 tabs 07/01/24 metoprolol succinate 25 mg 37.5 mg (1.5 x 25 mg) PO BEDTIME 07/01/24 tablet,extended release 24 hr #135 tabs nitroglycerin 0.4 mg sublingual 0.4 mg sublingual Q5-15M PRN chest 07/01/24 tablet pain #25 tabs tamsulosin 0.4 mg capsule 0.4 mg PO DAILY #90 caps 07/01/24 Humalog U-100 Insulin 100 unit/mL 1 sliding scale dose SUBCUT 07/09/24 subcutaneous solution (insulin USEASDIRECTD #50 mL lispro) tamsulosin 0.4 mg capsule 0.8 mg (2 x 0.4 mg) PO DAILY #180 07/26/24 caps insulin pump cart,auto,BT,G6/7 #5 ea 01/21/25 (Omnipod 5 G6-G7 Pods (Gen 5) subcutaneous cartridge) insulin pump cartridge,auto #1 ea 01/21/25 dose,BT,G6/G7 with controller subcutaneous (Omnipod 5 G6-G7 Intro Kit(Gen 5) subcutaneous cartridge and controller) Allergies Allergy/AdvReac Type Severity Reaction Status Date / Time codeine (CODEINE) Allergy Severe Tongue & Verified 01/06/25 09:10 throat swelling, vomiting, total body rash propoxyphene Allergy Nausea Verified 01/06/25 09:10 losartan AdvReac Severe hyperkalemi Verified 01/06/25 09:10 a prochlorperazine AdvReac Severe Nausea, Verified 01/06/25 09:10 (PROCHLORPERAZINE) vomiting, unable to urinate amlodipine AdvReac Intermediate Hypotension Verified 01/06/25 09:10 Narcotics AdvReac Severe Most Uncoded 01/06/25 09:10 don't work on me, nausea, vomiting Steroid AdvReac Severe Ketoacidosi Uncoded 01/06/25 09:10 s Patient History <Mikey Euceda MD - Last Filed: 01/21/25 19:20> Medical History (Updated 01/21/25 @ 07:01 by Mikey Euceda MD) Anemia Incomplete emptying of bladder CKD stage 3 due to type 1 diabetes mellitus MEL (acute kidney injury) Elevated serum creatinine Essential hypertension COVID-19 virus infection (03/2022) Male circumcision History of alcohol use disorder Hydrocele BPH w urinary obs/LUTS Do not resuscitate Dysphagia Mixed hyperlipidemia Coronary artery disease Polyneuropathy, unspecified 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 Anxiety Easy bruisability Osteoarthritis BPH (benign prostatic hyperplasia) Tinnitus Glaucoma Insulin pump in place Legally blind HTN (hypertension) Hyperlipidemia Surgical History History of hydrocelectomy History of total right knee replacement (08/25/21) History of cystoscopy History of vasectomy (05/1987) Hx of oral surgery Hx of left cataract extraction History of surgery Hx of arthroscopy of left knee (06/10/21) History of surgery (1998) H/O shoulder surgery (01/25/09) H/O eye surgery Family History Mother Alcoholism Father Drowned Family/Other Cancer Diabetes mellitus Hypertension Kidney stones Thyroid disease IBD (inflammatory bowel disease) Social History number of children: 4 household members: spouse Smoking Status: Never smoker alcohol intake: former Type(s) of exercise: other frequency: daily Smoking Status: Never smoker alcohol intake frequency: holidays/special occasions only Exam <Mikey Euceda MD - Last Filed: 01/21/25 19:20> Narrative Exam Narrative: GENERAL: Well-developed patient, in mild distress. Clear speech, no fruity odor to breath. HEAD: Atraumatic. Normocephalic. EYES: Pupils equal round and reactive. Extraocular motions intact. No scleral icterus. No injection or drainage. Status post remote right enucleation ocular globe. ENT: Nose without bleeding, purulent drainage. No acute facial injuries. Airway patent. NECK: Trachea midline. Non tender CARDIOVASCULAR: Regular rate and rhythm without murmurs, gallops, or rubs. RESPIRATORY: Clear to auscultation. Breath sounds equal bilaterally. No wheezes, rales, or rhonchi. GASTROINTESTINAL: Abdomen soft, non-tender, nondistended. EXTREMITIES: No edema or joint tenderness. BACK: Nontender without deformity or crepitance. No flank tenderness. NEURO: AOx3. Legal blindness, diabetic retinopathy left eye, status post enucleation right eye. Motor functions grossly nonfocal. SKIN: No rash or erythema of visible areas Initial Vital Signs Initial Vital Signs: Vital Signs Pulse Rate 63 01/21/25 05:17 Pulse Oximetry 99 01/21/25 05:17 <Donny Phillips MD - Last Filed: 01/21/25 11:32> Initial Vital Signs Initial Vital Signs: Vital Signs Pulse Rate 63 01/21/25 05:17 Pulse Oximetry 99 01/21/25 05:17 Course <Mikey Euceda MD - Last Filed: 01/21/25 19:20> Orders Ordered: Discontinued Medications Sodium Chloride (Normal Saline 0.9%) 1,000 mls @ 1,000 mls/hr IV BOLUS ONE Stop: 01/21/25 06:19 Last Infusion: 01/21/25 07:15 Dose: Infused Documented By: Admin: 01/21/25 06:07 Dose: 1,000 mls/hr Documented By: SAVANA Insulin Human Regular (Insulin Regular 100 Unit/Ml 3 Ml Vial) 10 unit SUBCUT NOW ONE Stop: 01/21/25 06:08 Last Admin: 01/21/25 06:22 Dose: 10 unit Documented By: SAVANA Co-signed By: MADISON Vital Signs Vital signs: Vital Signs - 8 hr 01/21/25 05:17 01/21/25 05:20 01/21/25 05:30 Temperature 97.8 F Pulse Rate 63 63 62 Respiratory Rate 18 16 Blood Pressure 162/64 H Pulse Oximetry 99 99 98 Oxygen Delivery Method Room Air 01/21/25 05:30 01/21/25 06:00 01/21/25 06:00 Temperature Pulse Rate 61 Respiratory Rate 15 Blood Pressure 151/67 H 129/60 Pulse Oximetry 98 Oxygen Delivery Method 01/21/25 06:30 01/21/25 06:30 01/21/25 07:00 Temperature Pulse Rate 60 60 Respiratory Rate 17 Blood Pressure 150/65 H Pulse Oximetry 99 99 Oxygen Delivery Method 01/21/25 07:00 Temperature Pulse Rate Respiratory Rate Blood Pressure 152/66 H Pulse Oximetry Oxygen Delivery Method <Donny Phillips MD - Last Filed: 01/21/25 11:32> Orders Ordered: Discontinued Medications Sodium Chloride (Normal Saline 0.9%) 1,000 mls @ 1,000 mls/hr IV BOLUS ONE Stop: 01/21/25 06:19 Last Infusion: 01/21/25 07:15 Dose: Infused Documented By: Admin: 01/21/25 06:07 Dose: 1,000 mls/hr Documented By: SAVANA Insulin Human Regular (Insulin Regular 100 Unit/Ml 3 Ml Vial) 10 unit SUBCUT NOW ONE Stop: 01/21/25 06:08 Last Admin: 01/21/25 06:22 Dose: 10 unit Documented By: SAVANA Co-signed By: MADISON Reevaluation(s) Reevaluation #1: Care was assumed at 7:00 a.m. shift change. At 8:45 a.m., I personally re-evaluate with the patient. Patient is reporting high blood sugar since last night. Recently got a new insulin pump. No nausea vomiting chest pain shortness of breath fevers notes urinary frequency last night which correlates with elevated blood sugar. On examination he appears to be in no distress vital signs are reassuring heart and lungs are clear oral mucosa is moist abdomen is soft and nontender. Insulin pump appears to be appropriately placed. I shared the patient's concern that this may be an insulin pump a shoe and has been discussed with his primary care provider Consultations Consultation #1: Case was discussed with Dr. Mickey Brito the patient's primary care provider. Patient was seen by our diabetes nurse educator who indicates his infusions that is not working and the patient can change infusion set when he gets home Vital Signs Vital signs: Vital Signs - 8 hr 01/21/25 05:17 01/21/25 05:20 01/21/25 05:30 Temperature 97.8 F Pulse Rate 63 63 62 Respiratory Rate 18 16 Blood Pressure 162/64 H Pulse Oximetry 99 99 98 Oxygen Delivery Method Room Air 01/21/25 05:30 01/21/25 06:00 01/21/25 06:00 Temperature Pulse Rate 61 Respiratory Rate 15 Blood Pressure 151/67 H 129/60 Pulse Oximetry 98 Oxygen Delivery Method 01/21/25 06:30 01/21/25 06:30 01/21/25 07:00 Temperature Pulse Rate 60 60 Respiratory Rate 17 Blood Pressure 150/65 H Pulse Oximetry 99 99 Oxygen Delivery Method 01/21/25 07:00 Temperature Pulse Rate Respiratory Rate Blood Pressure 152/66 H Pulse Oximetry Oxygen Delivery Method Medical Decision Making <Mikey Euceda MD - Last Filed: 01/21/25 19:20> Lab Data Lab results reviewed: Yes I reviewed the patient's lab results. Lab results narrative: [facility] pH 7.4 normal. White blood cell count 7800, hemoglobin 13.2, platelets adequate. Glucose 352. Serum CO2 21. Sodium 129. Chloride 96. Anion gap 12. BUN 47 with creatinine 1.33. Potassium 4.8. T bili 1.4, other liver functions normal. Lipase normal. 01/21/25 05:40 01/21/25 05:40 Labs: Lab Results 01/21/25 01/21/25 01/21/25 Range/Units 05:37 05:40 07:01 WBC 7.8 (4.5-11.0) X10^3/uL RBC 3.98 L (4.5-5.9) X10^6/uL Hgb 13.2 L (13.5-17.5) g/dL Hct 37.6 L (41-53) % MCV 94.6 (80-100) fL MCH 33.1 (26-34) PG MCHC 35.0 (30-36) % RDW 13.0 (11.6-14.8) % Plt Count 179 (150-400) X10^3/uL Neut % (Auto) 63.9 (50-75) % Lymph % (Auto) 22.1 L (25-40) % Winston % (Auto) 9.0 (3-14) % Eos % (Auto) 4.1 H (2-4) % Baso % (Auto) 0.9 (0-2) % Neut # (Auto) 5000 (5862-6358) /uL Lymph # (Auto) 1700 (9920-2013) /uL Winston # (Auto) 700 (0-900) /uL Eos # (Auto) 300 (0-450) /uL Baso # (Auto) 100 (0-100) /uL VBG pH 7.40 (7.33-7.43) VBG pCO2 36.8 L (45-50) mmHg VBG pO2 58 H (35-45) mmHg VBG HCO3 23 L (24-28) mmol/L VBG Total CO2 22 L (24-29) mmol/L VBG O2 Saturation 90 H (70-75) % VBG Base Excess -1.6 L (0-4) mmol/L FiO2 % 21.0 % % Sodium 129 L (137-145) mmol/L Potassium 4.8 (3.4-5.1) mmol/L Chloride 96 L (98-107) mmol/L Carbon Dioxide 21 L (22-32) mmol/L BUN 47 H (9-20) mg/dL Creatinine 1.33 H (0.66-1.25) mg/dL Estimated GFR 56 L (>60) mL/min BUN/Creatinine Ratio 35.3 H (6-22) Glucose 352 H (70-99) mg/dL POC Whole Bld Glucose 367 H (70-99) mg/dL Hemoglobin A1c 6.8 H (4.0-6.0) % Calcium 9.1 (8.4-10.2) mg/dL Total Bilirubin 1.4 H (0.2-1.3) mg/dL AST 43 (17-59) IU/L ALT 20 (<50) IU/L Alkaline Phosphatase 70 (38-126) U/L Total Creatine Kinase 72 (55-170) U/L Troponin I 0.019 (0.01-0.034) ng/mL Total Protein 6.9 (6.3-8.2) g/dL Albumin 4.0 (3.5-5.0) g/dL Globulin 2.9 (1.7-4.1) g/dL Albumin/Globulin Ratio 1.4 (1.0-2.8) Lipase 92 (23-300) U/L Urine Color Urine Appearance Urine pH (4.5-8.0) Ur Specific [place] (1.000-1.035) Urine Protein (Negative) Urine Glucose (UA) (Negative) g/dL Urine Ketones (NEGATIVE) Urine Occult Blood (Negative) Urine Nitrate (Negative) Urine Bilirubin (NEGATIVE) Urine Urobilinogen (0.2) E.U./dL Ur Leukocyte Esterase (NEGATIVE) Urine RBC (0-5/HPF) Urine WBC (0-5/HPF) Ur Squamous Epith Cells (0-5/HPF) Amorphous Sediment Urine Bacteria (None) Ur Culture Indicated? Vol Urine Centrifuged Ketones 3.17 H (<0.27) mmol/L 01/21/25 01/21/25 Range/Units 07:42 08:39 WBC (4.5-11.0) X10^3/uL RBC (4.5-5.9) X10^6/uL Hgb (13.5-17.5) g/dL Hct (41-53) % MCV (80-100) fL MCH (26-34) PG MCHC (30-36) % RDW (11.6-14.8) % Plt Count (150-400) X10^3/uL Neut % (Auto) (50-75) % Lymph % (Auto) (25-40) % Winston % (Auto) (3-14) % Eos % (Auto) (2-4) % Baso % (Auto) (0-2) % Neut # (Auto) (7869-1350) /uL Lymph # (Auto) (8567-2695) /uL Winston # (Auto) (0-900) /uL Eos # (Auto) (0-450) /uL Baso # (Auto) (0-100) /uL VBG pH (7.33-7.43) VBG pCO2 (45-50) mmHg VBG pO2 (35-45) mmHg VBG HCO3 (24-28) mmol/L VBG Total CO2 (24-29) mmol/L VBG O2 Saturation (70-75) % VBG Base Excess (0-4) mmol/L FiO2 % % Sodium (137-145) mmol/L Potassium (3.4-5.1) mmol/L Chloride (98-107) mmol/L Carbon Dioxide (22-32) mmol/L BUN (9-20) mg/dL Creatinine (0.66-1.25) mg/dL Estimated GFR (>60) mL/min BUN/Creatinine Ratio (6-22) Glucose (70-99) mg/dL POC Whole Bld Glucose 316 H (70-99) mg/dL Hemoglobin A1c (4.0-6.0) % Calcium (8.4-10.2) mg/dL Total Bilirubin (0.2-1.3) mg/dL AST (17-59) IU/L ALT (<50) IU/L Alkaline Phosphatase (38-126) U/L Total Creatine Kinase (55-170) U/L Troponin I (0.01-0.034) ng/mL Total Protein (6.3-8.2) g/dL Albumin (3.5-5.0) g/dL Globulin (1.7-4.1) g/dL Albumin/Globulin Ratio (1.0-2.8) Lipase (23-300) U/L Urine Color Yellow Urine Appearance Clear Urine pH 5.5 (4.5-8.0) Ur Specific [place] <=1.005 (1.000-1.035) Urine Protein Negative (Negative) Urine Glucose (UA) 3+ H (Negative) g/dL Urine Ketones 1+ H (NEGATIVE) Urine Occult Blood Negative (Negative) Urine Nitrate Negative (Negative) Urine Bilirubin Negative (NEGATIVE) Urine Urobilinogen 0.2 (0.2) E.U./dL Ur Leukocyte Esterase Negative (NEGATIVE) Urine RBC None seen (0-5/HPF) Urine WBC None seen (0-5/HPF) Ur Squamous Epith Cells None seen (0-5/HPF) Amorphous Sediment 1+ Urine Bacteria None seen (None) Ur Culture Indicated? Cult not indicated Vol Urine Centrifuged 10ml (spun) Ketones (<0.27) mmol/L Point of Care Testing Glucose POC 350 Point of care testing: Point of Care Testing Glucose POC 350 ECG Data Attestation: I personally reviewed and interpreted this ECG as follows: Interpretation: 0603, normal sinus rhythm with a rate of 60. No obvious ST segment elevation or depression changes. NJ 168, QRS 84, QTC 442. MDM Narrative Medical decision making narrative: 74-year-old male with history of diabetes on insulin pump, high sugar readings, history of DKA, concerned that he might be developing DKA. VBG shows normal pH. Other labs pending. IV fluid bolus normal saline. Electrolytes normal, normal potassium, anion gap 12. Glucose 350s. IV fluid bolus. Subcutaneous insulin 10 units. Chest x-ray no acute changes. See tele radiology report. 0700, will need recheck glucose after fluids and insulin. No evidence for DKA current. Signed out to Dr Phillips. Type 1 diabetic on an insulin pump with new hyperglycemia. No other symptoms to suggest infection HI or other acute process. Patient is not in ketoacidosis. He is able to tolerate oral intake. It appears that this is a malfunction of his insulin pump and he will replace the pump infusion set when he gets home. <Donny Phillips MD - Last Filed: 01/21/25 11:32> Lab Data Lab results narrative: H pH 7.4 normal. White blood cell count 7800, hemoglobin 13.2, platelets adequate. Glucose 352. Serum CO2 21. Sodium 129. Chloride 96. Anion gap 12. BUN 47 with creatinine 1.33. Potassium 4.8. T bili 1.4, other liver functions normal. Lipase normal. Urinalysis negative for signs of infection, has 1+ ketones in his urine. Labs: Lab Results 01/21/25 01/21/25 01/21/25 Range/Units 05:37 05:40 07:01 WBC 7.8 (4.5-11.0) X10^3/uL RBC 3.98 L (4.5-5.9) X10^6/uL Hgb 13.2 L (13.5-17.5) g/dL Hct 37.6 L (41-53) % MCV 94.6 (80-100) fL MCH 33.1 (26-34) PG MCHC 35.0 (30-36) % RDW 13.0 (11.6-14.8) % Plt Count 179 (150-400) X10^3/uL Neut % (Auto) 63.9 (50-75) % Lymph % (Auto) 22.1 L (25-40) % Winston % (Auto) 9.0 (3-14) % Eos % (Auto) 4.1 H (2-4) % Baso % (Auto) 0.9 (0-2) % Neut # (Auto) 5000 (0022-2592) /uL Lymph # (Auto) 1700 (6821-4246) /uL Winston # (Auto) 700 (0-900) /uL Eos # (Auto) 300 (0-450) /uL Baso # (Auto) 100 (0-100) /uL VBG pH 7.40 (7.33-7.43) VBG pCO2 36.8 L (45-50) mmHg VBG pO2 58 H (35-45) mmHg VBG HCO3 23 L (24-28) mmol/L VBG Total CO2 22 L (24-29) mmol/L VBG O2 Saturation 90 H (70-75) % VBG Base Excess -1.6 L (0-4) mmol/L FiO2 % 21.0 % % Sodium 129 L (137-145) mmol/L Potassium 4.8 (3.4-5.1) mmol/L Chloride 96 L (98-107) mmol/L Carbon Dioxide 21 L (22-32) mmol/L BUN 47 H (9-20) mg/dL Creatinine 1.33 H (0.66-1.25) mg/dL Estimated GFR 56 L (>60) mL/min BUN/Creatinine Ratio 35.3 H (6-22) Glucose 352 H (70-99) mg/dL POC Whole Bld Glucose 367 H (70-99) mg/dL Hemoglobin A1c 6.8 H (4.0-6.0) % Calcium 9.1 (8.4-10.2) mg/dL Total Bilirubin 1.4 H (0.2-1.3) mg/dL AST 43 (17-59) IU/L ALT 20 (<50) IU/L Alkaline Phosphatase 70 (38-126) U/L Total Creatine Kinase 72 (55-170) U/L Troponin I 0.019 (0.01-0.034) ng/mL Total Protein 6.9 (6.3-8.2) g/dL Albumin 4.0 (3.5-5.0) g/dL Globulin 2.9 (1.7-4.1) g/dL Albumin/Globulin Ratio 1.4 (1.0-2.8) Lipase 92 (23-300) U/L Urine Color Urine Appearance Urine pH (4.5-8.0) Ur Specific [place] (1.000-1.035) Urine Protein (Negative) Urine Glucose (UA) (Negative) g/dL Urine Ketones (NEGATIVE) Urine Occult Blood (Negative) Urine Nitrate (Negative) Urine Bilirubin (NEGATIVE) Urine Urobilinogen (0.2) E.U./dL Ur Leukocyte Esterase (NEGATIVE) Urine RBC (0-5/HPF) Urine WBC (0-5/HPF) Ur Squamous Epith Cells (0-5/HPF) Amorphous Sediment Urine Bacteria (None) Ur Culture Indicated? Vol Urine Centrifuged Ketones 3.17 H (<0.27) mmol/L 01/21/25 01/21/25 Range/Units 07:42 08:39 WBC (4.5-11.0) X10^3/uL RBC (4.5-5.9) X10^6/uL Hgb (13.5-17.5) g/dL Hct (41-53) % MCV (80-100) fL MCH (26-34) PG MCHC (30-36) % RDW (11.6-14.8) % Plt Count (150-400) X10^3/uL Neut % (Auto) (50-75) % Lymph % (Auto) (25-40) % Winston % (Auto) (3-14) % Eos % (Auto) (2-4) % Baso % (Auto) (0-2) % Neut # (Auto) (2950-6981) /uL Lymph # (Auto) (7151-3756) /uL Winston # (Auto) (0-900) /uL Eos # (Auto) (0-450) /uL Baso # (Auto) (0-100) /uL VBG pH (7.33-7.43) VBG pCO2 (45-50) mmHg VBG pO2 (35-45) mmHg VBG HCO3 (24-28) mmol/L VBG Total CO2 (24-29) mmol/L VBG O2 Saturation (70-75) % VBG Base Excess (0-4) mmol/L FiO2 % % Sodium (137-145) mmol/L Potassium (3.4-5.1) mmol/L Chloride (98-107) mmol/L Carbon Dioxide (22-32) mmol/L BUN (9-20) mg/dL Creatinine (0.66-1.25) mg/dL Estimated GFR (>60) mL/min BUN/Creatinine Ratio (6-22) Glucose (70-99) mg/dL POC Whole Bld Glucose 316 H (70-99) mg/dL Hemoglobin A1c (4.0-6.0) % Calcium (8.4-10.2) mg/dL Total Bilirubin (0.2-1.3) mg/dL AST (17-59) IU/L ALT (<50) IU/L Alkaline Phosphatase (38-126) U/L Total Creatine Kinase (55-170) U/L Troponin I (0.01-0.034) ng/mL Total Protein (6.3-8.2) g/dL Albumin (3.5-5.0) g/dL Globulin (1.7-4.1) g/dL Albumin/Globulin Ratio (1.0-2.8) Lipase (23-300) U/L Urine Color Yellow Urine Appearance Clear Urine pH 5.5 (4.5-8.0) Ur Specific [place] <=1.005 (1.000-1.035) Urine Protein Negative (Negative) Urine Glucose (UA) 3+ H (Negative) g/dL Urine Ketones 1+ H (NEGATIVE) Urine Occult Blood Negative (Negative) Urine Nitrate Negative (Negative) Urine Bilirubin Negative (NEGATIVE) Urine Urobilinogen 0.2 (0.2) E.U./dL Ur Leukocyte Esterase Negative (NEGATIVE) Urine RBC None seen (0-5/HPF) Urine WBC None seen (0-5/HPF) Ur Squamous Epith Cells None seen (0-5/HPF) Amorphous Sediment 1+ Urine Bacteria None seen (None) Ur Culture Indicated? Cult not indicated Vol Urine Centrifuged 10ml (spun) Ketones (<0.27) mmol/L Point of Care Testing Glucose POC 350 Point of care testing: Point of Care Testing Glucose POC 350 MDM Narrative Medical decision making narrative: 74-year-old male with history of diabetes on insulin pump, high sugar readings, history of DKA, concerned that he might be developing DKA. VBG shows normal pH. Other labs pending. IV fluid bolus normal saline. Electrolytes normal, normal potassium, anion gap 12. Glucose 350s. IV fluid bolus. Subcutaneous insulin 10 units. Chest x-ray no acute changes. See tele radiology report. 0700, recheck glucose after fluids and insulin. No evidence for DKA current. Signed out to Dr Phillips. Type 1 diabetic on an insulin pump with new hyperglycemia. No other symptoms to suggest infection HI or other acute process. Patient is not in ketoacidosis. He is able to tolerate oral intake. It appears that this is a malfunction of his insulin pump and he will replace the pump infusion set when he gets home. Discharge Plan Departure Patient Disposition: Home Clinical Impression: Hyperglycemia, History of diabetes mellitus Activity Restrictions/Additional Instructions: It appears that your infusion set for the insulin pump is not working. When you get home, change your infusion set. Continue previous home care, recheck in the emergency department if having acute symptoms such as chest pain shortness of breath vomiting or abdominal pain, contact your primary care provider is your blood sugar continues to be high. Prescriptions: No Action timolol maleate 0.5 % Drops 1 drp EYE-LEFT QAM Qty: 2.5 (DME) FreeStyle Hao 14 Day Sensor Kit See Rx Instructions .Route Qty: 7 0RF Rx Instructions: As directed;Heri P#[phone] F#[phone];90 supply. Change senor every 14 days. (DME) Omnipod Dash Pods (Gen 4) Cartridge See Rx Instructions .ROUTE .MEDSUPPLY Qty: 30 6RF Rx Instructions: As directed and change it every 3 days. (DME) Omnipod 5 G6-G7 Pods (Gen 5) Cartridge See Rx Instructions .Route Qty: 5 3RF Rx Instructions: Per package instructions. Change every 3 days. (DME) Omnipod 5 G6-G7 Intro Kt(Gen5) Cartridge See Rx Instructions .Route Qty: 1 1RF Rx Instructions: Per package instructions. Change every 3 days. insulin lispro [Humalog U-100 Insulin] 100 unit/mL solution 1 sliding scale dose SUBCUT USEASDIRECTD Qty: 50 3RF Patient Comments: 0.3 units/per hour on insulin pump Rx Instructions: max dose 50U/day in pump change pump ever 72 hours ferrous sulfate [Feosol] 325 mg (65 mg iron) tablet 325 mg PO DAILY cholecalciferol (vitamin D3) 50 mcg (2,000 unit) capsule 50 mcg PO DAILY atorvastatin 40 mg tablet 40 mg PO BEDTIME Qty: 90 3RF metoprolol succinate 25 mg tablet extended release 24 hr 37.5 mg PO BEDTIME Qty: 135 3RF tamsulosin 0.4 mg capsule 0.4 mg PO DAILY Qty: 90 3RF nitroglycerin 0.4 mg tablet, sublingual 0.4 mg sublingual Q5-15M PRN (Reason: chest pain) Qty: 25 3RF Rx Instructions: do not exceed 3 doses per episode latanoprost 0.005 % Drops 1 drp EYE-LEFT BEDTIME aspirin 81 mg tablet,delayed release (DR/EC) 81 mg PO BEDTIME tamsulosin 0.4 mg capsule 0.8 mg PO DAILY Qty: 180 3RF nifedipine 30 mg tablet extended release 30 mg PO DAILY Referrals: Mickey Brito MD [Primary Care Provider, Internal Medicine] Stand Alone Forms: Patient Portal/API
[2025-01-21 05:54] LABS: Add Manual Diff / Slide Review NO; Hematocrit 37.6 % (41-53); Hemoglobin 13.2 g/dL (13.5-17.5); Lymphocytes Absolute Auto 1700 /uL (1100-4500); Mean Corpuscular HGB Conc 35.0 % (30-36); Mean Corpuscular Hemoglobin 33.1 PG (26-34); Mean Corpuscular Volume 94.6 fL (80-100); Platelet Count 179 X10^3/uL (150-400)
[2025-01-21 06:00] LABS: Alanine Aminotransferase 20 IU/L (<50); Albumin 4.0 g/dL (3.5-5.0); Albumin Globulin Ratio 1.4 (1.0-2.8); Blood Urea Nitrogen 47 mg/dL (9-20); Calcium 9.1 mg/dL (8.4-10.2); Carbon Dioxide 21 mmol/L (22-32); Chloride 96 mmol/L (98-107); Creatine Kinase 72 U/L (55-170); Estimated Glomerular Filt Rate 56 mL/min (>60); Globulin 2.9 g/dL (1.7-4.1); Glucose 352 mg/dL (70-99); Lipase 92 U/L (23-300); Sodium 129 mmol/L (137-145); Total Protein 6.9 g/dL (6.3-8.2)
[2025-01-21 06:01] LABS: HEMOLYSIS 63 (0-50); Potassium 4.8 mmol/L (3.4-5.1)
[2025-01-21 06:02] LABS: Alkaline Phosphatase 70 U/L (38-126)
--- NOTE | 2025-01-21 06:03 | EKG_ITS ---
[place] [id number] [place] [id number] Test Date: 2025-01-21 Pat Name: Saul Mcmillan Department: [facility] Room: Gender: Male Secretary To The Vice President: ALICE : 1950 Requested By: Order Number: [id number] Reading MD: Anthony Oshea Measurements Intervals [place] Rate: 60 P: 25 OR: 168 QRS: 45 QRSD: 84 T: 10 QT: 442 QTc: 442 Interpretive Statements Normal sinus rhythm Anterior Q waves. Electronically Signed On 01-25-2025 7:56:05 PDT by Anthony Oshea
[2025-01-21 06:05] LABS: Ketones (Beta-Hydroxybutyrate) 3.17 mmol/L (<0.27)
[2025-01-21] MEDS: SODIUM CHLORIDE 0.9% 1,000 ML 1000 ML IV (06:07)
[2025-01-21 06:13] LABS: Troponin I 0.019 ng/mL (0.01-0.034)
[2025-01-21] MEDS: INSULIN REGULAR 100 UNIT/ML 3 ML VIAL 10 UNIT SUBCUT (06:22)
[2025-01-21 07:19] LABS: Hemoglobin A1C% w Est Avg Glu 6.8 % (4.0-6.0)
[2025-01-21 08:05] LABS: Appearance Urine UA CLEAR; Bilirubin Urine UA NEGATIVE (NEGATIVE); Color Urine UA YELLOW; Glucose Urine UA 3+ g/dL (Negative); Ketones Urine UA 1+ (NEGATIVE); Leukocyte Esterase Urine UA NEGATIVE (NEGATIVE); Nitrite Urine UA NEGATIVE (Negative); Occult Blood Urine UA NEGATIVE (Negative); Protein Urine UA NEGATIVE (Negative); Specific Gravity Urine UA <=1.005 (1.000-1.035); Urobilinogen Urine UA 0.2 E.U./dL (0.2); pH Urine UA 5.5 (4.5-8.0)
[2025-01-21 08:18] LABS: Culture Indicated Urine Cult Not Indicated
--- NOTE | 2025-01-21 13:55 | DIET.INSP ---
Nutrition/Diabetes Insulin Pump Consult Assessment: 74 y/o pt with T1DM familiar to this NOMAN/SHAMAR admitted to ED for hyperglycemia. DKA r/o. New insulin pump [employer] placed last week on in RD/SHAMAR office with assistance from [employer] corporate trainer. Upon review of BG reports, readings were mostly in goal over the weekend, but started to increase after he replaced his own infusion set on Monday. Since that time BG was consistently >250mg/dl indicating an infusion set failure. After further discussion, based on this patient's limited sight, moving back to Omnipod with the newer version (Omnipod 5) may be the better option as long as financially feasible. RD messaged PCP and will see pt in clinic in two days. Interventions: Reviewed blood sugar trends Encouraged him to check insurance for Omnipod 5 coverage Likelihood of infusion set failure with T Mobi causing elevated BG Reviewed ability to change sets out on his own vs going back to a newer version of Omnipod Reviewed recs and rx needs with PCP Monitoring and Evaluation: NOMAN/SHAMAR follow-up in two days in clinic
== END 2025-01-21 12:00 | disposition home or self-care (01) ==
PROVIDERS: Emergency Medicine; Emergency Provider Emergency Medicine; Family Provider Internal Medicine; PCP Internal Medicine
DX: E10.65 Type 1 diabetes mellitus with hyperglycemia (principal); Z79.4 Long term (current) use of insulin
CPT/HCPCS: 36415; 71045; 80053; 81001; 82009; 82550; 82805; 82962; 83036; 83690; 84484; 85025; 93005; 96360; 96372; 99284

== ENCOUNTER → 2025-01-23 10:24 | Outpatient (CLI) | payer MEDICARE, OTHER, SELFPAY ==
[2022-05-16 16:37] VITALS: BMI 25.0
--- NOTE | 2025-01-23 11:06 | DIAB.FU ---
Follow-up Diabetes Education Assessment Name: Saul Mcmillan Date: 01/23/25 Time: [id number] Dx: Type I Diabetes with CKD Provider: Alisha Mckinley presents for Omnipod 5 insulin pump start, accompanied by . Today Mckinley brought Omnipod 5 supplies for education and placement but did not have the Omnipod PDM. Cannot start pump today due to this missing piece. Acquired pump setting orders signed by PCP. Omnipod DASH settings: basal: 3u/hour ISF: 1:50 IC: 1:30 target 100mg/dl TDD: 18u/d New settings with Omnipod5: Basal: same at 3u/hour ISF: 1:93 IC: 1:24 target 120mg/dl With Mobi last week we weakened the correction factor to reduce lows and strengthened insulin to carb ratio in order to prevent elevations postprandially. These were based on TDD and glucose were well managed prior to Mobi infusion set failure. RD anticipates a better outcome with Omnipod5 given his familiarity with Omnipod placement of pods, connectivity with phone will with the OP5 version, affordability with this version, and easier use given limited sight and neuropathy in hands. Anthropometrics: Ht: 5'6.5 Wt: 143# reported 12/2024 145# reported 11/2024 153# reported last visit wt hx: 159# 07/2024 153# 09/2024 -13-14# since July 8.5% loss over 4 months Self Monitoring Blood Glucose: Using Dexcom G7. excessive time above goal. TIR: 11% very high 26% high 62% in range 1% low <1% very low avmg/dl GMI: 7.4% std dev: 72mg/dl variance: 41.9% Last TIR: 2% very high 27% high 70% in range 1% low <1% very low avmg/dl GMI: 7% std dev: 46mg/dl variance: 29.3% Diabetes Medications: Lispro via insulin pump Pertinent Labs: HgA1c: 5.7% 08/2024 HCT 36.6 Past Medical History: (Last Updated 07/23/24 @ 15:28 by Braulio Bradshaw MD)MEL (acute kidney injury) Anxiety OccasionalBPH (benign prostatic hyperplasia) 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 Coronary artery disease COVID-19 virus infection (03/2022) Do not resuscitate Dysphagia Easy bruisability Elevated serum creatinine Essential hypertension Glaucoma History of alcohol use disorder HTN (hypertension) Hydrocele Hyperlipidemia Incomplete emptying of bladder Insulin pump in place Legally blind Right eye surgically removed 1998Mal circumcision Mixed hyperlipidemia Osteoarthritis Polyneuropathy, unspecified Tinnitus 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 Intervention: This participant was very receptive. Provided appropriate educational handouts. Discussed the following topics: Troubleshooting Omnipod5 start Discuss differences between DASH and OP5 Set SMART Goals Goals: Wear new pump and change infusion set q 3 days- met and d/c aviation support equipment repairer Omnipod5 PDM and starter kit- new Follow-up: MELANI IBANEZ follow-up once PDM is acquired, likely this week or next. Danielle Foreman RDN, CDCES Certified Diabetes Care and Content Analyst P: [phone] Thank you for this referral
== END ==
LOC: DIET 10:24
PROVIDERS: Family Provider Internal Medicine; PCP Internal Medicine; Referring Provider Internal Medicine
DX: Z46.81 Encounter for fitting and adjustment of insulin pump (principal); E10.22 Type 1 diabetes mellitus with diabetic chronic kidney disease; N18.9 Chronic kidney disease, unspecified; Z71.3 Dietary counseling and surveillance
CPT/HCPCS: G0108

== ENCOUNTER → 2025-02-27 15:28 | Outpatient (CLI) | payer MEDICARE, OTHER, SELFPAY ==
[2022-05-16 16:37] VITALS: BMI 25.0
--- NOTE | 2025-02-27 16:32 | DIAB.MNTFU ---
Follow-up Diabetes Medical Nutrition Therapy Assessment Name: Saul Mcmillan Date: 02/27/25 Time: 330-4p Dx: Type I Diabetes with CKD Provider: Alisha Sen presents DM follow-up, accompanied by his . Continues on OP5/Dexcom G7 system. Ran out of DexcoM G7 and awaiting replacements due to sensor failures. Endorses increasing intake after recs from a program research specialist of cheese and cream. Wt seems stable at 142-143# over the last couple months. RD with some concern with increase in cheese intake and phosphorus intake and CKD. Last phos labs in 08/2024 slightly elevated at 3.8mg/dl. Also increased egg intake. Omnipod5 Settings: Basal: same at 3u/hour ISF: 1:93 IC: 1:24 target 120mg/dl---- 110mg/dl TDD: 18u/d---- 17.7u Anthropometrics: Ht: 5'6.5 Wt: 143.4# reported 02/2025 143# reported 12/2024 145# reported 11/2024 153# reported last visit wt hx: 159# 07/2024 153# 09/2024 -13-14# since July 8.5% loss over 4 months Self Monitoring Blood Glucose: Using Dexcom G7, though out of sensors. excessive time above goal likely r/t not in automation without CGM. Using fingersticks to use OP5 in manual mode. TIR: 2% very high 40% high 58% in range 0% low 0% very low avmg/dl GMI: % std dev: 36mg/dl variance: 20.5% Last TIR: 11% very high 26% high 62% in range 1% low <1% very low avmg/dl GMI: 7.4% std dev: 72mg/dl variance: 41.9% Diabetes Medications: Lispro via insulin pump Pertinent Labs: HgA1c: 5.7% 08/2024 6.8% 01/2025 HCT 36.6 Past Medical History: (Last Updated 07/23/24 @ 15:28 by Braulio Bradshaw MD)MEL (acute kidney injury) Anxiety OccasionalBPH (benign prostatic hyperplasia) 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 Coronary artery disease COVID-19 virus infection (03/2022) Do not resuscitate Dysphagia Easy bruisability Elevated serum creatinine Essential hypertension Glaucoma History of alcohol use disorder HTN (hypertension) Hydrocele Hyperlipidemia Incomplete emptying of bladder Insulin pump in place Legally blind Right eye surgically removed 1998Male circumcision Mixed hyperlipidemia Osteoarthritis Polyneuropathy, unspecified Tinnitus 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 Nutrition Rx: CKD: <2000mg Potassium <2300mg Na 30-40g PRO (based on 0.5-0.6g/kg, may want to consider 0.8g/kg given T1DM) 800-1000mg Phosphorus per day Nutrition Diagnosis: - Inadequate protein intake r/t trying to manage CKD, DM and prefers vegan diet aeb diet recall and pt report- improved - Predicted inadequate kcal intake r/t limiting diet due to chronic diseases and vegan diet choices aeb diet recall and pt report and wt loss of 8% over 4 months - improved - Nutrition and food related knowledge deficit r/t needing more info on CKD and phosphorus aeb pt report Intervention: This participant was very receptive. Provided appropriate educational handouts. Discussed the following topics: Foods high/low in phosphorus Protein intake BG trends and importance of connecting CGM for automation Set SMART Goals Goals: marble supervisor Omnipod5 PDM and starter kit- met Choose lower phosphorus cheese options- new Connect CGM to OP5 - new Follow-up: MELANI IBANEZ follow-up prn per pt req. RD will touch base with pt and review pump reports in one week. Danielle Foreman RDN, SHAMAR Certified Diabetes Care and [employer]al [employer] Manager P: [phone] Thank you for this referral
== END ==
PROVIDERS: Family Provider Internal Medicine; PCP Internal Medicine; Referring Provider Internal Medicine
DX: E10.22 Type 1 diabetes mellitus with diabetic chronic kidney disease (principal); Z71.3 Dietary counseling and surveillance; Z96.41 Presence of insulin pump (external) (internal)
CPT/HCPCS: 97803

== ENCOUNTER → 2025-03-14 14:23 | Outpatient (CLI) | payer MEDICARE, OTHER, SELFPAY ==
[2022-05-16 16:37] VITALS: BMI 25.0
[2025-03-14 15:37] LABS: Hematocrit 39.5 % (41-53); Hemoglobin 13.5 g/dL (13.5-17.5)
[2025-03-14 15:55] LABS: HEMOLYSIS 20 (0-50); Iron 82 ug/dL (49-181)
[2025-03-14 15:58] LABS: Blood Urea Nitrogen 47 mg/dL (9-20); Calcium 9.0 mg/dL (8.4-10.2); Carbon Dioxide 27 mmol/L (22-32); Chloride 99 mmol/L (98-107); Estimated Glomerular Filt Rate 57 mL/min (>60); Glucose 194 mg/dL (70-99); HEMOLYSIS 21 (0-50); Phosphorous 3.7 mg/dL (2.3-3.7); Potassium 4.6 mmol/L (3.4-5.1); Sodium 134 mmol/L (137-145)
[2025-03-14 16:06] LABS: Percent Iron Saturation 37 % (20-50); Total Iron Binding Capacity 224 ug/dL (261-462); Transferrin 183 mg/dL (206-381)
[2025-03-14 16:32] LABS: Ferritin 191 ng/mL (18-464)
[2025-03-14 17:29] LABS: Protein (Total) Urine Random 10 mg/dL (0-12); Protein Creatinine Ratio Urine 0.18 GRAM/24H
== END ==
PROVIDERS: Family Provider Internal Medicine; PCP Internal Medicine; Referring Provider Student in an Organized Health Care Education/Training Program; Visit Provider Student in an Organized Health Care Education/Training Program
DX: D50.0 Iron deficiency anemia secondary to blood loss (chronic) (principal); D63.1 Anemia in chronic kidney disease; D70.9 Neutropenia, unspecified; E83.30 Disorder of phosphorus metabolism, unspecified; E87.5 Hyperkalemia; N05.9 Unspecified nephritic syndrome with unspecified morphologic changes; R80.9 Proteinuria, unspecified
CPT/HCPCS: 36415; 80048; 82570; 82728; 83540; 83550; 84100; 84156; 85014; 85018

== ENCOUNTER 2025-04-03 08:58 | Emergency (ER) | payer MEDICARE, OTHER, SELFPAY ==
[2022-05-16 16:37] VITALS: BMI 25.0
[2025-04-03] VITALS (14 sets, daily range): BP systolic 149–222; BP diastolic 60–100; PULSE 55–60; RESP 11–16; TEMP 36.5; O2SAT 97–100; BMI 23.2
--- NOTE | 2025-04-03 09:05 | ED_ITS ---
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 Patient did have a bowel movement earlier today. He denies any fever, chills, chest pain, shortness of breath, cough, hematuria, diarrhea, back pain, numbness, tingling down the legs, headache, dizziness loss of consciousness. Other than what is stated 14 point review of system is negative. Related Data Home Medications ?Medication ?Instructions ?Recorded ?Confirmed timolol maleate 0.5 % eye drops 1 drp EYE-LEFT QAM #2. 5 mL 12/21/12 04/02/25 latanoprost 0.005 % eye drops 1 drp EYE-LEFT BEDTIME 0 08/17/21 04/02/25 cholecalciferol (vitamin D3) 50 50 mcg PO DAILY 04/02/25 mcg (2,000 unit) capsule ferrous sulfate 325 mg (65 mg 325 mg PO DAILY 11/01/21 04/02/25 iron) tablet (Feosol) hydrochlorothiazide 12.5 mg tablet 12.5 mg PO DAILY 04/02/25 Previous Rx's ?Medication ?Instructions ?Recorded atorvastatin 40 mg tablet 40 mg PO BEDTIME #90 tabs metoprolol succinate 25 mg 37.5 mg (1.5 x 25 mg) PO BE DTIME 07/01/24 tablet,extended release 24 hr #135 tabs nitroglycerin 0.4 mg sublingual 0.4 mg sublingual Q5-1 5M PRN chest 07/01/24 tablet pain #25 tabs Humalog U-100 Insulin 100 unit/mL 1 sliding scale dose SUBCUT 07/09/24 subcutaneous solution (insulin USEASDIRECTD #50 mL lispro) tamsulosin 0.4 mg capsule 0.8 mg (2 x 0.4 mg) PO DAILY #180 07/26/24 caps insulin pump cartridge,auto #1 ea 01/21/25 dose,BT,G6/G7 with controller subcutaneous (Omnipod 5 G6-G7 Intro Kit(Gen 5) subcutaneous cartridge and controller) insulin pump cart,auto,BT,G6/7 #30 ea 03/21/25 (Omnipod 5 G6-G7 Pods (Gen 5) subcutaneous cartridge) omeprazole 20 mg capsule,delayed 20 mg PO BID #180 cap s 03/27/25 release nitroglycerin 0.4 mg sublingual 0.4 mg sublingual Q5M PRN chest 04/02/25 tablet pain #25 tabs sucralfate 1 gram tablet 1 g PO QACHS #120 tabs 04/02 Allergies Allergy/AdvReac Type Severity Reaction Status Date / Time codeine (CODEINE) Allergy Severe Tongue & Verified 04/03/25 09:10 throat swelling, vomiting, total body rash propoxyphene Allergy Nausea Verified 04/03/25 09:10 losartan AdvReac Severe hyperkalemi Verified 04/03/25 09:10 a prochlorperazine AdvReac Severe Nausea, Verified 04/03/25 09:10 (PROCHLORPERAZINE) vomiting, unable to urinate amlodipine AdvReac Intermediate Hypotension Verified 04/03/25 09:10 Narcotics AdvReac Severe Most Uncoded 04/03/25 09:10 don't work on me, nausea, vomiting Steroid AdvReac Severe Ketoacidosi Uncoded 04/03/25 09:10 s Review of Systems Review of Systems ROS Unobtainable: All systems reviewed & are unremarkable except as noted in HPI and below Patient History Medical History MEL (acute kidney injury) Anemia Anxiety Bilateral inguinal hernia BPH (benign prostatic hyperplasia) 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 Coronary artery disease COVID-19 virus infection (03/2022) Do not resuscitate Dysphagia Easy bruisability Elevated serum creatinine Essential hypertension Glaucoma History of alcohol use disorder HTN (hypertension) Hydrocele Hyperlipidemia Incomplete emptying of bladder Insulin pump in place Legally blind Male circumcision Mixed hyperlipidemia Osteoarthritis Polyneuropathy, unspecified Tinnitus 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 Surgical History H/O eye surgery H/O shoulder surgery (01/25/09) History of cystoscopy History of hydrocelectomy History of surgery (1998) History of surgery History of total right knee replacement (08/25/21) History of vasectomy (05/1987) Hx of arthroscopy of left knee (06/10/21) Hx of left cataract extraction Hx of oral surgery Family History Mother Alcoholism Father Drowned Family/Other Cancer Diabetes mellitus Hypertension Kidney stones Thyroid disease IBD (inflammatory bowel disease) Social History number of children: 4 household members: spouse Smoking Status: Unknown if ever smoked alcohol intake: former Type(s) of exercise: other frequency: daily alcohol intake frequency: holidays/special occasions only Exam Narrative Exam Narrative: GENERAL: [74] year old patient appears stated age. Well-developed patient, in mild distress. HEAD: Atraumatic. Normocephalic. EYES: Pupils equal round and reactive. Extraocular motions intact. No scleral icterus. No injection or drainage. ENT: Nose without bleeding, purulent drainage. Throat without erythema, tonsillar hypertrophy or exudate. Airway patent. NECK: Trachea midline. Non tender CARDIOVASCULAR: Regular rate and rhythm without murmurs, gallops, or rubs. RESPIRATORY: Clear to auscultation. Breath sounds equal bilaterally. No wheezes, rales, or rhonchi. GASTROINTESTINAL: Abdomen soft, non-tender, nondistended. EXTREMITIES: No edema or joint tenderness. BACK: Nontender without deformity or crepitance. No flank tenderness. NEURO: AOx3. SKIN: No rash or erythema of visible areas Initial Vital Signs Initial Vital Signs: Vital Signs Temperature 97.7 F 04/03/25 09:00 Pulse Rate 56 L 04/03/25 09:00 Respiratory Rate 14 04/03/25 09:00 Blood Pressure 222/100 H 04/03/25 09:00 Pulse Oximetry 99 04/03/25 09:00 Oxygen Delivery Method Room Air 04/03/25 09:00 Course Orders Ordered: ED Orders 04/03/25 09:05 Complete Blood Count AUTO DIFF Stat Comprehensive Metabolic Panel Stat Lipase Stat 04/03/25 09:10 EKG-12 Lead Stat 04/03/25 09:30 CT abdomen pelvis w con Stat CXR [XR chest 1V] Stat CBC Auto Diff [Complete Blood Count AUTO DIFF] Stat Trop I [Troponin I] Stat Ondansetron HCl (Ondansetron 4 Mg/2 Ml Inj) 4 mg IV NOW PRN PRN Reason: Nausea And Vomiting Ondansetron HCl (Ondansetron 4 Mg Odt) 4 mg PO NOW PRN PRN Reason: Nausea And Vomiting Vital Signs Vital signs: Vital Signs - 8 hr 04/03/25 09:00 04/03/25 09:09 04/03/25 09:09 Temperature 97.7 F Pulse Rate 56 L 56 L Respiratory Rate 14 Blood Pressure 222/100 H 222/100 H Pulse Oximetry 99 98 Oxygen Delivery Method Room Air MDM - Abdominal Pain Lab Data 04/03/25 09:05 04/03/25 09:05 Labs: Lab Results 04/03/25 Range/Units 09:05 WBC 7.6 (4.5-11.0) X10^3/uL RBC 4.06 L (4.5-5.9) X10^6/uL Hgb 13.0 L (13.5-17.5) g/dL Hct 38.1 L (41-53) % MCV 93.8 (80-100) fL MCH 32.1 (26-34) PG MCHC 34.2 (30-36) % RDW 13.5 (11.6-14.8) % Plt Count 214 (150-400) X10^3/uL Neut % (Auto) 61.6 (50-75) % Lymph % (Auto) 22.7 L (25-40) % Bacon % (Auto) 11.0 (3-14) % Eos % (Auto) 4.4 H (2-4) % Baso % (Auto) 0.3 (0-2) % Neut # (Auto) 4700 (3901-6532) /uL Lymph # (Auto) 1700 (6664-6664) /uL Bacon # (Auto) 800 (0-900) /uL Eos # (Auto) 300 (0-450) /uL Baso # (Auto) 0 (0-100) /uL Imaging Data Chest x-ray: Radiologist's Impression: [facility] [address] [place] [address] XRay Report Signed Patient: Saul Mcmillan MR#: [id number] : 1950 Acct:[id number] Age/Sex: 74 / M Date of Service: 04/03/25 Loc: ED Accession Number: [id number] Procedure: XR chest 1V Ordering Provider: Praful Brown D.O. PROCEDURE: XR CHEST 1V INDICATIONS: epigastric pain TECHNIQUE: One view of the chest was acquired. COMPARISON: [facility], CR, XR CHEST 1V, 01/21/2025, 5:08. [facility], CR, XR CHEST 1V, 02/19/2024, 12:19. FINDINGS: Surgical changes and devices: None. Lungs and pleura: Lungs are clear. No pleural effusions or pneumothorax. Mediastinum: Mediastinal contours appear normal. Heart size is normal. Bones and chest wall: No suspicious bony lesions. Overlying soft tissues appear unremarkable. Chronic angulated midshaft healed left clavicular fracture. IMPRESSION: No subdiaphragmatic free air or lung base pneumonia. Old healed midshaft left clavicular fracture, angulated. CT scan - abdomen/pelvis: Radiologist's Impression: [address] [address] [address] Scan Report Signed Patient: Saul Mcmillan MR#: [id number] : 1950 Acct:[id number] Age/Sex: 74 / M Date of Service: 04/03/25 Loc: ED Accession Number: [id number] Procedure: CT abdomen pelvis w con Ordering Provider: Praful Brown D.O. PROCEDURE: CT ABDOMEN PELVIS W CON INDICATIONS: abd pain TECHNIQUE: After the administration of intravenous contrast, axial sections acquired from the lung bases to the pubic symphysis. Coronal and sagittal reformats were performed. For radiation dose reduction, the following was used: automated exposure control, adjustment of mA and/or kV according to patient size. COMPARISON: [facility], CT, CT KIDNEY URETER BLADDER (KUB), 08/27/2021, 2:09. [facility], CR, XR CHEST 1V, 04/03/2025, 9:40. FINDINGS: Image quality: Diagnostic. Lower Chest: No significant findings. ABDOMEN: Liver: No solid mass. Gallbladder: No radiopaque gallstones or wall thickening. Biliary ducts: No biliary dilation. Pancreas: No ductal dilation. Spleen: Size is within normal limits. Adrenal Glands: No adrenal nodules. Kidneys and Ureters: No hydronephrosis. No solid mass. No complex renal cystic lesion which requires follow up. Stomach and Bowel: Normal colonic caliber, without significant wall thickening. Peritoneum: No abnormal intraperitoneal fluid. No free air. Ventral Wall: No significant ventral hernia. Abdominal Nodes: No retroperitoneal or mesenteric adenopathy by size criteria. Vessels: Aorta and inferior vena cava are normal in size. PELVIS: Pelvic Organs: Unremarkable. Bladder: No bladder wall thickening, accounting for underdistention. Pelvic Nodes: No enlarged lymph nodes. Miscellaneous: Bilateral small inguinal hernias are seen, fat containing and slightly larger on the right than the left, previously present also on CT scanning 08/27/21. Bones: No aggressive osseous abnormality. IMPRESSION: Stable over time, source of new onset abdominal pain is not seen. Small bilateral inguinal hernias, fat containing, right greater than left and previously present in 2021 without significant liner roll changer time. ECG Data Interpretation: Sinus Leonardo HR 55 [place] 176 QRS [address]-st wave change Change from 01/21/25 MDM Narrative Medical decision making narrative: All lab work, vital signs, nurse triage note, medication list, previous ER visits, and all imaging studies reviewed. Chest x-ray showed no subdiaphragmatic free air or lung base pneumonia. Old healed midshaft left clavicular. fracture angulated. CT abdomen and pelvis showed stable over time source of new onset abdominal. pain not seen small bilateral inguinal hernias containing right greater than left and previously present in 2021 without significant liner roll changer time. WBC 7.6 hemoglobin 13 platelet 214 sodium 136 potassium 4.2 chloride 102 CO2 28 BUN 50 creatinine 1.44 glucose 138 calcium 8.9 LFTs normal lipase 72. EKG shows sinus bradycardia heart rate of 55 with no STT wave changes. Patient given lactated ringer bolus and GI cocktail. Differential diagnosis includes GERD esophagitis STEMI NSTEMI pancreatitis constipation diverticulitis kidney stone kidney infection. Patient already on omeprazole, nitroglycerin and recently prescribed sulfacrate by PCP. Patient has appointment with PCP next week. Patient may benefit from endoscopy and/or colonoscopy to rule out other pathology. Discharge Plan Departure Patient Disposition: Home Clinical Impression: Abdominal pain, epigastric Instructions: DI for Abdominal Pain-Adult Activity Restrictions/Additional Instructions: Return with new or worsening symptoms. Keep hydrated. Clear liquid diet advance as tolerated. Follow up with PCP at your next scheduled appointment. Prescriptions: No Action timolol maleate 0.5 % Drops 1 drp EYE-LEFT QAM Qty: 2.5 (DME) Omnipod 5 G6-G7 Intro Kt(Gen5) Cartridge See Rx Instructions .Route Qty: 1 1RF Rx Instructions: Per package instructions. Change every 3 days. (DME) Omnipod 5 G6-G7 Pods (Gen 5) Cartridge See Rx Instructions .Route Qty: 30 11RF Rx Instructions: Per package instructions. Change every 3 days. omeprazole 20 mg capsule,delayed release(DR/EC) 20 mg PO BID Qty: 180 0RF insulin lispro [Humalog U-100 Insulin] 100 unit/mL solution 1 sliding scale dose SUBCUT USEASDIRECTD Qty: 50 3RF Patient Comments: 0.3 units/per hour on insulin pump Rx Instructions: max dose 50U/day in pump change pump ever 72 hours hydrochlorothiazide 12.5 mg tablet 12.5 mg PO DAILY sucralfate 1 gram tablet 1 g PO QACHS Qty: 120 0RF nitroglycerin 0.4 mg tablet, sublingual 0.4 mg sublingual Q5M PRN (Reason: chest pain) Qty: 25 3RF Rx Instructions: do not exceed 3 doses per episode ferrous sulfate [Feosol] 325 mg (65 mg iron) tablet 325 mg PO DAILY cholecalciferol (vitamin D3) 50 mcg (2,000 unit) capsule 50 mcg PO DAILY atorvastatin 40 mg tablet 40 mg PO BEDTIME Qty: 90 3RF metoprolol succinate 25 mg tablet extended release 24 hr 37.5 mg PO BEDTIME Qty: 135 3RF nitroglycerin 0.4 mg tablet, sublingual 0.4 mg sublingual Q5-15M PRN (Reason: chest pain) Qty: 25 3RF Rx Instructions: do not exceed 3 doses per episode latanoprost 0.005 % Drops 1 drp EYE-LEFT BEDTIME tamsulosin 0.4 mg capsule 0.8 mg PO DAILY Qty: 180 3RF Referrals: Kotal,Mickey V, MD [Primary Care Provider, Internal Medicine] Stand Alone Forms: Patient Portal/API
--- NOTE | 2025-04-03 09:16 | EKG_ITS ---
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
[2025-04-03 09:18] LABS: Add Manual Diff / Slide Review NO; Hematocrit 38.1 % (41-53); Hemoglobin 13.0 g/dL (13.5-17.5); Lymphocytes Absolute Auto 1700 /uL (1100-4500); Mean Corpuscular HGB Conc 34.2 % (30-36); Mean Corpuscular Hemoglobin 32.1 PG (26-34); Mean Corpuscular Volume 93.8 fL (80-100); Platelet Count 214 X10^3/uL (150-400)
--- NOTE | 2025-04-03 09:30 | DI.RAD.S_ITS ---
PROCEDURE: XR CHEST 1V INDICATIONS: epigastric pain TECHNIQUE: One view of the chest was acquired. COMPARISON: [facility], CR, XR CHEST 1V, 01/21/2025, 5:08. [facility], CR, XR CHEST 1V, 02/19/2024, 12:19. FINDINGS: Surgical changes and devices: None. Lungs and pleura: Lungs are clear. No pleural effusions or pneumothorax. Mediastinum: Mediastinal contours appear normal. Heart size is normal. Bones and chest wall: No suspicious bony lesions. Overlying soft tissues appear unremarkable. Chronic angulated midshaft healed left clavicular fracture. IMPRESSION: No subdiaphragmatic free air or lung base pneumonia. Old healed midshaft left clavicular fracture, angulated. Dictated by: Luis Gutierrez M.D. on 04/03/2025 at 9:56 Approved by: Luis Gutierrez M.D. on 04/03/2025 at 9:57
--- NOTE | 2025-04-03 09:30 | DI.CT.S_ITS ---
PROCEDURE: CT ABDOMEN PELVIS W CON INDICATIONS: abd pain TECHNIQUE: After the administration of intravenous contrast, axial sections acquired from the lung bases to the pubic symphysis. Coronal and sagittal reformats were performed. For radiation dose reduction, the following was used: automated exposure control, adjustment of mA and/or kV according to patient size. COMPARISON: [facility], CT, CT KIDNEY URETER BLADDER (KUB), 08/27/2021, 2:09. [facility], CR, XR CHEST 1V, 04/03/2025, 9:40. FINDINGS: Image quality: Diagnostic. Lower Chest: No significant findings. ABDOMEN: Liver: No solid mass. Gallbladder: No radiopaque gallstones or wall thickening. Biliary ducts: No biliary dilation. Pancreas: No ductal dilation. Spleen: Size is within normal limits. Adrenal Glands: No adrenal nodules. Kidneys and Ureters: No hydronephrosis. No solid mass. No complex renal cystic lesion which requires follow up. Stomach and Bowel: Normal colonic caliber, without significant wall thickening. Peritoneum: No abnormal intraperitoneal fluid. No free air. Ventral Wall: No significant ventral hernia. Abdominal Nodes: No retroperitoneal or mesenteric adenopathy by size criteria. Vessels: Aorta and inferior vena cava are normal in size. PELVIS: Pelvic Organs: Unremarkable. Bladder: No bladder wall thickening, accounting for underdistention. Pelvic Nodes: No enlarged lymph nodes. Miscellaneous: Bilateral small inguinal hernias are seen, fat containing and slightly larger on the right than the left, previously present also on CT scanning 08/27/21. Bones: No aggressive osseous abnormality. IMPRESSION: Stable over time, source of new onset abdominal pain is not seen. Small bilateral inguinal hernias, fat containing, right greater than left and previously present in 2021 without significant tar heat exchanger cleaner time. Dictated by: Luis Gutierrez M.D. on 04/03/2025 at 9:57 Approved by: Luis Gutierrez M.D. on 04/03/2025 at 10:02
[2025-04-03 09:32] LABS: Alanine Aminotransferase 22 IU/L (<50); Albumin 4.1 g/dL (3.5-5.0); Albumin Globulin Ratio 1.3 (1.0-2.8); Alkaline Phosphatase 58 U/L (38-126); Blood Urea Nitrogen 50 mg/dL (9-20); Calcium 8.9 mg/dL (8.4-10.2); Carbon Dioxide 28 mmol/L (22-32); Chloride 102 mmol/L (98-107); Estimated Glomerular Filt Rate 51 mL/min (>60); Globulin 3.1 g/dL (1.7-4.1); Glucose 138 mg/dL (70-99); HEMOLYSIS < 15 (0-50); Lipase 72 U/L (23-300); Potassium 4.2 mmol/L (3.4-5.1); Sodium 136 mmol/L (137-145); Total Protein 7.2 g/dL (6.3-8.2)
[2025-04-03] MEDS: LACTATED RINGERS 1,000 ML 1000 ML IV (10:10)
[2025-04-03] MEDS: MAG HYDROX/ALUMINUM/SIMETH SUS 30 ML, LIDOCAINE VISCOUS 2% 15 ML PO (12:05)
[2025-04-03 12:57] LABS: Troponin I < 0.012 ng/mL (0.01-0.034)
== END 2025-04-03 12:32 | disposition home or self-care (01) ==
PROVIDERS: Emergency Provider Family Medicine; Family Provider Internal Medicine; PCP Internal Medicine
DX: R10.13 Epigastric pain (principal)
CPT/HCPCS: 36415; 71045; 74177; 80053; 81003; 83690; 84484; 85025; 93005; 93010; 96360; 99284; J7120; Q9967

== ENCOUNTER 2025-04-09 14:44 | Emergency (ER) | payer MEDICARE, OTHER, SELFPAY ==
[2022-05-16 16:37] VITALS: BMI 25.0
[2025-04-09] VITALS (8 sets, daily range): BP systolic 148–187; BP diastolic 68–82; PULSE 54–64; RESP 16–18; TEMP 36.4; O2SAT 92–100; BMI 23.3
--- NOTE | 2025-04-09 15:00 | ED.ABDPAIN ---
HPI - Abdominal Pain <Gabrielle Busch PA-C - Last Filed: 04/10/25 11:04> General Chief Complaint: Abdominal Pain Stated Complaint: Inguinal Hernia Time Seen by Provider: 04/09/25 14:59 Source: EMS Mode of arrival: EMS History of Present Illness HPI narrative: Mr. Mcmillan is a pleasant 74-year-old gentleman with a past medical history of insulin-dependent diabetes, legal blindness, CAD, HTN, HLD, CKD, neuropathy who presents to the emergency department via EMS from home for right inguinal hernia pain today. He is accompanied by his . Patient states he has bilateral inguinal hernias, he is scheduled for surgery in [place] in about 3 weeks, his right inguinal hernia has a tendency to pop out and he reduces it every day at home however today he was unable to reduce the hernia was experiencing 10/10 pain of the right inguinal hernia which prompted his to call 911. Since being in the stretcher via EMS, patient states that the hernia bulge has gone down significantly in his pain has improved. He has also been experiencing epigastric abdominal pain for the last month. He denies chest pain, shortness of breath, vomiting, diarrhea, constipation. He does have intolerance to all opioids except to fentanyl, can not take NSAIDs due to his CKD. Denies fevers. Denies history of any abdominal surgeries. Denies blood thinner use. Related Data Home Medications ?Medication ?Instructions ?Recorded ?Confirmed timolol maleate 0.5 % eye drops 1 drp EYE-LEFT QAM #2.5 mL 12/21/12 04/02/25 latanoprost 0.005 % eye drops 1 drp EYE-LEFT BEDTIME 08/17/21 04/02/25 cholecalciferol (vitamin D3) 50 50 mcg PO DAILY 11/01/21 04/02/25 mcg (2,000 unit) capsule ferrous sulfate 325 mg (65 mg 325 mg PO DAILY 11/01/21 04/02/25 iron) tablet (Feosol) hydrochlorothiazide 12.5 mg tablet 12.5 mg PO DAILY 03/12/25 04/02/25 Previous Rx's ?Medication ?Instructions ?Recorded atorvastatin 40 mg tablet 40 mg PO BEDTIME #90 tabs 07/01/24 metoprolol succinate 25 mg 37.5 mg (1.5 x 25 mg) PO BEDTIME 07/01/24 tablet,extended release 24 hr #135 tabs Humalog U-100 Insulin 100 unit/mL 1 sliding scale dose SUBCUT 07/09/24 subcutaneous solution (insulin USEASDIRECTD #50 mL lispro) tamsulosin 0.4 mg capsule 0.8 mg (2 x 0.4 mg) PO DAILY #180 07/26/24 caps insulin pump cartridge,auto #1 ea 01/21/25 dose,BT,G6/G7 with controller subcutaneous (Omnipod 5 G6-G7 Intro Kit(Gen 5) subcutaneous cartridge and controller) insulin pump cart,auto,BT,G6/7 #30 ea 03/21/25 (Omnipod 5 G6-G7 Pods (Gen 5) subcutaneous cartridge) omeprazole 20 mg capsule,delayed 20 mg PO BID #180 caps 03/27/25 release nitroglycerin 0.4 mg sublingual 0.4 mg sublingual Q5M PRN chest 04/02/25 tablet pain #25 tabs sucralfate 1 gram tablet 1 g PO QACHS #120 tabs 04/02/25 Allergies Allergy/AdvReac Type Severity Reaction Status Date / Time codeine (CODEINE) Allergy Severe Tongue & Verified 04/03/25 09:10 throat swelling, vomiting, total body rash propoxyphene Allergy Nausea Verified 04/03/25 09:10 losartan AdvReac Severe hyperkalemi Verified 04/03/25 09:10 a prochlorperazine AdvReac Severe Nausea, Verified 04/03/25 09:10 (PROCHLORPERAZINE) vomiting, unable to urinate amlodipine AdvReac Intermediate Hypotension Verified 04/03/25 09:10 opiates Allergy Mild Uncoded 04/09/25 14:51 Narcotics AdvReac Severe Most Uncoded 04/03/25 09:10 don't work on me, nausea, vomiting Steroid AdvReac Severe Ketoacidosi Uncoded 04/03/25 09:10 s Review of Systems <Gabrielle Busch PA-C - Last Filed: 04/10/25 11:04> Review of Systems ROS Unobtainable: All systems reviewed & are unremarkable except as noted in HPI and below Patient History <Gabrielle Busch PA-C - Last Filed: 04/10/25 11:04> Medical History Bilateral inguinal hernia Anemia Incomplete emptying of bladder CKD stage 3 due to type 1 diabetes mellitus MEL (acute kidney injury) Elevated serum creatinine Essential hypertension COVID-19 virus infection (03/2022) Male circumcision History of alcohol use disorder Hydrocele BPH w urinary obs/LUTS Do not resuscitate Dysphagia Mixed hyperlipidemia Coronary artery disease Polyneuropathy, unspecified 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 Anxiety Easy bruisability Osteoarthritis BPH (benign prostatic hyperplasia) Tinnitus Glaucoma Insulin pump in place Legally blind HTN (hypertension) Hyperlipidemia Surgical History History of hydrocelectomy History of total right knee replacement (08/25/21) History of cystoscopy History of vasectomy (05/1987) Hx of oral surgery Hx of left cataract extraction History of surgery Hx of arthroscopy of left knee (06/10/21) History of surgery (1998) H/O shoulder surgery (01/25/09) H/O eye surgery Family History Mother Alcoholism Father Drowned Family/Other Cancer Diabetes mellitus Hypertension Kidney stones Thyroid disease IBD (inflammatory bowel disease) Social History number of children: 4 household members: spouse alcohol intake: former Type(s) of exercise: other frequency: daily alcohol intake frequency: holidays/special occasions only Exam <Gabrielle Busch PA-C - Last Filed: 04/10/25 11:04> Narrative Exam Narrative: GENERAL: 74 year old patient appears stated age. Well-developed patient, in no acute distress. HEAD: Atraumatic. Normocephalic. EYES: Surgical absence of right eye. NECK: Trachea midline. Cervical ROM intact. CARDIOVASCULAR: Regular rate and rhythm. RESPIRATORY: ?Nonlabored respirations. ?Speaking in clear, full sentences. ?Clear to auscultation. Breath sounds equal bilaterally. No wheezes, rales, or rhonchi. ? GASTROINTESTINAL: TTP epigastric and Right inguinal region. There are some palpable fullness in the right inguinal region but no large hernia, no overlying erythema or skin changes. Bowel sounds are present. Abdomen is soft, nondistended, no rebound or guarding. EXTREMITIES: No LE edema. NEURO: AOx3. ?Clear speech. ?Moves all 4 extremities appropriately. SKIN: No rash or erythema of visible areas Initial Vital Signs Initial Vital Signs: Vital Signs Pulse Rate 64 04/09/25 14:47 Pulse Oximetry 99 04/09/25 14:47 <Braulio Flaherty MD - Last Filed: 04/10/25 11:16> Initial Vital Signs Initial Vital Signs: Vital Signs Pulse Rate 64 04/09/25 14:47 Pulse Oximetry 99 04/09/25 14:47 Course <Gabrielle Busch PA-C - Last Filed: 04/10/25 11:04> Orders Ordered: Discontinued Medications Fentanyl (Fentanyl 100 Mcg/2 Ml Inj) 50 mcg IV NOW ONE Stop: 04/09/25 15:10 Last Admin: 04/09/25 15:46 Dose: 50 mcg Documented By: CHARLI Sodium Chloride (Normal Saline 0.9%) 1,000 mls @ 1,000 mls/hr IV BOLUS ONE Stop: 04/09/25 16:08 Last Infusion: 04/09/25 18:53 Dose: Infused Documented By: Admin: 04/09/25 15:47 Dose: 1,000 mls/hr Documented By: CHARLI Lidocaine HCl (Lidocaine 2% (Glydo) 6 Ml Gel) 6 ml TOP NOW ONE Stop: 04/09/25 18:08 Last Admin: 04/09/25 18:30 Dose: 6 ml Documented By: CAHRLI Ondansetron HCl (Ondansetron 4 Mg/2 Ml Inj) 4 mg IV NOW ONE Stop: 04/09/25 15:10 Last Admin: 04/09/25 15:46 Dose: 4 mg Documented By: CHARLI Vital Signs Vital signs: Vital Signs - 8 hr 04/09/25 14:47 04/09/25 14:50 04/09/25 16:00 Temperature 97.5 F L Pulse Rate 64 64 58 L Respiratory Rate 18 16 Blood Pressure 187/82 H Pulse Oximetry 99 100 100 Oxygen Delivery Method Room Air 04/09/25 16:24 04/09/25 16:24 Temperature Pulse Rate 54 L Respiratory Rate Blood Pressure 160/70 H Pulse Oximetry 98 Oxygen Delivery Method <Braulio Flaherty MD - Last Filed: 04/10/25 11:16> Orders Ordered: Discontinued Medications Fentanyl (Fentanyl 100 Mcg/2 Ml Inj) 50 mcg IV NOW ONE Stop: 04/09/25 15:10 Last Admin: 04/09/25 15:46 Dose: 50 mcg Documented By: CHARLI Sodium Chloride (Normal Saline 0.9%) 1,000 mls @ 1,000 mls/hr IV BOLUS ONE Stop: 04/09/25 16:08 Last Infusion: 04/09/25 18:53 Dose: Infused Documented By: Admin: 04/09/25 15:47 Dose: 1,000 mls/hr Documented By: CHARLI Lidocaine HCl (Lidocaine 2% (Glydo) 6 Ml Gel) 6 ml TOP NOW ONE Stop: 04/09/25 18:08 Last Admin: 04/09/25 18:30 Dose: 6 ml Documented By: CHARLI Ondansetron HCl (Ondansetron 4 Mg/2 Ml Inj) 4 mg IV NOW ONE Stop: 04/09/25 15:10 Last Admin: 04/09/25 15:46 Dose: 4 mg Documented By: CHARLI Vital Signs Vital signs: Vital Signs - 8 hr 04/09/25 14:47 04/09/25 14:50 04/09/25 16:00 Temperature 97.5 F L Pulse Rate 64 64 58 L Respiratory Rate 18 16 Blood Pressure 187/82 H Pulse Oximetry 99 100 100 Oxygen Delivery Method Room Air 04/09/25 16:24 04/09/25 16:24 Temperature Pulse Rate 54 L Respiratory Rate Blood Pressure 160/70 H Pulse Oximetry 98 Oxygen Delivery Method MDM - Abdominal Pain <Gabrielle Busch PA-C - Last Filed: 04/10/25 11:04> Medical Records Attestation: I reviewed the patient's medical records. Lab Data 04/09/25 15:45 04/09/25 15:45 Labs: Lab Results 04/09/25 04/09/25 04/09/25 Range/Units 15:45 17:05 17:46 WBC 7.3 (4.5-11.0) X10^3/uL RBC 4.63 (4.5-5.9) X10^6/uL Hgb 14.8 (13.5-17.5) g/dL Hct 43.6 (41-53) % MCV 94.2 (80-100) fL MCH 32.1 (26-34) PG MCHC 34.0 (30-36) % RDW 13.4 (11.6-14.8) % Plt Count 236 (150-400) X10^3/uL Neut % (Auto) 66.9 (50-75) % Lymph % (Auto) 21.4 L (25-40) % [place] % (Auto) 6.9 (3-14) % Eos % (Auto) 4.0 (2-4) % Baso % (Auto) 0.8 (0-2) % Neut # (Auto) 4900 (7596-7405) /uL Lymph # (Auto) 1600 (6626-3369) /uL [place] # (Auto) 500 (0-900) /uL Eos # (Auto) 300 (0-450) /uL Baso # (Auto) 100 (0-100) /uL Sodium 139 (137-145) mmol/L Potassium 4.0 (3.4-5.1) mmol/L Chloride 103 (98-107) mmol/L Carbon Dioxide 27 (22-32) mmol/L BUN 60 H (9-20) mg/dL Creatinine 1.44 H (0.66-1.25) mg/dL Estimated GFR 51 L (>60) mL/min BUN/Creatinine Ratio 41.7 H (6-22) Glucose 98 (70-99) mg/dL POC Whole Bld Glucose 68 L 109 H (70-99) mg/dL Lactate 0.8 (0.7-2.1) mmol/L Calcium 9.8 (8.4-10.2) mg/dL Magnesium 1.8 (1.6-2.3) mg/dL Total Bilirubin 0.7 (0.2-1.3) mg/dL AST 55 (17-59) IU/L ALT 26 (<50) IU/L Alkaline Phosphatase 61 (38-126) U/L Total Creatine Kinase 60 (55-170) U/L Troponin I < 0.012 (0.01-0.034) ng/mL Total Protein 8.2 (6.3-8.2) g/dL Albumin 4.5 (3.5-5.0) g/dL Globulin 3.7 (1.7-4.1) g/dL Albumin/Globulin Ratio 1.2 (1.0-2.8) Lipase 65 (23-300) U/L Point of care testing: Point of Care Testing Glucose POC 109 Urine Dip Bedside Urine Glucose Negative Bedside Urine Bilirubin - Negative Bedside Urine Ketone - Negative Urine Specific [place] 1.010 Bedside Urine Occult Blood - Negative Bedside Urine pH 5.5 Bedside Urine Protein - Negative Bedside Urine Urobilinogen - Negative Bedside Urine Nitrite - Negative Bedside Urine Leukocytes - Negative Esterase Imaging Data CT scan - abdomen/pelvis: Radiologist's Impression: PROCEDURE: CT ABDOMEN PELVIS W CON INDICATIONS: RIGHT inguinal hernia pain; epiagstric pain TECHNIQUE: After the administration of intravenous contrast, axial sections acquired from the lung bases to the pubic symphysis. Coronal and sagittal reformats were performed. For radiation dose reduction, the following was used: automated exposure control, adjustment of mA and/or kV according to patient size. COMPARISON: [facility], CT, CT ABDOMEN PELVIS W CON, 04/03/2025, 9:40. FINDINGS: Image quality: Diagnostic. Lower Chest: No significant findings. ABDOMEN: Liver: No solid mass. Gallbladder: No radiopaque gallstones or wall thickening. Biliary ducts: No biliary dilation. Pancreas: No ductal dilation. Spleen: Size is within normal limits. Adrenal Glands: No adrenal nodules. Kidneys and Ureters: Mild bilateral hydroureter. No solid mass. No complex renal cystic lesion which requires follow up. Stomach and Bowel: Normal colonic caliber, without significant wall thickening. Peritoneum: No abnormal intraperitoneal fluid. No free air. Ventral Wall: No significant ventral hernia. Abdominal Nodes: No retroperitoneal or mesenteric adenopathy by size criteria. Vessels: Aorta and inferior vena cava are normal in size. Moderate mural calcifications of the abdominal aorta. PELVIS: Pelvic Organs: Surgical changes in the prostate.. Bladder: The bladder is well distended without focal mural thickening. Pelvic Nodes: No enlarged lymph nodes. Miscellaneous: Small fat containing right hernia with moderate fluid in the right inguinal canal, correlate for hydrocele, unchanged from 04/03/2025.. Bones: No aggressive osseous abnormality. IMPRESSION: 1. Fat containing right inguinal hernia with moderate right hydrocele, similar in appearance compared to 04/03/2025, correlate for a reducible hernia without secondary findings of hernia strangulation. 2. Well-distended urinary bladder with mild bilateral hydroureter, correlate for bladder outlet obstruction or voiding difficulty. Dictated by: Kraig White M.D. on 04/09/2025 at 16:48 Approved by: Kraig White M.D. on 04/09/2025 at 16:54 [facility] Narrative Medical decision making narrative: 74-year-old gentleman with a past medical history of insulin-dependent diabetes, legal blindness, CAD, HTN, HLD, CKD, neuropathy who presents to the emergency department via EMS from home for right inguinal hernia pain today. Differential diagnosis includes but is not limited to incarcerated right inguinal hernia, reducible hernia, strangulated hernia, colitis, nephrolithiasis, UTI, appendicitis, etc. On exam patient is in no acute distress, nontoxic appearing, vital signs appropriate except for mildly elevated blood pressure. Patient is tender to palpation of the right inguinal region and the epigastric region of the abdomen. States that his right inguinal hernia was nonreducible at home however it has significantly gone down. We will obtain lab work including lactic, CT abdomen pelvis to further evaluate hernia or other cause of patient's right lower quadrant abdominal pain, treat pain with fentanyl fluids and Zofran, keep NPO, no prior abdominal surgeries, no blood thinners. EKG reveals sinus bradycardia with a rate of 57 beats per minute, QTC 436. Labs reveal normal WBC count 7.3, hemoglobin 14.8 hematocrit 43.6. Sodium 139, potassium 4.0. BUN elevated at 60, creatinine baseline at 1.44. GFR 51. Glucose 98. Negative/undetectable troponin. Normal LFTs. Lipase 65. CT reveals fat containing right inguinal hernia with moderate right hydrocele, similar in appearance to 04/03/2025, well distended urinary bladder with mild bilateral hydroureter, correlate for bladder outlet obstruction or voiding difficulty. Postvoid residual was positive, +354 ml. UA without infection. Advised mercado catheter, pt considering at this time. 1715: Dr. Flaherty evaluated the patient at bedside, Right inguinal hernia reducible. 1816: Pt agreeable to mercado catheter at this time for acute urinary retention. Nursing staff placed [address] catheter with return of clear, straw-colored urine. Patient states he actually feels much better after catheter placement. His abdominal pain has improved significantly since when he showed up to the ER. Discussed supportive care, reduction techniques for home, calling and scheduling appointment with [facility] for elective hernia repair as his current surgeries scheduled with a different hospital and it is not for 3 weeks. Also advised calling it schedule an appointment with urology for further management of his Mercado catheter and urinary retention. Discussed strict ER return precautions. Patient verbalized understanding of all information is agreeable with the plan. He is stable for discharge home with his . <Braulio Flaherty MD - Last Filed: 04/10/25 11:16> Lab Data Labs: Lab Results 04/09/25 04/09/25 04/09/25 Range/Units 15:45 17:05 17:46 WBC 7.3 (4.5-11.0) X10^3/uL RBC 4.63 (4.5-5.9) X10^6/uL Hgb 14.8 (13.5-17.5) g/dL Hct 43.6 (41-53) % MCV 94.2 (80-100) fL MCH 32.1 (26-34) PG MCHC 34.0 (30-36) % RDW 13.4 (11.6-14.8) % Plt Count 236 (150-400) X10^3/uL Neut % (Auto) 66.9 (50-75) % Lymph % (Auto) 21.4 L (25-40) % [place] % (Auto) 6.9 (3-14) % Eos % (Auto) 4.0 (2-4) % Baso % (Auto) 0.8 (0-2) % Neut # (Auto) 4900 (2110-0270) /uL Lymph # (Auto) 1600 (4524-1005) /uL [place] # (Auto) 500 (0-900) /uL Eos # (Auto) 300 (0-450) /uL Baso # (Auto) 100 (0-100) /uL Sodium 139 (137-145) mmol/L Potassium 4.0 (3.4-5.1) mmol/L Chloride 103 (98-107) mmol/L Carbon Dioxide 27 (22-32) mmol/L BUN 60 H (9-20) mg/dL Creatinine 1.44 H (0.66-1.25) mg/dL Estimated GFR 51 L (>60) mL/min BUN/Creatinine Ratio 41.7 H (6-22) Glucose 98 (70-99) mg/dL POC Whole Bld Glucose 68 L 109 H (70-99) mg/dL Lactate 0.8 (0.7-2.1) mmol/L Calcium 9.8 (8.4-10.2) mg/dL Magnesium 1.8 (1.6-2.3) mg/dL Total Bilirubin 0.7 (0.2-1.3) mg/dL AST 55 (17-59) IU/L ALT 26 (<50) IU/L Alkaline Phosphatase 61 (38-126) U/L Total Creatine Kinase 60 (55-170) U/L Troponin I < 0.012 (0.01-0.034) ng/mL Total Protein 8.2 (6.3-8.2) g/dL Albumin 4.5 (3.5-5.0) g/dL Globulin 3.7 (1.7-4.1) g/dL Albumin/Globulin Ratio 1.2 (1.0-2.8) Lipase 65 (23-300) U/L Point of care testing: Point of Care Testing Glucose POC 109 Urine Dip Bedside Urine Glucose Negative Bedside Urine Bilirubin - Negative Bedside Urine Ketone - Negative Urine Specific [place] 1.010 Bedside Urine Occult Blood - Negative Bedside Urine pH 5.5 Bedside Urine Protein - Negative Bedside Urine Urobilinogen - Negative Bedside Urine Nitrite - Negative Bedside Urine Leukocytes - Negative Esterase Discharge Plan Departure Patient Disposition: Home Clinical Impression: Inguinal hernia, right, Acute urinary retention Instructions: How to Care for Your Mercado Catheter -- Male, DI for Groin Hernia, DI for Urinary Retention in Men Activity Restrictions/Additional Instructions: Dear Deyanira, Thank you for coming to the emergency department. Today you were evaluated for right-sided hernia pain and epigastric abdominal pain. Your CT scan revealed a similar-appearing hernia to your prior CT scan, and Dr. Flaherty was able to reduce this hernia, it is not currently incarcerated. Your bladder was very full here, consistent with urinary retention. A Mercado catheter was placed. This needs to stay in until you follow up with Urology. Please call and schedule an appointment with [facility] for further management of your Mercado catheter and urinary retention. Please call and schedule an appointment with [facility] for elective hernia repair. Please return to the ER if you develop fevers, severe pain, hernia that will not go down, or any other concerns. Please follow up with your primary care doctor within the next 2-3 days for ER follow-up. (If you do not have a PCP you can call [phone]. ?to schedule an appointment with an [facility] Primary Care Provider) IF YOU DEVELOP ANY NEW OR WORSENING SYMPTOMS, RETURN TO THE ER! Please read the attached instructions, they highlight more specific treatments and interventions for you at home. Thank you for letting me participate in your care, Gabrielle Busch PA-C Prescriptions: No Action timolol maleate 0.5 % Drops 1 drp EYE-LEFT QAM Qty: 2.5 (DME) Omnipod 5 G6-G7 Intro Kt(Gen5) Cartridge See Rx Instructions .Route Qty: 1 1RF Rx Instructions: Per package instructions. Change every 3 days. (DME) Omnipod 5 G6-G7 Pods (Gen 5) Cartridge See Rx Instructions .Route Qty: 30 11RF Rx Instructions: Per package instructions. Change every 3 days. omeprazole 20 mg capsule,delayed release(DR/EC) 20 mg PO BID Qty: 180 0RF insulin lispro [Humalog U-100 Insulin] 100 unit/mL solution 1 sliding scale dose SUBCUT USEASDIRECTD Qty: 50 3RF Patient Comments: 0.3 units/per hour on insulin pump Rx Instructions: max dose 50U/day in pump change pump ever 72 hours hydrochlorothiazide 12.5 mg tablet 12.5 mg PO DAILY sucralfate 1 gram tablet 1 g PO QACHS Qty: 120 0RF nitroglycerin 0.4 mg tablet, sublingual 0.4 mg sublingual Q5M PRN (Reason: chest pain) Qty: 25 3RF Rx Instructions: do not exceed 3 doses per episode ferrous sulfate [Feosol] 325 mg (65 mg iron) tablet 325 mg PO DAILY cholecalciferol (vitamin D3) 50 mcg (2,000 unit) capsule 50 mcg PO DAILY atorvastatin 40 mg tablet 40 mg PO BEDTIME Qty: 90 3RF metoprolol succinate 25 mg tablet extended release 24 hr 37.5 mg PO BEDTIME Qty: 135 3RF latanoprost 0.005 % Drops 1 drp EYE-LEFT BEDTIME tamsulosin 0.4 mg capsule 0.8 mg PO DAILY Qty: 180 3RF Referrals: [facility] [Provider Group] Referral Note: R inguinal hernia Gino John DO [Physician, Urology] Referral Note: urinary retention Mickey Brito MD [Primary Care Provider, Internal Medicine] Stand Alone Forms: Patient Portal/API ED Sign-out <Braulio Flaherty MD - Last Filed: 04/10/25 11:16> Cosign ED Attending Cosignature Attestation: I personally evaluated and examined the patient and agree with the assessment, treatment plan, and disposition of the patient as recorded by the APC. MD Reynold
--- NOTE | 2025-04-09 15:09 | DI.CT.S_ITS ---
PROCEDURE: CT ABDOMEN PELVIS W CON INDICATIONS: RIGHT inguinal hernia pain; epiagstric pain TECHNIQUE: After the administration of intravenous contrast, axial sections acquired from the lung bases to the pubic symphysis. Coronal and sagittal reformats were performed. For radiation dose reduction, the following was used: automated exposure control, adjustment of mA and/or kV according to patient size. COMPARISON: [facility], CT, CT ABDOMEN PELVIS W CON, 04/03/2025, 9:40. FINDINGS: Image quality: Diagnostic. Lower Chest: No significant findings. ABDOMEN: Liver: No solid mass. Gallbladder: No radiopaque gallstones or wall thickening. Biliary ducts: No biliary dilation. Pancreas: No ductal dilation. Spleen: Size is within normal limits. Adrenal Glands: No adrenal nodules. Kidneys and Ureters: Mild bilateral hydroureter. No solid mass. No complex renal cystic lesion which requires follow up. Stomach and Bowel: Normal colonic caliber, without significant wall thickening. Peritoneum: No abnormal intraperitoneal fluid. No free air. Ventral Wall: No significant ventral hernia. Abdominal Nodes: No retroperitoneal or mesenteric adenopathy by size criteria. Vessels: Aorta and inferior vena cava are normal in size. Moderate mural calcifications of the abdominal aorta. PELVIS: Pelvic Organs: Surgical changes in the prostate.. Bladder: The bladder is well distended without focal mural thickening. Pelvic Nodes: No enlarged lymph nodes. Miscellaneous: Small fat containing right hernia with moderate fluid in the right inguinal canal, correlate for hydrocele, unchanged from 04/03/2025.. Bones: No aggressive osseous abnormality. IMPRESSION: 1. Fat containing right inguinal hernia with moderate right hydrocele, similar in appearance compared to 04/03/2025, correlate for a reducible hernia without secondary findings of hernia strangulation. 2. Well-distended urinary bladder with mild bilateral hydroureter, correlate for bladder outlet obstruction or voiding difficulty. Dictated by: Kraig White M.D. on 04/09/2025 at 16:48 Approved by: Kraig White M.D. on 04/09/2025 at 16:54
--- NOTE | 2025-04-09 15:15 | EKG_ITS ---
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
--- NOTE | 2025-04-09 15:28 | PC.NURSE ---
Pt up to bathroom with . 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 Pt had told this comic writer to stop looking at him when he was trying to use the urinal, states he cannot see this comic writer, he can feel that someone is watching him. This comic writer had provided privacy with supervision as pt is a fall risk.
[2025-04-09] MEDS: ONDANSETRON 4 MG/2 ML INJ IV (15:46)
[2025-04-09] MEDS: fentaNYL 100 MCG/2 ML INJ 50 MCG IV (15:46)
[2025-04-09] MEDS: SODIUM CHLORIDE 0.9% 1,000 ML 1000 ML IV (15:47)
[2025-04-09 15:57] LABS: Add Manual Diff / Slide Review NO; Hematocrit 43.6 % (41-53); Hemoglobin 14.8 g/dL (13.5-17.5); Lymphocytes Absolute Auto 1600 /uL (1100-4500); Mean Corpuscular HGB Conc 34.0 % (30-36); Mean Corpuscular Hemoglobin 32.1 PG (26-34); Mean Corpuscular Volume 94.2 fL (80-100); Platelet Count 236 X10^3/uL (150-400)
[2025-04-09 16:11] LABS: Alanine Aminotransferase 26 IU/L (<50); Albumin 4.5 g/dL (3.5-5.0); Albumin Globulin Ratio 1.2 (1.0-2.8); Alkaline Phosphatase 61 U/L (38-126); Blood Urea Nitrogen 60 mg/dL (9-20); Calcium 9.8 mg/dL (8.4-10.2); Carbon Dioxide 27 mmol/L (22-32); Chloride 103 mmol/L (98-107); Creatine Kinase 60 U/L (55-170); Estimated Glomerular Filt Rate 51 mL/min (>60); Globulin 3.7 g/dL (1.7-4.1); Glucose 98 mg/dL (70-99); HEMOLYSIS 20 (0-50); Lipase 65 U/L (23-300); Magnesium 1.8 mg/dL (1.6-2.3); Potassium 4.0 mmol/L (3.4-5.1); Sodium 139 mmol/L (137-145); Total Protein 8.2 g/dL (6.3-8.2)
[2025-04-09 16:12] LABS: Lactate (Lactic Acid) 0.8 mmol/L (0.7-2.1)
[2025-04-09 16:22] LABS: Troponin I < 0.012 ng/mL (0.01-0.034)
[2025-04-09] MEDS: LIDOCAINE 2% (GLYDO) 6 ML GEL TOP (18:30)
== END 2025-04-09 19:35 | disposition home or self-care (01) ==
PROVIDERS: Emergency Provider Physician Assistant; Family Provider Internal Medicine; PCP Internal Medicine
DX: K40.90 Unilateral inguinal hernia, without obstruction or gangrene, not specified as recurrent (principal); N39.0 Urinary tract infection, site not specified; I10 Essential (primary) hypertension
CPT/HCPCS: 36415; 51798; 74177; 80053; 81003; 82550; 82962; 83605; 83690; 83735; 84484; 85025; 93005; 93010; 96361; 96374; 96375; 99284; J2405; J3010; J7030; Q9967

== ENCOUNTER → 2025-04-14 14:55 | Outpatient (CLI) | payer MEDICARE, OTHER, SELFPAY ==
[2025-04-11 08:23] VITALS: BMI 25.0
== END ==
PROVIDERS: Family Provider Internal Medicine; PCP Internal Medicine; Visit Provider Urology
DX: R33.8 Other retention of urine (principal)
CPT/HCPCS: 87086

== ENCOUNTER → 2025-06-09 15:30 | Outpatient (CLI) | payer MEDICARE, OTHER, SELFPAY ==
[2025-04-11 08:23] VITALS: BMI 25.0
--- NOTE | 2025-06-09 15:33 | DI.US.S_ITS ---
PROCEDURE: US RENAL COMPLETE INDICATIONS: 74 y/o M w/ bilateral hydroureter, please eval TECHNIQUE: Real-time scanning was performed of the kidneys and bladder, with image documentation. COMPARISON: [facility], , RENAL COMPLETE, 07/05/2024, 7:51. FINDINGS: Kidneys: Kidneys are normal in size. Right kidney measures 8.9 cm long; left kidney measures 9.2 cm long. Right renal cortical thickness is 1.3 cm; left renal cortical thickness is 1.1 cm. Renal cortical echotexture is diffusely increased. No hydronephrosis or nephrolithiasis. No suspicious solid mass lesions. Bladder: Pre-void bladder volume is 152 mL. Patient was unable to void. Pre- void images demonstrate no intraluminal masses or stones. On pre-void images, both ureteral jets are noted with color Doppler interrogation. (Of note, ureteral jets may not be detectable in up to 25% of cases due to insufficient differences in specific gravity between ureteral and bladder urine). Miscellaneous: No free pelvic fluid. IMPRESSION: Bilateral renal increased renal cortical echogenicity consistent with medical renal disease. No hydronephrosis or nephrolithiasis. Patient unable to void with bladder volume of 152 cc. Dictated by: Kraig White M.D. on 06/10/2025 at 15:13 Approved by: Kraig White M.D. on 06/10/2025 at 15:14
== END ==
LOC: US 15:32
PROVIDERS: Family Provider Internal Medicine; PCP Internal Medicine; Referring Provider Internal Medicine; Visit Provider Urology
DX: N40.1 Benign prostatic hyperplasia with lower urinary tract symptoms (principal); N13.8 Other obstructive and reflux uropathy; R33.8 Other retention of urine
CPT/HCPCS: 76770